=== PATIENT | female | born 1945 | race African-American/Black ===

== ENCOUNTER → 2016-10-27 | Outpatient (CLI) | payer MEDICAID, MEDICARE ==
[~2016-10-27] MED LIST: ASPIR-LOW81 MG PO; ATORVASTATIN CA10 MG ORAL; DEXILANT60 MG ORAL; DILTIAZEM ER420 MG PO; MAXIDE ORAL; METOPROLOL SUCC50 MG ORAL; MICROZIDE12.5 M1 PO; VANCOMYCIN HCL125 MG PO; VASOTEC2.5 MG PO
[2016-10-27 13:32] LABS: BASOPHILS % (AUTO) 1.2 % (0.0-2.0); LYMPHOCYTES % (AUTO) 27.4 % (20.0-45.0); MEAN CORPUSCULAR HGB CONC 32.6 G/DL (32.0-36.0); MEAN CORPUSCULAR VOLUME 101 FL (80-99); MEAN PLATELET VOLUME 6.8 FL (6.5-10.1); MONOCYTES % (AUTO) 8.1 % (1.0-10.0); NEUTROPHILS % (AUTO) 62.4 % (45.0-75.0); PLATELET COUNT 258 K/UL (150-450); RED BLOOD COUNT 4.06 M/UL (4.20-5.40); RED CELL DISTRIBUTION WIDTH 11.2 % (11.6-14.8); WHITE BLOOD COUNT 4.2 K/UL (4.8-10.8)
[2016-10-27 13:48] LABS: HEMOGLOBIN A1C 5.1 % (< 6.0)
[2016-10-27 13:59] LABS: ALANINE AMINOTRANSFERASE 15 U/L (3-33); ALBUMIN/GLOBULIN RATIO 1.3 (1.0-2.7); ANION GAP 15 (5-15); ASPARTATE AMINO TRANSFERASE 18 U/L (5-40); CALCIUM 9.8 mg/dL (8.6-10.2); CARBON DIOXIDE 25 mEQ/L (20-30); CHLORIDE 102 mEQ/L (98-107); CHOLESTEROL 155 mg/dL (< 200); CHOLESTEROL/HDL RATIO 3.3 (3.3-4.4); CREATININE 1.3 mg/dL (0.5-0.9); GLOMERULAR FILTRATION RATE 49.1 mL/min (>60); HEMOLYSIS 3; LDL CHOLESTEROL (CALC.) 92 mg/dL (60-99); POTASSIUM 3.5 mEQ/L (3.4-4.9); SODIUM 142 mEQ/L (135-145); TOTAL PROTEIN 7.6 g/dL (6.6-8.7)
[2016-10-27 14:05] LABS: THYROID STIMULATING HORMONE 0.781 uIU/mL (0.300-4.500)
[2016-10-28 08:10] LABS: RHEUMATOID FACTOR SCREEN <10.0 IU/mL (0.0-13.9)
[2016-10-28 17:10] LABS: ANTI-NUCLEAR ANTIBODY SCREEN Negative (Negative)
[2016-10-29 18:08] LABS: ALDOLASE 5.3 U/L (3.3-10.3)
[2016-10-30 18:09] LABS: CYCLIC CITRULLINATE PEPTIDE AB 10 units (0-19)
== END | disposition home or self-care (01) ==
LOC: LAB 12:29
PROVIDERS: ATTEND Internal Medicine Rheumatology
DX: I10 Essential (primary) hypertension (principal); K57.92 Diverticulitis of intestine, part unspecified, without perforation or abscess without bleeding; M25.50 Pain in unspecified joint
CPT/HCPCS: 36415; 80053; 80061; 82085; 82550; 83036; 84436; 84443; 85025; 86039; 86200; 86431

== ENCOUNTER → 2016-12-15 | Outpatient (CLI) | payer MEDICARE, MEDICAID ==
[2016-12-15 13:04] LABS: BASOPHILS % (AUTO) 1.3 % (0.0-2.0); EOSINOPHILS % (AUTO) 0.5 % (0.0-3.0); LYMPHOCYTES % (AUTO) 24.2 % (20.0-45.0); MEAN CORPUSCULAR HGB CONC 32.8 G/DL (32.0-36.0); MEAN CORPUSCULAR VOLUME 104 FL (80-99); MEAN PLATELET VOLUME 6.7 FL (6.5-10.1); MONOCYTES % (AUTO) 8.1 % (1.0-10.0); NEUTROPHILS % (AUTO) 65.9 % (45.0-75.0); PLATELET COUNT 284 K/UL (150-450); RED BLOOD COUNT 4.09 M/UL (4.20-5.40); RED CELL DISTRIBUTION WIDTH 11.8 % (11.6-14.8)
[2016-12-15 13:38] LABS: ALANINE AMINOTRANSFERASE 13 U/L (3-33); ALBUMIN/GLOBULIN RATIO 1.2 (1.0-2.7); ANION GAP 17 (5-15); ASPARTATE AMINO TRANSFERASE 16 U/L (5-40); CALCIUM 10.4 mg/dL (8.6-10.2); CARBON DIOXIDE 27 mEQ/L (20-30); CHLORIDE 97 mEQ/L (98-107); CREATININE 1.3 mg/dL (0.5-0.9); GLOMERULAR FILTRATION RATE 49.1 mL/min (>60); HEMOLYSIS 2; POTASSIUM 3.6 mEQ/L (3.4-4.9); SODIUM 141 mEQ/L (135-145); TOTAL PROTEIN 8.1 g/dL (6.6-8.7)
[2016-12-15 13:40] LABS: HEMOGLOBIN A1C 4.9 % (< 6.0)
== END | disposition home or self-care (01) ==
LOC: LAB 11:31
PROVIDERS: ATTEND Internal Medicine Rheumatology
DX: J44.9 Chronic obstructive pulmonary disease, unspecified (principal); K21.9 Gastro-esophageal reflux disease without esophagitis; I10 Essential (primary) hypertension; M19.90 Unspecified osteoarthritis, unspecified site
CPT/HCPCS: 36415; 80053; 82085; 82550; 83036; 85025; 86812; 87086; 87181

== ENCOUNTER → 2017-01-03 | Outpatient (CLI) | payer MEDICARE, MEDICAID ==
--- NOTE | 2017-01-03 14:27 | Diagnostic Imaging Report ---
Indications: Abdominal pain and vomiting Technique: Transabdominal real-time grayscale and duplex Doppler imaging of the upper abdomen and retroperitoneum was performed. Findings: Comparison: Abdominopelvic CT scan 04/04/16. Liver normal size and surface contour, parenchymal echogenicity. No focal lesions. Gallbladder unremarkable. No intraluminal stones or sludge. No mural thickening or adjacent fluid collections. Sonographic Marquez sign not reported.. Bile ducts normal caliber. Common bile duct 5 mm. Pancreas head and body unremarkable; tail obscured. Spleen unremarkable. Right kidney unremarkable. Left kidney contains 16 mm circumscribed anechoic masses emanating from upper pole cortex, otherwise unremarkable. Proximal and mid abdominal aorta, intrahepatic portion of inferior vena cava patent, normal caliber. Distal bowel aorta obscured by bowel gas. Duplex Doppler imaging demonstrates antegrade flow in splenic, portal, hepatic veins. No ascites. IMPRESSION: Pancreatic tail, distal bowel aorta obscured Left renal cortical cyst Otherwise negative abdominal ultrasound.
== END | disposition home or self-care (01) ==
LOC: ULS 09:06
DX: R10.9 Unspecified abdominal pain (principal); R11.10 Vomiting, unspecified; N28.1 Cyst of kidney, acquired; I49.9 Cardiac arrhythmia, unspecified
CPT/HCPCS: 76700; 93225; 93226

== ENCOUNTER 2017-03-01 12:54 | Emergency (ER) | payer MEDICARE, MEDICAID ==
[~2017-03-01] VITALS: Ht 162.6 cm; Wt 84.8 kg
[2017-03-01] MEDS ORDERED: Pantoprazole Inj IV ONE (13:30)
[2017-03-01 14:02] LABS: APPEARANCE,URINE CLEAR; KETONES,URINE NEGATIVE (NEGATIVE); LEUKOCYTE ESTERASE ,URINE 1+ (NEGATIVE); NITRITE,URINE NEGATIVE (NEGATIVE); PH,URINE 7 (4.5-8.0); PROTEIN,URINE NEGATIVE (NEGATIVE); UROBILINOGEN,URINE NORMAL MG/DL (0.0-1.0)
[2017-03-01 14:10] LABS: BASOPHILS % (AUTO) 1.4 % (0.0-2.0); EOSINOPHILS % (AUTO) 0.5 % (0.0-3.0); LYMPHOCYTES % (AUTO) 26.5 % (20.0-45.0); MEAN CORPUSCULAR HEMOGLOBIN 33.9 PG (27.0-31.0); MEAN CORPUSCULAR HGB CONC 33.4 G/DL (32.0-36.0); MEAN CORPUSCULAR VOLUME 102 FL (80-99); MEAN PLATELET VOLUME 6.4 FL (6.5-10.1); MONOCYTES % (AUTO) 6.9 % (1.0-10.0); NEUTROPHILS % (AUTO) 64.7 % (45.0-75.0); PLATELET COUNT 267 K/UL (150-450); RED BLOOD COUNT 4.14 M/UL (4.20-5.40); RED CELL DISTRIBUTION WIDTH 11.6 % (11.6-14.8); WHITE BLOOD COUNT 4.8 K/UL (4.8-10.8)
[2017-03-01 14:16] LABS: BACTERIA,URINE OCCASIONAL /HPF; RBC,URINE 0-2 /HPF (0 - 2); SQUAMOUS EPITHELIAL CELL,UR FEW /LPF (NONE/OCC); WBC,URINE 0-2 /HPF (0 - 2)
[2017-03-01 14:36] LABS: ALANINE AMINOTRANSFERASE 20 U/L (3-33); ALBUMIN/GLOBULIN RATIO 1.4 (1.0-2.7); ANION GAP 15 (5-15); ASPARTATE AMINO TRANSFERASE 27 U/L (5-40); CALCIUM 10.3 mg/dL (8.6-10.2); CARBON DIOXIDE 25 mEQ/L (20-30); CHLORIDE 99 mEQ/L (98-107); CREATININE 1.2 mg/dL (0.5-0.9); HEMOLYSIS 5; LIPASE 25 U/L (< 60); POTASSIUM 3.3 mEQ/L (3.4-4.9); SODIUM 139 mEQ/L (135-145); TOTAL PROTEIN 7.5 g/dL (6.6-8.7)
[2017-03-01 14:38] LABS: TROPONIN I < 0.30 ng/mL (<=0.30)
[2017-03-01] MEDS: Morphine Sulfate 4mg/ml Inj IVP ONE ×2 (14:42→17:37)
[2017-03-01] MEDS ORDERED: Sodium Bicarbonate 4% 2.4meq/5ml vial IV ONE (14:45)
[2017-03-01] MEDS ORDERED: Heparin 2000 units/Ns 1000ml INJ ONE (14:45)
[2017-03-01] MEDS ORDERED: Morphine Sulfate 4mg/ml Inj IM ONE (14:45)
[2017-03-01] MEDS ORDERED: Lidocaine 1% Plain 30 ml INJ ONE (14:45)
[2017-03-01 14:47] VITALS: BP 144/61
[2017-03-01 14:47] LABS: CKMB < 1.5 ng/mL (< 3.8)
[2017-03-01 14:58] LABS: BILIRUBIN,DIRECT 0.3 mg/dL (0.1-0.3)
--- NOTE | 2017-03-01 15:24 | Emergency Room Report ---
History of Present Illness General Chief Complaint: Abdominal Pain Source: Patient (EDINSON MATTA M.D.) Present Illness HPI 72-year-old female presents ED for evaluation. Patient was referred here from GI office for workup. Patient has history of ulcerative colitis diverticulitis. Patient states her last week she's been having abdominal pain with vomiting. Notes blood in the stool. The pain is a 10 out of 10, sharp, nonradiating. Denies fevers chills. Denies chest pain shortness of breath. Denies any blood thinners. No other aggravating relieving factors. Denies any other associated symptoms (EDINSON MATTA M.D.) Allergies: Coded Allergies: CODEINE (Verified Adverse Reaction, Mild, 11/02/12) nausea Patient History Past Medical History: DM, HTN, asthma, COPD, other - diverticulitis, ulcerative coliits Past Surgical History: none Pertinent Family History: none Social History: Denies: alcohol use, drug use, smoking Now: No Immunizations: UTD Reviewed Nursing Documentation: PMH: Agreed, PSxH: Agreed (EDINSON MATTA M.D.) Nursing Documentation-PMH Past Medical History: No History, Except For Hx Hypertension: Yes Hx Pacemaker: No Hx Asthma: Yes Hx COPD: Yes Hx Diabetes: Yes - controlled Hx Cancer: No Hx Gastrointestinal Problems: Yes - diverticulitis, ulcerative colitis Hx Dialysis: No Hx Neurological Problems: No Hx Cerebrovascular Accident: No Hx Seizures: Yes - 2 years ago (EDINSON MATTA M.D.) Review of Systems All Other Systems: negative except mentioned in HPI (EDINSON MATTA M.D.) Physical Exam Vital Signs Date Time Temp Pulse Resp B/P Pulse Ox O2 Delivery O2 Flow Rate FiO2 03/01/17 13:06 97.7 83 18 145/82 100 Room Air Sp02 EP Interpretation: reviewed, normal General Appearance: no apparent distress, alert, GCS 15, non-toxic Head: normocephalic, atraumatic Eyes: bilateral eye PERRL, bilateral eye normal inspection ENT: hearing grossly normal, normal pharynx, no angioedema, normal voice Neck: full range of motion, supple/symm/no masses Respiratory: chest non-tender, lungs clear, normal breath sounds, speaking full sentences Cardiovascular #1: regular rate, rhythm, no edema Cardiovascular #2: 2+ carotid (R), 2+ carotid (L), 2+ radial (R), 2+ radial (L) , 2+ dorsalis pedis (R), 2+ dorsalis pedis (L) Gastrointestinal: normal bowel sounds, soft, non-distended, no guarding, no rebound, tenderness Rectal: deferred Genitourinary: normal inspection, no CVA tenderness Musculoskeletal: back normal, gait/station normal, normal range of motion, non- tender Neurologic: alert, oriented x3, responsive, motor strength/tone normal, sensory intact, speech normal Psychiatric: judgement/insight normal, memory normal, mood/affect normal, no suicidal/homicidal ideation Reflexes: 3+ bicep (R), 3+ bicep (L), 3+ tricep (R), 3+ tricep (L), 3+ knee (R) , 3+ knee (L) Skin: normal color, no rash, warm/dry, well hydrated Lymphatic: no adenopathy (EDINSON MATTA M.D.) Medical Decision Making Diagnostic Impression: Primary Impression: Abdominal pain Qualified Codes: R10.84 - Generalized abdominal pain Labs Test 03/01/17 13:30 03/01/17 14:00 Urine Color Yellow Urine Appearance Clear Urine pH 7 (4.5-8.0) Urine Specific Donora 1.005 (1.005-1.035) Urine Protein Negative (NEGATIVE) Urine Glucose (UA) Negative (NEGATIVE) Urine Ketones Negative (NEGATIVE) Urine Occult Blood Negative (NEGATIVE) Urine Nitrite Negative (NEGATIVE) Urine Bilirubin Negative (NEGATIVE) Urine Urobilinogen Normal MG/DL (0.0-1.0) Urine Leukocyte Esterase 1+ (NEGATIVE) Urine RBC 0-2 /HPF (0 - 2) Urine WBC 0-2 /HPF (0 - 2) Urine Squamous Epithelial Cells Few /LPF (NONE/OCC) Urine Bacteria Occasional /HPF (NONE) White Blood Count 4.8 K/UL (4.8-10.8) Red Blood Count 4.14 M/UL (4.20-5.40) Hemoglobin 14.0 G/DL (12.0-16.0) Hematocrit 42.1 % (37.0-47.0) Mean Corpuscular Volume 102 FL (80-99) Mean Corpuscular Hemoglobin 33.9 PG (27.0-31.0) Mean Corpuscular Hemoglobin Concent 33.4 G/DL (32.0-36.0) Red Cell Distribution Width 11.6 % (11.6-14.8) Platelet Count 267 K/UL (150-450) Mean Platelet Volume 6.4 FL (6.5-10.1) Neutrophils (%) (Auto) 64.7 % (45.0-75.0) Lymphocytes (%) (Auto) 26.5 % (20.0-45.0) Monocytes (%) (Auto) 6.9 % (1.0-10.0) Eosinophils (%) (Auto) 0.5 % (0.0-3.0) Basophils (%) (Auto) 1.4 % (0.0-2.0) Prothrombin Time 10.0 SEC (9.30-11.50) Prothromb Time International Ratio 1.0 (0.9-1.1) Activated Partial Thromboplast Time 26 SEC (23-33) Sodium Level 139 mEQ/L (135-145) Potassium Level 3.3 mEQ/L (3.4-4.9) Chloride Level 99 mEQ/L (98-107) Carbon Dioxide Level 25 mEQ/L (20-30) Anion Gap 15 (5-15) Blood Urea Nitrogen 19 mg/dL (7-23) Creatinine 1.2 mg/dL (0.5-0.9) Estimat Glomerular Filtration Rate mL/min (>60) Glucose Level 99 mg/dL (74-106) Calcium Level 10.3 mg/dL (8.6-10.2) Total Bilirubin 1.4 mg/dL (0.0-1.2) Direct Bilirubin 0.3 mg/dL (0.1-0.3) Aspartate Amino Transf (AST/SGOT) 27 U/L (5-40) Alanine Aminotransferase (ALT/SGPT) 20 U/L (3-33) Alkaline Phosphatase 83 U/L (35-104) Creatine Kinase MB < 1.5 ng/mL (< 3.8) Troponin I < 0.30 ng/mL (<=0.30) Total Protein 7.5 g/dL (6.6-8.7) Albumin 4.4 g/dL (3.5-5.2) Globulin 3.1 g/dL Albumin/Globulin Ratio 1.4 (1.0-2.7) Lipase 25 U/L (< 60) (EDINSON MATTA M.D.) ER Course Received signout from Dr Matta to followup CTAP No acute findings on CT I reviewed labs: no leuks. H&H stable. 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 03/01/17 Neomycin Sulfate (Neomycin Sulfate) 500 Mg Tablet 500 MG ORAL BID for 10 Days, #20 TAB Prov: JORGE NGUYEN M.D. 03/01/17 Referrals: GILDARDO PA (PCP) EDINSON MATTA M.D. March 01, 2017 15:24 JORGE NGUYEN M.D. March 01, 2017 17:08
[2017-03-01 16:20] VITALS: BP 158/67
--- NOTE | 2017-03-01 16:23 | Diagnostic Imaging Report ---
Indication: Abdominal pain Technique: Continuous helical transaxial imaging of the abdomen and pelvis was obtained from the lung bases to the pubic symphysis during intravenous contrast administration. Coronal 2-D reformats were also obtained. Study obtained in a Siemens sensation [address] Total Dose length Product (DLP): [address] Dose Index Volume (CTDIvol): 18 mGy Comparison: None Findings: The lung bases are clear. There is a small hiatal hernia. 6 mm central cyst noted in the liver. Gallbladder is grossly unremarkable. Bilateral renal cysts are present. In the midpole the right kidney there is a heterogeneous 1.6 earlier hypodense mass with suggestion of enhancement (image 31, series 3). Followup multiphase CT is recommended to evaluate for renal cell carcinoma. Approximately 1 cm indeterminate hypodensity noted in the lower pole the left kidney (image 37, series 3). Arterial vascular calcifications are present. The pancreas, spleen, both adrenal glands are unremarkable. There is ventral hernia containing fat noted just above the umbilicus. Diverticula are noted within the colon. There is no definite diverticulitis appreciated. Uterus is noted. The appendix is not definite seen but there are no secondary signs of appendicitis. Urinary bladder is unremarkable. There is no free fluid or free air identified. Impression: No acute findings identified. Incidental 1.6 cm mass probably enhancing in the midpole the right kidney. Followup multiphase CT of the kidneys is recommended. Indeterminate 1 cm hypodensity in the lower pole the left kidney. This is probably a cyst but recommend further evaluation. Diverticulosis of the colon. Fatty liver Liver cyst Bilateral renal cysts Small hiatal hernia Small supraumbilical ventral hernia. Atherosclerotic vascular disease The CT scanner at [facility] is accredited by the [employer] and the scans are performed using dose optimization techniques as appropriate to a performed exam including Automatic Exposure control.
--- NOTE | 2017-03-01 16:27 | Diagnostic Imaging Report ---
Indication: intermodal dispatcher venous access Findings: After the indications, procedure, risks, complications, and alternatives of the procedure were explained, written informed consent was obtained. The left upper extremity was prepped with alcohol. All elements of maximal sterile barrier technique were followed including usage of a cap, mask, sterile gown, sterile gloves, hand hygiene and a large sterile sheet. Sonographic evaluation of the upper extremity was performed demonstrating a patent and compressible basilic vein. Access was obtained under real-time ultrasound guidance and digital image was saved and archived. An .018 wire was introduced. Needle exchanged for a 5 [place] peel-away sheath. Measurements were obtained. A 5 [place] dual-lumen Power PICC line catheter was cut to 42 cm and introduced over the wire. Peel-away sheath and wire were removed.Catheter was secured to the skin using 2-0 Prolene suture. Both ports aspirate and flush easily. Fluoroscopic Images show distal tip in the superior vena cava. Total fluoroscopic time 0.2 minutes Impression: Successful placement of an upper extremity PICC line catheter
[2017-03-01] MEDS ORDERED: NEOMYCIN SULFA500 MG ORAL (17:06)
[2017-03-01] MEDS ORDERED: FLAGYL250 MG ORAL (17:06)
[2017-03-01 18:41] VITALS: BP 139/69
== END 2017-03-01 18:43 | disposition home or self-care (01) ==
LOC: EMR 13:51 → EDBEDREQ 16:34 → CANBEDREQ 17:05 → EMR 18:43
DX: R10.9 Unspecified abdominal pain (principal); R11.10 Vomiting, unspecified; I10 Essential (primary) hypertension; J44.9 Chronic obstructive pulmonary disease, unspecified; E11.9 Type 2 diabetes mellitus without complications; Z87.19 Personal history of other diseases of the digestive system; K76.0 Fatty (change of) liver, not elsewhere classified; K57.30 Diverticulosis of large intestine without perforation or abscess without bleeding; K43.9 Ventral hernia without obstruction or gangrene; N28.1 Cyst of kidney, acquired; K44.9 Diaphragmatic hernia without obstruction or gangrene; Z88.6 Allergy status to analgesic agent
CPT/HCPCS: 36415; 36569; 74177; 76937; 80053; 81003; 82248; 82553; 83690; 84484; 85025; 85610; 85730; 86850; 86900; 86901; 96360; 96372; 96374; 96375; 99284; C9113; J1644; J2001; J2270; J7040; Q9967

== ENCOUNTER → 2017-04-24 | Outpatient (CLI) | payer MEDICARE, MEDICAID ==
[~2017-04-24] MED LIST changes: +FLAGYL250 MG ORAL; +NEOMYCIN SULFA500 MG ORAL
--- NOTE | 2017-04-24 14:35 | Diagnostic Imaging Report ---
Indication: Back pain Technique: MRI examination of the Lumbar spine was performed in a 1.5 Sasha magnet. Sequences obtained include sagittal and axial T1 and T2 fast spin echo, and sagittal STIR. No IV gadolinium was given Comparison: none Findings: The conus medullaris tip is noted at about the level of the inferior endplate of the L2 vertebra. The final terminale is prominent and shows fatty signal spanning 4-5 cm consistent with fatty filum terminale. Fatty filum terminale is usually an incidental finding. However, given the low lying conus medullaris tip, one should consider the possibility of tethered cord syndrome. Clinical evaluation is needed. Alignment and bone marrow signal are normal. There is fairly well maintained signal and height of the lumbar vertebra with only minimal narrowing noted. There is no disc herniation or neural impingement. There is no evidence of spinal stenosis, lateral recess stenosis or neural foraminal narrowing. Mild hypertrophy of the lumbar facets demonstrated at multiple levels, worst at L4-5 consistent with facet osteoarthritis. 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 Clinical evaluation is recommended. Mild degenerative changes as discussed above.
--- NOTE | 2017-04-24 16:34 | Diagnostic Imaging Report ---
Indication: Neck pain Technique: MRI examination of the cervical spine was performed in a 1.5 Sasha magnet. Sequences obtained include sagittal and axial T1 and T2 fast spin echo, and sagittal STIR. No IV gadolinium was given Comparison: none Findings: There is no bone marrow edema or evidence of acute injury or fracture. Desiccation and narrowing of multiple intervertebral discs noted. Associated marginal endplate spurs are also present. Foramen magnum is unremarkable. There is no Chiari malformation. C1-2 is unremarkable. C2-3 is unremarkable. There is moderate disc disease with desiccation and narrowing, endplate and uncovertebral spurring at C3-4, C4-5, C5-6 and C6-7. There degrees of foraminal stenosis secondary to uncovertebral arthritis demonstrated. There is no central spinal stenosis. Spinal cord appears normal. C3-4: Mild foraminal stenosis demonstrated bilaterally. C4-5: Mild retrolisthesis demonstrated. Minimal foraminal stenosis demonstrated. C5-6: Moderate left foraminal stenosis and mild right foraminal stenosis. C6-7: Mild left foraminal stenosis demonstrated. C7-T1 is unremarkable. Impression: Degenerative spondylosis with multilevel disc disease, uncovertebral arthritis resulting in neural foraminal stenosis of varying degrees at C3-4 through C6-7 as discussed above. No central spinal stenosis. No evidence of acute injury
== END | disposition home or self-care (01) ==
LOC: MRI 10:01
DX: M54.2 Cervicalgia (principal); M50.322 Other cervical disc degeneration at C5-C6 level; M54.5 Low back pain; G62.9 Polyneuropathy, unspecified
CPT/HCPCS: 72141; 72148

== ENCOUNTER 2017-06-28 11:45 | Outpatient (CLI) | payer MEDICARE, MEDICAID ==
[2017-06-28 13:11] LABS: ALANINE AMINOTRANSFERASE 11 U/L (3-33); ALBUMIN/GLOBULIN RATIO 1.4 (1.0-2.7); ANION GAP 11 (5-15); ASPARTATE AMINO TRANSFERASE 16 U/L (5-40); BASOPHILS % (AUTO) 1.1 % (0.0-2.0); CALCIUM 9.7 mg/dL (8.6-10.2); CARBON DIOXIDE 27 mEQ/L (20-30); CHLORIDE 101 mEQ/L (98-107); CREATININE 1.1 mg/dL (0.5-0.9); EOSINOPHILS % (AUTO) 0.4 % (0.0-3.0); LACTATE DEHYDROGENASE 158 U/L (135-230); LYMPHOCYTES % (AUTO) 23.3 % (20.0-45.0); MEAN CORPUSCULAR HEMOGLOBIN 35.1 PG (27.0-31.0); MEAN CORPUSCULAR HGB CONC 33.7 G/DL (32.0-36.0); MEAN CORPUSCULAR VOLUME 104 FL (80-99); MEAN PLATELET VOLUME 6.4 FL (6.5-10.1); MONOCYTES % (AUTO) 6.2 % (1.0-10.0); PLATELET COUNT 299 K/UL (150-450); POTASSIUM 3.7 mEQ/L (3.4-4.9); RED BLOOD COUNT 3.84 M/UL (4.20-5.40); RED CELL DISTRIBUTION WIDTH 11.3 % (11.6-14.8); SODIUM 139 mEQ/L (135-145); TOTAL PROTEIN 7.1 g/dL (6.6-8.7); WHITE BLOOD COUNT 4.8 K/UL (4.8-10.8)
[2017-06-28 13:24] LABS: FERRITIN 180 ng/mL (13-150)
[2017-06-28 13:38] LABS: HEMOLYSIS 0; IRON 44 ug/dL (37-145); TOTAL IRON BINDING CAPACITY 246 ug/dL (250-400)
[2017-06-28 14:04] LABS: RETICULOCYTE COUNT 1.5 % (0.0-2.0)
[2017-06-29 10:14] LABS: CA 27.29 13.7 U/mL (0.0-38.6)
[2017-06-29 15:12] LABS: A/G RATIO 1.4 (0.7-1.7); ABNORMAL PROTEIN BAND 1 Not Observed g/dL (Not Observed); ALBUMIN 4.2 g/dL (2.9-4.4); ALPHA-1 GLOBULIN 0.2 g/dL (0.0-0.4); ALPHA-2 GLOBULIN 0.5 g/dL (0.4-1.0); BETA GLOBULIN 0.8 g/dL (0.7-1.3); GAMMA GLOBULIN 1.3 g/dL (0.4-1.8); GLOBULIN, TOTAL 2.9 g/dL (2.2-3.9); IMMUNOGLOBULIN A 208 mg/dL (64-422); IMMUNOGLOBULIN G 1228 mg/dL (700-1600); IMMUNOGLOBULIN M 65 mg/dL (26-217); TOTAL PROTEIN 7.1 g/dL (6.0-8.5)
[2017-07-03 15:09] LABS: CA 125 7.1 U/mL (0.0-38.1); CA15-3 11.9 U/mL (0.0-25.0); HEMOGLOBIN A 97.6 % (94.0-98.0); HEMOGLOBIN A2 2.4 % (0.7-3.1); IMMUNOGLOBULIN E 18 IU/mL (0-100)
== END 2017-06-28 13:45 | disposition home or self-care (01) ==
LOC: LAB 11:45
DX: G62.9 Polyneuropathy, unspecified (principal)
CPT/HCPCS: 36415; 80053; 82232; 82378; 82607; 82728; 82746; 82784; 82785; 83010; 83020; 83540; 83550; 83615; 84165; 84436; 84443; 84480; 85025; 85044; 86300; 86301; 86304; 86334; 86703; 86705; 86709; 86803; 87340

== ENCOUNTER → 2017-06-30 | Outpatient (CLI) | payer MEDICARE, MEDICAID ==
[2017-06-30 12:27] LABS: BASOPHILS % (AUTO) 1.8 % (0.0-2.0); EOSINOPHILS % (AUTO) 0.6 % (0.0-3.0); LYMPHOCYTES % (AUTO) 28.7 % (20.0-45.0); MEAN CORPUSCULAR HEMOGLOBIN 35.5 PG (27.0-31.0); MEAN CORPUSCULAR HGB CONC 33.7 G/DL (32.0-36.0); MEAN CORPUSCULAR VOLUME 105 FL (80-99); MEAN PLATELET VOLUME 6.4 FL (6.5-10.1); MONOCYTES % (AUTO) 8.4 % (1.0-10.0); NEUTROPHILS % (AUTO) 60.6 % (45.0-75.0); PLATELET COUNT 303 K/UL (150-450); RED BLOOD COUNT 3.75 M/UL (4.20-5.40); RED CELL DISTRIBUTION WIDTH 11.2 % (11.6-14.8); WHITE BLOOD COUNT 4.1 K/UL (4.8-10.8)
[2017-06-30 13:15] LABS: ALANINE AMINOTRANSFERASE 11 U/L (3-33); ALBUMIN/GLOBULIN RATIO 1.3 (1.0-2.7); ANION GAP 14 (5-15); ASPARTATE AMINO TRANSFERASE 17 U/L (5-40); CARBON DIOXIDE 28 mEQ/L (20-30); CHLORIDE 100 mEQ/L (98-107); CREATININE 1.2 mg/dL (0.5-0.9); HEMOLYSIS 6; POTASSIUM 3.6 mEQ/L (3.4-4.9); SODIUM 142 mEQ/L (135-145); TOTAL PROTEIN 7.6 g/dL (6.6-8.7)
[2017-06-30 13:25] LABS: THYROID STIMULATING HORMONE 0.673 uIU/mL (0.300-4.500)
[2017-07-03 15:09] LABS: ANTI-NUCLEAR ANTIBODY SCREEN Negative (Negative)
[2017-07-03 17:10] LABS: VITAMIN D 25-OH TOTAL 25 ng/mL (.)
== END | disposition home or self-care (01) ==
LOC: LAB 11:24
DX: G62.9 Polyneuropathy, unspecified (principal)
CPT/HCPCS: 36415; 80053; 82306; 82607; 84443; 85025; 86039; 86592

== ENCOUNTER 2017-07-26 12:00 | Outpatient (CLI) | payer MEDICARE, MEDICAID ==
[2017-07-26 12:41] LABS: MEAN CORPUSCULAR HEMOGLOBIN 35.7 PG (27.0-31.0); MEAN CORPUSCULAR HGB CONC 33.1 G/DL (32.0-36.0); MEAN CORPUSCULAR VOLUME 108 FL (80-99); MEAN PLATELET VOLUME 6.3 FL (6.5-10.1); PLATELET COUNT 235 K/UL (150-450); RED BLOOD COUNT 3.42 M/UL (4.20-5.40); RED CELL DISTRIBUTION WIDTH 11.7 % (11.6-14.8); WHITE BLOOD COUNT 3.3 K/UL (4.8-10.8)
[2017-07-26 12:49] LABS: INR 0.9 (0.9-1.1); PROTHROMBIN TIME 9.4 SEC (9.30-11.50)
[2017-07-26 13:09] LABS: ALANINE AMINOTRANSFERASE 22 U/L (12-78); ANION GAP 7 mmol/L (5-15); ASPARTATE AMINO TRANSFERASE 17 U/L (15-37); BILIRUBIN,DIRECT 0.1 MG/DL (0.0-0.3); CALCIUM 9.3 MG/DL (8.5-10.1); CARBON DIOXIDE 29 MMOL/L (21-32); CHLORIDE 107 MMOL/L (98-107); CREATININE 1.4 MG/DL (0.55-1.30); SODIUM 143 MMOL/L (136-145); THYROID STIMULATING HORMONE 1.194 uiU/mL (0.360-3.740); TOTAL PROTEIN 7.2 G/DL (6.4-8.2)
[2017-07-26 14:13] LABS: BAND NEUTROPHILS % (MANUAL) 0 % (0-8); BASOPHILS % (MANUAL) 1 % (0-2); EOSINOPHILS % (MANUAL) 2 % (0-3); LYMPHOCYTES % (MANUAL) 35 % (20-45); MACROCYTES 1+; NEUTROPHILS % (MANUAL) 56 % (45-75); PLATELET ESTIMATE ADEQUATE; PLATELET MORPHOLOGY NORMAL; TOTAL CELLS COUNTED 100
[2017-07-27 09:23] LABS: CA 27.29 15.6 U/mL (0.0-38.6)
[2017-07-28 08:36] LABS: CA 125 5.9 U/mL (0.0-38.1); CA15-3 11.8 U/mL (0.0-25.0)
== END 2017-07-26 14:00 | disposition home or self-care (01) ==
LOC: LLL 12:00 → LAB 12:00 → LLL 14:00
DX: G62.9 Polyneuropathy, unspecified (principal)
CPT/HCPCS: 36415; 80048; 80076; 82784; 84436; 84443; 85007; 85025; 85610; 85730; 86300; 86301; 86304

== ENCOUNTER 2017-08-30 14:33 | Outpatient (CLI) | payer MEDICARE, MEDICAID ==
[2017-08-30 15:51] LABS: ALANINE AMINOTRANSFERASE 23 U/L (12-78); ANION GAP 11 mmol/L (5-15); ASPARTATE AMINO TRANSFERASE 19 U/L (15-37); BILIRUBIN,DIRECT 0.2 MG/DL (0.0-0.3); CALCIUM 9.9 MG/DL (8.5-10.1); CARBON DIOXIDE 28 MMOL/L (21-32); CHLORIDE 103 MMOL/L (98-107); CREATININE 1.6 MG/DL (0.55-1.30); FERRITIN 139 NG/ML (8-388); POTASSIUM 3.6 MMOL/L (3.5-5.1); SODIUM 142 MMOL/L (136-145); TOTAL PROTEIN 8.6 G/DL (6.4-8.2)
[2017-08-30 16:05] LABS: FOLIC ACID 19.1 NG/ML (3.1-17.5); IRON 71 ug/dL (50-175); TOTAL IRON BINDING CAPACITY 344 ug/dL (250-450)
== END 2017-08-30 16:33 | disposition home or self-care (01) ==
LOC: LAB 14:33
DX: I10 Essential (primary) hypertension (principal); D64.9 Anemia, unspecified; E55.9 Vitamin D deficiency, unspecified; Z79.899 Other long term (current) drug therapy
CPT/HCPCS: 36415; 80048; 80076; 82607; 82728; 82746; 83540; 83550

== ENCOUNTER 2017-10-03 11:59 | Outpatient (CLI) | payer MEDICARE, MEDICAID ==
[2017-10-03 12:49] LABS: MEAN CORPUSCULAR HEMOGLOBIN 32.9 PG (27.0-31.0); MEAN CORPUSCULAR HGB CONC 32.3 G/DL (32.0-36.0); MEAN CORPUSCULAR VOLUME 102 FL (80-99); MEAN PLATELET VOLUME 6.8 FL (6.5-10.1); PLATELET COUNT 284 K/UL (150-450); RED BLOOD COUNT 4.02 M/UL (4.20-5.40); RED CELL DISTRIBUTION WIDTH 10.9 % (11.6-14.8); WHITE BLOOD COUNT 3.4 K/UL (4.8-10.8)
[2017-10-03 13:06] LABS: INR 0.9 (0.9-1.1); PROTHROMBIN TIME 9.6 SEC (9.30-11.50)
[2017-10-03 13:21] LABS: BAND NEUTROPHILS % (MANUAL) 0 % (0-8); BASOPHILS % (MANUAL) 0 % (0-2); EOSINOPHILS % (MANUAL) 0 % (0-3); LYMPHOCYTES % (MANUAL) 37 % (20-45); MACROCYTES 1+; NEUTROPHILS % (MANUAL) 58 % (45-75); PLATELET ESTIMATE ADEQUATE; PLATELET MORPHOLOGY NORMAL; TOTAL CELLS COUNTED 100
[2017-10-03 13:24] LABS: ALANINE AMINOTRANSFERASE 19 U/L (12-78); ANION GAP 7 mmol/L (5-15); ASPARTATE AMINO TRANSFERASE 16 U/L (15-37); BILIRUBIN,DIRECT 0.2 MG/DL (0.0-0.3); CALCIUM 8.6 MG/DL (8.5-10.1); CARBON DIOXIDE 30 MMOL/L (21-32); CHLORIDE 103 MMOL/L (98-107); CREATININE 1.2 MG/DL (0.55-1.30); FERRITIN 120 NG/ML (8-388); POTASSIUM 3.9 MMOL/L (3.5-5.1); SODIUM 140 MMOL/L (136-145)
[2017-10-03 13:51] LABS: FOLIC ACID 14.3 NG/ML (8.6-58.9); IRON 95 ug/dL (50-175); TOTAL IRON BINDING CAPACITY 317 ug/dL (250-450)
[2017-10-04 09:14] LABS: CA 125 5.2 U/mL (0.0-38.1)
== END 2017-10-03 13:59 | disposition home or self-care (01) ==
LOC: LAB 11:59
DX: C64.9 Malignant neoplasm of unspecified kidney, except renal pelvis (principal)
CPT/HCPCS: 36415; 80048; 80076; 82378; 82607; 82728; 82746; 83540; 83550; 85007; 85025; 85610; 85730; 86304; 86850; 86900; 86901

== ENCOUNTER 2017-10-11 15:28 | Outpatient (CLI) | payer MEDICARE, MEDICAID ==
[~2017-10-11] VITALS: Ht 30.5 cm; Wt 0.5 kg
--- NOTE | 2017-10-11 16:27 | Diagnostic Imaging Report ---
Indication: Cough Technique: 2 views of the chest Comparison: One view chest 12/17/2014. Findings: Lungs and pleural spaces are clear. Heart size is normal. Bones are unremarkable.. Impression: No acute process
[2017-10-11 17:09] LABS: BASOPHILS % (AUTO) 1.5 % (0.0-2.0); EOSINOPHILS % (AUTO) 0.6 % (0.0-3.0); HEMATOCRIT 44.4 % (37.0-47.0); HEMOGLOBIN 13.7 G/DL (12.0-16.0); LYMPHOCYTES % (AUTO) 26.8 % (20.0-45.0); MEAN CORPUSCULAR VOLUME 104 FL (80-99); MONOCYTES % (AUTO) 6.2 % (1.0-10.0); NEUTROPHILS % (AUTO) 64.9 % (45.0-75.0); PLATELET COUNT 265 K/UL (150-450); RED BLOOD COUNT 4.29 M/UL (4.20-5.40); RED CELL DISTRIBUTION WIDTH 11.3 % (11.6-14.8); WHITE BLOOD COUNT 5.2 K/UL (4.8-10.8)
[2017-10-11 17:33] LABS: ANION GAP 7 mmol/L (5-15); BLOOD UREA NITROGEN 24 mg/dL (7-18); CALCIUM 8.7 MG/DL (8.5-10.1); CARBON DIOXIDE 29 MMOL/L (21-32); CHLORIDE 108 MMOL/L (98-107); CREATININE 1.1 MG/DL (0.55-1.30); POTASSIUM 3.6 MMOL/L (3.5-5.1); SODIUM 144 MMOL/L (136-145)
[2017-10-11 17:50] LABS: APPEARANCE,URINE CLEAR; BILIRUBIN, URINE NEGATIVE (NEGATIVE); COLOR,URINE YELLOW; GLUCOSE, URINE (UA) NEGATIVE (NEGATIVE); KETONES,URINE NEGATIVE (NEGATIVE); LEUKOCYTE ESTERASE ,URINE 1+ (NEGATIVE); NITRITE,URINE NEGATIVE (NEGATIVE); PH,URINE 6 (4.5-8.0); PROTEIN,URINE NEGATIVE (NEGATIVE); UROBILINOGEN,URINE 1 MG/DL (0.0-1.0)
[2017-10-11 17:58] LABS: INR 0.9 (0.9-1.1)
[2017-10-19] MEDS ORDERED: ceFAZolin sod 1 GM in NS 55 ML IVPB PRN (06:00)
--- NOTE | 2017-10-21 16:19 | Cardiology Report ---
APPROVED REPORT EKG Measurement Heart [id number] OR [id number] Normal sinus rhythm T wave abnormality, consider inferior ischemia T wave abnormality, consider anterolateral ischemia Abnormal ECG
== END 2017-10-11 17:28 | disposition home or self-care (01) ==
LOC: LAB 15:28 → EDSTATUS 10-19 07:00
DX: I49.9 Cardiac arrhythmia, unspecified (principal); J44.9 Chronic obstructive pulmonary disease, unspecified; I10 Essential (primary) hypertension
CPT/HCPCS: 36415; 71046; 80048; 81001; 85025; 85610; 85730; 93005

== ENCOUNTER 2017-12-06 07:30 | Inpatient (IN) | payer MEDICARE, MEDICAID ==
[2017-11-21 14:16] LABS: BASOPHILS % (AUTO) 1.2 % (0.0-2.0); EOSINOPHILS % (AUTO) 1.6 % (0.0-3.0); HEMATOCRIT 43.9 % (37.0-47.0); HEMOGLOBIN 14.8 G/DL (12.0-16.0); LYMPHOCYTES % (AUTO) 26.8 % (20.0-45.0); MEAN CORPUSCULAR VOLUME 100 FL (80-99); MONOCYTES % (AUTO) 6.2 % (1.0-10.0); NEUTROPHILS % (AUTO) 64.2 % (45.0-75.0); PLATELET COUNT 269 K/UL (150-450); RED BLOOD COUNT 4.37 M/UL (4.20-5.40); RED CELL DISTRIBUTION WIDTH 10.8 % (11.6-14.8); WHITE BLOOD COUNT 5.8 K/UL (4.8-10.8)
[2017-11-21 14:24] LABS: ANION GAP 9 mmol/L (5-15); BLOOD UREA NITROGEN 25 mg/dL (7-18); CARBON DIOXIDE 27 MMOL/L (21-32); CHLORIDE 104 MMOL/L (98-107); CREATININE 1.2 MG/DL (0.55-1.30); POTASSIUM 3.2 MMOL/L (3.5-5.1); SODIUM 140 MMOL/L (136-145)
[2017-11-21 14:30] LABS: INR 0.9 (0.9-1.1)
--- NOTE | 2017-11-23 10:43 | Cardiology Report ---
APPROVED REPORT EKG Measurement Heart [id number] [place] [id number] Normal sinus rhythm Left axis deviation Nonspecific T wave abnormality Abnormal ECG
--- NOTE | 2017-11-29 15:14 | Diagnostic Imaging Report ---
Indication: Cough, preop Technique: XRAY Chest 2v Comparison: 10/11/2017 Findings: Heart size and mediastinal contours are within normal limits and stable compared to the prior exam. There is no focal airspace consolidation, pleural effusion or pneumothorax. No acute osseous abnormality is seen. Impression: No radiographic evidence of acute cardiopulmonary disease.
[~2017-12-06] VITALS: Ht 162.6 cm; Wt 83.9 kg
--- NOTE | 2018-01-04 15:19 | Diagnostic Imaging Report ---
Indication: Cough Technique: 2 views of the chest Comparison: 11/21/2017 Findings: Lungs and pleural spaces are clear. The heart size is upper limits normal. The bones are unremarkable. No significant interim change. Impression: Negative
[2018-01-10] VITALS (14 sets, daily range): BP systolic 119–156; BP diastolic 56–78
[2018-01-10] MEDS ORDERED: ASPIR 8181 MG ORAL (06:51)
[2018-01-10] MEDS ORDERED: CYMBALTA30 MG ORAL (06:58)
[2018-01-10] MEDS ORDERED: CRESTOR20 MG ORAL (06:58)
[2018-01-10] MEDS ORDERED: TOVIAZ4 MG PO (06:58)
[2018-01-10] MEDS ORDERED: DIAZEPAM5 MG ORAL (06:58)
[2018-01-10] MEDS ORDERED: DYMISTA NASAL S23 GM NS (06:58)
[2018-01-10] MEDS ORDERED: CYCLOBENZAPRINE10 MG ORAL (06:58)
[2018-01-10] MEDS ORDERED: BREO ELLIPTA 11 EACH IH (06:58)
[2018-01-10] MEDS ORDERED: TRIAMTERENE-HC1 EAC7 ORAL (06:58)
[2018-01-10] MEDS ORDERED: HYDRALAZINE HCL25 M1 ORAL (06:58)
[2018-01-10] MEDS ORDERED: PROAIR HFA8.5 GM INH (06:58)
[2018-01-10] MEDS ORDERED: DOCUSATE SODIU100 MG ORAL (06:58)
[2018-01-10] MEDS ORDERED: ceFAZolin sod 1 GM in D5W 55 ML IVPB ONE (07:00)
[2018-01-10] MEDS ORDERED: Bupivacaine 0.5% Inj 30 ml vial INJ ONE (07:19)
[2018-01-10] MEDS ORDERED: Surgicel 4in x 8in TOPIC ONE ×3 (07:20→11:01)
--- NOTE | 2018-01-10 07:29 | Pre-Procedure Note/Attestation ---
Pre-Procedure Note/Attestation Complete Prior to Procedure Planned Procedure: right Procedure Narrative: laparoscopic vs. open right partial nephrectomy, possible radical nephrectomy Indications for Procedure Pre-Operative Diagnosis: right renal mass Attestation I attest that I discussed the nature of the procedure; its benefits; risks and complications; and alternatives (and the risks and benefits of such alternatives ), prior to the procedure, with the patient (or the patient's legal patient support representative). I attest that, if there was a reasonable possibility of needing a blood transfusion, the patient (or the patient's legal patient support representative) was given the [facility] standardized written summary, pursuant to the Brandon Rox Blood Safety Act ([place] Health and Safety Code # 1645, as amended). I attest that I re-evaluated the patient just prior to the surgery and that there has been no change in the patient's H&P, except as documented below: GARETT MAGALLON Jan 10, 2018 07:29
[2018-01-10] MEDS ORDERED: LR 1000ml ONE (07:30)
[2018-01-10] MEDS ORDERED: Morphine Sulfate 10mg/ml Inj ONE (07:30)
[2018-01-10] MEDS ORDERED: Sterile Water Irrig 1000ml IRRIG ONE (07:30)
[2018-01-10] MEDS ORDERED: Midazolam 2mg/2ml Inj ONE (07:30)
[2018-01-10] MEDS ORDERED: Propofol 200mg/20ml IV ONE (07:30)
[2018-01-10] MEDS ORDERED: Zemuron 50mg/5ml Inj IV ONE (07:30)
[2018-01-10] MEDS ORDERED: Ketorolac 30mg Inj ONE (07:30)
[2018-01-10] MEDS ORDERED: fentaNYL 100 mcg/2 mL IV ONE (07:30)
[2018-01-10] MEDS ORDERED: NS Irrig 1000ml ONE (07:30)
--- NOTE | 2018-01-10 07:32 | Urology Progress Note ---
Assessment/Plan Assessment/Plan right renal mass LUTS/DI hx films reviewed d/w pt fully risks, etc pt agreeable to blood transfusion if needed plan partial nephrectomy, but pt understands radical nephrectomy may be necessary Subjective Allergies: Coded Allergies: TRAMADOL (Verified Allergy, Intermediate, 01/10/18) TREMORS AND VOMITING CODEINE (Verified Adverse Reaction, Mild, 11/02/12) nausea Subjective for surg today Objective Last 24 Hour Vital Signs Date Time Temp Pulse Resp B/P (MAP) Pulse Ox O2 Delivery O2 Flow Rate FiO2 01/10/18 07:17 97.3 80 20 137/56 99 Room Air 97.3 Height (Feet): 5 Height (Inches): 4.00 Weight (Pounds): 185 Objective exam stable preop labs and imaging noted GARETT MAGALLON Jan 10, 2018 07:32
[2018-01-10] MEDS ORDERED: Lidocaine 1% MPF 10mg/ml 5ml ONE (07:59)
[2018-01-10] MEDS ORDERED: LR 1000ml 1,000 ML IVLG SCH (09:19)
--- NOTE | 2018-01-10 09:19 | Anethesia Preoperative Eval ---
Anesthesia Pre-op PMH/ROS General Date of Evaluation: Jan 10, 2018 Time of Evaluation: 07:20 Anesthesiologist: Tammy ASA Score: ASA 3 Mallampati Score Class I : Soft palate, uvula, fauces, pillars visible Class II: Soft palate, uvula, fauces visible Class III: Soft palate, base of uvula visible Class IV: Only hard plate visible Mallampati Classification: Class II Surgeon: Panchito Diagnosis: R renal mass Surgical Procedure: R laparoscopic nephrerctomy Anesthesia History: none Social History: smoking - h/o Family History: no anesthesia problems Allergies: Coded Allergies: TRAMADOL (Verified Allergy, Intermediate, 01/10/18) TREMORS AND VOMITING CODEINE (Verified Adverse Reaction, Mild, 11/02/12) nausea Past Medical History Cardiovascular: Reports: HTN; Denies: CAD, [place], valve dz, arrhythmia, other Pulmonary: Reports: COPD; Denies: asthma, OZZIE, other Gastrointestinal/Genitourinary: Reports: GERD, CRI; Denies: ESRD, other Neurologic/Psychiatric: Reports: depression/anxiety; Denies: dementia, CVA, TIA, other Endocrine: Denies: DM, hypothyroidism, steroids, other HEENT: Denies: cataract (L), cataract (R), glaucoma, KARUK (L), KARUK (R), other Hematology/Immune: Denies: anemia, DVT, bleeding disorder, other Musculoskeletal/Integumentary: Reports: DJD; Denies: OA, RA, DDD, edema, other Other: obesity PMH Narrative: as above PSxH Narrative: ovarian cyst removal Anesthesia Pre-op Phys. Exam Physician Exam Last Vital Signs Date Time Temp Pulse Resp B/P (MAP) Pulse Ox O2 Delivery O2 Flow Rate FiO2 01/10/18 07:17 97.3 80 20 137/56 99 Room Air 97.3 Constitutional: NAD Neurologic: CN 2-12 intact Cardiovascular: RRR, no M/R/G Respiratory: CTA Gastrointestinal: other - obesity Airway Exam Mallampati Score: Class II MO: limited Neck: short ROM: limited Teeth: missing Dentures: no upper, no lower Anesthesia Pre-op A/P Labs see chart Studies Pre-op Studies: EKG - NSR Risk Assessment & Plan Assessment: ASA 3 Plan: GA with ETT Status Change Before Surgery: No Pre-Antibiotics Drug: Anef 1gr. Given Within 1 Hr of Incision: Yes Time Given: 08:50 ESA BAKER M.D. Jan 10, 2018 09:19
[2018-01-10] MEDS ORDERED: DiphenhydrAMINE 50mg/ml Inj IVP PRN (09:30)
[2018-01-10] MEDS ORDERED: Midazolam 2mg/2ml Inj IVP PRN (09:30)
--- NOTE | 2018-01-10 09:44 | Brief Operative Note ---
Immediate Post Operative Note Operative Note Pre-op Diagnosis: right renal mass Procedure: lysis of adhesions, lap hand assisted, right partial nephrectomy Post-op Diagnosis: same as pre-op Surgeon: yvette dyson Anesthesiologist: matilda Anesthesia: general Specimen: yes - right renal mass Complications: none Condition: stable Fluids: NS Estimated Blood Loss: minimal Implant(s) used?: No GARETT DYSON Jan 10, 2018 09:44
[2018-01-10] MEDS: Hydromorphone 0.5mg/0.5ml inj IVP PRN ×5 (10:11→22:20)
--- NOTE | 2018-01-10 11:13 | Immediate Post-Op Evaluation ---
Immediate Post-Op Evalulation Immediate Post-Op Evalulation Procedure: Laparoscopic handassisted R nephrectomy Date of Evaluation: Jan 10, 2018 Time of Evaluation: 09:58 IV Fluids: 1200 Blood Products: none Estimated Blood Loss: 50 Urinary Output: 150 Blood Pressure Systolic: 116 Blood Pressure Diastolic: 72 Pulse Rate: 86 Respiratory Rate: 20 O2 Sat by Pulse Oximetry: 99 Temperature (Fahrenheit): 97.4 Pain Score (1-10): 2 Nausea: No Vomiting: No Complications none Patient Status: reacts, patent, extubated, none Hydration Status: adequate ESA BAKER M.D. Jan 10, 2018 11:13
[2018-01-10] MEDS ORDERED: Albuterol 90mcg Inhaler 8gm INH PRN (13:45)
[2018-01-10] MEDS: LR 1000ml 1,000 ML IV SCH ×2 (13:46→20:06)
--- NOTE | 2018-01-10 16:16 | Cardiac Electrophysiology PN ---
Subjective Subjective [id number] Objective Last 24 Hour Vital Signs Date Time Temp Pulse Resp B/P (MAP) Pulse Ox O2 Delivery O2 Flow Rate FiO2 01/10/18 14:06 96.6 01/10/18 13:36 96.6 01/10/18 12:00 98 Nasal Cannula 3.0 01/10/18 12:00 96.6 62 20 148/78 98 96.6 01/10/18 12:00 97.3 51 18 135/75 98 Nasal Cannula 3.0 97.3 01/10/18 11:45 52 17 138/78 97 Nasal Cannula 3.0 01/10/18 11:30 58 14 133/73 95 Nasal Cannula 3.0 01/10/18 11:15 54 17 145/75 96 Nasal Cannula 3.0 01/10/18 11:13 207.3 86 20 99 01/10/18 11:00 56 20 136/76 98 Nasal Cannula 3.0 01/10/18 10:45 60 17 140/72 98 Nasal Cannula 3.0 01/10/18 10:41 97.3 01/10/18 10:35 97.3 01/10/18 10:30 97.3 68 18 127/67 100 Nasal Cannula 3.0 97.3 01/10/18 10:20 66 20 128/68 100 Nasal Cannula 3.0 01/10/18 10:11 97.5 01/10/18 10:10 73 15 125/65 100 Simple Mask 6.0 01/10/18 10:00 67 18 129/64 100 Simple Mask 6.0 01/10/18 09:54 97.8 73 20 119/69 100 Simple Mask 6.0 97.8 01/10/18 07:17 97.3 80 20 137/56 99 Room Air 97.3 Intake and Output 01/09/18 01/10/18 19:00 07:00 # Voids 1 Saad Gunderson MD Jan 10, 2018 16:16
[2018-01-10] MEDS: ceFAZolin sod 1 GM in D5W 110 ML IVPB SCH ×2 (16:17→22:56)
[2018-01-10] MEDS: Flonase Nasal Inhaler 16gm NASAL SCH (18:25)
[2018-01-10] MEDS: HydrALAZINE 25mg tab ORAL SCH (18:25)
[2018-01-10] MEDS: Docusate 100mg cap ORAL SCH (18:25)
[2018-01-10] MEDS: Atorvastatin 20mg tab ORAL SCH (20:06)
--- NOTE | 2018-01-10 23:30 | Consultation ---
DATE OF CONSULTATION: 01/10/2018 CARDIOLOGY CONSULTATION CONSULTING PHYSICIAN: Saad Gunderson M.D. REFERRING PHYSICIAN: Wang Flanagan M.D. REASON FOR CONSULTATION: Postoperative management in a patient with history of hypertension and kidney surgery. 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 I saw the patient in preoperative clearance in 01/09/2018. The patient was admitted and underwent kidney surgery with lysis of adhesions and right partial nephrectomy by Dr. Flanagan today. Cardiology consultation was requested for further followup and management. It is of note, that the patient had a nuclear stress test on 09/29/2017 at [facility], which showed no evidence of ischemia. REVIEW OF SYSTEMS: Review of systems was performed and was negative other than what was mentioned in the history of present illness. PAST MEDICAL HISTORY: 1. Hypertension. 2. Hyperlipidemia. 3. History of right kidney mass. FAMILY HISTORY: Noncontributory. SOCIAL HISTORY: She lives at home. Does not smoke or drink alcohol. MEDICATIONS: 1. Triamterene-hydrochlorothiazide 37.5/25 mg daily. 2. Aspirin 81 mg daily. 3. Crestor 20 mg daily. 4. 40 mg daily. PHYSICAL EXAMINATION: VITAL SIGNS: Blood pressure of 135/75, pulse 62, respirations 18, and she is afebrile. HEAD AND NECK: Showed no JVD. LUNGS: Clear. CARDIOVASCULAR: Shows regular S1 and S2 with no gallop or murmur. ABDOMEN: Soft and status post laparoscopy kidney surgery. EXTREMITIES: No pitting edema. LABORATORY AND DIAGNOSTIC DATA: Labs show white count of 5.8, hemoglobin of 14.9, hematocrit 44, and platelets 269. Sodium 140, potassium 3.2, BUN of 25, creatinine 1.2. INR is 0.9. ASSESSMENT AND PLAN: 1. Hypertension. Continue triamterene-hydrochlorothiazide as well as 40 mg daily. 2. Hyperlipidemia. Resume Crestor 20 mg daily. 3. Right kidney 13 x 15 x 16 cm mass. The patient underwent partial nephrectomy by Dr. Flanagan. We will continue to follow the patient clinically. Thank you very much, Dr. Falnagan, for allowing me to participate in the care of this patient. Please do not hesitate to contact me for any questions regarding my evaluation. Saad Gunderson M.D. DR: Jaylon JOB#: [id number] CC:
[2018-01-11] VITALS: BP 104/71
--- NOTE | 2018-01-11 01:45 | Operative Note - Dictated ---
DATE OF OPERATION: 01/10/2018 PREOPERATIVE DIAGNOSIS: A 1.5 cm right solid renal mass. POSTOPERATIVE DIAGNOSIS: A 1.5 cm right solid renal mass. PROCEDURE PERFORMED: Laparoscopic hand assisted right partial nephrectomy with lysis of adhesions. OPERATING SURGEON: Wang Flanagan M.D. CO-SURGEON: Tyrell Campbell M.D. ANESTHESIOLOGIST: Chad Munoz M.D. ANESTHESIA: General. INDICATION FOR PROCEDURE: This is a pleasant 72-year-old female. She has a history of 1.5 cm solid right renal mass that was identified on a CT scan last year. This was worrisome for renal cell carcinoma. The patient was evaluated and I had a long discussion with her. Multiple options were discussed with her including surveillance versus surgical excision versus CT-guided cryoablation or radiofrequency ablation. Pros and cons of each were discussed, and the patient wanted to have surgical excision and as such, she was scheduled for the above procedure. Possible risks and complications of bleeding, infection, anesthesia, damage to the kidney, damage to internal organs, and possible need for radical nephrectomy, etc., were discussed with the patient. I did tell her that she may need blood transfusion, which she accepted. All her questions were answered. No guarantees were given or implied. The patient has had medical clearance for the surgery. FINDINGS: The patient had a solid renal mass in the right kidney. This was exophytic in the mid portion of the kidney that was excised with good margins. PROCEDURE IN DETAIL: Informed consent was obtained from the patient. The patient was brought to the operating room and laid in supine position. After successful general anesthesia was induced, the patient was then placed in a decubitus position with her right flank exposed. The flank and abdomen were then prepped and draped in the usual sterile fashion. Preoperative IV antibiotics were administered. Time-out was performed. A small transverse incision was made in the right lower quadrant area similar to McBurney's incision. Fascia was opened, the muscle was split, and the peritoneum was entered and a hand port was placed. Two 12 mm trocars were placed as well as a smaller 5 mm trocar. The abdominal cavity was insufflated with CO2. At this point, from my part, she had adhesions in the abdominal cavity, which were taken down and lysed using Endoshears until we were able to identify the kidney for the excision of the mass. Refer to Dr. Campbell's operative report. Basically the mass was excised from the kidney using cautery. Good margins were obtained. Good hemostasis was obtained using FloSeal as well as Surgicel. There was minimal bleeding, and at the end of the procedure, the gas was released. No bleeding was noted. Trocars were removed. The lower abdominal incision fascia was closed with running 0 Vicryl stitch, subcutaneous tissue was closed with 2-0 Vicryl, we irrigated, and the skin was closed with isaura. The patient was awakened and was taken recovery room in stable condition. Blood loss was minimal. No complications. Wang Flanagan M.D. DR: Vu JOB#: [id number] CC: Bunny Chapa M.D.; Fax#: [phone] NEDA LEIGH M.D. ; FAX#: [phone] GILDARDO PA M.D.; FAX#: [phone]
[2018-01-11] MEDS: Hydromorphone 0.5mg/0.5ml inj IVP PRN ×4 (02:55→13:02)
[2018-01-11 04:00] VITALS: BP 121/69
[2018-01-11] MEDS: ceFAZolin sod 1 GM in D5W 110 ML IVPB SCH ×2 (05:52→17:36)
[2018-01-11] MEDS: LR 1000ml 1,000 ML IV SCH ×3 (05:53→17:38)
[2018-01-11 07:20] LABS: BASOPHILS % (AUTO) 0.9 % (0.0-2.0); EOSINOPHILS % (AUTO) 1.2 % (0.0-3.0); HEMATOCRIT 36.3 % (37.0-47.0); HEMOGLOBIN 11.9 G/DL (12.0-16.0); LYMPHOCYTES % (AUTO) 16.7 % (20.0-45.0); MEAN CORPUSCULAR VOLUME 101 FL (80-99); MONOCYTES % (AUTO) 8.3 % (1.0-10.0); NEUTROPHILS % (AUTO) 72.9 % (45.0-75.0); PLATELET COUNT 208 K/UL (150-450); RED BLOOD COUNT 3.58 M/UL (4.20-5.40); RED CELL DISTRIBUTION WIDTH 11.4 % (11.6-14.8); WHITE BLOOD COUNT 6.8 K/UL (4.8-10.8)
[2018-01-11 07:30] LABS: ANION GAP 5 mmol/L (5-15); BLOOD UREA NITROGEN 22 mg/dL (7-18); CALCIUM 8.6 MG/DL (8.5-10.1); CARBON DIOXIDE 30 MMOL/L (21-32); CHLORIDE 105 MMOL/L (98-107); CREATININE 1.5 MG/DL (0.55-1.30); POTASSIUM 3.6 MMOL/L (3.5-5.1); SODIUM 140 MMOL/L (136-145)
--- NOTE | 2018-01-11 07:31 | Urology Progress Note ---
Assessment/Plan Assessment/Plan right renal mass LUTS/DI hx POD # 1, lap right partial nephrectomy doing well clear liq diet ambulate will keep mcguire for now f/u on labs d/w nursing staff Subjective Allergies: Coded Allergies: TRAMADOL (Verified Allergy, Intermediate, 01/10/18) TREMORS AND VOMITING CODEINE (Verified Adverse Reaction, Mild, 11/02/12) nausea Subjective all noted, feels fair Objective Last 24 Hour Vital Signs Date Time Temp Pulse Resp B/P (MAP) Pulse Ox O2 Delivery O2 Flow Rate FiO2 01/11/18 04:00 99.0 88 20 121/69 100 Nasal Cannula 2.0 99.0 01/11/18 00:00 99.1 86 20 104/71 99 Nasal Cannula 2.0 99.1 01/10/18 20:00 98.4 74 20 156/78 99 Nasal Cannula 2.0 98.4 01/10/18 20:00 98.4 74 20 156/78 99 Nasal Cannula 3.0 98.4 01/10/18 18:25 136/73 01/10/18 17:28 97.0 01/10/18 16:58 97.0 01/10/18 16:00 97 Nasal Cannula 3.0 01/10/18 16:00 97.0 66 19 136/73 97 97.0 01/10/18 13:36 96.6 01/10/18 12:00 98 Nasal Cannula 3.0 01/10/18 12:00 96.6 62 20 148/78 98 96.6 01/10/18 12:00 97.3 51 18 135/75 98 Nasal Cannula 3.0 97.3 01/10/18 11:45 52 17 138/78 97 Nasal Cannula 3.0 01/10/18 11:30 58 14 133/73 95 Nasal Cannula 3.0 01/10/18 11:15 54 17 145/75 96 Nasal Cannula 3.0 01/10/18 11:13 207.3 86 20 99 01/10/18 11:00 56 20 136/76 98 Nasal Cannula 3.0 01/10/18 10:45 60 17 140/72 98 Nasal Cannula 3.0 01/10/18 10:41 97.3 01/10/18 10:35 97.3 01/10/18 10:30 97.3 68 18 127/67 100 Nasal Cannula 3.0 97.3 01/10/18 10:20 66 20 128/68 100 Nasal Cannula 3.0 01/10/18 10:11 97.5 01/10/18 10:10 73 15 125/65 100 Simple Mask 6.0 01/10/18 10:00 67 18 129/64 100 Simple Mask 6.0 01/10/18 09:54 97.8 73 20 119/69 100 Simple Mask 6.0 97.8 Intake and Output 01/10/18 01/11/18 19:00 07:00 Intake Total 530 ml 800 ml Output Total 200 ml 180 ml Balance 330 ml 620 ml Intake Oral 0 ml IV Total 530 ml 800 ml Output Urine Total 200 ml 180 ml Laboratory Tests 01/11/18 06:25: White Blood Count [Pending], Red Blood Count [Pending], Hemoglobin [Pending], Hematocrit [Pending], Mean Corpuscular Volume [Pending], Mean Corpuscular Hemoglobin [Pending], Mean Corpuscular Hemoglobin Concent [Pending], Red Cell Distribution Width [Pending], Platelet Count [Pending], Mean Platelet Volume [ Pending], Neutrophils (%) (Auto) [Pending], Lymphocytes (%) (Auto) [Pending], Monocytes (%) (Auto) [Pending], Eosinophils (%) (Auto) [Pending], Basophils (%) (Auto) [Pending], Sodium Level [Pending], Potassium Level [Pending], Chloride Level [Pending], Carbon Dioxide Level [Pending], Blood Urea Nitrogen [Pending], Creatinine [Pending], Estimat Glomerular Filtration Rate [Pending], Glucose Level [Pending], Calcium Level [Pending] Height (Feet): 5 Height (Inches): 4.00 Weight (Pounds): 185 Objective abdomen soft, ND, urine is grossly yellow BAMSHAD,GARETT Jan 11, 2018 07:31
[2018-01-11 08:00] VITALS: BP 142/82
[2018-01-11] MEDS ORDERED: Cyclobenzaprine 10mg Tab ORAL ONE (09:00)
[2018-01-11] MEDS: DULoxetine 30mg cap ORAL SCH (09:32)
[2018-01-11] MEDS: Flonase Nasal Inhaler 16gm NASAL SCH ×2 (09:32→17:36)
[2018-01-11] MEDS: Cyclobenzaprine 10mg Tab ORAL SCH (09:32)
[2018-01-11] MEDS: Triamterene/Hctz 37.5/25 cap ORAL SCH (09:33)
[2018-01-11] MEDS: dilTIAZem HCl CD 240mg cap ORAL SCH (09:33)
[2018-01-11] MEDS: Docusate 100mg cap ORAL SCH ×2 (09:33→17:36)
[2018-01-11] MEDS: HydrALAZINE 25mg tab ORAL SCH ×2 (09:33→17:36)
[2018-01-11] MEDS: Breo Ellipta 100/25mcg - 14 dose INH SCH (10:02)
--- NOTE | 2018-01-11 11:33 | General Progress Note ---
Assessment/Plan Assessment/Plan Assessment - (R) RCCA - s/p partial nephrectomy - diverticulosis - recurrent abd pain - SIBO (+) Recommendations - post op care - f/u path results - diet per urology - bowel regimen Subjective Allergies: Coded Allergies: TRAMADOL (Verified Allergy, Intermediate, 01/10/18) TREMORS AND VOMITING CODEINE (Verified Adverse Reaction, Mild, 11/02/12) nausea Subjective POD #1 feels OK some wound pain Objective Last 24 Hour Vital Signs Date Time Temp Pulse Resp B/P (MAP) Pulse Ox O2 Delivery O2 Flow Rate FiO2 01/11/18 10:03 87 20 98 Nasal Cannula 2.0 28 01/11/18 10:02 88 20 98 Nasal Cannula 2.0 28 01/11/18 09:55 97.7 01/11/18 09:55 97.7 01/11/18 09:33 142/82 01/11/18 09:33 91 142/82 01/11/18 08:00 97.7 91 20 142/82 99 Room Air 97.7 01/11/18 04:00 99.0 88 20 121/69 100 Nasal Cannula 2.0 99.0 01/11/18 00:00 99.1 86 20 104/71 99 Nasal Cannula 2.0 99.1 01/10/18 20:00 98.4 74 20 156/78 99 Nasal Cannula 2.0 98.4 01/10/18 20:00 98.4 74 20 156/78 99 Nasal Cannula 3.0 98.4 01/10/18 18:25 136/73 01/10/18 16:58 97.0 01/10/18 16:00 97 Nasal Cannula 3.0 01/10/18 16:00 97.0 66 19 136/73 97 97.0 01/10/18 13:36 96.6 01/10/18 12:00 98 Nasal Cannula 3.0 01/10/18 12:00 96.6 62 20 148/78 98 96.6 01/10/18 12:00 97.3 51 18 135/75 98 Nasal Cannula 3.0 97.3 01/10/18 11:45 52 17 138/78 97 Nasal Cannula 3.0 Intake and Output 01/10/18 01/11/18 19:00 07:00 Intake Total 530 ml 800 ml Output Total 200 ml 180 ml Balance 330 ml 620 ml Intake Oral 0 ml IV Total 530 ml 800 ml Output Urine Total 200 ml 180 ml Laboratory Tests 01/11/18 06:25: White Blood Count 6.8, Red Blood Count 3.58L, Hemoglobin 11.9L, Hematocrit 36.3L , Mean Corpuscular Volume 101H, Mean Corpuscular Hemoglobin 33.2H, Mean Corpuscular Hemoglobin Concent 32.7, Red Cell Distribution Width 11.4L, Platelet Count 208, Mean Platelet Volume 6.6, Neutrophils (%) (Auto) 72.9, Lymphocytes (%) (Auto) 16.7L, Monocytes (%) (Auto) 8.3, Eosinophils (%) (Auto) 1.2, Basophils (%) (Auto) 0.9, Sodium Level 140, Potassium Level 3.6, Chloride Level 105, Carbon Dioxide Level 30, Anion Gap 5, Blood Urea Nitrogen 22H, Creatinine 1.5H, Estimat Glomerular Filtration Rate , Glucose Level 131H, Calcium Level 8.6 Height (Feet): 5 Height (Inches): 4.00 Weight (Pounds): 185 Objective WDWN AA woman NCAT supple CTA RRR Abd obese, distended wounds OK no edema GILDARDO PA Jan 11, 2018 11:33
--- NOTE | 2018-01-11 11:37 | 48 Hour Post Anesthesia Eval ---
Post Anesthesia Evaluation Procedure: Laparoscopic handassisted R nephrectomy Date of Evaluation: Jan 11, 2018 Time of Evaluation: 11:36 Blood Pressure Systolic: 142 0: 73 Pulse Rate: 68 Respiratory Rate: 22 Temperature (Fahrenheit): 97.6 O2 Sat by Pulse Oximetry: 98 Airway: patent Nausea: No Vomiting: No Pain Intensity: 3 Cardiopulmonary Status: stable Mental Status/LOC: patient returned to baseline Follow-up Care/Observations: n/a Post-Anesthesia Complications: none Follow-up care needed: N/A ESA BAKER M.D. Jan 11, 2018 11:37
[2018-01-11 11:51] VITALS: BP 147/82
[2018-01-11] MEDS ORDERED: LR 1000ml 1,000 ML IV SCH (14:00)
[2018-01-11] MEDS ORDERED: Norco 5mg/325mg tab ORAL PRN ×2 (14:20→14:45)
[2018-01-11] MEDS: Norco 5mg/325mg tab ORAL PRN (15:03)
[2018-01-11 16:00] VITALS: BP 151/83
--- NOTE | 2018-01-11 17:08 | Cardiac Electrophysiology PN ---
Assessment/Plan Assessment/Plan 1. Hypertension. Continue Diazide, Cardizem CD 240 and Hydralazine 25 bid 2. Right kidney 13 x 15 x 16 cm mass. S/P partial nephrectomy by Dr. Flanagan. 3. Hyperlipidemia on Lipitor DW RN Subjective Subjective Comfortable in NAD. Objective Last 24 Hour Vital Signs Date Time Temp Pulse Resp B/P (MAP) Pulse Ox O2 Delivery O2 Flow Rate FiO2 01/11/18 16:00 98.2 82 20 151/83 99 Room Air 98.2 01/11/18 11:51 98.1 87 20 147/82 98 Room Air 98.1 01/11/18 11:37 207.7 68 22 98 01/11/18 10:03 87 20 98 Nasal Cannula 2.0 28 01/11/18 10:02 88 20 98 Nasal Cannula 2.0 28 01/11/18 09:55 97.7 01/11/18 09:55 97.7 01/11/18 09:33 142/82 01/11/18 09:33 91 142/82 01/11/18 08:00 97.7 91 20 142/82 99 Room Air 97.7 01/11/18 04:00 99.0 88 20 121/69 100 Nasal Cannula 2.0 99.0 01/11/18 00:00 99.1 86 20 104/71 99 Nasal Cannula 2.0 99.1 01/10/18 20:00 98.4 74 20 156/78 99 Nasal Cannula 2.0 98.4 01/10/18 20:00 98.4 74 20 156/78 99 Nasal Cannula 3.0 98.4 01/10/18 18:25 136/73 Intake and Output 01/10/18 01/11/18 19:00 07:00 Intake Total 530 ml 800 ml Output Total 200 ml 180 ml Balance 330 ml 620 ml Intake Oral 0 ml IV Total 530 ml 800 ml Output Urine Total 200 ml 180 ml Laboratory Tests Test 01/11/18 06:25 White Blood Count 6.8 K/UL (4.8-10.8) Red Blood Count 3.58 M/UL (4.20-5.40) L Hemoglobin 11.9 G/DL (12.0-16.0) L Hematocrit 36.3 % (37.0-47.0) L Mean Corpuscular Volume 101 FL (80-99) H Mean Corpuscular Hemoglobin 33.2 PG (27.0-31.0) H Mean Corpuscular Hemoglobin Concent 32.7 G/DL (32.0-36.0) Red Cell Distribution Width 11.4 % (11.6-14.8) L Platelet Count 208 K/UL (150-450) Mean Platelet Volume 6.6 FL (6.5-10.1) Neutrophils (%) (Auto) 72.9 % (45.0-75.0) Lymphocytes (%) (Auto) 16.7 % (20.0-45.0) L Monocytes (%) (Auto) 8.3 % (1.0-10.0) Eosinophils (%) (Auto) 1.2 % (0.0-3.0) Basophils (%) (Auto) 0.9 % (0.0-2.0) Sodium Level 140 MMOL/L (136-145) Potassium Level 3.6 MMOL/L (3.5-5.1) Chloride Level 105 MMOL/L (98-107) Carbon Dioxide Level 30 MMOL/L (21-32) Anion Gap 5 mmol/L (5-15) Blood Urea Nitrogen 22 mg/dL (7-18) H Creatinine 1.5 MG/DL (0.55-1.30) H Estimat Glomerular Filtration Rate mL/min (>60) Glucose Level 131 MG/DL (74-106) H Calcium Level 8.6 MG/DL (8.5-10.1) Objective HEAD AND NECK: Showed no JVD. LUNGS: Clear. CARDIOVASCULAR: Shows regular S1 and S2 with no gallop or murmur. ABDOMEN: Soft and status post laparoscopy kidney surgery. EXTREMITIES: No pitting edema. Saad Gunderson MD Jan 11, 2018 17:08
--- NOTE | 2018-01-11 19:15 | Consultation ---
DATE OF CONSULTATION: 01/10/2018 GASTROENTEROLOGY CONSULTATION CONSULTING PHYSICIAN: Roe Garcia M.D. CHIEF COMPLAINT: I was asked to see this patient by Dr. Chapa and Dr. Flanagan for evaluation of abdominal problems. HISTORY OF PRESENT ILLNESS: The patient is a plesant woman, who was admitted for a partial right nephrectomy today. The patient has had a longstanding history of various abdominal complaints, which should date back to approximately 4 or 5 years. She notes periodic abdominal pain predominantly on her left side in the lower abdomen. She had an endoscopy and colonoscopy in 2012. The upper endoscopy was normal and colonoscopy showed diverticulosis, which is more on the left side. Subsequently, the patient had an endoscopy and an attempt at colonoscopy in 2014. The endoscopy was unremarkable, but the colonoscopy was unsuccessful due to significant sigmoid wall narrowing and diverticular distortion. The patient has been admitted to [facility] for presumed diverticulitis and usually recovers with antibiotics. Her CT scans, however, are not always reflected on the diverticulitis, which was diagnosed clinically. She has had a hydrogen breath test, which was positive for bacterial overgrowth. The methane line however was normal and only the hydrogen line was abnormal. Colonic biopsies on one colonoscopy in the descending colon showed focal active colitis. She underwent another colonoscopy in 2015 in January showing again diverticulosis, which was more severe on the left side. There was a polyp that was removed, which was inflammatory. The patient's attacks meanwhile have become generally more frequent. The attacks last about 3 to 4 days and are combined with nausea and vomiting. Because of the questionable diagnosis of a family history of Crohn's disease in the patient's father, the patient underwent an MR enterography at [facility] in June 2017, which showed diverticulosis, but there was no evidence of small bowel Crohn's disease. Incidentally, on this MR, however, a 1.5 cm right renal lesion was seen where a diagnosis of renal cell carcinoma was made, which was resected today. The patient also has undergone a wireless capsule endoscopy in June 2017 showing no significant evidence of Crohn's disease, although there was rapid transit of the capsule with suboptimal small bowel preparation. The proximal small bowel was noted to be apparently edematous, but no other lesions were reported. The patient was seen by me on the day of his evaluation postoperatively in the recovery area. She was still somewhat sedated, but arousable and was mainly complaining of typical operative wound pain. PAST MEDICAL HISTORY: History of hypertension, obesity, diverticulosis, elevated cholesterol, small intestinal bacterial overgrowth per hydrogen breath test, chronic constipation, reactive airway disease, and right-sided renal cell carcinoma. FAMILY HISTORY: Positive for questionable history of Crohn's disease in the father. SOCIAL HISTORY: The patient is single. She does not smoke or drink. She has a twin sister, who is very much involved in her daily life. MEDICATIONS: Please see the chart list for details. ALLERGIES: Codeine and tramadol. REVIEW OF SYSTEMS: Otherwise negative. PHYSICAL EXAMINATION: GENERAL: A pleasant, obese, woman, seen in recovery room. HEENT: Normocephalic and atraumatic. Sclerae anicteric. Oropharynx clear. NECK: Supple. CHEST: Clear to auscultation. CARDIOVASCULAR: Regular rate. ABDOMEN: Soft, mildly distended with fresh surgical wounds. EXTREMITIES: No edema. NEUROLOGIC: Deferred. LABORATORY DATA: Reviewed. ASSESSMENT: This patient presents with recurrent abdominal pain for the past few years with negative extensive workup, although some features are still apparent. The patient does have diverticulosis and also has small intestinal bacterial overgrowth. It is possible that her attacks may be related to her bacterial overgrowth and that the antibiotics treat this entity. Another possibility is recurrent diverticulitis, which may or may not be detectable on imaging studies, but will respond to antibiotics. Since the patient does respond and usually recovers uneventfully, she can be managed conservatively. Another possibly would be a functional bowel disease, which can be treated with agents like Amitiza, but sudden onset of attack is somewhat unusual. For the time being, however, I would concentrate on recovery from her surgery. She will need to be treated with a bowel regimen to avoid constipation with postoperative narcotics. Early ambulation should be encouraged and the patient should receive deep vein thrombosis prophylaxis. RECOMMENDATIONS: Per above discussion and per orders written in the chart. Thank you for asking me to participate in the care of this patient. Roe Garcia M.D. DR: GURDEEP JOB#: [id number] CC: ANYI
[2018-01-11 20:00] VITALS: BP 138/74
--- NOTE | 2018-01-11 21:30 | Operative Note - Dictated ---
DATE OF OPERATION: 01/10/2018 PREOPERATIVE DIAGNOSIS: Right renal mass. OPERATION: Laparoscopic partial nephrectomy on the right side. POSTOPERATIVE DIAGNOSIS: Right renal mass. PHYSICAL METALLURGIST: Tyrell Campbell M.D. CO-SURGEON: Wang Flanagan M.D. FINDINGS: A 3 centimeter renal mass in the right kidney. INDICATION FOR SURGERY: The patient was evaluated by Dr. Flanagan and underwent urologic workup that revealed a 2 centimeter mass in the right kidney suspicious for renal cell carcinoma. Dr. Flanagan did all preoperative evaluation, discussed with the patient surgical strategy and she apparently agreed for right laparoscopic nephrectomy. to perform the surgery with her. PROCEDURE: The patient was brought to the operating room, placed in the right lateral decubital position. Prepped and draped in standard fashion. Under general anesthesia, a 7 centimeter incision was made at the McBurney point and hand port was placed into the abdomen. Three additional trocars two 12 and one 5 was placed. was retracted cephalad exposing the right renal fossa. Tumor was seen on the anterior aspect of the right kidney in the mid pole of the kidney. Introitus fascia was opened and tumor was mobilized from its surrounding fat. Using 1 centimeter margin, tumor was excised with the elliptical scissors and removed for pathologic examination. Electrocautery coagulation plus FloSeal and Surgicel, bleeding stopped and there was no recurrence of the bleeding. Dura of the fascia was then closed with an interrupted [id number] 2-0 Vicryl suture. There was no evidence of acute bleeding and inspection of the internal ring was normal and the sponge count and instrument count was correct. The wound was closed with multiple layers, isaura for the skin. The patient tolerated the procedure well. No complication. Tyrell Campbell M.D. DR: ELSY JOB#: [id number] CC:
[2018-01-11] MEDS: Atorvastatin 20mg tab ORAL SCH (22:17)
[2018-01-12] VITALS: BP 143/77
[2018-01-12] MEDS: LR 1000ml 1,000 ML IV SCH ×3 (03:00→17:57)
[2018-01-12 04:00] VITALS: BP 135/74
[2018-01-12] MEDS: ceFAZolin sod 1 GM in D5W 110 ML IVPB SCH ×2 (05:13→17:58)
[2018-01-12] MEDS: Norco 5mg/325mg tab ORAL PRN ×2 (05:13→18:01)
[2018-01-12 07:17] LABS: BASOPHILS % (AUTO) 0.8 % (0.0-2.0); HEMATOCRIT 31.9 % (37.0-47.0); HEMOGLOBIN 10.7 G/DL (12.0-16.0); LYMPHOCYTES % (AUTO) 10.6 % (20.0-45.0); MEAN CORPUSCULAR VOLUME 99 FL (80-99); MONOCYTES % (AUTO) 9.9 % (1.0-10.0); NEUTROPHILS % (AUTO) 77.7 % (45.0-75.0); PLATELET COUNT 194 K/UL (150-450); RED BLOOD COUNT 3.22 M/UL (4.20-5.40); WHITE BLOOD COUNT 7.3 K/UL (4.8-10.8)
--- NOTE | 2018-01-12 07:29 | Urology Progress Note ---
Assessment/Plan Assessment/Plan right renal mass LUTS/DI hx POD # 2, lap right partial nephrectomy mild HETAL doing well advance diet ambulate dc mcguire monitor labs f/u on path d/w nursing staff Subjective Allergies: Coded Allergies: TRAMADOL (Verified Allergy, Intermediate, 01/10/18) TREMORS AND VOMITING CODEINE (Verified Adverse Reaction, Mild, 11/02/12) nausea Subjective all noted, feels fair, took clears yest, had flatus Objective Last 24 Hour Vital Signs Date Time Temp Pulse Resp B/P (MAP) Pulse Ox O2 Delivery O2 Flow Rate FiO2 01/12/18 04:00 98.6 88 17 135/74 100 Nasal Cannula 2.0 98.6 01/12/18 00:00 98.2 87 18 143/77 96 Nasal Cannula 2.0 98.2 01/11/18 20:00 99.7 84 17 138/74 98 Nasal Cannula 2.0 99.7 01/11/18 17:36 145/80 01/11/18 16:00 98.2 82 20 151/83 99 Room Air 98.2 01/11/18 11:51 98.1 87 20 147/82 98 Room Air 98.1 01/11/18 11:37 207.7 68 22 98 01/11/18 10:03 87 20 98 Nasal Cannula 2.0 28 01/11/18 10:02 88 20 98 Nasal Cannula 2.0 28 01/11/18 09:55 97.7 01/11/18 09:55 97.7 01/11/18 09:33 142/82 01/11/18 09:33 91 142/82 01/11/18 08:00 97.7 91 20 142/82 99 Room Air 97.7 Intake and Output 01/11/18 01/12/18 19:00 07:00 Intake Total 1575 ml 1550 ml Output Total 800 ml 550 ml Balance 775 ml 1000 ml Intake Oral 490 ml 300 ml IV Total 1085 ml 1250 ml Output Urine Total 800 ml 550 ml # Voids 1 Laboratory Tests 01/12/18 06:20: White Blood Count 7.3, Red Blood Count 3.22L, Hemoglobin 10.7L, Hematocrit 31.9L , Mean Corpuscular Volume 99, Mean Corpuscular Hemoglobin 33.3H, Mean Corpuscular Hemoglobin Concent 33.6, Red Cell Distribution Width 11.0L, Platelet Count 194, Mean Platelet Volume 6.6, Neutrophils (%) (Auto) 77.7H, Lymphocytes (%) (Auto) 10.6L, Monocytes (%) (Auto) 9.9, Eosinophils (%) (Auto) 1.0, Basophils (%) (Auto) 0.8, Sodium Level [Pending], Potassium Level [Pending] , Chloride Level [Pending], Carbon Dioxide Level [Pending], Blood Urea Nitrogen [Pending], Creatinine [Pending], Estimat Glomerular Filtration Rate [Pending], Glucose Level [Pending], Calcium Level [Pending] Height (Feet): 5 Height (Inches): 4.00 Weight (Pounds): 185 Objective abdomen soft, ND, urine is grossly yellow BAMSHADGARETT Jan 12, 2018 07:29
[2018-01-12 07:31] LABS: ANION GAP 3 mmol/L (5-15); BLOOD UREA NITROGEN 18 mg/dL (7-18); CALCIUM 8.5 MG/DL (8.5-10.1); CARBON DIOXIDE 30 MMOL/L (21-32); CHLORIDE 100 MMOL/L (98-107); CREATININE 1.3 MG/DL (0.55-1.30); POTASSIUM 3.4 MMOL/L (3.5-5.1); SODIUM 133 MMOL/L (136-145)
[2018-01-12 08:00] VITALS: BP 106/40
[2018-01-12] MEDS: dilTIAZem HCl CD 240mg cap ORAL SCH (09:00)
[2018-01-12] MEDS: HydrALAZINE 25mg tab ORAL SCH ×2 (09:00→18:00)
[2018-01-12] MEDS: Triamterene/Hctz 37.5/25 cap ORAL SCH (09:00)
--- NOTE | 2018-01-12 09:22 | Cardiac Electrophysiology PN ---
Assessment/Plan Assessment/Plan 1. Hypertension. Continue Diazide, Cardizem CD 240 and Hydralazine 25 bid 2. Right kidney 13 x 15 x 16 cm mass. S/P partial nephrectomy by Dr. Flanagan. Now diet is advanced 3. Hyperlipidemia on Lipitor DW RN Subjective Subjective Comfortable in NAD with no events. Objective Last 24 Hour Vital Signs Date Time Temp Pulse Resp B/P (MAP) Pulse Ox O2 Delivery O2 Flow Rate FiO2 01/12/18 04:00 98.6 88 17 135/74 100 Nasal Cannula 2.0 98.6 01/12/18 00:00 98.2 87 18 143/77 96 Nasal Cannula 2.0 98.2 01/11/18 20:00 99.7 84 17 138/74 98 Nasal Cannula 2.0 99.7 01/11/18 17:36 145/80 01/11/18 16:00 98.2 82 20 151/83 99 Room Air 98.2 01/11/18 11:51 98.1 87 20 147/82 98 Room Air 98.1 01/11/18 11:37 207.7 68 22 98 01/11/18 10:03 87 20 98 Nasal Cannula 2.0 28 01/11/18 10:02 88 20 98 Nasal Cannula 2.0 28 01/11/18 09:55 97.7 01/11/18 09:55 97.7 01/11/18 09:33 142/82 01/11/18 09:33 91 142/82 Intake and Output 01/11/18 01/12/18 19:00 07:00 Intake Total 1575 ml 1550 ml Output Total 800 ml 550 ml Balance 775 ml 1000 ml Intake Oral 490 ml 300 ml IV Total 1085 ml 1250 ml Output Urine Total 800 ml 550 ml # Voids 1 Laboratory Tests Test 01/12/18 06:20 White Blood Count 7.3 K/UL (4.8-10.8) Red Blood Count 3.22 M/UL (4.20-5.40) L Hemoglobin 10.7 G/DL (12.0-16.0) L Hematocrit 31.9 % (37.0-47.0) L Mean Corpuscular Volume 99 FL (80-99) Mean Corpuscular Hemoglobin 33.3 PG (27.0-31.0) H Mean Corpuscular Hemoglobin Concent 33.6 G/DL (32.0-36.0) Red Cell Distribution Width 11.0 % (11.6-14.8) L Platelet Count 194 K/UL (150-450) Mean Platelet Volume 6.6 FL (6.5-10.1) Neutrophils (%) (Auto) 77.7 % (45.0-75.0) H Lymphocytes (%) (Auto) 10.6 % (20.0-45.0) L Monocytes (%) (Auto) 9.9 % (1.0-10.0) Eosinophils (%) (Auto) 1.0 % (0.0-3.0) Basophils (%) (Auto) 0.8 % (0.0-2.0) Sodium Level 133 MMOL/L (136-145) L Potassium Level 3.4 MMOL/L (3.5-5.1) L Chloride Level 100 MMOL/L (98-107) Carbon Dioxide Level 30 MMOL/L (21-32) Anion Gap 3 mmol/L (5-15) L Blood Urea Nitrogen 18 mg/dL (7-18) Creatinine 1.3 MG/DL (0.55-1.30) Estimat Glomerular Filtration Rate mL/min (>60) Glucose Level 118 MG/DL (74-106) H Calcium Level 8.5 MG/DL (8.5-10.1) Microbiology Date/Time Source Procedure Growth Status 01/10/18 07:00 Nasal Nares MRSA Culture - Final NO METHICILLIN RESISTANT STAPH AUREUS... Complete Objective HEAD AND NECK: No JVD. LUNGS: Clear. CARDIOVASCULAR: Regular S1 and S2 with no gallop or murmur. ABDOMEN: Soft and status post laparoscopy kidney surgery. EXTREMITIES: No pitting edema. Saad Gunderson MD Jan 12, 2018 09:22
[2018-01-12] MEDS: Docusate 100mg cap ORAL SCH ×2 (09:32→18:00)
[2018-01-12] MEDS: Cyclobenzaprine 10mg Tab ORAL SCH (09:33)
[2018-01-12] MEDS: DULoxetine 30mg cap ORAL SCH (09:33)
[2018-01-12] MEDS: Flonase Nasal Inhaler 16gm NASAL SCH ×2 (09:38→17:58)
[2018-01-12] MEDS: Breo Ellipta 100/25mcg - 14 dose INH SCH (10:05)
[2018-01-12 12:00] VITALS: BP 114/65
[2018-01-12 16:00] VITALS: BP 130/61
[2018-01-12 20:00] VITALS: BP 132/66
[2018-01-12] MEDS: Atorvastatin 20mg tab ORAL SCH (20:42)
--- NOTE | 2018-01-12 21:32 | General Progress Note ---
Assessment/Plan Assessment/Plan Assessment - (R) RCCA - s/p partial nephrectomy - diverticulosis - recurrent abd pain - SIBO (+) Recommendations - post op care - f/u path results - diet per urology - bowel regimen - OOB Subjective Allergies: Coded Allergies: TRAMADOL (Verified Allergy, Intermediate, 01/10/18) TREMORS AND VOMITING CODEINE (Verified Adverse Reaction, Mild, 11/02/12) nausea Subjective POD #2 feels OK some wound pain still bloated (+) flatus (-) BM Objective Last 24 Hour Vital Signs Date Time Temp Pulse Resp B/P (MAP) Pulse Ox O2 Delivery O2 Flow Rate FiO2 01/12/18 18:00 130/61 01/12/18 16:00 98.4 77 20 130/61 99 Nasal Cannula 2.0 98.4 01/12/18 12:00 97.9 74 20 114/65 98 Nasal Cannula 2.0 97.9 01/12/18 10:09 71 20 93 Nasal Cannula 3.0 01/12/18 10:05 70 18 94 Nasal Cannula 3.0 01/12/18 09:00 104/40 01/12/18 09:00 67 106/40 01/12/18 08:00 97.8 67 20 106/40 96 Nasal Cannula 2.0 97.8 01/12/18 04:00 98.6 88 17 135/74 100 Nasal Cannula 2.0 98.6 01/12/18 00:00 98.2 87 18 143/77 96 Nasal Cannula 2.0 98.2 Intake and Output 01/11/18 01/12/18 19:00 07:00 Intake Total 1575 ml 1550 ml Output Total 800 ml 550 ml Balance 775 ml 1000 ml Intake Oral 490 ml 300 ml IV Total 1085 ml 1250 ml Output Urine Total 800 ml 550 ml # Voids 1 Laboratory Tests 01/12/18 06:20: White Blood Count 7.3, Red Blood Count 3.22L, Hemoglobin 10.7L, Hematocrit 31.9L , Mean Corpuscular Volume 99, Mean Corpuscular Hemoglobin 33.3H, Mean Corpuscular Hemoglobin Concent 33.6, Red Cell Distribution Width 11.0L, Platelet Count 194, Mean Platelet Volume 6.6, Neutrophils (%) (Auto) 77.7H, Lymphocytes (%) (Auto) 10.6L, Monocytes (%) (Auto) 9.9, Eosinophils (%) (Auto) 1.0, Basophils (%) (Auto) 0.8, Sodium Level 133L, Potassium Level 3.4L, Chloride Level 100, Carbon Dioxide Level 30, Anion Gap 3L, Blood Urea Nitrogen 18, Creatinine 1.3, Estimat Glomerular Filtration Rate , Glucose Level 118H, Calcium Level 8.5 Height (Feet): 5 Height (Inches): 4.00 Weight (Pounds): 185 Objective WDWN AA woman NCAT supple CTA RRR Abd obese, distended wounds OK no edema GILDARDO PA Jan 12, 2018 21:32
[2018-01-13] VITALS: BP 143/74
[2018-01-13] MEDS: Norco 5mg/325mg tab ORAL PRN ×3 (00:58→19:45)
[2018-01-13] MEDS: LR 1000ml 1,000 ML IV SCH ×3 (01:57→17:41)
[2018-01-13 04:00] VITALS: BP 140/70
[2018-01-13] MEDS: ceFAZolin sod 1 GM in D5W 110 ML IVPB SCH ×2 (05:16→17:41)
[2018-01-13 08:00] VITALS: BP 129/73
[2018-01-13] MEDS: dilTIAZem HCl CD 240mg cap ORAL SCH (08:36)
[2018-01-13] MEDS: DULoxetine 30mg cap ORAL SCH (08:36)
[2018-01-13] MEDS: Triamterene/Hctz 37.5/25 cap ORAL SCH (08:36)
[2018-01-13] MEDS: Docusate 100mg cap ORAL SCH ×2 (08:36→17:40)
[2018-01-13] MEDS: Cyclobenzaprine 10mg Tab ORAL SCH (08:37)
[2018-01-13] MEDS: HydrALAZINE 25mg tab ORAL SCH ×2 (08:37→17:41)
[2018-01-13] MEDS: Flonase Nasal Inhaler 16gm NASAL SCH ×2 (08:45→17:49)
[2018-01-13 08:50] LABS: EOSINOPHILS % (AUTO) 2.4 % (0.0-3.0); HEMATOCRIT 30.9 % (37.0-47.0); HEMOGLOBIN 10.6 G/DL (12.0-16.0); MEAN CORPUSCULAR VOLUME 100 FL (80-99); MONOCYTES % (AUTO) 12.5 % (1.0-10.0); NEUTROPHILS % (AUTO) 64.2 % (45.0-75.0); PLATELET COUNT 182 K/UL (150-450); RED BLOOD COUNT 3.09 M/UL (4.20-5.40); WHITE BLOOD COUNT 4.8 K/UL (4.8-10.8)
[2018-01-13] MEDS: Breo Ellipta 100/25mcg - 14 dose INH SCH (09:55)
[2018-01-13 12:00] VITALS: BP 130/75
--- NOTE | 2018-01-13 13:36 | Urology Progress Note ---
Assessment/Plan Assessment/Plan right renal mass LUTS/DI hx POD # 3, lap right partial nephrectomy mild HETAL, improved doing well dulcolax supp dc planning f/u on path d/w nursing staff Subjective Allergies: Coded Allergies: TRAMADOL (Verified Allergy, Intermediate, 01/10/18) TREMORS AND VOMITING CODEINE (Verified Adverse Reaction, Mild, 11/02/12) nausea Subjective all noted, feels fair, voided, taking po's Objective Last 24 Hour Vital Signs Date Time Temp Pulse Resp B/P (MAP) Pulse Ox O2 Delivery O2 Flow Rate FiO2 01/13/18 12:00 97.7 65 19 130/75 99 Nasal Cannula 2.0 97.7 01/13/18 09:57 83 20 94 Nasal Cannula 3.0 01/13/18 09:55 83 20 93 Nasal Cannula 3.0 01/13/18 08:37 129/73 01/13/18 08:36 76 129/73 01/13/18 08:00 97.4 76 19 129/73 100 Nasal Cannula 2.0 97.4 01/13/18 04:00 97.9 74 19 140/70 99 Nasal Cannula 2.0 97.9 01/13/18 00:00 98.2 75 18 143/74 99 Nasal Cannula 2.0 98.2 01/12/18 20:00 99.0 79 18 132/66 100 Nasal Cannula 2.0 99.0 01/12/18 18:00 130/61 01/12/18 16:00 98.4 77 20 130/61 99 Nasal Cannula 2.0 98.4 Intake and Output 01/12/18 01/13/18 19:00 07:00 Intake Total 2185 ml 1125 ml Balance 2185 ml 1125 ml Intake Oral 700 ml IV Total 1485 ml 1125 ml # Voids 1 Microbiology Date/Time Source Procedure Growth Status 01/10/18 07:00 Nasal Nares MRSA Culture - Final NO METHICILLIN RESISTANT STAPH AUREUS... Complete Current Medications Medications (Trade) Dose Ordered Sig/Marcia Route PRN Reason Start Time Stop Time Status Last Admin Dose Admin Acetaminophen/ Hydrocodone Bitart ([place] 5/325) 1 tab Q4H PRN ORAL Moderate Pain (Pain Scale 4-6) 01/11/18 14:45 01/18/18 14:44 01/11/18 22:17 Acetaminophen/ Hydrocodone Bitart ([place] 5/325) 2 tab Q4H PRN ORAL Severe Pain (Pain Scale 7-10) 01/11/18 14:45 01/18/18 14:44 01/13/18 09:45 Albuterol Sulfate (Proventil MDI) 2 puff Q4H PRN INH Shortness of Breath 01/10/18 13:45 02/09/18 13:44 Atorvastatin Calcium (Lipitor) 20 mg BEDTIME ORAL 01/10/18 21:00 02/09/18 20:59 01/12/18 20:42 Cefazolin Sodium 1 gm/Dextrose 110 ml @ 220 mls/hr Q12H IVPB 01/11/18 18:00 01/18/18 17:59 01/13/18 05:16 Cyclobenzaprine HCl (Flexeril) 5 mg DAILY ORAL 01/11/18 09:00 02/10/18 08:59 01/13/18 08:37 Diazepam (Valium) 5 mg BIDPRN PRN ORAL For Anxiety 01/10/18 13:45 01/17/18 13:44 Diltiazem HCl (Cardizem CD) 240 mg DAILY ORAL 01/11/18 09:00 02/10/18 08:59 01/13/18 08:36 Docusate Sodium (Colace) 100 mg TWICE A DAY ORAL 01/10/18 18:00 02/09/18 17:59 01/13/18 08:36 Duloxetine HCl (Cymbalta) 30 mg DAILY ORAL 01/11/18 09:00 02/10/18 08:59 01/13/18 08:36 Fluticasone Propionate (Flonase) 2 spray BID NASAL 01/10/18 18:00 02/09/18 17:59 01/13/18 08:45 Fluticasone/ Vilanterol (Breo Ellipta 100/25) 1 DAILY INH 01/11/18 09:00 02/10/18 08:59 01/13/18 09:55 Hydralazine HCl (Apresoline) 25 mg BID ORAL 01/10/18 18:00 02/09/18 17:59 01/13/18 08:37 Lactated Ringer's 1,000 ml @ 125 mls/hr Q8H IV 01/11/18 10:00 02/10/18 09:59 01/13/18 09:45 Triamterene/HCTZ (Dyazide) 1 cap DAILY ORAL 01/11/18 09:00 02/10/18 08:59 01/13/18 08:36 Laboratory Tests 01/13/18 08:30: White Blood Count 4.8, Red Blood Count 3.09L, Hemoglobin 10.6L, Hematocrit 30.9L , Mean Corpuscular Volume 100H, Mean Corpuscular Hemoglobin 34.2H, Mean Corpuscular Hemoglobin Concent 34.2, Red Cell Distribution Width 11.0L, Platelet Count 182, Mean Platelet Volume 6.2L, Neutrophils (%) (Auto) 64.2, Lymphocytes (%) (Auto) 20.0, Monocytes (%) (Auto) 12.5H, Eosinophils (%) (Auto) 2.4, Basophils (%) (Auto) 1.0 Height (Feet): 5 Height (Inches): 4.00 Weight (Pounds): 185 Objective abdomen soft, ND, wound clear, no CVAT GARETT MAGALLON Jan 13, 2018 13:36
--- NOTE | 2018-01-13 15:22 | General Progress Note ---
Assessment/Plan Assessment/Plan Assessment - (R) RCCA - s/p partial nephrectomy - diverticulosis - recurrent abd pain - SIBO (+) Recommendations - post op care - f/u path results - diet per urology - bowel regimen - OOB Subjective Allergies: Coded Allergies: TRAMADOL (Verified Allergy, Intermediate, 01/10/18) TREMORS AND VOMITING CODEINE (Verified Adverse Reaction, Mild, 11/02/12) nausea Subjective POD #3 feels better some wound pain still bloated (+) flatus (-) BM on liquids Objective Last 24 Hour Vital Signs Date Time Temp Pulse Resp B/P (MAP) Pulse Ox O2 Delivery O2 Flow Rate FiO2 01/13/18 12:00 97.7 65 19 130/75 99 Nasal Cannula 2.0 97.7 01/13/18 09:57 83 20 94 Nasal Cannula 3.0 01/13/18 09:55 83 20 93 Nasal Cannula 3.0 01/13/18 08:37 129/73 01/13/18 08:36 76 129/73 01/13/18 08:00 97.4 76 19 129/73 100 Nasal Cannula 2.0 97.4 01/13/18 04:00 97.9 74 19 140/70 99 Nasal Cannula 2.0 97.9 01/13/18 00:00 98.2 75 18 143/74 99 Nasal Cannula 2.0 98.2 01/12/18 20:00 99.0 79 18 132/66 100 Nasal Cannula 2.0 99.0 01/12/18 18:00 130/61 01/12/18 16:00 98.4 77 20 130/61 99 Nasal Cannula 2.0 98.4 Intake and Output 01/12/18 01/13/18 19:00 07:00 Intake Total 2185 ml 1125 ml Balance 2185 ml 1125 ml Intake Oral 700 ml IV Total 1485 ml 1125 ml # Voids 1 Laboratory Tests 01/13/18 08:30: White Blood Count 4.8, Red Blood Count 3.09L, Hemoglobin 10.6L, Hematocrit 30.9L , Mean Corpuscular Volume 100H, Mean Corpuscular Hemoglobin 34.2H, Mean Corpuscular Hemoglobin Concent 34.2, Red Cell Distribution Width 11.0L, Platelet Count 182, Mean Platelet Volume 6.2L, Neutrophils (%) (Auto) 64.2, Lymphocytes (%) (Auto) 20.0, Monocytes (%) (Auto) 12.5H, Eosinophils (%) (Auto) 2.4, Basophils (%) (Auto) 1.0 Height (Feet): 5 Height (Inches): 4.00 Weight (Pounds): 185 Objective WDWN AA woman NCAT supple CTA RRR Abd obese, distended wounds OK no edema GILDARDO PA Jan 13, 2018 15:22
[2018-01-13 16:00] VITALS: BP 140/66
--- NOTE | 2018-01-13 16:04 | Cardiac Electrophysiology PN ---
Assessment/Plan Assessment/Plan 1. Hypertension. Continue Diazide, Cardizem CD 240 and Hydralazine 25 bid 2. Right kidney 13 x 15 x 16 cm mass. S/P partial nephrectomy by Dr. Flanagan. Now diet is advanced 3. Hyperlipidemia on Lipitor DW RN DC pending BM and pain control per Dr Flanagan Subjective Subjective Has abdominal pain. Twin sister and RN at bedside. Objective Last 24 Hour Vital Signs Date Time Temp Pulse Resp B/P (MAP) Pulse Ox O2 Delivery O2 Flow Rate FiO2 01/13/18 12:00 97.7 65 19 130/75 99 Nasal Cannula 2.0 97.7 01/13/18 09:57 83 20 94 Nasal Cannula 3.0 01/13/18 09:55 83 20 93 Nasal Cannula 3.0 01/13/18 08:37 129/73 01/13/18 08:36 76 129/73 01/13/18 08:00 97.4 76 19 129/73 100 Nasal Cannula 2.0 97.4 01/13/18 04:00 97.9 74 19 140/70 99 Nasal Cannula 2.0 97.9 01/13/18 00:00 98.2 75 18 143/74 99 Nasal Cannula 2.0 98.2 01/12/18 20:00 99.0 79 18 132/66 100 Nasal Cannula 2.0 99.0 01/12/18 18:00 130/61 Intake and Output 01/12/18 01/13/18 19:00 07:00 Intake Total 2185 ml 1125 ml Balance 2185 ml 1125 ml Intake Oral 700 ml IV Total 1485 ml 1125 ml # Voids 1 Laboratory Tests Test 01/13/18 08:30 White Blood Count 4.8 K/UL (4.8-10.8) Red Blood Count 3.09 M/UL (4.20-5.40) L Hemoglobin 10.6 G/DL (12.0-16.0) L Hematocrit 30.9 % (37.0-47.0) L Mean Corpuscular Volume 100 FL (80-99) H Mean Corpuscular Hemoglobin 34.2 PG (27.0-31.0) H Mean Corpuscular Hemoglobin Concent 34.2 G/DL (32.0-36.0) Red Cell Distribution Width 11.0 % (11.6-14.8) L Platelet Count 182 K/UL (150-450) Mean Platelet Volume 6.2 FL (6.5-10.1) L Neutrophils (%) (Auto) 64.2 % (45.0-75.0) Lymphocytes (%) (Auto) 20.0 % (20.0-45.0) Monocytes (%) (Auto) 12.5 % (1.0-10.0) H Eosinophils (%) (Auto) 2.4 % (0.0-3.0) Basophils (%) (Auto) 1.0 % (0.0-2.0) Objective HEAD AND NECK: No JVD. LUNGS: Clear. CARDIOVASCULAR: Regular S1 and S2 with no gallop or murmur. ABDOMEN: Soft and status post laparoscopy kidney surgery. EXTREMITIES: No pitting edema. Saad Gunderson MD Jan 13, 2018 16:04
[2018-01-13 20:00] VITALS: BP 157/78
[2018-01-13] MEDS: Atorvastatin 20mg tab ORAL SCH (20:32)
[2018-01-14] VITALS: BP 148/68
[2018-01-14] MEDS: Norco 5mg/325mg tab ORAL PRN ×3 (00:52→12:24)
[2018-01-14] MEDS: LR 1000ml 1,000 ML IV SCH ×3 (02:00→12:29)
[2018-01-14 04:00] VITALS: BP 142/75
[2018-01-14] MEDS: ceFAZolin sod 1 GM in D5W 110 ML IVPB SCH (05:33)
[2018-01-14 08:00] VITALS: BP 139/69
[2018-01-14 08:06] VITALS: BP 139/69
[2018-01-14] MEDS: Cyclobenzaprine 10mg Tab ORAL SCH (08:41)
[2018-01-14] MEDS: Docusate 100mg cap ORAL SCH (08:41)
[2018-01-14] MEDS: HydrALAZINE 25mg tab ORAL SCH (08:41)
[2018-01-14] MEDS: DULoxetine 30mg cap ORAL SCH (08:41)
[2018-01-14] MEDS: Triamterene/Hctz 37.5/25 cap ORAL SCH (08:42)
[2018-01-14] MEDS: Flonase Nasal Inhaler 16gm NASAL SCH (08:42)
[2018-01-14] MEDS: dilTIAZem HCl CD 240mg cap ORAL SCH (08:42)
[2018-01-14] MEDS ORDERED: NORCO 5-325 TA1 EACH ORAL (09:09)
--- NOTE | 2018-01-14 09:20 | Urology Progress Note ---
Assessment/Plan Assessment/Plan right renal mass LUTS/DI hx POD # 3, lap right partial nephrectomy mild HETAL, improved doing well dulcolax supp dc planning f/u on path d/w nursing staff Subjective Allergies: Coded Allergies: TRAMADOL (Verified Allergy, Intermediate, 01/10/18) TREMORS AND VOMITING CODEINE (Verified Adverse Reaction, Mild, 11/02/12) nausea Subjective all noted, feels fair, voided, taking po's Objective Last 24 Hour Vital Signs Date Time Temp Pulse Resp B/P (MAP) Pulse Ox O2 Delivery O2 Flow Rate FiO2 01/14/18 08:49 98.8 01/14/18 08:42 72 139/69 01/14/18 08:41 98.8 01/14/18 08:41 139/69 01/14/18 08:06 98.8 72 19 139/69 Room Air 98.8 01/14/18 08:00 98.8 72 19 139/69 91 Room Air 98.8 01/14/18 07:50 98.2 01/14/18 04:00 98.2 66 18 142/75 100 Nasal Cannula 2.0 98.2 01/14/18 00:00 98.3 92 18 148/68 98 Nasal Cannula 2.0 98.3 01/13/18 20:00 98.1 84 18 157/78 98 Nasal Cannula 2.0 98.1 01/13/18 17:41 138/65 01/13/18 16:00 98.1 79 19 140/66 98 Nasal Cannula 2.0 98.1 01/13/18 12:00 97.7 65 19 130/75 99 Nasal Cannula 2.0 97.7 01/13/18 09:57 83 20 94 Nasal Cannula 3.0 01/13/18 09:55 83 20 93 Nasal Cannula 3.0 Intake and Output 01/13/18 01/14/18 19:00 07:00 Intake Total 1835 ml 1675 ml Output Total 750 ml Balance 1835 ml 925 ml Intake Oral 600 ml 300 ml IV Total 1235 ml 1375 ml Output Urine Total 750 ml # Voids 5 Current Medications Medications (Trade) Dose Ordered Sig/Marcia Route PRN Reason Start Time Stop Time Status Last Admin Dose Admin Acetaminophen/ Hydrocodone Bitart ([place] 5/325) 1 tab Q4H PRN ORAL Moderate Pain (Pain Scale 4-6) 01/11/18 14:45 01/18/18 14:44 01/11/18 22:17 Acetaminophen/ Hydrocodone Bitart ([place] 5/325) 2 tab Q4H PRN ORAL Severe Pain (Pain Scale 7-10) 01/11/18 14:45 01/18/18 14:44 01/14/18 07:50 Albuterol Sulfate (Proventil MDI) 2 puff Q4H PRN INH Shortness of Breath 01/10/18 13:45 02/09/18 13:44 Atorvastatin Calcium (Lipitor) 20 mg BEDTIME ORAL 01/10/18 21:00 02/09/18 20:59 01/13/18 20:32 Cefazolin Sodium 1 gm/Dextrose 110 ml @ 220 mls/hr Q12H IVPB 01/11/18 18:00 01/18/18 17:59 01/14/18 05:33 Cyclobenzaprine HCl (Flexeril) 5 mg DAILY ORAL 01/11/18 09:00 02/10/18 08:59 01/14/18 08:41 Diazepam (Valium) 5 mg BIDPRN PRN ORAL For Anxiety 01/10/18 13:45 01/17/18 13:44 Diltiazem HCl (Cardizem CD) 240 mg DAILY ORAL 01/11/18 09:00 02/10/18 08:59 01/14/18 08:42 Docusate Sodium (Colace) 100 mg TWICE A DAY ORAL 01/10/18 18:00 02/09/18 17:59 01/14/18 08:41 Duloxetine HCl (Cymbalta) 30 mg DAILY ORAL 01/11/18 09:00 02/10/18 08:59 01/14/18 08:41 Fluticasone Propionate (Flonase) 2 spray BID NASAL 01/10/18 18:00 02/09/18 17:59 01/14/18 08:42 Fluticasone/ Vilanterol (Breo Ellipta 100/25) 1 DAILY INH 01/11/18 09:00 02/10/18 08:59 01/13/18 09:55 Hydralazine HCl (Apresoline) 25 mg BID ORAL 01/10/18 18:00 02/09/18 17:59 01/14/18 08:41 Lactated Ringer's 1,000 ml @ 125 mls/hr Q8H IV 01/11/18 10:00 02/10/18 09:59 01/14/18 02:00 Triamterene/HCTZ (Dyazide) 1 cap DAILY ORAL 01/11/18 09:00 02/10/18 08:59 01/14/18 08:42 Height (Feet): 5 Height (Inches): 4.00 Weight (Pounds): 185 Objective abdomen soft, ND, wound clear, no CVAT GARETT MAGALLON Jan 14, 2018 09:20
[2018-01-14] MEDS: Breo Ellipta 100/25mcg - 14 dose INH SCH (09:39)
[2018-01-14 12:00] VITALS: BP 173/67
[2018-01-14] MEDS ORDERED: LR 1000ml ONE ×2 (14:54)
[2018-01-14] MEDS ORDERED: Tubing IV Secondary IV ONE (14:54)
--- NOTE | 2018-01-14 15:02 | General Progress Note ---
Assessment/Plan Assessment/Plan Assessment - (R) RCCA - s/p partial nephrectomy - diverticulosis - recurrent abd pain - constipation - SIBO (+) Recommendations - post op care - f/u path results - diet per urology - bowel regimen / laxative - OOB Subjective Allergies: Coded Allergies: TRAMADOL (Verified Allergy, Intermediate, 01/10/18) TREMORS AND VOMITING CODEINE (Verified Adverse Reaction, Mild, 11/02/12) nausea Subjective POD #4 wound pain better ambulating got a suppository for BM Objective Last 24 Hour Vital Signs Date Time Temp Pulse Resp B/P (MAP) Pulse Ox O2 Delivery O2 Flow Rate FiO2 01/14/18 13:23 98.8 01/14/18 12:24 98.8 01/14/18 12:00 98.2 75 18 173/67 97 Room Air 98.2 01/14/18 09:41 84 20 95 Nasal Cannula 3.0 32 01/14/18 09:40 98.8 01/14/18 09:39 86 18 95 Nasal Cannula 3.0 32 01/14/18 08:42 72 139/69 01/14/18 08:41 98.8 01/14/18 08:41 139/69 01/14/18 08:06 98.8 72 19 139/69 Room Air 98.8 01/14/18 08:00 98.8 72 19 139/69 91 Room Air 98.8 01/14/18 07:50 98.2 01/14/18 04:00 98.2 66 18 142/75 100 Nasal Cannula 2.0 98.2 01/14/18 00:00 98.3 92 18 148/68 98 Nasal Cannula 2.0 98.3 01/13/18 20:00 98.1 84 18 157/78 98 Nasal Cannula 2.0 98.1 01/13/18 17:41 138/65 01/13/18 16:00 98.1 79 19 140/66 98 Nasal Cannula 2.0 98.1 Intake and Output 01/13/18 01/14/18 19:00 07:00 Intake Total 1835 ml 1675 ml Output Total 750 ml Balance 1835 ml 925 ml Intake Oral 600 ml 300 ml IV Total 1235 ml 1375 ml Output Urine Total 750 ml # Voids 5 Height (Feet): 5 Height (Inches): 4.00 Weight (Pounds): 185 Objective WDWN AA woman NCAT supple CTA RRR Abd obese, distended wounds OK no edema GILDARDO PA Jan 14, 2018 15:02
[2018-01-14] MEDS ORDERED: Sorbitol Solution UD 30ml ORAL ONE (15:15)
--- NOTE | 2018-01-15 12:32 | Discharge Summary ---
Discharge Summary Discharge Summary Discharge Summary DATE OF ADMISSION: 01/10/2018 DATE OF DISCHARGE: 01/14/2018 REASON FOR ADMISSION: 72 years old female with history of 1.5 cm solid right renal mass, which was identified on CT scan last year. Patient was evaluated as outpatient with multiple options discussed with her , including surveillance versus surgical excision versus CT guided cryoablation or radiofrequency ablation. Pros and cons of each approach were discussed with the patient. Patient desired to have surgical excision. Patient was scheduled for elective procedure. Risks and complications of bleeding, infection, possible damage to the kidney or damage to internal organs, possible need for radical nephrectomy , were discussed with the patient Patient verbalized understanding, signed the consent and was scheduled for elective surgery on 01/10/2018. Patient was admitted with diagnosis of right renal mass CONSULTANTS: taxicab starter Dr. Gunderson GI specialist Dr. Garcia surgery Dr. Campbell [facility] COURSE: Patient was admitted for elective surgery. Patient undergone on 01/10 laparoscopic partial right nephrectomy with lysis of adhesions. Pathology results still pending. [place] closely followed. Patient with history of hypertension and hyperlipidemia. Blood pressure was managed with the Cardizem CD, Dyazide and hydralazine. Blood pressure remained stable. Statin was continued. Pulse oximetry was stable on room air. GI specialist closely followed. Patient had a recurrent abdominal pain. Extensive previous workup for abdominal pain was negative. Patient ,however, had evidence of diverticulosis as well as small intestines bacterial overgrowth. Bowel regimen was instituted after surgery. Pain management provided. Early ambulation was encouraged. Patient was able to tolerate diet. Patient was voided freely, without difficulties. Incision with isaura, open to air, clean, dry, intact. Patient was stable for discharge home with outpatient follow-up with surgeon. FINAL DIAGNOSES: Right renal mass Status post laparoscopic partial right nephrectomy with lysis of adhesions on Hypertension Hyperlipidemia Recurrent abdominal pain Diverticulosis Constipation Small intestines bacterial overgrowth DISCHARGE MEDICATIONS: See Medication Reconciliation list. DISCHARGE INSTRUCTIONS: Patient was discharged home. Follow up with primary care provider. Follow up with surgeon as advised. I have been assigned to dictate discharge summary for this account. I was not involved in the patient's management. Shelley Delcid NP ([place]) Jan 15, 2018 12:32
== END 2018-01-14 14:55 | disposition home or self-care (01) | DRG 658 ==
LOC: SDSOVERFLO 01-10 06:03 → 3E 01-10 12:00
PROC: 0TB04ZZ Excision of Right Kidney, Percutaneous Endoscopic Approach (ICD-10-PCS; principal; 2018-01-10 07:30)
DX: D49.511 Neoplasm of unspecified behavior of right kidney (principal); I10 Essential (primary) hypertension; E78.5 Hyperlipidemia, unspecified; K57.90 Diverticulosis of intestine, part unspecified, without perforation or abscess without bleeding; K59.00 Constipation, unspecified; Z88.6 Allergy status to analgesic agent
CPT/HCPCS: 36415; 71046; 80048; 85025; 85610; 85730; 86850; 86900; 86901; 87081; 93005; 94003; 94150; 94640; J2250

== ENCOUNTER → 2018-01-04 | Outpatient (CLI) | payer MEDICARE, MEDICAID ==
[2018-01-04 12:44] LABS: APPEARANCE,URINE CLEAR; BILIRUBIN, URINE NEGATIVE (NEGATIVE); COLOR,URINE PALE YELLOW; GLUCOSE, URINE (UA) NEGATIVE (NEGATIVE); KETONES,URINE NEGATIVE (NEGATIVE); LEUKOCYTE ESTERASE ,URINE 3+ (NEGATIVE); NITRITE,URINE NEGATIVE (NEGATIVE); PH,URINE 7 (4.5-8.0); PROTEIN,URINE 2+ (NEGATIVE); UROBILINOGEN,URINE 4 MG/DL (0.0-1.0)
[2018-01-04 12:45] LABS: BASOPHILS % (AUTO) 1.6 % (0.0-2.0); EOSINOPHILS % (AUTO) 2.1 % (0.0-3.0); HEMATOCRIT 40.3 % (37.0-47.0); HEMOGLOBIN 13.7 G/DL (12.0-16.0); LYMPHOCYTES % (AUTO) 34.2 % (20.0-45.0); MEAN CORPUSCULAR VOLUME 99 FL (80-99); MONOCYTES % (AUTO) 8.1 % (1.0-10.0); PLATELET COUNT 224 K/UL (150-450); RED BLOOD COUNT 4.08 M/UL (4.20-5.40); RED CELL DISTRIBUTION WIDTH 11.2 % (11.6-14.8)
[2018-01-04 12:51] LABS: INR 0.9 (0.9-1.1)
[2018-01-04 12:58] LABS: ALANINE AMINOTRANSFERASE 18 U/L (12-78); ALBUMIN 3.8 G/DL (3.4-5.0); ALKALINE PHOSPHATASE 104 U/L (46-116); ANION GAP 8 mmol/L (5-15); ASPARTATE AMINO TRANSFERASE 18 U/L (15-37); BILIRUBIN,TOTAL 0.8 MG/DL (0.2-1.0); BLOOD UREA NITROGEN 27 mg/dL (7-18); CALCIUM 9.2 MG/DL (8.5-10.1); CARBON DIOXIDE 30 MMOL/L (21-32); CHLORIDE 106 MMOL/L (98-107); CREATININE 1.2 MG/DL (0.55-1.30); POTASSIUM 3.4 MMOL/L (3.5-5.1); SODIUM 143 MMOL/L (136-145)
== END | disposition home or self-care (01) ==
LOC: RAD 11:19
DX: I49.9 Cardiac arrhythmia, unspecified (principal)
CPT/HCPCS: 36415; 80053; 81003; 85025; 85610; 85730; 93005

== ENCOUNTER 2018-05-10 13:51 | Outpatient (CLI) | payer MEDICARE, MEDICAID ==
[~2018-05-10 13:51] MED LIST changes: +ASPIR 8181 MG ORAL; +BREO ELLIPTA 11 EACH IH; +CRESTOR20 MG ORAL; +CYCLOBENZAPRINE10 MG ORAL; +CYMBALTA30 MG ORAL; +DIAZEPAM5 MG ORAL; +DOCUSATE SODIU100 MG ORAL; +DYMISTA NASAL S23 GM NS; +HYDRALAZINE HCL25 M1 ORAL; +NORCO 5-325 TA1 EACH ORAL; +PROAIR HFA8.5 GM INH; +TOVIAZ4 MG PO; +TRIAMTERENE-HC1 EAC7 ORAL
[2018-05-10 14:17] LABS: BASOPHILS % (AUTO) 1.6 % (0.0-2.0); EOSINOPHILS % (AUTO) 1.6 % (0.0-3.0); HEMATOCRIT 39.2 % (37.0-47.0); HEMOGLOBIN 12.9 G/DL (12.0-16.0); LYMPHOCYTES % (AUTO) 32.8 % (20.0-45.0); MEAN CORPUSCULAR VOLUME 98 FL (80-99); MONOCYTES % (AUTO) 7.2 % (1.0-10.0); NEUTROPHILS % (AUTO) 56.8 % (45.0-75.0); PLATELET COUNT 241 K/UL (150-450); RED BLOOD COUNT 3.98 M/UL (4.20-5.40); RED CELL DISTRIBUTION WIDTH 11.3 % (11.6-14.8); WHITE BLOOD COUNT 3.8 K/UL (4.8-10.8)
[2018-05-10 14:36] LABS: INR 0.9 (0.9-1.1)
[2018-05-10 14:41] LABS: ALANINE AMINOTRANSFERASE 23 U/L (12-78); ALBUMIN 3.7 G/DL (3.4-5.0); ALKALINE PHOSPHATASE 105 U/L (46-116); ANION GAP 10 mmol/L (5-15); ASPARTATE AMINO TRANSFERASE 17 U/L (15-37); BILIRUBIN,DIRECT 0.2 MG/DL (0.0-0.3); BILIRUBIN,TOTAL 0.7 MG/DL (0.2-1.0); BLOOD UREA NITROGEN 23 mg/dL (7-18); CALCIUM 9.1 MG/DL (8.5-10.1); CARBON DIOXIDE 26 MMOL/L (21-32); CHLORIDE 108 MMOL/L (98-107); CHOLESTEROL 133 MG/DL (< 200); CREATININE 1.6 MG/DL (0.55-1.30); FERRITIN 107 NG/ML (8-388); HDL CHOLESTEROL 44 MG/DL (40-60); POTASSIUM 3.5 MMOL/L (3.5-5.1); SODIUM 144 MMOL/L (136-145); TRIGLYCERIDES 137 MG/DL (30-150)
[2018-05-10 14:42] LABS: % IRON SATURATION 100 % (15-50); IRON 107 ug/dL (50-175); TOTAL IRON BINDING CAPACITY 107 ug/dL (250-450)
== END 2018-05-10 15:51 | disposition home or self-care (01) ==
LOC: LAB 13:51
DX: N28.89 Other specified disorders of kidney and ureter (principal)
CPT/HCPCS: 36415; 80048; 80061; 80076; 82378; 82607; 82728; 82746; 82784; 83540; 83550; 84436; 84443; 85025; 85610; 85730; 86300; 86301; 86304

== ENCOUNTER → 2018-05-22 | Outpatient (CLI) | payer MEDICARE, MEDICAID ==
[2018-05-22 14:34] LABS: EOSINOPHILS % (AUTO) 1.5 % (0.0-3.0); HEMATOCRIT 38.5 % (37.0-47.0); HEMOGLOBIN 13.3 G/DL (12.0-16.0); LYMPHOCYTES % (AUTO) 38.9 % (20.0-45.0); MEAN CORPUSCULAR VOLUME 99 FL (80-99); MONOCYTES % (AUTO) 7.8 % (1.0-10.0); NEUTROPHILS % (AUTO) 49.9 % (45.0-75.0); PLATELET COUNT 232 K/UL (150-450); RED CELL DISTRIBUTION WIDTH 10.9 % (11.6-14.8); WHITE BLOOD COUNT 3.5 K/UL (4.8-10.8)
[2018-05-22 14:56] LABS: ALANINE AMINOTRANSFERASE 18 U/L (12-78); ALBUMIN 3.7 G/DL (3.4-5.0); ALBUMIN/GLOBULIN RATIO 0.9 (1.0-2.7); ALKALINE PHOSPHATASE 103 U/L (46-116); ANION GAP 8 mmol/L (5-15); ASPARTATE AMINO TRANSFERASE 19 U/L (15-37); BILIRUBIN,TOTAL 0.9 MG/DL (0.2-1.0); BLOOD UREA NITROGEN 22 mg/dL (7-18); CALCIUM 9.3 MG/DL (8.5-10.1); CARBON DIOXIDE 26 MMOL/L (21-32); CHLORIDE 107 MMOL/L (98-107); CREATININE 1.3 MG/DL (0.55-1.30); POTASSIUM 3.3 MMOL/L (3.5-5.1); SODIUM 141 MMOL/L (136-145)
== END | disposition home or self-care (01) ==
LOC: LAB 13:51
DX: K57.30 Diverticulosis of large intestine without perforation or abscess without bleeding (principal); K59.01 Slow transit constipation
CPT/HCPCS: 36415; 80053; 84443; 85025

== ENCOUNTER 2018-05-30 11:20 | Outpatient (CLI) | payer MEDICARE, MEDICAID ==
[2018-05-30 12:43] LABS: BASOPHILS % (AUTO) 1.5 % (0.0-2.0); EOSINOPHILS % (AUTO) 1.7 % (0.0-3.0); HEMATOCRIT 40.5 % (37.0-47.0); HEMOGLOBIN 13.6 G/DL (12.0-16.0); LYMPHOCYTES % (AUTO) 33.1 % (20.0-45.0); MEAN CORPUSCULAR VOLUME 99 FL (80-99); MONOCYTES % (AUTO) 11.7 % (1.0-10.0); PLATELET COUNT 273 K/UL (150-450); RED BLOOD COUNT 4.09 M/UL (4.20-5.40); WHITE BLOOD COUNT 3.9 K/UL (4.8-10.8)
[2018-05-30 12:52] LABS: ANION GAP 10 mmol/L (5-15); BLOOD UREA NITROGEN 21 mg/dL (7-18); CALCIUM 9.7 MG/DL (8.5-10.1); CARBON DIOXIDE 27 MMOL/L (21-32); CHLORIDE 104 MMOL/L (98-107); CREATININE 1.4 MG/DL (0.55-1.30); FERRITIN 109 NG/ML (8-388); POTASSIUM 3.5 MMOL/L (3.5-5.1); SODIUM 141 MMOL/L (136-145)
[2018-05-30 14:10] LABS: % IRON SATURATION 28 % (15-50); IRON 91 ug/dL (50-175); TOTAL IRON BINDING CAPACITY 330 ug/dL (250-450)
== END 2018-05-30 13:20 | disposition home or self-care (01) ==
LOC: LAB 11:20
DX: R91.8 Other nonspecific abnormal finding of lung field (principal)
CPT/HCPCS: 36415; 80048; 82728; 83540; 83550; 84436; 84443; 85025

== ENCOUNTER 2018-06-14 09:11 | Outpatient (CLI) | payer MEDICARE, MEDICAID ==
[2018-06-14 10:34] LABS: ALBUMIN 3.9 G/DL (3.4-5.0); ALBUMIN/GLOBULIN RATIO 0.9 (1.0-2.7); ASPARTATE AMINO TRANSFERASE 19 U/L (15-37); BILIRUBIN,DIRECT 0.1 MG/DL (0.0-0.3); CHLORIDE 107 MMOL/L (98-107); POTASSIUM 3.8 MMOL/L (3.5-5.1); SODIUM 143 MMOL/L (136-145)
[2018-06-14 10:35] LABS: BASOPHILS % (AUTO) 1.8 % (0.0-2.0); EOSINOPHILS % (AUTO) 1.6 % (0.0-3.0); HEMATOCRIT 42.3 % (37.0-47.0); HEMOGLOBIN 14.2 G/DL (12.0-16.0); LYMPHOCYTES % (AUTO) 30.7 % (20.0-45.0); MEAN CORPUSCULAR VOLUME 100 FL (80-99); MONOCYTES % (AUTO) 6.9 % (1.0-10.0); PLATELET COUNT 227 K/UL (150-450); RED BLOOD COUNT 4.24 M/UL (4.20-5.40); RED CELL DISTRIBUTION WIDTH 10.8 % (11.6-14.8); WHITE BLOOD COUNT 3.7 K/UL (4.8-10.8)
[2018-06-14 11:00] LABS: ALANINE AMINOTRANSFERASE 25 U/L (12-78); ALKALINE PHOSPHATASE 117 U/L (46-116); ANION GAP 7 mmol/L (5-15); BILIRUBIN,TOTAL 0.6 MG/DL (0.2-1.0); BLOOD UREA NITROGEN 27 mg/dL (7-18); CALCIUM 9.7 MG/DL (8.5-10.1); CARBON DIOXIDE 29 MMOL/L (21-32); CREATININE 1.6 MG/DL (0.55-1.30); FERRITIN 113 NG/ML (8-388)
[2018-06-14 11:17] LABS: % IRON SATURATION 27 % (15-50); IRON 83 ug/dL (50-175); TOTAL IRON BINDING CAPACITY 312 ug/dL (250-450)
== END 2018-06-14 11:11 | disposition home or self-care (01) ==
LOC: LAB 09:11
DX: C64.1 Malignant neoplasm of right kidney, except renal pelvis (principal)
CPT/HCPCS: 36415; 80053; 82248; 82607; 82728; 82746; 82784; 82785; 83540; 83550; 84436; 84443; 85025

== ENCOUNTER → 2018-07-31 | Outpatient (CLI) | payer MEDICARE, MEDICAID ==
[2018-07-31 13:57] LABS: BASOPHILS % (AUTO) 1.4 % (0.0-2.0); EOSINOPHILS % (AUTO) 14.6 % (0.0-3.0); HEMATOCRIT 42.3 % (37.0-47.0); HEMOGLOBIN 14.3 G/DL (12.0-16.0); LYMPHOCYTES % (AUTO) 25.8 % (20.0-45.0); MEAN CORPUSCULAR VOLUME 97 FL (80-99); MONOCYTES % (AUTO) 5.2 % (1.0-10.0); PLATELET COUNT 271 K/UL (150-450); RED BLOOD COUNT 4.35 M/UL (4.20-5.40); RED CELL DISTRIBUTION WIDTH 10.7 % (11.6-14.8); WHITE BLOOD COUNT 5.5 K/UL (4.8-10.8)
[2018-07-31 14:10] LABS: ALANINE AMINOTRANSFERASE 20 U/L (12-78); ALKALINE PHOSPHATASE 131 U/L (46-116); ANION GAP 11 mmol/L (5-15); ASPARTATE AMINO TRANSFERASE 19 U/L (15-37); BILIRUBIN,DIRECT 0.2 MG/DL (0.0-0.3); BILIRUBIN,TOTAL 0.8 MG/DL (0.2-1.0); BLOOD UREA NITROGEN 18 mg/dL (7-18); CALCIUM 9.8 MG/DL (8.5-10.1); CARBON DIOXIDE 27 MMOL/L (21-32); CHLORIDE 104 MMOL/L (98-107); CREATININE 1.4 MG/DL (0.55-1.30); FERRITIN 141 NG/ML (8-388); POTASSIUM 3.2 MMOL/L (3.5-5.1); SODIUM 142 MMOL/L (136-145)
[2018-07-31 14:46] LABS: % IRON SATURATION 23 % (15-50); IRON 76 ug/dL (50-175); TOTAL IRON BINDING CAPACITY 329 ug/dL (250-450)
== END | disposition home or self-care (01) ==
LOC: LAB 13:01
DX: C64.1 Malignant neoplasm of right kidney, except renal pelvis (principal)
CPT/HCPCS: 36415; 80048; 80076; 82378; 82607; 82728; 82746; 82784; 83540; 83550; 84436; 84443; 85025

== ENCOUNTER → 2018-08-16 | Outpatient (CLI) | payer MEDICARE, MEDICAID ==
[2018-08-16 14:35] LABS: BASOPHILS % (AUTO) 0.7 % (0.0-2.0); EOSINOPHILS % (AUTO) 1.6 % (0.0-3.0); HEMATOCRIT 43.2 % (37.0-47.0); HEMOGLOBIN 14.5 G/DL (12.0-16.0); LYMPHOCYTES % (AUTO) 35.4 % (20.0-45.0); MEAN CORPUSCULAR VOLUME 99 FL (80-99); MONOCYTES % (AUTO) 8.6 % (1.0-10.0); NEUTROPHILS % (AUTO) 53.7 % (45.0-75.0); PLATELET COUNT 268 K/UL (150-450); RED BLOOD COUNT 4.38 M/UL (4.20-5.40); RED CELL DISTRIBUTION WIDTH 11.3 % (11.6-14.8); WHITE BLOOD COUNT 4.3 K/UL (4.8-10.8)
[2018-08-16 15:17] LABS: ALANINE AMINOTRANSFERASE 26 U/L (12-78); ALBUMIN 3.8 G/DL (3.4-5.0); ALBUMIN/GLOBULIN RATIO 0.8 (1.0-2.7); ALKALINE PHOSPHATASE 111 U/L (46-116); ANION GAP 8 mmol/L (5-15); ASPARTATE AMINO TRANSFERASE 22 U/L (15-37); BILIRUBIN,TOTAL 0.6 MG/DL (0.2-1.0); BLOOD UREA NITROGEN 15 mg/dL (7-18); CALCIUM 9.6 MG/DL (8.5-10.1); CARBON DIOXIDE 29 MMOL/L (21-32); CHLORIDE 106 MMOL/L (98-107); CHOLESTEROL 121 MG/DL (< 200); CREATININE 1.2 MG/DL (0.55-1.30); HDL CHOLESTEROL 39 MG/DL (40-60); POTASSIUM 3.3 MMOL/L (3.5-5.1); SODIUM 143 MMOL/L (136-145); TRIGLYCERIDES 149 MG/DL (30-150)
== END | disposition home or self-care (01) ==
LOC: LAB 13:58
DX: I10 Essential (primary) hypertension (principal)
CPT/HCPCS: 36415; 80053; 80061; 82306; 84443; 85025

== ENCOUNTER 2019-03-05 16:56 | Inpatient (IN) | payer MEDICARE, MEDICAID ==
[~2019-03-05] VITALS: Ht 162.6 cm; Wt 83.9 kg
[2019-03-05 17:00] VITALS: BP 147/77
--- NOTE | 2019-03-05 17:00 | NUR ---
ED Nurse Note: Pt came in from home due to abdominal pain with n/v x 2 days and bright red blood in stool since this morning. Dr. Chapa sent pt to the ER. pt is complaining of 10/10 pain. seen by angela, mingo given and iv morphine, pt able to give urine sample and was sent to lab, blood drawn and was sent to lab. will continue to monitor.
[2019-03-05] MEDS ORDERED: Morphine Sulfate 4mg/ml Inj (IV USE ONLY) IVP ONE ×2 (17:45→20:30)
[2019-03-05 18:11] LABS: APPEARANCE,URINE CLEAR; BILIRUBIN, URINE NEGATIVE (NEGATIVE); GLUCOSE, URINE (UA) NEGATIVE (NEGATIVE); KETONES,URINE NEGATIVE (NEGATIVE); LEUKOCYTE ESTERASE ,URINE 2+ (NEGATIVE); NITRITE,URINE NEGATIVE (NEGATIVE); PH,URINE 5 (4.5-8.0); PROTEIN,URINE 2+ (NEGATIVE); UROBILINOGEN,URINE NORMAL MG/DL (0.0-1.0)
[2019-03-05 18:16] LABS: COLOR,URINE YELLOW
[2019-03-05 18:25] LABS: ANION GAP 11 mmol/L (5-15); BLOOD UREA NITROGEN 26 mg/dL (7-18); CALCIUM 10.1 MG/DL (8.5-10.1); CARBON DIOXIDE 28 MMOL/L (21-32); CHLORIDE 104 MMOL/L (98-107); CREATININE 1.5 MG/DL (0.55-1.30); POTASSIUM 3.5 MMOL/L (3.5-5.1); SODIUM 143 MMOL/L (136-145)
[2019-03-05 18:38] LABS: ALANINE AMINOTRANSFERASE 29 U/L (12-78); ALBUMIN 4.1 G/DL (3.4-5.0); ALBUMIN/GLOBULIN RATIO 1.1 (1.0-2.7); ALKALINE PHOSPHATASE 122 U/L (46-116); ASPARTATE AMINO TRANSFERASE 22 U/L (15-37); BILIRUBIN,TOTAL 0.8 MG/DL (0.2-1.0)
--- NOTE | 2019-03-05 18:49 | NUR ---
ED Nurse Note: ivf started on pt left hand,
--- NOTE | 2019-03-05 18:54 | Emergency Room Report ---
History of Present Illness General Chief Complaint: Abdominal Pain Source: Patient Present Illness HPI States that around 6 AM this morning she woke up with diffuse abdominal pain. She states that she has had pain all day today and since that time has developed bloody diarrhea. She states she had significant amount of rectal bleeding. She states that she has been fatigued. She denies fever or chills. She has had several episodes of nausea and vomiting. She denies dysuria or hematuria. She has no other complaints. Allergies: Coded Allergies: TRAMADOL (Verified Allergy, Intermediate, 01/10/18) TREMORS AND VOMITING CODEINE (Verified Adverse Reaction, Mild, 11/02/12) nausea Patient History Past Medical History: see triage record, DM, HTN, renal disease, other - Hx of renal cell carcinoma and tumor resection. Social History: Denies: smoking, alcohol use, drug use Now: No Reviewed Nursing Documentation: PMH: Agreed; PSxH: Agreed Nursing Documentation-PMH Past Medical History: No History, Except For Hx Cardiac Problems: Yes - neuropathy Hx Hypertension: Yes Hx Pacemaker: No Hx Asthma: Yes Hx COPD: Yes Hx Diabetes: Yes - controlled Hx Cancer: Yes Hx Gastrointestinal Problems: Yes - diverticulitis, ulcerative colitis Hx Dialysis: No Hx Neurological Problems: No Hx Cerebrovascular Accident: No Hx Seizures: Yes - 2 years ago Review of Systems All Other Systems: negative except mentioned in HPI Physical Exam Vital Signs Date Time Temp Pulse Resp B/P (MAP) Pulse Ox O2 Delivery O2 Flow Rate FiO2 03/05/19 16:59 98.4 101 20 147/77 (100) 96 Room Air Sp02 EP Interpretation: reviewed, normal General Appearance: no apparent distress, alert, GCS 15, non-toxic Head: normocephalic, atraumatic Eyes: bilateral eye normal inspection, bilateral eye PERRL ENT: hearing grossly normal, normal pharynx, no angioedema, normal voice Neck: full range of motion, supple/symm/no masses Respiratory: chest non-tender, lungs clear, normal breath sounds, no respiratory distress, no retraction, no accessory muscle use, speaking full sentences Cardiovascular #1: regular rate, rhythm, no edema Gastrointestinal: normal bowel sounds, soft, non-distended, no guarding, no rebound, tenderness - TTP diffusely but >in the LLQ Rectal: deferred Musculoskeletal: back normal, gait/station normal, normal range of motion, non- tender Neurologic: alert, oriented x3, responsive, motor strength/tone normal, sensory intact, speech normal Psychiatric: judgement/insight normal, memory normal, mood/affect normal, no suicidal/homicidal ideation Skin: normal color, no rash, warm/dry, well hydrated Medical Decision Making Diagnostic Impression: Primary Impression: Diverticulitis ER Course This patient is found to have diverticulitis. She did have severe intractable pain. She has had several doses of morphine IV. She also had presented with multiple episodes of vomiting. I felt that given this patient's age and her uncontrolled pain and vomiting that she would not be able to tolerate outpatient treatment. The patient was admitted for pain control and vomiting control and for antibiotics for diverticulitis. Laboratory Tests Test 03/05/19 17:10 03/05/19 17:20 03/05/19 19:00 Urine Color Yellow Urine Appearance Clear Urine pH 5 (4.5-8.0) Urine Specific [place] 1.020 (1.005-1.035) Urine Protein 2+ (NEGATIVE) H Urine Glucose (UA) Negative (NEGATIVE) Urine Ketones Negative (NEGATIVE) Urine Blood 1+ (NEGATIVE) H Urine Nitrite Negative (NEGATIVE) Urine Bilirubin Negative (NEGATIVE) Urine Urobilinogen Normal MG/DL (0.0-1.0) Urine Leukocyte Esterase 2+ (NEGATIVE) H Urine RBC 0-2 /HPF (0 - 2) Urine WBC 2-4 /HPF (0 - 2) Urine Squamous Epithelial Cells Few /LPF (NONE/OCC) Urine Bacteria Few /HPF (NONE) Sodium Level 143 MMOL/L (136-145) Potassium Level 3.5 MMOL/L (3.5-5.1) Chloride Level 104 MMOL/L (98-107) Carbon Dioxide Level 28 MMOL/L (21-32) Anion Gap 11 mmol/L (5-15) Blood Urea Nitrogen 26 mg/dL (7-18) H Creatinine 1.5 MG/DL (0.55-1.30) H Estimate Glomerular Filtration Rate mL/min (>60) Glucose Level 109 MG/DL (74-106) H Calcium Level 10.1 MG/DL (8.5-10.1) Total Bilirubin 0.8 MG/DL (0.2-1.0) Aspartate Amino Transferase (AST) 22 U/L (15-37) Alanine Aminotransferase (ALT) 29 U/L (12-78) Alkaline Phosphatase 122 U/L (46-116) H Troponin I 0.000 ng/mL (0.000-0.056) Total Protein 7.7 G/DL (6.4-8.2) Albumin 4.1 G/DL (3.4-5.0) Globulin 3.6 g/dL Albumin/Globulin Ratio 1.1 (1.0-2.7) Lipase 79 U/L (73-393) White Blood Count 8.2 K/UL (4.8-10.8) Red Blood Count 4.17 M/UL (4.20-5.40) L Hemoglobin 13.9 G/DL (12.0-16.0) Hematocrit 39.7 % (37.0-47.0) Mean Corpuscular Volume 95 FL (80-99) Mean Corpuscular Hemoglobin 33.4 PG (27.0-31.0) H Mean Corpuscular Hemoglobin Concent 35.1 G/DL (32.0-36.0) Red Cell Distribution Width 10.7 % (11.6-14.8) L Platelet Count 204 K/UL (150-450) Mean Platelet Volume 5.8 FL (6.5-10.1) L Neutrophils (%) (Auto) 74.9 % (45.0-75.0) Lymphocytes (%) (Auto) 18.2 % (20.0-45.0) L Monocytes (%) (Auto) 5.7 % (1.0-10.0) Eosinophils (%) (Auto) 0.1 % (0.0-3.0) Basophils (%) (Auto) 1.1 % (0.0-2.0) Prothrombin Time 10.1 SEC (9.30-11.50) Prothrombin Time INR 1.0 (0.9-1.1) PTT 19 SEC (23-33) L EKG Diagnostic Results Rate: tachycardiac Rhythm: other - S.tachycardia ST Segments: other - NSST findings. Rhythm Strip Diag. Results EP Interpretation: yes Rate: 90's Rhythm: NSR, no PVC's, no ectopy CT/MRI/US Diagnostic Results CT/MRI/US Diagnostic Results : Imaging Test Ordered: CT abd/pelvis Impression Uncomplicated diverticulitis. Last Vital Signs Date Time Temp Pulse Resp B/P (MAP) Pulse Ox O2 Delivery O2 Flow Rate FiO2 03/05/19 16:59 98.4 101 20 147/77 (100) 96 Room Air Disposition: ADMITTED INPATIENT Condition: Stable Judit Minor DO March 05, 2019 18:54
--- NOTE | 2019-03-05 19:15 | NUR ---
HAND-OFF: Report given to Prema MORAN. pt is on bed, stated that she feel better after the pain meds but still feel the pain.
--- NOTE | 2019-03-05 19:17 | NUR ---
ED Nurse Note: Received report from Zhanna RN. Pt in bed resting, c/o abdominal pain 03/18 and asking for more pain Rx. Will ask ER mD. Will continue to monitor.
[2019-03-05 19:23] LABS: BASOPHILS % (AUTO) 1.1 % (0.0-2.0); EOSINOPHILS % (AUTO) 0.1 % (0.0-3.0); HEMATOCRIT 39.7 % (37.0-47.0); HEMOGLOBIN 13.9 G/DL (12.0-16.0); LYMPHOCYTES % (AUTO) 18.2 % (20.0-45.0); MEAN CORPUSCULAR VOLUME 95 FL (80-99); MONOCYTES % (AUTO) 5.7 % (1.0-10.0); NEUTROPHILS % (AUTO) 74.9 % (45.0-75.0); PLATELET COUNT 204 K/UL (150-450); RED BLOOD COUNT 4.17 M/UL (4.20-5.40); RED CELL DISTRIBUTION WIDTH 10.7 % (11.6-14.8); WHITE BLOOD COUNT 8.2 K/UL (4.8-10.8)
--- NOTE | 2019-03-05 20:25 | NUR ---
ED Nurse Note: Pt resting with friend at bedside. Will continue to monitor.
[2019-03-05] MEDS ORDERED: Isovue-300 100ml vial INJ PRN (20:30)
[2019-03-05 21:00] VITALS: BP 174/75
--- NOTE | 2019-03-05 21:20 | NUR ---
ED Nurse Note: Pt's needs met. Andrés continue to monitor.
[2019-03-05] MEDS ORDERED: Ciprofloxacin 500mg tab ORAL ONE (21:30)
[2019-03-05] MEDS ORDERED: metroNIDAZOLE 500mg tab ORAL ONE (21:30)
[2019-03-05 22:00] VITALS: BP 162/85
--- NOTE | 2019-03-05 22:05 | NUR ---
ED Nurse Note: Pt being admitted. Will call and give report once ER orders are completed.
[2019-03-05 23:00] VITALS: BP 151/61
--- NOTE | 2019-03-05 23:18 | NUR ---
TRANSFER TO FLOOR: Patient transferred to [facility] as ordered, per MD Chapa. Report given to Antoinette MORAN. Belongings and medications given to Antoinette MORAN. Family and or S/O informed of transfer by pt.
--- NOTE | 2019-03-05 23:19 | NUR ---
NURSE NOTES: Pt received from ED originally for home. In stable condition on room air. Having abdominal pain however cannot administer more pain medication at this time. In no acute distress. Call light within reach. bed locked in lowest position, side rails x2, belongings form signed by patient
[2019-03-05] MEDS ORDERED: Morphine Sulfate 2mg/ml Inj(IV/IM USE ONLY) IVP PRN (23:30)
[2019-03-06] VITALS (7 sets, daily range): BP systolic 119–151; BP diastolic 61–77
--- NOTE | 2019-03-06 07:00 | Consultation ---
DATE OF CONSULTATION: 03/05/2019 GASTROENTEROLOGY CONSULTATION CONSULTING PHYSICIAN: Roe Garcia M.D. CHIEF COMPLAINT: I was asked to see this patient for evaluation of abdominal problems. HISTORY OF PRESENT ILLNESS: The patient is a pleasant 74-year-old woman who was in her usual state of health until about a week ago when she started having some mild abdominal discomfort, but about 3 days ago, her symptoms escalated and she had bouts of nausea, vomiting, and diarrhea. First few days, diarrhea was brown then subsequently some blood was seen in it today only. The patient stated that initially with bowel movements, the bowel movement came out brown and then subsequently changed color to red. The patient had some chills over the last few days and some other diffuse abdominal pain. Her sister had some mild and vague gastrointestinal complaints above 4 or 5 days ago as well. They both ate at the same restaurant prior to onset of the symptoms. The patient has had extensive previous gastrointestinal history, which is outlined below. PAST MEDICAL HISTORY: History of renal cell carcinoma, status post right nephrectomy. Last endoscopy was normal in 2012 and last colonoscopy showed diverticulosis more on the left side at that time. Another colonoscopy was done in 2015. Status post another colonoscopy in 2016 showing only diverticulosis and a polyp, which was inflammatory and was removed. History of hypertension, obesity, elevated cholesterol, chronic constipation, and reactive airway disease. FAMILY HISTORY: Positive for questionable history of Crohn disease in the father. SOCIAL HISTORY: The patient is single. She does not smoke or drink alcohol. She has a twin sister who is very much involved in her daily life. MEDICATIONS: See chart list for details. ALLERGIES: Codeine and tramadol. REVIEW OF SYSTEMS: Otherwise negative. PHYSICAL EXAMINATION: GENERAL: This is a pleasant woman, seen in the emergency room. HEENT: Normocephalic and atraumatic. Sclerae anicteric. Oropharynx clear. NECK: Supple. CHEST: Clear to auscultation. CARDIOVASCULAR: Revealed a regular rate. ABDOMEN: Soft. Diffusely tender without guarding or rebound. EXTREMITIES: Revealed no edema. LABORATORY DATA: Noted. ASSESSMENT: This patient presents with a several-day history of nausea, vomiting, abdominal discomfort, diarrhea, which could be episode of gastroenteritis. However, there was some blood seen today and the blood came after brown stools suggesting hemorrhoids. The patient statement is consistent with the same. The patient's hematocrit is essentially normal, which is typically seen in hemorrhoidal bleeding. In addition, she has had a colonoscopy only a few years ago, and therefore no masses are suspected. Diverticular disease may be a consideration, but the presentation is more consistent with hemorrhoidal issues. I would check the patient's complete stool cultures first. Should the patient's bleeding continue, then further evaluation including colonoscopy can be considered. RECOMMENDATIONS: 1. Check complete stool cultures. 2. Pain control. 3. IV fluids. 4. Follow CBC. Thank you for asking me to participate in the care of this patient. Roe Garcia M.D. DR: SHANI JOB#: [id number] CC: ANYI
--- NOTE | 2019-03-06 07:34 | NUR ---
HAND-OFF: Report given to LUISA Yarbrough
--- NOTE | 2019-03-06 07:35 | NUR ---
NURSE NOTES: received report from LUISA Mo. patient in bed. a&Ox4 verbally responsive. no respiratory distress noted in room air. mild discomfort on abd. IV on RT wrist running fluid. NPO. bed in the lowest position . call light within reach. alarm on. will continue to monitor.
--- NOTE | 2019-03-06 08:46 | Diagnostic Imaging Report ---
Indication: Abdominal pain, nausea vomiting x2 days Technique: Spiral acquisitions obtained through the abdomen and pelvis. No oral contrast utilized, per emergency room physician request No IV contrast utilized, per referring physician request.. Multiplanar reconstructions were generated. Total dose length product 853.13 mGycm. CTDIvol(s) 17.49 mGy. Dose reduction achieved using automated exposure control Comparison: 03/01/2017 Findings: There is fairly extensive colonic diverticulosis. There is equivocal increased attenuation of the perisigmoid fat which could indicate very early acute sigmoid diverticulitis. There is some wall thickening of the sigmoid colon, possibly related to such or could indicate circular muscular hypertrophy related to the diverticulosis. The appendix is not definitely identified, but there are no findings to suggest acute appendicitis. The distal esophagus, stomach, duodenum are all unremarkable. No free or loculated intraperitoneal gas or fluid. No small bowel distention. There is a fat-containing ventral hernia again demonstrated. Lack of IV contrast limits assessment of the solid organs. The liver demonstrates a subcentimeter low-attenuation lesion in segment 8 which is too small to characterize which is evident previously and unchanged, presumably a benign cyst. The gallbladder is unremarkable. No biliary ductal dilatation. The pancreas is fatty replaced. The spleen, adrenals are all unremarkable. The left kidney again demonstrates a cyst in the upper pole. The right kidney likewise again demonstrates an upper pole cyst. No hydronephrosis, hydroureter, renal or ureteral calculi. Previously demonstrated enhancing (prior study done with contrast) right renal mass is not evident on the current exam. No pelvic mass or adenopathy. Uterus and adnexal structures appear unremarkable. There is an incisional scar in the right lower quadrant which is not evident previously. The included lung bases demonstrate some atelectasis or scarring in the inferior lingula. There is a 4 mm rectangular density in the right middle lobe, probably not included on the previous exam but visible on earlier study of 2014 and unchanged. Linear atelectasis or scarring is seen in the bilateral lower lobes. The bones are unremarkable except for some mild degenerative spondylosis changes. Impression: Possible early uncomplicated acute diverticulitis of the sigmoid. Extensive colonic diverticulosis elsewhere Note apparent absence of previously demonstrated right renal contrast enhancing mass. This could indicate in visibility due to the lack of IV contrast, or could indicate prior therapy. Correlate with clinical/surgical history 4 mm rectangular density in the right middle lobe, visible on earlier 2014 study and unchanged, presumed benign Incidental findings as noted, including mild degenerative spondylosis changes, bilateral basilar pulmonary parenchymal atelectasis or scarring, right lower quadrant incisional scar, bilateral upper pole renal cysts, right lobe liver cyst, fat-containing ventral hernia This agrees with the preliminary interpretation provided overnight by [facility] teleradiology service. The CT scanner at [facility] is accredited by the [employer] and the scans are performed using protocols designed to limit radiation exposure to as low as reasonably achievable to attain images of sufficient resolution adequate for diagnostic evaluation.
--- NOTE | 2019-03-06 08:52 | NUR ---
EQUITY DIRECTORCUSTOMER SUPPORT CONSULTANT 74 Y/O FEMALE FROM HOME CAME TO [facility] CC:ABDOMINAL PAIN SI:DIVERTICULOSIS . INTRACTABLE PAIN AND SWELLING VS: BP 174/75, P 101, T 98.5, RR 20, SpO2 96 RBC 4.17, BUN 26, CR 1.[address]: Early uncomplicated acute diverticulitis of the sigmoid. IS:FLAGYL 500mg CIPROFLOXACIN 500mG ZOFRAN 4mG MORPHINE SULFATE 4mg NS x1L IV ADMITTED TO MED/SURG DCP: RETURN HOME
[2019-03-06 09:40] LABS: BASOPHILS % (AUTO) 0.9 % (0.0-2.0); EOSINOPHILS % (AUTO) 0.4 % (0.0-3.0); HEMATOCRIT 34.3 % (37.0-47.0); HEMOGLOBIN 11.5 G/DL (12.0-16.0); LYMPHOCYTES % (AUTO) 26.8 % (20.0-45.0); MEAN CORPUSCULAR VOLUME 99 FL (80-99); NEUTROPHILS % (AUTO) 60.9 % (45.0-75.0); PLATELET COUNT 224 K/UL (150-450); RED BLOOD COUNT 3.46 M/UL (4.20-5.40); RED CELL DISTRIBUTION WIDTH 11.1 % (11.6-14.8); WHITE BLOOD COUNT 5.3 K/UL (4.8-10.8)
[2019-03-06 09:51] LABS: ALANINE AMINOTRANSFERASE 20 U/L (12-78); ALBUMIN 3.3 G/DL (3.4-5.0); ALKALINE PHOSPHATASE 100 U/L (46-116); ANION GAP 7 mmol/L (5-15); ASPARTATE AMINO TRANSFERASE 15 U/L (15-37); BILIRUBIN,TOTAL 0.9 MG/DL (0.2-1.0); BLOOD UREA NITROGEN 22 mg/dL (7-18); CARBON DIOXIDE 29 MMOL/L (21-32); CHLORIDE 107 MMOL/L (98-107); CREATININE 1.4 MG/DL (0.55-1.30); POTASSIUM 3.4 MMOL/L (3.5-5.1); SODIUM 143 MMOL/L (136-145)
--- NOTE | 2019-03-06 09:53 | NUR ---
NURSE NOTES: patient IV on right wrist inserted on 03/05 was clogged. she is hard stick. patient mentioned she used to have a PICC line. she is getting 1/2 NS 70/hr. NPO currently. notified Dr. barton and waiting for further order.
[2019-03-06] MEDS ORDERED: Lidocaine 1% Plain 30 ml INJ SCH (11:15)
[2019-03-06] MEDS ORDERED: Heparin1,000 units/500ml Premix(Conc:2 units/ml) IV SCH (11:15)
[2019-03-06] MEDS: Morphine Sulfate 2mg/ml Inj(IV/IM USE ONLY) IM PRN ×3 (11:36→21:11)
--- NOTE | 2019-03-06 15:40 | NUR ---
NURSE NOTES: Picc line was ordered 11am. called radiology for PICC line insertion. no one available in the radiology at this time. IT will be follow up tomorrow.
[2019-03-06] MEDS: Piperacillin/Tazobactam 3.375 GM in NS 110 ML IVPB SCH (16:00)
--- NOTE | 2019-03-06 16:29 | Cardiology Report ---
APPROVED REPORT EKG Measurement Heart [id number] AR [id number] Sinus tachycardia Left axis deviation Abnormal ECG
--- NOTE | 2019-03-06 18:03 | NUR ---
NURSE NOTES: tried to insert new IV until get an PICC line tomorrow per patient request. no veins available to use.
--- NOTE | 2019-03-06 19:34 | NUR ---
HAND-OFF: Report given to PaulaRN
--- NOTE | 2019-03-06 19:35 | NUR ---
NURSE NOTES: RECEIVED PT FROM LUISA MERA. PT IS AWAKE, AAO X4. C.O PAIN 10/10 ON ABDOMEN. NO IV ACCESS, DR. MEANS AWARE.BED IS LOCKED AT THE LOWEST POSITION, BED ALARMS ACTIVE, SIDE RAILS UP X2, AND CALL LIGHT IS WITHIN REACH. WILL CONTINUE TO MONITOR
[2019-03-06] MEDS: Dyna-Hex 2% Top Sol 2oz TOPIC SCH (20:00)
--- NOTE | 2019-03-06 20:00 | NUR ---
NURSE NOTES: RECEIVED ORDERS FROM TO INCREASE MORPHINE IM TO 4MG Q4H PRN.
--- NOTE | 2019-03-06 20:33 | General Progress Note ---
Assessment/Plan Assessment/Plan: Assessment - N/V - abd pain - diarrhea - h/o diverticulosis Recommendations - clear liquids - abx - check stool Cx, C Diff Subjective Allergies: Coded Allergies: TRAMADOL (Verified Allergy, Intermediate, 01/10/18) TREMORS AND VOMITING CODEINE (Verified Adverse Reaction, Mild, 11/02/12) nausea Subjective Feels better improved N/V improved Pain, but still needs IM morphine improved diarrhea, but still loose Difficulty with IV access Objective Last 24 Hour Vital Signs Date Time Temp Pulse Resp B/P (MAP) Pulse Ox O2 Delivery O2 Flow Rate FiO2 03/06/19 16:00 99.2 78 18 122/69 (86) 100 03/06/19 12:00 98.7 70 17 146/73 (97) 97 03/06/19 09:00 Room Air 03/06/19 08:02 98.5 84 16 151/61 (91) 96 03/06/19 08:00 98.7 69 17 128/67 (87) 98 03/06/19 04:00 99.2 85 18 139/68 (91) 99 03/06/19 03:40 98.5 03/06/19 03:40 98.5 03/06/19 00:00 99.2 83 18 151/77 (101) 96 03/05/19 23:00 98.5 84 16 151/61 96 Room Air 03/05/19 22:47 98.4 84 16 151/61 96 Room Air 03/05/19 22:30 Room Air 03/05/19 22:00 98.5 89 16 162/85 94 Room Air 03/05/19 22:00 98.5 03/05/19 21:00 98.5 90 20 174/75 99 Room Air 90 Intake and Output 03/05/19 03/06/19 19:00 07:00 Intake Total 1210 ml Balance 1210 ml Intake IV Total 1210 ml Laboratory Tests 03/06/19 08:50: White Blood Count 5.3, Red Blood Count 3.46L, Hemoglobin 11.5L, Hematocrit 34.3L , Mean Corpuscular Volume 99, Mean Corpuscular Hemoglobin 33.2H, Mean Corpuscular Hemoglobin Concent 33.5, Red Cell Distribution Width 11.1L, Platelet Count 224, Mean Platelet Volume 6.7, Neutrophils (%) (Auto) 60.9, Lymphocytes (%) (Auto) 26.8, Monocytes (%) (Auto) 11.0H, Eosinophils (%) (Auto) 0.4, Basophils (%) (Auto) 0.9, Sodium Level 143, Potassium Level 3.4L, Chloride Level 107, Carbon Dioxide Level 29, Anion Gap 7, Blood Urea Nitrogen 22H, Creatinine 1.4H, Estimat Glomerular Filtration Rate , Glucose Level 105, Calcium Level 9.0, Total Bilirubin 0.9, Aspartate Amino Transf (AST/SGOT) 15, Alanine Aminotransferase (ALT/SGPT) 20, Alkaline Phosphatase 100, Lactate Dehydrogenase 138, Total Protein 6.6, Albumin 3.3L, Globulin 3.3, Albumin/ Globulin Ratio 1.0 Height (Feet): 5 Height (Inches): 4.00 Weight (Pounds): 185 Objective Obese AA woman NCAT supple CTA RR abd soft ND, (+) diffuse TTP but less than yesterday no edema Roe Garcia MD March 06, 2019 20:33
--- NOTE | 2019-03-06 21:30 | History and Physical Report ---
DATE OF ADMISSION: 03/05/2019 HISTORY OF PRESENT ILLNESS: The patient was admitted for gastrointestinal bleed. The patient has been complaining of vomiting blood as well as rectal bleed. The patient also has been having abdominal cramps that has been going on for a week. The patient was admitted for diverticulitis flare that she has. The patient denies chills. Denies cough. Denies shortness of breath. Denies orthopnea. PAST MEDICAL HISTORY: Significant for chest pain, history of diverticulitis, history of renal cancer, constipation, hypertension, chronic pain syndrome, hyperlipidemia, hypertension, and dyslipidemia. PAST SURGICAL HISTORY: Ovarian cyst removed, partial right nephrectomy for cancer. ALLERGIES: Tramadol, codeine. MEDICATIONS: Lipitor, Colace, Toviaz, Cymbalta, Colace, diltiazem, Crestor, hydrochlorothiazide. SOCIAL HISTORY: Denies history of smoking, alcohol, or illicit drugs. REVIEW OF SYSTEMS: HEENT: Denies headaches. RESPIRATORY: Denies shortness of breath. Denies cough CARDIOVASCULAR: Denies chest pain. GASTROINTESTINAL: Reports vomiting blood and rectal bleed as well as abdominal cramps for about one week. EXTREMITIES: Denies pain in the lower extremity. [place] ROOM: No change in vision or speech pattern. PHYSICAL EXAMINATION: VITAL SIGNS: Temperature 99.2, pulse 85, blood pressure 139/68. HEENT: PERRLA. NECK: Supple. No lymphadenopathy. CHEST: Clear to auscultation. CARDIOVASCULAR: Regular rate and rhythm. No murmurs or extra sounds. GASTROINTESTINAL: Diffuse abdominal pain. Abdomen is soft. No rebound. No organomegaly. EXTREMITIES: A 1+ edema. Reflexes equal in both sides. Moving all four extremities. LABORATORY STUDIES: WBC of 8.2, hemoglobin 13.9, platelets 204. Sodium 143, potassium 3.5, BUN of 26, creatinine 1.5. ASSESSMENT: 1. Hematemesis. 2. Gastrointestinal bleed. 3. Vomiting. 4. Diverticulitis flare. 5. Azotemia. I have asked Dr. Krueger, Dr. Garcia, Dr. Jonatan Mathews, as well as Dr. Tavarez to see the patient for pain management as well as for diverticulitis treatment as well as for hypokalemia and azotemia treatment. Bunny Chapa M.D. DR: Rosmery JOB#: [id number] CC:
[2019-03-07] VITALS: BP 135/63
--- NOTE | 2019-03-07 03:45 | Consultation ---
DATE OF CONSULTATION: 03/06/2019 INFECTIOUS DISEASES CONSULTATION CONSULTING PHYSICIAN: Jonatan Mathews M.D. PRIMARY ATTENDING PHYSICIAN: Bunny Chapa M.D. REASON FOR CONSULTATION: Diverticulitis. HISTORY OF PRESENT ILLNESS: This is a 74-year-old -[place] female, admitted last night complaining of abdominal pain. These symptoms started one week ago with mild abdominal discomfort. In the past three days, it has become worse associated with nausea, vomiting, and diarrhea. She had some bloody diarrhea day before admission. PAST MEDICAL HISTORY: Significant for renal cell cancer, status post right nephrectomy; seizure disorder; diabetes mellitus; asthma; COPD; hypertension; obesity; history of colon polyp, diverticulosis. ALLERGIES: Allergic to codeine and tramadol. MEDICATIONS: Morphine, heparin, Zofran, sodium chloride. one dose of Cipro and Flagyl in the ER. SOCIAL HISTORY: Single, lives at home. Denies alcohol, drug abuse, or smoking. REVIEW OF SYSTEMS: No fever. No chills. She has nausea at the present time. Abdominal pain that is diffuse, more in the lower part. No problem passing urine. PHYSICAL EXAMINATION: VITAL SIGNS: Temperature 98.7, pulse 70, blood pressure 146/73. GENERAL APPEARANCE: well developed no acute distress. HEAD AND NECK: [employer] conjunctivae. HEART: S1 and S2. Regular. LUNGS: Clear. ABDOMEN: Soft and nontender. EXTREMITIES: no edema. NEUROLOGIC: Awake, alert, and oriented x3. LABORATORY AND DIAGNOSTIC DATA: Sodium 143, potassium 3.4, chloride 10 bicarbonate 29, BUN 22, creatinine 1.4, glucose 105. WBC 5.3, hemoglobin 11.5, hematocrit 34.8, and platelets 224. UA was negative for rbc, wbc, and nitrite. The patient had a CT scan of the abdomen and pelvis, possible early acute diverticulitis. IMPRESSION: Sigmoid diverticulitis. The patient has hypertension, COPD, asthma, chronic kidney disease, renal cell cancer, status post nephrectomy. RECOMMENDATION: We will start the patient on IV Zosyn. We will follow up the patient clinically. At the end of my exam, I thank Dr. Chapa for involving me in the care of this patient. Jonatan Mathews M.D. DR: EUGENIA JOB#: [id number] CC: ANYI
[2019-03-07 04:00] VITALS: BP 118/63
[2019-03-07] MEDS: Morphine Sulfate 2mg/ml Inj(IV/IM USE ONLY) IM PRN ×3 (04:49→21:15)
[2019-03-07 06:32] LABS: BASOPHILS % (AUTO) 1.8 % (0.0-2.0); EOSINOPHILS % (AUTO) 1.1 % (0.0-3.0); HEMATOCRIT 37.5 % (37.0-47.0); HEMOGLOBIN 12.6 G/DL (12.0-16.0); LYMPHOCYTES % (AUTO) 30.5 % (20.0-45.0); MEAN CORPUSCULAR VOLUME 100 FL (80-99); MONOCYTES % (AUTO) 7.9 % (1.0-10.0); NEUTROPHILS % (AUTO) 58.7 % (45.0-75.0); PLATELET COUNT 209 K/UL (150-450); RED BLOOD COUNT 3.73 M/UL (4.20-5.40); RED CELL DISTRIBUTION WIDTH 10.9 % (11.6-14.8); WHITE BLOOD COUNT 5.4 K/UL (4.8-10.8)
[2019-03-07 06:55] LABS: ALANINE AMINOTRANSFERASE 20 U/L (12-78); ALBUMIN 3.3 G/DL (3.4-5.0); ALBUMIN/GLOBULIN RATIO 0.8 (1.0-2.7); ALKALINE PHOSPHATASE 97 U/L (46-116); ANION GAP 8 mmol/L (5-15); ASPARTATE AMINO TRANSFERASE 16 U/L (15-37); BILIRUBIN,TOTAL 1.1 MG/DL (0.2-1.0); BLOOD UREA NITROGEN 18 mg/dL (7-18); CALCIUM 9.5 MG/DL (8.5-10.1); CARBON DIOXIDE 29 MMOL/L (21-32); CHLORIDE 104 MMOL/L (98-107); CREATININE 1.5 MG/DL (0.55-1.30); POTASSIUM 3.4 MMOL/L (3.5-5.1); SODIUM 141 MMOL/L (136-145)
[2019-03-07 06:56] LABS: BILIRUBIN,DIRECT 0.2 MG/DL (0.0-0.3)
--- NOTE | 2019-03-07 07:20 | NUR ---
NURSE NOTES: Report received from Paula RN, rounds made. Patient resting in semi-fowlers position in bed. No c/o pain, NV, SOB on RA. Patient scheduled for PICC line insertion today, patient aware, consent is signed. Bilateral SCDs on. No active bleeding noted at this time. Up to BSC with assistance, no BM. Call light in reach, bed in lowest position, will continue to monitor.
[2019-03-07 08:00] VITALS: BP 133/66
--- NOTE | 2019-03-07 08:00 | NUR ---
HAND-OFF: Report given to LUISA CARLSON.
[2019-03-07] MEDS ORDERED: Heparin1,000 units/500ml Premix(Conc:2 units/ml) INJ PRN (08:44)
[2019-03-07] MEDS ORDERED: Lidocaine 1% Plain 30 ml INJ PRN (08:45)
--- NOTE | 2019-03-07 08:50 | Consultation ---
History of Present Illness General Date patient seen: March 07, 2019 Time patient seen: 07:00 - am Chief Complaint: Low back and abdominal pain Referring physician: mick Reason for Consultation: pain management Present Illness HPI Patient has been admitted under the care of Dr. Chapa c/o abdominal pain and is being seen by GI and ID specialists. She also is c/o low back pain which she says is chronic and has no new changes. The patient was started on Morphine 4mg IV Q4H PRN which has helped patient to tolerate the pain. Allergies: Coded Allergies: TRAMADOL (Verified Allergy, Intermediate, 01/10/18) TREMORS AND VOMITING CODEINE (Verified Adverse Reaction, Mild, 11/02/12) nausea Medication History Scheduled Albuterol Sulfate* (Proair Hfa*), 2 PUFFS INH Q4, (Reported) Atorvastatin Calcium* (Lipitor*), 20 MG ORAL BEDTIME, (Reported) Azelastine/Fluticasone (Dymista Nasal Butler), 2 SPRAYS NS BID, (Reported) Cyclobenzaprine Hcl* (Flexeril*), 5 MG ORAL DA, (Reported) Dexlansoprazole (Dexilant), 60 MG ORAL DAILY, (Reported) Diltiazem Hcl (Diltiazem Er), 240 MG PO DAILY, (Reported) Docusate Sodium* (Docusate Sodium*), 100 MG ORAL TWICE A DAY, (Reported) Duloxetine Hcl* (Cymbalta*), 30 MG ORAL DAILY, (Reported) Fesoterodine Fumarate (Toviaz), 4 MG PO BID, (Reported) Fluticasone/Vilanterol (Breo Ellipta 100-25 Mcg INH), 1 PUFF IH DAILY, (Reported ) Hydralazine Hcl* (Hydralazine Hcl*), 25 MG ORAL BID, (Reported) Hydrochlorothiazide (Microzide), 25 MG PO DAILY, (Reported) Rosuvastatin Calcium* (Crestor*), 20 MG ORAL DAILY, (Reported) Triamterene/Hydrochlorothiazid (Triamterene-Hctz 37.5-25 Mg Cp), 1 CAP ORAL DAILY, (Reported) Scheduled PRN Diazepam* (Diazepam*), 5 MG ORAL BID PRN for ANXIETY, (Reported) Hydrocodone Bit/Acetaminophen 5-325* (Keno 5-325*), 1 TAB ORAL Q4H PRN for For Pain, (Reported) Hydrocodone Bit/Acetaminophen 5-325* (Keno 5-325*), 2 TAB ORAL Q4H PRN for For Pain, (Reported) Patient History Healthcare decision maker Resuscitation status Full Code Advanced Directive on File Past Medical/Surgical History Past Medical/Surgical History: (1) Abdominal pain (2) S/p nephrectomy Review of Systems ROS Narrative REVIEW OF SYSTEMS: Denies rash, fever, chills, sweating, dizziness, drowsiness, blurry vision, sore throat, change of hearing or weight. No shortness of breath, chest pain, palpitations or cough. No nausea or vomiting, but complains of abdominal pain. No constipation or diarrhea. No blood in the stool or the urine. No bowel or bladder incontinence. No dysuria. She complains of back pain with radiation to the left leg. No weakness or numbness in any extremity. Physical Exam Physical Exam Narrative GENERAL: Alert, awake, oriented x3. HEENT: PERRLA. NECK: Range of motion full. There is no tenderness in the paracervical muscles. No adenopathy. LUNGS: Clear. HEART: S1 and S2, regular. ABDOMEN: Mild tenderness, generalized. Bowel sounds present. BACK: Range of motion deferred to be examined. There is bilateral paraspinal muscle tenderness in the lumbar area. No tenderness in the trapezius or rhomboid muscles. UPPER EXTREMITIES: Upper extremity range of motion full in all directions. No cyanosis, no clubbing, no edema. Motor 4/5 bilaterally in all muscles. Sensory intact. Reflexes normal. No adenopathy. LOWER EXTREMITIES: Lower extremity range of motion full in all directions. No cyanosis, no clubbing, no edema. Motor 4/5 bilaterally in all muscles. Sensory intact. Reflexes normal. No adenopathy. Last 24 Hour Vital Signs Date Time Temp Pulse Resp B/P (MAP) Pulse Ox O2 Delivery O2 Flow Rate FiO2 03/07/19 04:00 98.8 80 18 118/63 (81) 96 03/07/19 00:00 99.6 81 20 135/63 (87) 96 03/06/19 21:00 Room Air 03/06/19 20:00 97.6 76 18 119/73 (88) 96 03/06/19 16:00 99.2 78 18 122/69 (86) 100 03/06/19 12:00 98.7 70 17 146/73 (97) 97 03/06/19 09:00 Room Air Intake and Output 03/06/19 03/07/19 19:00 07:00 Intake Total 280 ml Balance 280 ml Intake IV Total 280 ml # Voids 3 2 Laboratory Tests Test 03/07/19 05:40 White Blood Count 5.4 K/UL (4.8-10.8) Red Blood Count 3.73 M/UL (4.20-5.40) L Hemoglobin 12.6 G/DL (12.0-16.0) Hematocrit 37.5 % (37.0-47.0) Mean Corpuscular Volume 100 FL (80-99) H Mean Corpuscular Hemoglobin 33.6 PG (27.0-31.0) H Mean Corpuscular Hemoglobin Concent 33.5 G/DL (32.0-36.0) Red Cell Distribution Width 10.9 % (11.6-14.8) L Platelet Count 209 K/UL (150-450) Mean Platelet Volume 6.4 FL (6.5-10.1) L Neutrophils (%) (Auto) 58.7 % (45.0-75.0) Lymphocytes (%) (Auto) 30.5 % (20.0-45.0) Monocytes (%) (Auto) 7.9 % (1.0-10.0) Eosinophils (%) (Auto) 1.1 % (0.0-3.0) Basophils (%) (Auto) 1.8 % (0.0-2.0) Sodium Level 141 MMOL/L (136-145) Potassium Level 3.4 MMOL/L (3.5-5.1) L Chloride Level 104 MMOL/L (98-107) Carbon Dioxide Level 29 MMOL/L (21-32) Anion Gap 8 mmol/L (5-15) Blood Urea Nitrogen 18 mg/dL (7-18) Creatinine 1.5 MG/DL (0.55-1.30) H Estimat Glomerular Filtration Rate mL/min (>60) Glucose Level 158 MG/DL (74-106) H Calcium Level 9.5 MG/DL (8.5-10.1) Total Bilirubin 1.1 MG/DL (0.2-1.0) H Direct Bilirubin 0.2 MG/DL (0.0-0.3) Aspartate Amino Transf (AST/SGOT) 16 U/L (15-37) Alanine Aminotransferase (ALT/SGPT) 20 U/L (12-78) Alkaline Phosphatase 97 U/L (46-116) Total Protein 7.2 G/DL (6.4-8.2) Albumin 3.3 G/DL (3.4-5.0) L Globulin 3.9 g/dL Albumin/Globulin Ratio 0.8 (1.0-2.7) L Height (Feet): 5 Height (Inches): 4.00 Weight (Pounds): 185 Medications Current Medications Medications (Trade) Dose Ordered Sig/Marcia Route PRN Reason Start Time Stop Time Status Last Admin Dose Admin Acetaminophen (Tylenol) 650 mg Q4H PRN ORAL Mild Pain/Temp > 100.5 03/05/19 23:30 04/04/19 23:29 03/06/19 03:10 Chlorhexidine Gluconate (Sarah-Hex 2%) 1 applic DAILY@2000 TOPIC 03/06/19 20:00 04/05/19 19:59 03/06/19 20:00 Heparin Sodium/ Sodium Chloride (Heparin 1000 units/500ml Premix) 1,000 unit ONCE PRN INJ LINE 03/07/19 08:44 03/07/19 23:59 Iopamidol (Isovue-300 100ml) 100 ml NOW PRN INJ Radiology Procedure 03/05/19 20:30 Lidocaine HCl (Xylocaine 1% 30ml) 30 ml ONCE PRN INJ LINE 03/07/19 08:45 03/07/19 23:59 Morphine Sulfate (Morphine Sulfate) 4 mg Q4H PRN IM Severe Pain (Pain Scale 7-10) 03/06/19 20:15 03/13/19 20:14 03/07/19 04:49 Ondansetron HCl (Zofran) 4 mg Q6H PRN IVP Nausea & Vomiting 03/06/19 00:45 04/05/19 00:44 03/06/19 03:10 Piperacillin Sod/ Tazobactam Sod 3.375 gm/Sodium Chloride 110 ml @ 27.5 mls/hr Q8H IVPB 03/06/19 16:00 03/13/19 15:59 Sodium Chloride 1,000 ml @ 70 mls/hr [id number] IV 03/05/19 23:30 04/04/19 23:29 03/06/19 03:08 Assessment/Plan Assessment/Plan: (1) Abdominal pain (2) Diverticulitis (3) Lumbar Radiculopathy (4) Lumbar DDD Patient to be continued on Morphine as needed D/w Dr. Tavarez and he concurred. Toby Shukla March 07, 2019 08:50
--- NOTE | 2019-03-07 10:10 | NUR ---
NURSE NOTES: Patient sent down to radiology via bed at 0900 for PICC line insertion. Returned at 1010. Left upper arm PICC noted, dressing CDI. Flushed both lumens, no bleeding or leakage. Will continue to monitor.
[2019-03-07] MEDS: Piperacillin/Tazobactam 3.375 GM in NS 110 ML IVPB SCH ×4 (11:41→21:16)
[2019-03-07 12:00] VITALS: BP 124/55
--- NOTE | 2019-03-07 12:08 | Diagnostic Imaging Report ---
Indications: Needs long-term IV access Technique: Ultrasound confirms patent compressible left brachial vein. Total sterile technique, including sterile probe cover and sterile gel, hat, mask, sterile gown, large sterile drape, and preparation with 2% chlorhexidine utilized. Local anesthesia with 1% lidocaine. Under real-time ultrasound guidance, puncture brachial vein using 21-gauge needle, documented and archived, passage 0.018 guidewire under direct fluoroscopy, which was used to determine appropriate catheter length, exchange for 4 Guyanese peel-away sheath. 4 Guyanese Bard dual-lumen power PICC cut to 46 cm. It was inserted through the peel-away sheath. Peel-away sheath and guidewire removed. Catheter fixed to the skin. Both catheter ports aspirated and flushed. Patient tolerated procedure well, without immediate complication. Digital radiograph documents satisfactory catheter tip position, at the cavoatrial junction. Total fluoroscopy time 16.3 seconds. Total dose area product [id number] Total number of images: 1 Impression: Successful placement of left arm PICC under sonographic and fluoroscopic guidance, as described above.
--- NOTE | 2019-03-07 14:23 | Infectious Diseases Prog Note ---
Assessment/Plan Assessment/Plan IMPRESSION: Sigmoid diverticulitis. Hypertension, COPD, asthma, chronic kidney disease, renal cell cancer, status post nephrectomy. RECOMMENDATION: Continue IV Zosyn Subjective ROS Limited/Unobtainable: No Constitutional: Reports: anorexia Respiratory: Reports: no symptoms Cardiovascular: Reports: no symptoms Gastrointestinal/Abdominal: Reports: other - abdoinal pain controlled Genitourinary: Reports: no symptoms Allergies: Coded Allergies: TRAMADOL (Verified Allergy, Intermediate, 01/10/18) TREMORS AND VOMITING CODEINE (Verified Adverse Reaction, Mild, 11/02/12) nausea Objective Vital Signs Last 24 Hour Vital Signs Date Time Temp Pulse Resp B/P (MAP) Pulse Ox O2 Delivery O2 Flow Rate FiO2 03/07/19 04:00 98.8 80 18 118/63 (81) 96 03/07/19 00:00 99.6 81 20 135/63 (87) 96 03/06/19 21:00 Room Air 03/06/19 20:00 97.6 76 18 119/73 (88) 96 03/06/19 16:00 99.2 78 18 122/69 (86) 100 Height (Feet): 5 Height (Inches): 4.00 Weight (Pounds): 185 General Appearance: no acute distress HEENT: mucous membranes moist Respiratory/Chest: lungs clear Cardiovascular: normal rate, other - left arm PICC line Abdomen: soft, non tender Extremities: no edema Neurologic/Psychiatric: alert, oriented x 3, responsive Laboratory Tests Test 03/07/19 05:40 White Blood Count 5.4 K/UL (4.8-10.8) Red Blood Count 3.73 M/UL (4.20-5.40) L Hemoglobin 12.6 G/DL (12.0-16.0) Hematocrit 37.5 % (37.0-47.0) Mean Corpuscular Volume 100 FL (80-99) H Mean Corpuscular Hemoglobin 33.6 PG (27.0-31.0) H Mean Corpuscular Hemoglobin Concent 33.5 G/DL (32.0-36.0) Red Cell Distribution Width 10.9 % (11.6-14.8) L Platelet Count 209 K/UL (150-450) Mean Platelet Volume 6.4 FL (6.5-10.1) L Neutrophils (%) (Auto) 58.7 % (45.0-75.0) Lymphocytes (%) (Auto) 30.5 % (20.0-45.0) Monocytes (%) (Auto) 7.9 % (1.0-10.0) Eosinophils (%) (Auto) 1.1 % (0.0-3.0) Basophils (%) (Auto) 1.8 % (0.0-2.0) Sodium Level 141 MMOL/L (136-145) Potassium Level 3.4 MMOL/L (3.5-5.1) L Chloride Level 104 MMOL/L (98-107) Carbon Dioxide Level 29 MMOL/L (21-32) Anion Gap 8 mmol/L (5-15) Blood Urea Nitrogen 18 mg/dL (7-18) Creatinine 1.5 MG/DL (0.55-1.30) H Estimat Glomerular Filtration Rate mL/min (>60) Glucose Level 158 MG/DL (74-106) H Calcium Level 9.5 MG/DL (8.5-10.1) Total Bilirubin 1.1 MG/DL (0.2-1.0) H Direct Bilirubin 0.2 MG/DL (0.0-0.3) Aspartate Amino Transf (AST/SGOT) 16 U/L (15-37) Alanine Aminotransferase (ALT/SGPT) 20 U/L (12-78) Alkaline Phosphatase 97 U/L (46-116) Total Protein 7.2 G/DL (6.4-8.2) Albumin 3.3 G/DL (3.4-5.0) L Globulin 3.9 g/dL Albumin/Globulin Ratio 0.8 (1.0-2.7) L Current Medications Medications (Trade) Dose Ordered Sig/Marcia Route PRN Reason Start Time Stop Time Status Last Admin Dose Admin Acetaminophen (Tylenol) 650 mg Q4H PRN ORAL Mild Pain/Temp > 100.5 03/05/19 23:30 04/04/19 23:29 03/06/19 03:10 Chlorhexidine Gluconate (Sarah-Hex 2%) 1 applic DAILY@2000 TOPIC 03/06/19 20:00 04/05/19 19:59 03/06/19 20:00 Heparin Sodium/ Sodium Chloride (Heparin 1000 units/500ml Premix) 1,000 unit ONCE PRN INJ LINE 5/30/19 08:44 03/07/19 23:59 Iopamidol (Isovue-300 100ml) 100 ml NOW PRN INJ Radiology Procedure 03/05/19 20:30 Lidocaine HCl (Xylocaine 1% 30ml) 30 ml ONCE PRN INJ LINE 03/07/19 08:45 03/07/19 23:59 Morphine Sulfate (Morphine Sulfate) 4 mg Q4H PRN IM Severe Pain (Pain Scale 7-10) 03/06/19 20:15 03/13/19 20:14 03/07/19 11:10 Ondansetron HCl (Zofran) 4 mg Q6H PRN IVP Nausea & Vomiting 03/06/19 00:45 04/05/19 00:44 03/06/19 03:10 Piperacillin Sod/ Tazobactam Sod 3.375 gm/Sodium Chloride 110 ml @ 27.5 mls/hr Q8HR IVPB 03/07/19 11:30 03/14/19 11:29 03/07/19 11:41 Sodium Chloride 1,000 ml @ 70 mls/hr [id number] IV 03/05/19 23:30 04/04/19 23:29 03/07/19 11:41 Jonatan Mathews MD March 07, 2019 14:23
[2019-03-07 16:00] VITALS: BP 146/65
--- NOTE | 2019-03-07 16:20 | NUR ---
NURSE NOTES: Dr. Chapa and Dr. Hayes notified of K 3.4 level. Order received. Patient updated on new order, verbalized understanding. Administered Potassium Chloride 40 MEQ PO x1 as ordered, tolerated well.
--- NOTE | 2019-03-07 19:30 | NUR ---
HAND-OFF: Report given to Paula RN.
--- NOTE | 2019-03-07 19:40 | NUR ---
NURSE NOTES: RECEIVED PT FROM LUISA TAVARES. PT IS AWAKE, AAO X2. DENIES PAIN AT THE MOMENT. ON ROOM AIR, NO ACUTE DISTRESS NOTED. COMMODE AT BEDSIDE. PICC LINE ON LEFT UPPER ARM DOUBLE LUMEN NOTED. DRESSING IS DRY AND INTACT, ONLY ONE LUMEN IS PATENT, CHARGE NURSE AWARE. PT REPORTED THAT THE LUMEN THAT IS NOT PATENT HAS NOT BEEN USED. BED IS LOCKED AT THE LOWEST POSITION, BED ALARMS ACTIVE, SIDE RAILS UP X2 AND CALL LIGHT IS WITHIN REACH. WILL CONTINUE TO MONITOR.
[2019-03-07 20:00] VITALS: BP 149/70
[2019-03-07] MEDS: Dyna-Hex 2% Top Sol 2oz TOPIC SCH (21:14)
--- NOTE | 2019-03-07 21:28 | General Progress Note ---
Assessment/Plan Problem List: (1) Abdominal pain ICD Codes: R10.9 - Unspecified abdominal pain SNOMED: 97363735 (2) Colitis ICD Codes: K52.9 - Noninfective gastroenteritis and colitis, unspecified SNOMED: 946537207 (3) Abdominal pain ICD Codes: R10.9 - Unspecified abdominal pain SNOMED: 07243744, 877232605 (4) S/p nephrectomy ICD Codes: Z90.5 - Acquired absence of kidney SNOMED: 58616976, 775823556 (5) Diverticulitis ICD Codes: K57.92 - Diverticulitis of intestine, part unspecified, without perforation or abscess without bleeding SNOMED: 550372901 (6) Intractable pain ICD Codes: R52 - Pain, unspecified SNOMED: 01729559 Status: progressing Assessment/Plan: diverticulitis abdominal pain afebrile no gi bleed intractable pain pain management per dr christianson Subjective Gastrointestinal/Abdominal: Reports: abdominal pain Allergies: Coded Allergies: TRAMADOL (Verified Allergy, Intermediate, 01/10/18) TREMORS AND VOMITING CODEINE (Verified Adverse Reaction, Mild, 11/02/12) nausea Objective Last 24 Hour Vital Signs Date Time Temp Pulse Resp B/P (MAP) Pulse Ox O2 Delivery O2 Flow Rate FiO2 03/07/19 16:00 98.3 70 17 146/65 (92) 97 03/07/19 12:00 98.6 69 18 124/55 (78) 100 03/07/19 09:00 Room Air 03/07/19 08:00 98.1 72 18 133/66 (88) 94 03/07/19 04:00 98.8 80 18 118/63 (81) 96 03/07/19 00:00 99.6 81 20 135/63 (87) 96 Intake and Output 03/06/19 03/07/19 19:00 07:00 Intake Total 280 ml Balance 280 ml IV Total 280 ml # Voids 3 2 Laboratory Tests 03/07/19 05:40: White Blood Count 5.4, Red Blood Count 3.73L, Hemoglobin 12.6, Hematocrit 37.5, Mean Corpuscular Volume 100H, Mean Corpuscular Hemoglobin 33.6H, Mean Corpuscular Hemoglobin Concent 33.5, Red Cell Distribution Width 10.9L, Platelet Count 209, Mean Platelet Volume 6.4L, Neutrophils (%) (Auto) 58.7, Lymphocytes (%) (Auto) 30.5, Monocytes (%) (Auto) 7.9, Eosinophils (%) (Auto) 1.1, Basophils (%) (Auto) 1.8, Sodium Level 141, Potassium Level 3.4L, Chloride Level 104, Carbon Dioxide Level 29, Anion Gap 8, Blood Urea Nitrogen 18, Creatinine 1.5H, Estimat Glomerular Filtration Rate , Glucose Level 158H, Calcium Level 9.5, Total Bilirubin 1.1H, Direct Bilirubin 0.2, Aspartate Amino Transf (AST/SGOT) 16, Alanine Aminotransferase (ALT/SGPT) 20, Alkaline Phosphatase 97, Total Protein 7.2, Albumin 3.3L, Globulin 3.9, Albumin/Globulin Ratio 0.8L Height (Feet): 5 Height (Inches): 4.00 Weight (Pounds): 185 Respiratory/Chest: lungs clear Abdomen: soft Bunny Chapa MD March 07, 2019 21:28
--- NOTE | 2019-03-07 21:48 | General Progress Note ---
Assessment/Plan Status: progressing Assessment/Plan: Assessment - N/V - improved, tolerating liquids - abd pain - improved - diarrhea - h/o diverticulosis Recommendations - clear liquids - abx - check stool Cx, C Diff Subjective Allergies: Coded Allergies: TRAMADOL (Verified Allergy, Intermediate, 01/10/18) TREMORS AND VOMITING CODEINE (Verified Adverse Reaction, Mild, 11/02/12) nausea Subjective Feels better improved N/V improved Pain, but still needs IM morphine improved diarrhea, but still loose now with PICC line Objective Last 24 Hour Vital Signs Date Time Temp Pulse Resp B/P (MAP) Pulse Ox O2 Delivery O2 Flow Rate FiO2 03/07/19 16:00 98.3 70 17 146/65 (92) 97 03/07/19 12:00 98.6 69 18 124/55 (78) 100 03/07/19 09:00 Room Air 03/07/19 08:00 98.1 72 18 133/66 (88) 94 03/07/19 04:00 98.8 80 18 118/63 (81) 96 03/07/19 00:00 99.6 81 20 135/63 (87) 96 Intake and Output 03/06/19 03/07/19 19:00 07:00 Intake Total 280 ml Balance 280 ml IV Total 280 ml # Voids 3 2 Laboratory Tests 03/07/19 05:40: White Blood Count 5.4, Red Blood Count 3.73L, Hemoglobin 12.6, Hematocrit 37.5, Mean Corpuscular Volume 100H, Mean Corpuscular Hemoglobin 33.6H, Mean Corpuscular Hemoglobin Concent 33.5, Red Cell Distribution Width 10.9L, Platelet Count 209, Mean Platelet Volume 6.4L, Neutrophils (%) (Auto) 58.7, Lymphocytes (%) (Auto) 30.5, Monocytes (%) (Auto) 7.9, Eosinophils (%) (Auto) 1.1, Basophils (%) (Auto) 1.8, Sodium Level 141, Potassium Level 3.4L, Chloride Level 104, Carbon Dioxide Level 29, Anion Gap 8, Blood Urea Nitrogen 18, Creatinine 1.5H, Estimat Glomerular Filtration Rate , Glucose Level 158H, Calcium Level 9.5, Total Bilirubin 1.1H, Direct Bilirubin 0.2, Aspartate Amino Transf (AST/SGOT) 16, Alanine Aminotransferase (ALT/SGPT) 20, Alkaline Phosphatase 97, Total Protein 7.2, Albumin 3.3L, Globulin 3.9, Albumin/Globulin Ratio 0.8L Height (Feet): 5 Height (Inches): 4.00 Weight (Pounds): 185 Objective Obese AA woman NCAT supple CTA RR abd soft ND, (+) diffuse TTP but less than yesterday no edema Roe Garcia MD March 07, 2019 21:48
[2019-03-08] VITALS: BP 131/61
[2019-03-08 04:00] VITALS: BP 132/60
[2019-03-08] MEDS: Piperacillin/Tazobactam 3.375 GM in NS 110 ML IVPB SCH ×3 (06:25→21:49)
--- NOTE | 2019-03-08 07:32 | NUR ---
HAND-OFF: Report given to LUISA JACOBS.
[2019-03-08 08:00] VITALS: BP 149/72
[2019-03-08] MEDS ORDERED: ROCEPHIN250 MG IM (08:28)
[2019-03-08] MEDS ORDERED: CEFTRIAXONE1 G2 IV (08:28)
--- NOTE | 2019-03-08 08:38 | NUR ---
NURSE NOTES: Pt to be discharged to [facility] under the direction of Dr Gibbs . Resume all home medications, d/c hospital medication. D/C Zosyn IV change to Rocephin IV 1 gram 24 hours x 7 days diverticulitis
--- NOTE | 2019-03-08 08:57 | General Progress Note ---
Assessment/Plan Assessment/Plan: (1) Abdominal pain (2) Diverticulitis (3) Lumbar Radiculopathy (4) Lumbar DDD Patient to be continued on Morphine as needed D/w Dr. Tavarez and he concurred. Subjective Date patient seen: March 08, 2019 Time patient seen: 07:45 - am Constitutional: Reports: no symptoms HEENT: Reports: no symptoms Cardiovascular: Reports: no symptoms Respiratory: Reports: no symptoms Gastrointestinal/Abdominal: Reports: no symptoms Genitourinary: Reports: no symptoms Neurologic/Psychiatric: Reports: no symptoms Endocrine: Reports: no symptoms Hematologic/Lymphatic: Reports: no symptoms Allergies: Coded Allergies: TRAMADOL (Verified Allergy, Intermediate, 01/10/18) TREMORS AND VOMITING CODEINE (Verified Adverse Reaction, Mild, 11/02/12) nausea Subjective Patient is in bed continues to c/o pain. The pain has been tolerated on the Morphine 4 doses in the last 24hrs. She has no new complaints at this time. Objective Last 24 Hour Vital Signs Date Time Temp Pulse Resp B/P (MAP) Pulse Ox O2 Delivery O2 Flow Rate FiO2 03/08/19 04:00 98.7 70 16 132/60 (84) 98 03/08/19 00:00 98.5 65 18 131/61 (84) 96 03/07/19 21:00 Room Air 03/07/19 20:00 99.3 71 18 149/70 (96) 98 03/07/19 16:00 98.3 70 17 146/65 (92) 97 03/07/19 12:00 98.6 69 18 124/55 (78) 100 03/07/19 09:00 Room Air Intake and Output 03/07/19 03/08/19 19:00 07:00 Intake Total 760 ml 880.0 ml Balance 760 ml 880.0 ml Intake Oral 480 ml IV Total 280 ml 880.0 ml # Voids 3 1 Height (Feet): 5 Height (Inches): 4.00 Weight (Pounds): 185 General Appearance: no apparent distress, alert EENT: PERRL/EOMI, normal ENT inspection Neck: non-tender, normal alignment Cardiovascular: normal rate, regular rhythm Respiratory/Chest: lungs clear, normal breath sounds Abdomen: soft, tender Extremities: non-tender Edema: trace edema Neurologic: alert, oriented x 3 Skin: normal pigmentation Zedner,Toby N. PA March 08, 2019 08:57
[2019-03-08 10:20] LABS: BASOPHILS % (AUTO) 1.7 % (0.0-2.0); EOSINOPHILS % (AUTO) 1.1 % (0.0-3.0); HEMATOCRIT 38.3 % (37.0-47.0); HEMOGLOBIN 12.8 G/DL (12.0-16.0); LYMPHOCYTES % (AUTO) 16.8 % (20.0-45.0); MEAN CORPUSCULAR VOLUME 99 FL (80-99); MONOCYTES % (AUTO) 7.9 % (1.0-10.0); NEUTROPHILS % (AUTO) 72.4 % (45.0-75.0); PLATELET COUNT 200 K/UL (150-450); RED BLOOD COUNT 3.85 M/UL (4.20-5.40); RED CELL DISTRIBUTION WIDTH 10.8 % (11.6-14.8); WHITE BLOOD COUNT 6.1 K/UL (4.8-10.8)
[2019-03-08 10:25] LABS: ANION GAP 6 mmol/L (5-15); BLOOD UREA NITROGEN 13 mg/dL (7-18); CALCIUM 9.3 MG/DL (8.5-10.1); CARBON DIOXIDE 29 MMOL/L (21-32); CHLORIDE 106 MMOL/L (98-107); CREATININE 1.5 MG/DL (0.55-1.30); POTASSIUM 4.1 MMOL/L (3.5-5.1); SODIUM 141 MMOL/L (136-145)
[2019-03-08 10:36] LABS: ALANINE AMINOTRANSFERASE 20 U/L (12-78); ALBUMIN 3.4 G/DL (3.4-5.0); ALBUMIN/GLOBULIN RATIO 0.9 (1.0-2.7); ALKALINE PHOSPHATASE 97 U/L (46-116); ASPARTATE AMINO TRANSFERASE 19 U/L (15-37); BILIRUBIN,TOTAL 1.2 MG/DL (0.2-1.0); CHOLESTEROL 128 MG/DL (< 200); CREATINE KINASE 93 U/L (26-308); GAMMA GLUTAMYL TRANSPEPTIDASE 24 U/L (5-85); HDL CHOLESTEROL 42 MG/DL (40-60); PHOSPHORUS 2.6 MG/DL (2.5-4.9); TRIGLYCERIDES 93 MG/DL (30-150)
[2019-03-08 10:37] LABS: BILIRUBIN,DIRECT 0.3 MG/DL (0.0-0.3)
--- NOTE | 2019-03-08 11:25 | NUR ---
NURSE NOTES: Discharge packet prepared , pt does not want to go to SNF , nurse taking over care informed . Follow up required for discharge
--- NOTE | 2019-03-08 11:27 | NUR ---
HAND-OFF: Report given to Arabella MORAN.
--- NOTE | 2019-03-08 11:38 | Consultation ---
Consult Note Consult Note asked to eval for elevated Cr and electrolyte imbalance interviewed examined data reviewed . Assessment/Plan Cr 1.5 unchanged- CKD previous right kidney cancer - tumor surgically removed per patient extensive diverticulosis Obese Sz disorder Asthma / COPD HTN not much to add from renal stand point Per GI Protonix added Cuco Krueger MD March 08, 2019 11:38
[2019-03-08 12:00] VITALS: BP 167/85
[2019-03-08] MEDS: Morphine Sulfate 2mg/ml Inj(IV/IM USE ONLY) IM PRN ×2 (12:13→20:19)
--- NOTE | 2019-03-08 12:53 | Consultation ---
History of Present Illness General Date patient seen: March 08, 2019 Chief Complaint: Abdominal Pain Referring physician: mick Reason for Consultation: pain management Present Illness Allergies: Coded Allergies: TRAMADOL (Verified Allergy, Intermediate, 01/10/18) TREMORS AND VOMITING CODEINE (Verified Adverse Reaction, Mild, 11/02/12) nausea Medication History Scheduled Albuterol Sulfate* (Proair Hfa*), 2 PUFFS INH Q4, (Reported) Atorvastatin Calcium* (Lipitor*), 20 MG ORAL BEDTIME, (Reported) Azelastine/Fluticasone (Dymista Nasal [place]), 2 SPRAYS NS BID, (Reported) Ceftriaxone Sodium (Ceftriaxone), 1 GM IV DAILY, (Reported) Cyclobenzaprine Hcl* (Flexeril*), 5 MG ORAL DA, (Reported) Dexlansoprazole (Dexilant), 60 MG ORAL DAILY, (Reported) Diltiazem Hcl (Diltiazem Er), 240 MG PO DAILY, (Reported) Docusate Sodium* (Docusate Sodium*), 100 MG ORAL TWICE A DAY, (Reported) Duloxetine Hcl* (Cymbalta*), 30 MG ORAL DAILY, (Reported) Fesoterodine Fumarate (Toviaz), 4 MG PO BID, (Reported) Fluticasone/Vilanterol (Breo Ellipta 100-25 Mcg INH), 1 PUFF IH DAILY, (Reported ) Hydralazine Hcl* (Hydralazine Hcl*), 25 MG ORAL BID, (Reported) Hydrochlorothiazide (Microzide), 25 MG PO DAILY, (Reported) Rosuvastatin Calcium* (Crestor*), 20 MG ORAL DAILY, (Reported) Triamterene/Hydrochlorothiazid (Triamterene-Hctz 37.5-25 Mg Cp), 1 CAP ORAL DAILY, (Reported) Scheduled PRN Diazepam* (Diazepam*), 5 MG ORAL BID PRN for ANXIETY, (Reported) Hydrocodone Bit/Acetaminophen 5-325* ([place] 5-325*), 1 TAB ORAL Q4H PRN for For Pain, (Reported) Hydrocodone Bit/Acetaminophen 5-325* ([place] 5-325*), 2 TAB ORAL Q4H PRN for For Pain, (Reported) Miscellaneous Medications Ceftriaxone Sod (Rocephin), 250 MG IM, (Reported) Patient History Healthcare decision maker Resuscitation status Full Code Advanced Directive on File Physical Exam Last 24 Hour Vital Signs Date Time Temp Pulse Resp B/P (MAP) Pulse Ox O2 Delivery O2 Flow Rate FiO2 03/08/19 09:00 Room Air 03/08/19 08:00 97.9 18 149/72 (97) 97 03/08/19 04:00 98.7 70 16 132/60 (84) 98 03/08/19 00:00 98.5 65 18 131/61 (84) 96 03/07/19 21:00 Room Air 03/07/19 20:00 99.3 71 18 149/70 (96) 98 03/07/19 16:00 98.3 70 17 146/65 (92) 97 Intake and Output 03/07/19 03/08/19 19:00 07:00 Intake Total 760 ml 880.0 ml Balance 760 ml 880.0 ml Intake Oral 480 ml IV Total 280 ml 880.0 ml # Voids 3 1 Laboratory Tests Test 03/08/19 10:00 White Blood Count 6.1 K/UL (4.8-10.8) Red Blood Count 3.85 M/UL (4.20-5.40) L Hemoglobin 12.8 G/DL (12.0-16.0) Hematocrit 38.3 % (37.0-47.0) Mean Corpuscular Volume 99 FL (80-99) Mean Corpuscular Hemoglobin 33.2 PG (27.0-31.0) H Mean Corpuscular Hemoglobin Concent 33.4 G/DL (32.0-36.0) Red Cell Distribution Width 10.8 % (11.6-14.8) L Platelet Count 200 K/UL (150-450) Mean Platelet Volume 6.4 FL (6.5-10.1) L Neutrophils (%) (Auto) 72.4 % (45.0-75.0) Lymphocytes (%) (Auto) 16.8 % (20.0-45.0) L Monocytes (%) (Auto) 7.9 % (1.0-10.0) Eosinophils (%) (Auto) 1.1 % (0.0-3.0) Basophils (%) (Auto) 1.7 % (0.0-2.0) Sodium Level 141 MMOL/L (136-145) Potassium Level 4.1 MMOL/L (3.5-5.1) Chloride Level 106 MMOL/L (98-107) Carbon Dioxide Level 29 MMOL/L (21-32) Anion Gap 6 mmol/L (5-15) Blood Urea Nitrogen 13 mg/dL (7-18) Creatinine 1.5 MG/DL (0.55-1.30) H Estimat Glomerular Filtration Rate mL/min (>60) Glucose Level 121 MG/DL (74-106) H Hemoglobin A1c 5.3 % (4.3-6.0) Uric Acid 5.2 MG/DL (2.6-7.2) Calcium Level 9.3 MG/DL (8.5-10.1) Phosphorus Level 2.6 MG/DL (2.5-4.9) Magnesium Level 1.8 MG/DL (1.8-2.4) Total Bilirubin 1.2 MG/DL (0.2-1.0) H Direct Bilirubin 0.3 MG/DL (0.0-0.3) Gamma Glutamyl Transpeptidase 24 U/L (5-85) Aspartate Amino Transf (AST/SGOT) 19 U/L (15-37) Alanine Aminotransferase (ALT/SGPT) 20 U/L (12-78) Alkaline Phosphatase 97 U/L (46-116) Total Creatine Kinase 93 U/L (26-308) C-Reactive Protein, Quantitative 3.0 mg/dL (0.00-0.90) H Total Protein 7.2 G/DL (6.4-8.2) Albumin 3.4 G/DL (3.4-5.0) Globulin 3.8 g/dL Albumin/Globulin Ratio 0.9 (1.0-2.7) L Triglycerides Level 93 MG/DL (30-150) Cholesterol Level 128 MG/DL (< 200) LDL Cholesterol 69 mg/dL (<100) HDL Cholesterol 42 MG/DL (40-60) Cholesterol/HDL Ratio 3.0 (3.3-4.4) L Thyroid Stimulating Hormone (TSH) 1.254 uiU/mL (0.358-3.740) Height (Feet): 5 Height (Inches): 4.00 Weight (Pounds): 185 Medications Current Medications Medications (Trade) Dose Ordered Sig/Marcia Route PRN Reason Start Time Stop Time Status Last Admin Dose Admin Acetaminophen (Tylenol) 650 mg Q4H PRN ORAL Mild Pain/Temp > 100.5 03/05/19 23:30 04/04/19 23:29 03/06/19 03:10 Chlorhexidine Gluconate (Sarah-Hex 2%) 1 applic DAILY@2000 TOPIC 03/06/19 20:00 04/05/19 19:59 03/07/19 21:14 Iopamidol (Isovue-300 100ml) 100 ml NOW PRN INJ Radiology Procedure 03/05/19 20:30 Morphine Sulfate (Morphine Sulfate) 4 mg Q4H PRN IM Severe Pain (Pain Scale 7-10) 03/06/19 20:15 03/13/19 20:14 03/08/19 12:13 Ondansetron HCl (Zofran) 4 mg Q6H PRN IVP Nausea & Vomiting 03/06/19 00:45 04/05/19 00:44 03/07/19 21:14 Pantoprazole (Protonix) 40 mg EVERY 12 HOURS ORAL 03/08/19 21:00 04/07/19 20:59 Piperacillin Sod/ Tazobactam Sod 3.375 gm/Sodium Chloride 110 ml @ 27.5 mls/hr Q8HR IVPB 03/07/19 11:30 03/14/19 11:29 03/08/19 06:25 Sodium Chloride 1,000 ml @ 50 mls/hr Q20H IV 03/08/19 13:00 04/04/19 12:59 Assessment/Plan Assessment/Plan: HEMATOLOGY/ONCOLOGY PROGRESS NOTE DATE OF CONSULT: 03/08/2019 REFERRING PHYSICIAN: Bunny Chapa REASON FOR CONSULT: Renal mass HISTORY OF PRESENT ILLNESS: The patient was admitted for gastrointestinal bleed. The patient has been complaining of vomiting blood as well as rectal bleed. The patient also has been having abdominal cramps that has been going on for a week. The patient was admitted for diverticulitis flare that she has. The patient denies chills. Denies cough. Denies shortness of breath. Denies orthopnea. Hematology/Oncology services have been consulted for the evaluation of a renal mass that was found on an abd CT. 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 PAST MEDICAL HISTORY: Significant for chest pain, history of diverticulitis, history of renal cancer, constipation, hypertension, chronic pain syndrome, hyperlipidemia, hypertension, and dyslipidemia. PAST SURGICAL HISTORY: Ovarian cyst removed, partial right nephrectomy for cancer. ALLERGIES: Tramadol, codeine. SOCIAL HISTORY: Denies history of smoking, alcohol, or illicit drugs. REVIEW OF SYSTEMS: HEENT: Denies headaches. RESPIRATORY: Denies shortness of breath. Denies cough CARDIOVASCULAR: Denies chest pain. GASTROINTESTINAL: Reports vomiting blood and rectal bleed as well as abdominal cramps for about one week. EXTREMITIES: Denies pain in the lower extremity. 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 PHYSICAL EXAMINATION: VITAL SIGNS: Reviewed. HEENT: PERRLA. NECK: Supple. No lymphadenopathy. CHEST: Clear to auscultation. CARDIOVASCULAR: Regular rate and rhythm. No murmurs or extra sounds. GASTROINTESTINAL: Diffuse abdominal pain. Abdomen is soft. No rebound. No organomegaly. EXTREMITIES: A 1+ edema. Reflexes equal in both sides. Moving all four extremities. MEDICATIONS: Lipitor, Colace, Toviaz, Cymbalta, Colace, diltiazem, Crestor, hydrochlorothiazide. IMAGIN/30: CT abd --> Possible early uncomplicated acute diverticulitis of the sigmoid. Extensive colonic diverticulosis elsewhere. Note apparent absence of previously demonstrated right renal contrast enhancing mass.This could indicate in visibility due to the lack of IV contrast, or could indicate prior therapy. Correlate with clinical/surgical history 4 mm rectangular density in the right middle lobe, visible on earlier 2014 study and unchanged, presumed benign. LABORATORY STUDIES: 03/08: wbc 6.1 hgb 12.8 plt 200k ASSESSMENT AND PLAN # Renal cell carcinoma, status post nephrectomy that was completed approximately 1 month ago, pathology was reviewed and is pT1 staging does not require further treatment, lymph nodes not submitted, but no evidence of distant metastasis, also no evidence of positive margins noted on the tumor report --> CT abd: 4 mm rectangular density in the right middle lobe, visible on earlier 2014 study and unchanged, presumed benign --> trend cr as per renal, baseline, cr is 1.4-1.5 --> monitor with serial imaging as needed # Anemia of chronic disease, cr is 11-12 range --> closely monitor currently is stable --> hold off any further workup at this time # Sigmoid diverticulitis. ID and GI are following, appreciate recs. --> Abx per ID. --> c. diff testing as needed --> PPI # Hypertension. --> sbp goal <140 # COPD. # Chronic kidney disease. cr 1.4-1.5 The time note is entered does not reflect time of encounter. GREATLY APPRECIATE CONSULTATION Arsenio Torrez MD March 08, 2019 12:53
--- NOTE | 2019-03-08 13:17 | Infectious Diseases Prog Note ---
Assessment/Plan Assessment/Plan IMPRESSION: Sigmoid diverticulitis. Hypertension, COPD, asthma, chronic kidney disease, renal cell cancer, status post nephrectomy. RECOMMENDATION: Continue IV Zosyn Subjective ROS Limited/Unobtainable: No Constitutional: Reports: other - feels sick Respiratory: Reports: no symptoms Cardiovascular: Reports: no symptoms Gastrointestinal/Abdominal: Reports: nausea, vomiting, other - abdominal pain Genitourinary: Reports: no symptoms Allergies: Coded Allergies: TRAMADOL (Verified Allergy, Intermediate, 01/10/18) TREMORS AND VOMITING CODEINE (Verified Adverse Reaction, Mild, 11/02/12) nausea Objective Vital Signs Last 24 Hour Vital Signs Date Time Temp Pulse Resp B/P (MAP) Pulse Ox O2 Delivery O2 Flow Rate FiO2 03/08/19 09:00 Room Air 03/08/19 08:00 97.9 18 149/72 (97) 97 03/08/19 04:00 98.7 70 16 132/60 (84) 98 03/08/19 00:00 98.5 65 18 131/61 (84) 96 03/07/19 21:00 Room Air 03/07/19 20:00 99.3 71 18 149/70 (96) 98 03/07/19 16:00 98.3 70 17 146/65 (92) 97 Height (Feet): 5 Height (Inches): 4.00 Weight (Pounds): 185 General Appearance: no acute distress HEENT: mucous membranes moist Respiratory/Chest: lungs clear Cardiovascular: normal rate Abdomen: other - soft, tender Extremities: no edema Neurologic/Psychiatric: alert, oriented x 3, responsive Laboratory Tests Test 03/08/19 10:00 White Blood Count 6.1 K/UL (4.8-10.8) Red Blood Count 3.85 M/UL (4.20-5.40) L Hemoglobin 12.8 G/DL (12.0-16.0) Hematocrit 38.3 % (37.0-47.0) Mean Corpuscular Volume 99 FL (80-99) Mean Corpuscular Hemoglobin 33.2 PG (27.0-31.0) H Mean Corpuscular Hemoglobin Concent 33.4 G/DL (32.0-36.0) Red Cell Distribution Width 10.8 % (11.6-14.8) L Platelet Count 200 K/UL (150-450) Mean Platelet Volume 6.4 FL (6.5-10.1) L Neutrophils (%) (Auto) 72.4 % (45.0-75.0) Lymphocytes (%) (Auto) 16.8 % (20.0-45.0) L Monocytes (%) (Auto) 7.9 % (1.0-10.0) Eosinophils (%) (Auto) 1.1 % (0.0-3.0) Basophils (%) (Auto) 1.7 % (0.0-2.0) Sodium Level 141 MMOL/L (136-145) Potassium Level 4.1 MMOL/L (3.5-5.1) Chloride Level 106 MMOL/L (98-107) Carbon Dioxide Level 29 MMOL/L (21-32) Anion Gap 6 mmol/L (5-15) Blood Urea Nitrogen 13 mg/dL (7-18) Creatinine 1.5 MG/DL (0.55-1.30) H Estimat Glomerular Filtration Rate mL/min (>60) Glucose Level 121 MG/DL (74-106) H Hemoglobin A1c 5.3 % (4.3-6.0) Uric Acid 5.2 MG/DL (2.6-7.2) Calcium Level 9.3 MG/DL (8.5-10.1) Phosphorus Level 2.6 MG/DL (2.5-4.9) Magnesium Level 1.8 MG/DL (1.8-2.4) Total Bilirubin 1.2 MG/DL (0.2-1.0) H Direct Bilirubin 0.3 MG/DL (0.0-0.3) Gamma Glutamyl Transpeptidase 24 U/L (5-85) Aspartate Amino Transf (AST/SGOT) 19 U/L (15-37) Alanine Aminotransferase (ALT/SGPT) 20 U/L (12-78) Alkaline Phosphatase 97 U/L (46-116) Total Creatine Kinase 93 U/L (26-308) C-Reactive Protein, Quantitative 3.0 mg/dL (0.00-0.90) H Total Protein 7.2 G/DL (6.4-8.2) Albumin 3.4 G/DL (3.4-5.0) Globulin 3.8 g/dL Albumin/Globulin Ratio 0.9 (1.0-2.7) L Triglycerides Level 93 MG/DL (30-150) Cholesterol Level 128 MG/DL (< 200) LDL Cholesterol 69 mg/dL (<100) HDL Cholesterol 42 MG/DL (40-60) Cholesterol/HDL Ratio 3.0 (3.3-4.4) L Thyroid Stimulating Hormone (TSH) 1.254 uiU/mL (0.358-3.740) Current Medications Medications (Trade) Dose Ordered Sig/Marcia Route PRN Reason Start Time Stop Time Status Last Admin Dose Admin Acetaminophen (Tylenol) 650 mg Q4H PRN ORAL Mild Pain/Temp > 100.5 03/05/19 23:30 04/04/19 23:29 03/06/19 03:10 Chlorhexidine Gluconate (Sarah-Hex 2%) 1 applic DAILY@2000 TOPIC 03/06/19 20:00 04/05/19 19:59 03/07/19 21:14 Iopamidol (Isovue-300 100ml) 100 ml NOW PRN INJ Radiology Procedure 03/05/19 20:30 Morphine Sulfate (Morphine Sulfate) 4 mg Q4H PRN IM Severe Pain (Pain Scale 7-10) 03/06/19 20:15 03/13/19 20:14 03/08/19 12:13 Ondansetron HCl (Zofran) 4 mg Q6H PRN IVP Nausea & Vomiting 03/06/19 00:45 04/05/19 00:44 03/07/19 21:14 Pantoprazole (Protonix) 40 mg EVERY 12 HOURS ORAL 03/08/19 21:00 04/07/19 20:59 Piperacillin Sod/ Tazobactam Sod 3.375 gm/Sodium Chloride 110 ml @ 27.5 mls/hr Q8HR IVPB 03/07/19 11:30 03/14/19 11:29 03/08/19 06:25 Sodium Chloride 1,000 ml @ 50 mls/hr Q20H IV 03/08/19 13:00 04/04/19 12:59 Jonatan Mathews MD March 08, 2019 13:17
[2019-03-08 16:00] VITALS: BP 145/74
[2019-03-08] MEDS ORDERED: NS 275ml ONE (16:42)
[2019-03-08] MEDS ORDERED: 1/2 NS 1000ml IV ONE (16:42)
[2019-03-08] MEDS ORDERED: Tubing IV Secondary IV ONE (16:42)
--- NOTE | 2019-03-08 19:24 | NUR ---
HAND-OFF: Report given to LUISA Pierce.
[2019-03-08 20:00] VITALS: BP 171/90
[2019-03-08] MEDS: Dyna-Hex 2% Top Sol 2oz TOPIC SCH (20:24)
--- NOTE | 2019-03-08 21:11 | General Progress Note ---
Assessment/Plan Problem List: (1) Abdominal pain ICD Codes: R10.9 - Unspecified abdominal pain SNOMED: 05568156 (2) Colitis ICD Codes: K52.9 - Noninfective gastroenteritis and colitis, unspecified SNOMED: 399973780 (3) Abdominal pain ICD Codes: R10.9 - Unspecified abdominal pain SNOMED: 79625202, 548727896 (4) S/p nephrectomy ICD Codes: Z90.5 - Acquired absence of kidney SNOMED: 85969830, 221864044 (5) Diverticulitis ICD Codes: K57.92 - Diverticulitis of intestine, part unspecified, without perforation or abscess without bleeding SNOMED: 976669825 (6) Intractable pain ICD Codes: R52 - Pain, unspecified SNOMED: 17944610 Status: progressing Assessment/Plan: diverticulitis still abdominal pain afebrile no gi bleed intractable pain pain management per dr christianson needs iv abx Subjective ROS Limited/Unobtainable: Yes Allergies: Coded Allergies: TRAMADOL (Verified Allergy, Intermediate, 01/10/18) TREMORS AND VOMITING CODEINE (Verified Adverse Reaction, Mild, 11/02/12) nausea Objective Last 24 Hour Vital Signs Date Time Temp Pulse Resp B/P (MAP) Pulse Ox O2 Delivery O2 Flow Rate FiO2 03/08/19 16:00 99.8 76 20 145/74 (97) 97 03/08/19 12:43 97.9 03/08/19 12:00 98.8 21 167/85 (112) 99 03/08/19 12:00 98.8 72 21 167/85 (112) 99 03/08/19 09:00 Room Air 03/08/19 08:00 97.9 18 149/72 (97) 97 03/08/19 04:00 98.7 70 16 132/60 (84) 98 03/08/19 00:00 98.5 65 18 131/61 (84) 96 Intake and Output 03/07/19 03/08/19 19:00 07:00 Intake Total 760 ml 880.0 ml Balance 760 ml 880.0 ml Intake Oral 480 ml IV Total 280 ml 880.0 ml # Voids 3 1 Laboratory Tests 03/08/19 10:00: White Blood Count 6.1, Red Blood Count 3.85L, Hemoglobin 12.8, Hematocrit 38.3, Mean Corpuscular Volume 99, Mean Corpuscular Hemoglobin 33.2H, Mean Corpuscular Hemoglobin Concent 33.4, Red Cell Distribution Width 10.8L, Platelet Count 200, Mean Platelet Volume 6.4L, Neutrophils (%) (Auto) 72.4, Lymphocytes (%) (Auto) 16.8L, Monocytes (%) (Auto) 7.9, Eosinophils (%) (Auto) 1.1, Basophils (%) (Auto ) 1.7, Sodium Level 141, Potassium Level 4.1, Chloride Level 106, Carbon Dioxide Level 29, Anion Gap 6, Blood Urea Nitrogen 13, Creatinine 1.5H, Estimat Glomerular Filtration Rate , Glucose Level 121H, Hemoglobin A1c 5.3, Uric Acid 5.2, Calcium Level 9.3, Phosphorus Level 2.6, Magnesium Level 1.8, Total Bilirubin 1.2H, Direct Bilirubin 0.3, Gamma Glutamyl Transpeptidase 24, Aspartate Amino Transf (AST/SGOT) 19, Alanine Aminotransferase (ALT/SGPT) 20, Alkaline Phosphatase 97, Total Creatine Kinase 93, C-Reactive Protein, Quantitative 3.0H, Total Protein 7.2, Albumin 3.4, Globulin 3.8, Albumin/ Globulin Ratio 0.9L, Triglycerides Level 93, Cholesterol Level 128, LDL Cholesterol 69, HDL Cholesterol 42, Cholesterol/HDL Ratio 3.0L, Thyroid Stimulating Hormone (TSH) 1.254 Height (Feet): 5 Height (Inches): 4.00 Weight (Pounds): 185 Neck: supple Cardiovascular: normal rate Respiratory/Chest: lungs clear Abdomen: soft Bunny Chapa MD March 08, 2019 21:11
--- NOTE | 2019-03-08 21:43 | General Progress Note ---
Assessment/Plan Status: progressing Assessment/Plan: Assessment - N/V - improved, tolerating po - abd pain - improved - diarrhea - h/o diverticulosis Recommendations - Advance diet - abx - check stool Cx, C Diff (await BM) - OOB Subjective Allergies: Coded Allergies: TRAMADOL (Verified Allergy, Intermediate, 01/10/18) TREMORS AND VOMITING CODEINE (Verified Adverse Reaction, Mild, 11/02/12) nausea Subjective Feels better improved N/V improved Pain, Objective Last 24 Hour Vital Signs Date Time Temp Pulse Resp B/P (MAP) Pulse Ox O2 Delivery O2 Flow Rate FiO2 03/08/19 16:00 99.8 76 20 145/74 (97) 97 03/08/19 12:43 97.9 03/08/19 12:00 98.8 21 167/85 (112) 99 03/08/19 12:00 98.8 72 21 167/85 (112) 99 03/08/19 09:00 Room Air 03/08/19 08:00 97.9 18 149/72 (97) 97 03/08/19 04:00 98.7 70 16 132/60 (84) 98 03/08/19 00:00 98.5 65 18 131/61 (84) 96 Intake and Output 03/07/19 03/08/19 19:00 07:00 Intake Total 760 ml 880.0 ml Balance 760 ml 880.0 ml Intake Oral 480 ml IV Total 280 ml 880.0 ml # Voids 3 1 Laboratory Tests 03/08/19 10:00: White Blood Count 6.1, Red Blood Count 3.85L, Hemoglobin 12.8, Hematocrit 38.3, Mean Corpuscular Volume 99, Mean Corpuscular Hemoglobin 33.2H, Mean Corpuscular Hemoglobin Concent 33.4, Red Cell Distribution Width 10.8L, Platelet Count 200, Mean Platelet Volume 6.4L, Neutrophils (%) (Auto) 72.4, Lymphocytes (%) (Auto) 16.8L, Monocytes (%) (Auto) 7.9, Eosinophils (%) (Auto) 1.1, Basophils (%) (Auto ) 1.7, Sodium Level 141, Potassium Level 4.1, Chloride Level 106, Carbon Dioxide Level 29, Anion Gap 6, Blood Urea Nitrogen 13, Creatinine 1.5H, Estimat Glomerular Filtration Rate , Glucose Level 121H, Hemoglobin A1c 5.3, Uric Acid 5.2, Calcium Level 9.3, Phosphorus Level 2.6, Magnesium Level 1.8, Total Bilirubin 1.2H, Direct Bilirubin 0.3, Gamma Glutamyl Transpeptidase 24, Aspartate Amino Transf (AST/SGOT) 19, Alanine Aminotransferase (ALT/SGPT) 20, Alkaline Phosphatase 97, Total Creatine Kinase 93, C-Reactive Protein, Quantitative 3.0H, Total Protein 7.2, Albumin 3.4, Globulin 3.8, Albumin/ Globulin Ratio 0.9L, Triglycerides Level 93, Cholesterol Level 128, LDL Cholesterol 69, HDL Cholesterol 42, Cholesterol/HDL Ratio 3.0L, Thyroid Stimulating Hormone (TSH) 1.254 Height (Feet): 5 Height (Inches): 4.00 Weight (Pounds): 185 Objective Obese AA woman NCAT supple CTA RR abd soft ND, (+) diffuse TTP but less than yesterday no edema Roe Garcia MD March 08, 2019 21:43
--- NOTE | 2019-03-08 22:00 | NUR ---
nurse's notes: received patient awake, alert and oriented; complaining of right lower abdomen and right flank aching pain; also s/o of nausea but no vomiting. noted double lumen PICC line on the left upper arm; dressing is clean, dry and intact; unable to flush the port that is not being used currently. Dynahex bath given, patient appreciative of care. otherwise, no other c/o received. plan of care discussed with patient and is agreeable.
[2019-03-09] VITALS: BP 130/62
[2019-03-09] MEDS: Piperacillin/Tazobactam 3.375 GM in NS 110 ML IVPB SCH ×3 (05:55→21:49)
--- NOTE | 2019-03-09 07:02 | NUR ---
HAND-OFF: Report given to Ashly MORAN.
--- NOTE | 2019-03-09 07:06 | General Progress Note ---
Assessment/Plan Status: progressing Assessment/Plan: Assessment/Plan: Assessment - N/V - improved, tolerating po - abd pain - improved - diarrhea - h/o diverticulosis Recommendations - Advance diet - abx - check stool Cx, C Diff (await BM) - OOB Subjective ROS Limited/Unobtainable: Yes Allergies: Coded Allergies: TRAMADOL (Verified Allergy, Intermediate, 01/10/18) TREMORS AND VOMITING CODEINE (Verified Adverse Reaction, Mild, 11/02/12) nausea Objective Last 24 Hour Vital Signs Date Time Temp Pulse Resp B/P (MAP) Pulse Ox O2 Delivery O2 Flow Rate FiO2 03/09/19 00:00 98.3 65 18 130/62 (84) 99 03/08/19 21:00 Room Air 03/08/19 20:00 99.3 86 18 171/90 (117) 96 03/08/19 16:00 99.8 76 20 145/74 (97) 97 03/08/19 12:43 97.9 03/08/19 12:00 98.8 21 167/85 (112) 99 03/08/19 12:00 98.8 72 21 167/85 (112) 99 03/08/19 09:00 Room Air 03/08/19 08:00 97.9 18 149/72 (97) 97 Intake and Output 03/08/19 03/09/19 18:59 06:59 Intake Total 527.5 ml Balance 527.5 ml Intake Oral 500 ml IV Total 27.5 ml # Voids 2 Laboratory Tests 03/08/19 10:00: White Blood Count 6.1, Red Blood Count 3.85L, Hemoglobin 12.8, Hematocrit 38.3, Mean Corpuscular Volume 99, Mean Corpuscular Hemoglobin 33.2H, Mean Corpuscular Hemoglobin Concent 33.4, Red Cell Distribution Width 10.8L, Platelet Count 200, Mean Platelet Volume 6.4L, Neutrophils (%) (Auto) 72.4, Lymphocytes (%) (Auto) 16.8L, Monocytes (%) (Auto) 7.9, Eosinophils (%) (Auto) 1.1, Basophils (%) (Auto ) 1.7, Sodium Level 141, Potassium Level 4.1, Chloride Level 106, Carbon Dioxide Level 29, Anion Gap 6, Blood Urea Nitrogen 13, Creatinine 1.5H, Estimat Glomerular Filtration Rate , Glucose Level 121H, Hemoglobin A1c 5.3, Uric Acid 5.2, Calcium Level 9.3, Phosphorus Level 2.6, Magnesium Level 1.8, Total Bilirubin 1.2H, Direct Bilirubin 0.3, Gamma Glutamyl Transpeptidase 24, Aspartate Amino Transf (AST/SGOT) 19, Alanine Aminotransferase (ALT/SGPT) 20, Alkaline Phosphatase 97, Total Creatine Kinase 93, C-Reactive Protein, Quantitative 3.0H, Total Protein 7.2, Albumin 3.4, Globulin 3.8, Albumin/ Globulin Ratio 0.9L, Triglycerides Level 93, Cholesterol Level 128, LDL Cholesterol 69, HDL Cholesterol 42, Cholesterol/HDL Ratio 3.0L, Thyroid Stimulating Hormone (TSH) 1.254 Height (Feet): 5 Height (Inches): 4.00 Weight (Pounds): 185 General Appearance: alert EENT: PERRL/EOMI Neck: supple Cardiovascular: normal rate Respiratory/Chest: lungs clear Abdomen: normal bowel sounds, non tender, soft Extremities: non-tender Angelito Edwards MD Mar 09, 2019 07:06
--- NOTE | 2019-03-09 07:20 | NUR ---
NURSE NOTES: Received report from LUISA العلي. Rounding done with outgoing nurse. Patient a/o x 4 lying on the bed. No GI bleeding noted. Denies pain at this time. IV fluid is running now. Bed in lowest position, call light within reach. Will continue to monitor.
[2019-03-09 08:00] VITALS: BP 144/87
[2019-03-09] MEDS: Morphine Sulfate 2mg/ml Inj(IV/IM USE ONLY) IM PRN ×2 (08:36→18:36)
--- NOTE | 2019-03-09 09:21 | NUR ---
NURSE NOTES: Dr. Chapa ordered cancel discharge. Noted and carried out.
[2019-03-09] MEDS ORDERED: NS 275ml ONE (09:42)
--- NOTE | 2019-03-09 10:37 | NUR ---
[employer] SI:DIVERTICULOSIS . CKD VS: BP 144/87, P 81, T 99.3, RR 18, SpO2 96 RBC 3.85, CR 1.5 IS: TYLENOL 650mg LIPITOR 10mg ZOSYN 110ml IVPB MORPHINE 4mg IVP MED/SURG STATUS
[2019-03-09 12:00] VITALS: BP 141/69
--- NOTE | 2019-03-09 14:34 | Nephrology Progress Note ---
Assessment/Plan Problem List: (1) S/p nephrectomy (2) Hypokalemia (3) CKD (chronic kidney disease) Assessment Cr 1.5 unchanged- CKD previous right kidney cancer - tumor surgically removed per patient extensive diverticulosis Obese Sz disorder Asthma / COPD HTN Plan not much to add from renal stand point Per GI Protonix added check labs in am Subjective ROS Limited/Unobtainable: No Objective Objective Last 24 Hour Vital Signs Date Time Temp Pulse Resp B/P (MAP) Pulse Ox O2 Delivery O2 Flow Rate FiO2 03/09/19 12:00 99.3 71 18 141/69 (93) 96 03/09/19 09:00 Room Air 03/09/19 08:00 99.3 81 18 144/87 (106) 96 03/09/19 00:00 98.3 65 18 130/62 (84) 99 03/08/19 21:00 Room Air 03/08/19 20:00 99.3 86 18 171/90 (117) 96 03/08/19 16:00 99.8 76 20 145/74 (97) 97 Intake and Output 03/08/19 03/09/19 19:00 07:00 Intake Total 527.5 ml Balance 527.5 ml Intake Oral 500 ml IV Total 27.5 ml # Voids 2 Height (Feet): 5 Height (Inches): 4.00 Weight (Pounds): 185 General Appearance: no apparent distress Cardiovascular: normal rate Respiratory/Chest: decreased breath sounds Abdomen: other - obese Cuco Krueger MD Mar 09, 2019 14:34
--- NOTE | 2019-03-09 15:43 | NUR ---
NURSE NOTES: Patient wants to resume home meds. Called Dr. Chapa and left the message. Waiting MD call back.
[2019-03-09 16:00] VITALS: BP 120/69
--- NOTE | 2019-03-09 17:34 | NUR ---
NURSE NOTES: Patient wants to get home meds. Called Dr. Chapa and left the message.
--- NOTE | 2019-03-09 18:30 | NUR ---
NURSE NOTES: Rena charge nurse also called Dr. Chapa regarding home meds. Waiting for MD call back.
--- NOTE | 2019-03-09 19:25 | NUR ---
HAND-OFF: Report given to LUISA Pierce. Endorsed f/u for home meds with Dr. Chapa.
--- NOTE | 2019-03-09 19:37 | NUR ---
nurse's notes: received patient awake, alert and oriented; no s/s of distress at this time but admits to pain despite recent administration of morphine. PICC line on the left upper arm noted; dressing is CDI; no s/s of infection but unable to flush red port. call light within easy reach; bed at lowest position. will continue to monitor and follow plan of care.
[2019-03-09 20:00] VITALS: BP 152/70
[2019-03-09] MEDS: Dyna-Hex 2% Top Sol 2oz TOPIC SCH (20:11)
[2019-03-10] VITALS: BP 122/63
[2019-03-10 04:00] VITALS: BP 136/54
[2019-03-10] MEDS: Piperacillin/Tazobactam 3.375 GM in NS 110 ML IVPB SCH ×4 (05:18→21:13)
--- NOTE | 2019-03-10 06:30 | General Progress Note ---
Assessment/Plan Status: progressing Assessment/Plan: Assessment/Plan: Assessment - N/V - improved, tolerating po - abd pain - improved - diarrhea - h/o diverticulosis Recommendations - Advance diet to soft - abx - check stool Cx, C Diff - OOB Subjective ROS Limited/Unobtainable: Yes Allergies: Coded Allergies: TRAMADOL (Verified Allergy, Intermediate, 01/10/18) TREMORS AND VOMITING CODEINE (Verified Adverse Reaction, Mild, 11/02/12) nausea Objective Last 24 Hour Vital Signs Date Time Temp Pulse Resp B/P (MAP) Pulse Ox O2 Delivery O2 Flow Rate FiO2 03/10/19 04:00 98.2 63 16 136/54 (81) 98 03/10/19 00:00 98.3 67 18 122/63 (82) 96 03/09/19 21:00 Room Air 03/09/19 20:00 99.3 65 16 152/70 (97) 99 03/09/19 16:00 99.5 65 18 120/69 (86) 96 03/09/19 12:00 99.3 71 18 141/69 (93) 96 03/09/19 09:00 Room Air 03/09/19 08:00 99.3 81 18 144/87 (106) 96 Intake and Output 03/09/19 03/10/19 19:00 07:00 Intake Total 830.0 ml 425.2 ml Output Total 250 ml Balance 830.0 ml 175.2 ml Intake Oral 720 ml IV Total 110.0 ml 425.2 ml Output Urine Total 250 ml # Voids 4 1 Laboratory Tests 03/10/19 05:00: White Blood Count [Pending], Red Blood Count [Pending], Hemoglobin [Pending], Hematocrit [Pending], Mean Corpuscular Volume [Pending], Mean Corpuscular Hemoglobin [Pending], Mean Corpuscular Hemoglobin Concent [Pending], Red Cell Distribution Width [Pending], Platelet Count [Pending], Mean Platelet Volume [ Pending], Neutrophils (%) (Auto) [Pending], Lymphocytes (%) (Auto) [Pending], Monocytes (%) (Auto) [Pending], Eosinophils (%) (Auto) [Pending], Basophils (%) (Auto) [Pending], Sodium Level [Pending], Potassium Level [Pending], Chloride Level [Pending], Carbon Dioxide Level [Pending], Blood Urea Nitrogen [Pending], Creatinine [Pending], Estimat Glomerular Filtration Rate [Pending], Glucose Level [Pending], Uric Acid [Pending], Calcium Level [Pending], Phosphorus Level [Pending], Magnesium Level [Pending], Total Bilirubin [Pending], Aspartate Amino Transf (AST/SGOT) [Pending], Alanine Aminotransferase (ALT/SGPT) [Pending] , Alkaline Phosphatase [Pending], Total Protein [Pending], Albumin [Pending], Globulin [Pending] Height (Feet): 5 Height (Inches): 4.00 Weight (Pounds): 185 General Appearance: alert EENT: normal ENT inspection Neck: supple Cardiovascular: normal rate Respiratory/Chest: lungs clear Abdomen: normal bowel sounds, non tender, soft Extremities: non-tender Angelito Edwards MD Mar 10, 2019 06:30
[2019-03-10 06:43] LABS: BASOPHILS % (AUTO) 1.2 % (0.0-2.0); EOSINOPHILS % (AUTO) 2.5 % (0.0-3.0); HEMOGLOBIN 10.8 G/DL (12.0-16.0); LYMPHOCYTES % (AUTO) 28.3 % (20.0-45.0); MEAN CORPUSCULAR VOLUME 99 FL (80-99); MONOCYTES % (AUTO) 11.2 % (1.0-10.0); NEUTROPHILS % (AUTO) 56.8 % (45.0-75.0); PLATELET COUNT 191 K/UL (150-450); RED BLOOD COUNT 3.23 M/UL (4.20-5.40); RED CELL DISTRIBUTION WIDTH 10.7 % (11.6-14.8); WHITE BLOOD COUNT 4.6 K/UL (4.8-10.8)
--- NOTE | 2019-03-10 06:45 | NUR ---
nurse's notes: no significant changes noted as of this time. patient slept well with no reported c/o pain, n/v or any other distress. dynahex bath performed early this shift; picc line dressing changed using aseptic technique; both procedures tolerated well by patient. vss; no incidents of falls, injuries or trauma reported. will continue to monitor.
--- NOTE | 2019-03-10 06:47 | NUR ---
nurse's notes: diet advanced to regular, soft, easy chew by dr cosme.
[2019-03-10 07:14] LABS: PHOSPHORUS 3.2 MG/DL (2.5-4.9)
[2019-03-10 07:16] LABS: ALANINE AMINOTRANSFERASE 16 U/L (12-78); ALBUMIN 2.8 G/DL (3.4-5.0); ALBUMIN/GLOBULIN RATIO 0.8 (1.0-2.7); ALKALINE PHOSPHATASE 77 U/L (46-116); ANION GAP 6 mmol/L (5-15); ASPARTATE AMINO TRANSFERASE 18 U/L (15-37); BILIRUBIN,TOTAL 1.7 MG/DL (0.2-1.0); BLOOD UREA NITROGEN 8 mg/dL (7-18); CALCIUM 8.9 MG/DL (8.5-10.1); CARBON DIOXIDE 29 MMOL/L (21-32); CHLORIDE 107 MMOL/L (98-107); CREATININE 1.4 MG/DL (0.55-1.30); POTASSIUM 3.6 MMOL/L (3.5-5.1); SODIUM 142 MMOL/L (136-145)
[2019-03-10 07:19] LABS: BILIRUBIN,DIRECT 0.4 MG/DL (0.0-0.3)
[2019-03-10 08:00] VITALS: BP 163/75
--- NOTE | 2019-03-10 08:20 | NUR ---
NURSE NOTES: received lying on bed, with c/o lower abdominal pain, given pain mediation as ordered. No respiratory distress noted. Bed locked at the lowest position possible, call light within easy reach, siderails up x2. Will continue to monitor patient and follow up with the plan of care.
[2019-03-10] MEDS: hydroCHLOROthiazide 12.5mg TAB ORAL SCH (09:08)
[2019-03-10] MEDS: HydrALAZINE 25mg tab ORAL SCH ×2 (09:08→17:30)
--- NOTE | 2019-03-10 10:36 | Infectious Diseases Prog Note ---
Assessment/Plan Assessment/Plan IMPRESSION: Sigmoid diverticulitis. Hypertension, COPD, asthma, chronic kidney disease, renal cell cancer, status post nephrectomy. RECOMMENDATION: Continue IV Zosyn At time of discharge PO Flagyl & Cipro Subjective ROS Limited/Unobtainable: No Constitutional: Reports: no symptoms Cardiovascular: Reports: no symptoms Gastrointestinal/Abdominal: Reports: blood in stool, other - lower abdominal pain Genitourinary: Reports: no symptoms Allergies: Coded Allergies: TRAMADOL (Verified Allergy, Intermediate, 01/10/18) TREMORS AND VOMITING CODEINE (Verified Adverse Reaction, Mild, 11/02/12) nausea Objective Vital Signs Last 24 Hour Vital Signs Date Time Temp Pulse Resp B/P (MAP) Pulse Ox O2 Delivery O2 Flow Rate FiO2 03/10/19 09:08 163/75 03/10/19 08:00 98.4 65 20 163/75 (104) 96 03/10/19 04:00 98.2 63 16 136/54 (81) 98 03/10/19 00:00 98.3 67 18 122/63 (82) 96 03/09/19 21:00 Room Air 03/09/19 20:00 99.3 65 16 152/70 (97) 99 03/09/19 16:00 99.5 65 18 120/69 (86) 96 03/09/19 12:00 99.3 71 18 141/69 (93) 96 Height (Feet): 5 Height (Inches): 4.00 Weight (Pounds): 185 General Appearance: no acute distress HEENT: mucous membranes moist Respiratory/Chest: lungs clear Cardiovascular: normal rate Abdomen: other - soft, mildly tender Extremities: no edema Neurologic/Psychiatric: alert, oriented x 3, responsive Laboratory Tests Test 03/10/19 05:00 White Blood Count 4.6 K/UL (4.8-10.8) L Red Blood Count 3.23 M/UL (4.20-5.40) L Hemoglobin 10.8 G/DL (12.0-16.0) L Hematocrit 32.0 % (37.0-47.0) L Mean Corpuscular Volume 99 FL (80-99) Mean Corpuscular Hemoglobin 33.3 PG (27.0-31.0) H Mean Corpuscular Hemoglobin Concent 33.7 G/DL (32.0-36.0) Red Cell Distribution Width 10.7 % (11.6-14.8) L Platelet Count 191 K/UL (150-450) Mean Platelet Volume 6.6 FL (6.5-10.1) Neutrophils (%) (Auto) 56.8 % (45.0-75.0) Lymphocytes (%) (Auto) 28.3 % (20.0-45.0) Monocytes (%) (Auto) 11.2 % (1.0-10.0) H Eosinophils (%) (Auto) 2.5 % (0.0-3.0) Basophils (%) (Auto) 1.2 % (0.0-2.0) Sodium Level 142 MMOL/L (136-145) Potassium Level 3.6 MMOL/L (3.5-5.1) Chloride Level 107 MMOL/L (98-107) Carbon Dioxide Level 29 MMOL/L (21-32) Anion Gap 6 mmol/L (5-15) Blood Urea Nitrogen 8 mg/dL (7-18) Creatinine 1.4 MG/DL (0.55-1.30) H Estimat Glomerular Filtration Rate mL/min (>60) Glucose Level 97 MG/DL (74-106) Uric Acid 2.7 MG/DL (2.6-7.2) Calcium Level 8.9 MG/DL (8.5-10.1) Phosphorus Level 3.2 MG/DL (2.5-4.9) Magnesium Level 1.8 MG/DL (1.8-2.4) Total Bilirubin 1.7 MG/DL (0.2-1.0) H Direct Bilirubin 0.4 MG/DL (0.0-0.3) H Aspartate Amino Transf (AST/SGOT) 18 U/L (15-37) Alanine Aminotransferase (ALT/SGPT) 16 U/L (12-78) Alkaline Phosphatase 77 U/L (46-116) Total Protein 6.1 G/DL (6.4-8.2) L Albumin 2.8 G/DL (3.4-5.0) L Globulin 3.3 g/dL Albumin/Globulin Ratio 0.8 (1.0-2.7) L Current Medications Medications (Trade) Dose Ordered Sig/Marcia Route PRN Reason Start Time Stop Time Status Last Admin Dose Admin Acetaminophen (Tylenol) 650 mg Q4H PRN ORAL Mild Pain/Temp > 100.5 03/05/19 23:30 04/04/19 23:29 03/10/19 09:07 Atorvastatin Calcium (Lipitor) 10 mg BEDTIME ORAL 03/10/19 21:00 04/09/19 20:59 Chlorhexidine Gluconate (Sarah-Hex 2%) 1 applic DAILY@2000 TOPIC 03/06/19 20:00 04/05/19 19:59 03/09/19 20:11 Hydralazine HCl (Apresoline) 25 mg BID ORAL 03/10/19 09:00 04/09/19 08:59 03/10/19 09:08 Hydrochlorothiazide (Hydrodiuril) 12.5 mg DAILY ORAL 03/10/19 09:00 04/09/19 08:59 03/10/19 09:08 Iopamidol (Isovue-300 100ml) 100 ml NOW PRN INJ Radiology Procedure 03/05/19 20:30 Morphine Sulfate (Morphine Sulfate) 4 mg Q4H PRN IM Severe Pain (Pain Scale 7-10) 03/06/19 20:15 03/13/19 20:14 03/09/19 18:36 Ondansetron HCl (Zofran) 4 mg Q6H PRN IVP Nausea & Vomiting 03/06/19 00:45 04/05/19 00:44 03/10/19 09:08 Pantoprazole (Protonix) 40 mg EVERY 12 HOURS ORAL 03/08/19 21:00 04/07/19 20:59 03/10/19 09:08 Piperacillin Sod/ Tazobactam Sod 3.375 gm/Sodium Chloride 110 ml @ 27.5 mls/hr Q8HR IVPB 03/07/19 11:30 03/14/19 11:29 03/10/19 05:18 Sodium Chloride 1,000 ml @ 50 mls/hr Q20H IV 03/08/19 13:00 04/04/19 12:59 03/10/19 05:17 Jonatan Mathews MD Mar 10, 2019 10:36
[2019-03-10 12:00] VITALS: BP 141/76
--- NOTE | 2019-03-10 12:27 | General Progress Note ---
Assessment/Plan Assessment/Plan: (1) Abdominal pain (2) Diverticulitis (3) Lumbar Radiculopathy (4) Lumbar DDD Patient to be continued on Morphine as needed D/w Dr. Tavarez and he concurred. Subjective Date patient seen: Mar 10, 2019 Time patient seen: 11:00 - am Constitutional: Reports: no symptoms HEENT: Reports: no symptoms Cardiovascular: Reports: no symptoms Respiratory: Reports: no symptoms Gastrointestinal/Abdominal: Reports: abdominal pain Genitourinary: Reports: no symptoms Neurologic/Psychiatric: Reports: no symptoms Endocrine: Reports: no symptoms Hematologic/Lymphatic: Reports: no symptoms Allergies: Coded Allergies: TRAMADOL (Verified Allergy, Intermediate, 01/10/18) TREMORS AND VOMITING CODEINE (Verified Adverse Reaction, Mild, 11/02/12) nausea Subjective Patient shows no signs of pain or distress. Pain has been tolerated on the Morphine 5 doses in the last 24hrs. Objective Last 24 Hour Vital Signs Date Time Temp Pulse Resp B/P (MAP) Pulse Ox O2 Delivery O2 Flow Rate FiO2 03/10/19 09:08 163/75 03/10/19 08:00 98.4 65 20 163/75 (104) 96 03/10/19 04:00 98.2 63 16 136/54 (81) 98 03/10/19 00:00 98.3 67 18 122/63 (82) 96 03/09/19 21:00 Room Air 03/09/19 20:00 99.3 65 16 152/70 (97) 99 03/09/19 16:00 99.5 65 18 120/69 (86) 96 Intake and Output 03/09/19 03/10/19 18:59 06:59 Intake Total 830.0 ml 834.45 ml Output Total 550 ml Balance 830.0 ml 284.45 ml Intake Oral 720 ml 240 ml IV Total 110.0 ml 594.45 ml Output Urine Total 550 ml # Voids 4 3 Laboratory Tests 03/10/19 05:00: White Blood Count 4.6L, Red Blood Count 3.23L, Hemoglobin 10.8L, Hematocrit 32.0L, Mean Corpuscular Volume 99, Mean Corpuscular Hemoglobin 33.3H, Mean Corpuscular Hemoglobin Concent 33.7, Red Cell Distribution Width 10.7L, Platelet Count 191, Mean Platelet Volume 6.6, Neutrophils (%) (Auto) 56.8, Lymphocytes (%) (Auto) 28.3, Monocytes (%) (Auto) 11.2H, Eosinophils (%) (Auto) 2.5, Basophils (%) (Auto) 1.2, Sodium Level 142, Potassium Level 3.6, Chloride Level 107, Carbon Dioxide Level 29, Anion Gap 6, Blood Urea Nitrogen 8, Creatinine 1.4H, Estimat Glomerular Filtration Rate , Glucose Level 97, Uric Acid 2.7, Calcium Level 8.9, Phosphorus Level 3.2, Magnesium Level 1.8, Total Bilirubin 1.7H, Direct Bilirubin 0.4H, Aspartate Amino Transf (AST/SGOT) 18, Alanine Aminotransferase (ALT/SGPT) 16, Alkaline Phosphatase 77, Total Protein 6.1L, Albumin 2.8L, Globulin 3.3, Albumin/Globulin Ratio 0.8L Height (Feet): 5 Height (Inches): 4.00 Weight (Pounds): 185 General Appearance: no apparent distress, alert EENT: PERRL/EOMI, normal ENT inspection Neck: normal alignment, supple Cardiovascular: normal rate, regular rhythm Respiratory/Chest: lungs clear, normal breath sounds Abdomen: soft Neurologic: alert, oriented x 3 Skin: warm/dry Toby Shukla Mar 10, 2019 12:27
[2019-03-10] MEDS: Morphine Sulfate 4mg/ml Inj (IV USE ONLY) IVP PRN ×2 (14:30→20:16)
--- NOTE | 2019-03-10 15:35 | Hematology/Onc Progress Note ---
Assessment/Plan Assessment/Plan ASSESSMENT AND PLAN # Renal cell carcinoma, status post nephrectomy that was completed approximately 1 month ago, pathology was reviewed and is pT1 staging does not require further treatment, lymph nodes not submitted, but no evidence of distant metastasis, also no evidence of positive margins noted on the tumor report --> CT abd: 4 mm rectangular density in the right middle lobe, visible on earlier 2014 study and unchanged, presumed benign --> trend cr as per renal, baseline, cr is 1.4-1.5 --> cr trend: 1.4 --> monitor with serial imaging as needed # Leukopenia is likely a reactive process v infection --> smear peripherla has been reviewed --> hepatitis and hiv in the past neg --> no cirrhosis or hsm on us --> thyroid studies are wnl # Anemia of chronic disease --> closely monitor --> currently is stable at 10.8 --> hold off any further workup at this time # Sigmoid diverticulitis. ID and GI are following, appreciate recs. --> Abx per ID. --> c. diff testing as needed --> PPI # Hypertension. --> sbp goal <140 # COPD. # Chronic kidney disease. cr 1.4-1.5 The time note is entered does not reflect time of encounter. GREATLY APPRECIATE CONSULTATION Subjective Allergies: Coded Allergies: TRAMADOL (Verified Allergy, Intermediate, 01/10/18) TREMORS AND VOMITING CODEINE (Verified Adverse Reaction, Mild, 11/02/12) nausea All Systems: reviewed and negative except above Subjective 03/10: Pt alert and awake. No acute events. Objective Objective Current Medications Medications (Trade) Dose Ordered Sig/Marcia Route PRN Reason Start Time Stop Time Status Last Admin Dose Admin Acetaminophen (Tylenol) 650 mg Q4H PRN ORAL Mild Pain/Temp > 100.5 03/05/19 23:30 04/04/19 23:29 03/10/19 09:07 Atorvastatin Calcium (Lipitor) 10 mg BEDTIME ORAL 03/10/19 21:00 04/09/19 20:59 Chlorhexidine Gluconate (Sarah-Hex 2%) 1 applic DAILY@1999 TOPIC 03/06/19 20:00 04/05/19 19:59 03/09/19 20:11 Hydralazine HCl (Apresoline) 25 mg BID ORAL 03/10/19 09:00 04/09/19 08:59 03/10/19 09:08 Hydrochlorothiazide (Hydrodiuril) 12.5 mg DAILY ORAL 03/10/19 09:00 04/09/19 08:59 03/10/19 09:08 Iopamidol (Isovue-300 100ml) 100 ml NOW PRN INJ Radiology Procedure 03/05/19 20:30 Morphine Sulfate (Morphine Sulfate) 4 mg Q4H PRN IVP Severe Pain (Pain Scale 7-10) 03/10/19 12:48 03/17/19 12:47 03/10/19 14:30 Ondansetron HCl (Zofran) 4 mg Q6H PRN IVP Nausea & Vomiting 03/06/19 00:45 04/05/19 00:44 03/10/19 09:08 Pantoprazole (Protonix) 40 mg EVERY 12 HOURS ORAL 03/08/19 21:00 04/07/19 20:59 03/10/19 09:08 Piperacillin Sod/ Tazobactam Sod 3.375 gm/Sodium Chloride 110 ml @ 27.5 mls/hr Q8HR IVPB 03/07/19 11:30 03/14/19 11:29 03/10/19 14:29 Sodium Chloride 1,000 ml @ 50 mls/hr Q20H IV 03/08/19 13:00 04/04/19 12:59 03/10/19 05:17 Last 24 Hour Vital Signs Date Time Temp Pulse Resp B/P (MAP) Pulse Ox O2 Delivery O2 Flow Rate FiO2 03/10/19 15:00 98.4 03/10/19 12:00 98.4 62 20 141/76 (97) 95 03/10/19 09:37 98.4 03/10/19 09:08 163/75 03/10/19 09:00 Room Air 03/10/19 08:00 98.4 65 20 163/75 (104) 96 03/10/19 04:00 98.2 63 16 136/54 (81) 98 03/10/19 00:00 98.3 67 18 122/63 (82) 96 03/09/19 21:00 Room Air 03/09/19 20:00 99.3 65 16 152/70 (97) 99 03/09/19 16:00 99.5 65 18 120/69 (86) 96 03/09/19 12:00 99.3 71 18 141/69 (93) 96 03/09/19 09:00 Room Air 03/09/19 08:00 99.3 81 18 144/87 (106) 96 03/09/19 00:00 98.3 65 18 130/62 (84) 99 03/08/19 21:00 Room Air 03/08/19 20:00 99.3 86 18 171/90 (117) 96 03/08/19 16:00 99.8 76 20 145/74 (97) 97 Intake and Output 03/09/19 03/10/19 19:00 07:00 Intake Total 830.0 ml 861.95 ml Output Total 550 ml Balance 830.0 ml 311.95 ml Intake Oral 720 ml 240 ml IV Total 110.0 ml 621.95 ml Output Urine Total 550 ml # Voids 4 3 Labs Test 03/08/19 10:00 03/10/19 05:00 White Blood Count 6.1 K/UL (4.8-10.8) 4.6 K/UL (4.8-10.8) Red Blood Count 3.85 M/UL (4.20-5.40) 3.23 M/UL (4.20-5.40) Hemoglobin 12.8 G/DL (12.0-16.0) 10.8 G/DL (12.0-16.0) Hematocrit 38.3 % (37.0-47.0) 32.0 % (37.0-47.0) Mean Corpuscular Volume 99 FL (80-99) 99 FL (80-99) Mean Corpuscular Hemoglobin 33.2 PG (27.0-31.0) 33.3 PG (27.0-31.0) Mean Corpuscular Hemoglobin Concent 33.4 G/DL (32.0-36.0) 33.7 G/DL (32.0-36.0) Red Cell Distribution Width 10.8 % (11.6-14.8) 10.7 % (11.6-14.8) Platelet Count 200 K/UL (150-450) 191 K/UL (150-450) Mean Platelet Volume 6.4 FL (6.5-10.1) 6.6 FL (6.5-10.1) Neutrophils (%) (Auto) 72.4 % (45.0-75.0) 56.8 % (45.0-75.0) Lymphocytes (%) (Auto) 16.8 % (20.0-45.0) 28.3 % (20.0-45.0) Monocytes (%) (Auto) 7.9 % (1.0-10.0) 11.2 % (1.0-10.0) Eosinophils (%) (Auto) 1.1 % (0.0-3.0) 2.5 % (0.0-3.0) Basophils (%) (Auto) 1.7 % (0.0-2.0) 1.2 % (0.0-2.0) Sodium Level 141 MMOL/L (136-145) 142 MMOL/L (136-145) Potassium Level 4.1 MMOL/L (3.5-5.1) 3.6 MMOL/L (3.5-5.1) Chloride Level 106 MMOL/L (98-107) 107 MMOL/L (98-107) Carbon Dioxide Level 29 MMOL/L (21-32) 29 MMOL/L (21-32) Anion Gap 6 mmol/L (5-15) 6 mmol/L (5-15) Blood Urea Nitrogen 13 mg/dL (7-18) 8 mg/dL (7-18) Creatinine 1.5 MG/DL (0.55-1.30) 1.4 MG/DL (0.55-1.30) Estimat Glomerular Filtration Rate mL/min (>60) mL/min (>60) Glucose Level 121 MG/DL (74-106) 97 MG/DL (74-106) Hemoglobin A1c 5.3 % (4.3-6.0) Uric Acid 5.2 MG/DL (2.6-7.2) 2.7 MG/DL (2.6-7.2) Calcium Level 9.3 MG/DL (8.5-10.1) 8.9 MG/DL (8.5-10.1) Phosphorus Level 2.6 MG/DL (2.5-4.9) 3.2 MG/DL (2.5-4.9) Magnesium Level 1.8 MG/DL (1.8-2.4) 1.8 MG/DL (1.8-2.4) Total Bilirubin 1.2 MG/DL (0.2-1.0) 1.7 MG/DL (0.2-1.0) Direct Bilirubin 0.3 MG/DL (0.0-0.3) 0.4 MG/DL (0.0-0.3) Gamma Glutamyl Transpeptidase 24 U/L (5-85) Aspartate Amino Transf (AST/SGOT) 19 U/L (15-37) 18 U/L (15-37) Alanine Aminotransferase (ALT/SGPT) 20 U/L (12-78) 16 U/L (12-78) Alkaline Phosphatase 97 U/L (46-116) 77 U/L (46-116) Total Creatine Kinase 93 U/L (26-308) C-Reactive Protein, Quantitative 3.0 mg/dL (0.00-0.90) Total Protein 7.2 G/DL (6.4-8.2) 6.1 G/DL (6.4-8.2) Albumin 3.4 G/DL (3.4-5.0) 2.8 G/DL (3.4-5.0) Globulin 3.8 g/dL 3.3 g/dL Albumin/Globulin Ratio 0.9 (1.0-2.7) 0.8 (1.0-2.7) Triglycerides Level 93 MG/DL (30-150) Cholesterol Level 128 MG/DL (< 200) LDL Cholesterol 69 mg/dL (<100) HDL Cholesterol 42 MG/DL (40-60) Cholesterol/HDL Ratio 3.0 (3.3-4.4) Thyroid Stimulating Hormone (TSH) 1.254 uiU/mL (0.358-3.740) Height (Feet): 5 Height (Inches): 4.00 Weight (Pounds): 185 Objective PHYSICAL EXAMINATION: VITAL SIGNS: Reviewed. HEENT: PERRLA. NECK: Supple. No lymphadenopathy. CHEST: Clear to auscultation. CARDIOVASCULAR: Regular rate and rhythm. No murmurs or extra sounds. GASTROINTESTINAL: Diffuse abdominal pain. Abdomen is soft. No rebound. No organomegaly. EXTREMITIES: A 1+ edema. Reflexes equal in both sides. Moving all four extremities. KleynbergArsenio MD Mar 10, 2019 15:35
--- NOTE | 2019-03-10 15:41 | Nephrology Progress Note ---
Assessment/Plan Problem List: (1) S/p nephrectomy (2) Hypokalemia (3) CKD (chronic kidney disease) Assessment Cr 1.4 slightly lower previous right kidney cancer - tumor surgically removed per patient extensive diverticulosis Obese Sz disorder Asthma / COPD HTN Plan not much to add from renal stand point Per GI Protonix added check labs in am Subjective ROS Limited/Unobtainable: No Constitutional: Reports: malaise Objective Objective Last 24 Hour Vital Signs Date Time Temp Pulse Resp B/P (MAP) Pulse Ox O2 Delivery O2 Flow Rate FiO2 03/10/19 15:00 98.4 03/10/19 12:00 98.4 62 20 141/76 (97) 95 03/10/19 09:37 98.4 03/10/19 09:08 163/75 03/10/19 09:00 Room Air 03/10/19 08:00 98.4 65 20 163/75 (104) 96 03/10/19 04:00 98.2 63 16 136/54 (81) 98 03/10/19 00:00 98.3 67 18 122/63 (82) 96 03/09/19 21:00 Room Air 03/09/19 20:00 99.3 65 16 152/70 (97) 99 03/09/19 16:00 99.5 65 18 120/69 (86) 96 Intake and Output 03/09/19 03/10/19 19:00 07:00 Intake Total 830.0 ml 861.95 ml Output Total 550 ml Balance 830.0 ml 311.95 ml Intake Oral 720 ml 240 ml IV Total 110.0 ml 621.95 ml Output Urine Total 550 ml # Voids 4 3 Laboratory Tests 03/10/19 05:00: White Blood Count 4.6L, Red Blood Count 3.23L, Hemoglobin 10.8L, Hematocrit 32.0L, Mean Corpuscular Volume 99, Mean Corpuscular Hemoglobin 33.3H, Mean Corpuscular Hemoglobin Concent 33.7, Red Cell Distribution Width 10.7L, Platelet Count 191, Mean Platelet Volume 6.6, Neutrophils (%) (Auto) 56.8, Lymphocytes (%) (Auto) 28.3, Monocytes (%) (Auto) 11.2H, Eosinophils (%) (Auto) 2.5, Basophils (%) (Auto) 1.2, Sodium Level 142, Potassium Level 3.6, Chloride Level 107, Carbon Dioxide Level 29, Anion Gap 6, Blood Urea Nitrogen 8, Creatinine 1.4H, Estimat Glomerular Filtration Rate , Glucose Level 97, Uric Acid 2.7, Calcium Level 8.9, Phosphorus Level 3.2, Magnesium Level 1.8, Total Bilirubin 1.7H, Direct Bilirubin 0.4H, Aspartate Amino Transf (AST/SGOT) 18, Alanine Aminotransferase (ALT/SGPT) 16, Alkaline Phosphatase 77, Total Protein 6.1L, Albumin 2.8L, Globulin 3.3, Albumin/Globulin Ratio 0.8L Height (Feet): 5 Height (Inches): 4.00 Weight (Pounds): 185 General Appearance: no apparent distress Objective no change Cuco Krueger MD Mar 10, 2019 15:41
[2019-03-10 16:00] VITALS: BP 145/71
--- NOTE | 2019-03-10 19:35 | NUR ---
HAND-OFF: Report given to LUISA Casiano.
--- NOTE | 2019-03-10 19:38 | NUR ---
NURSE NOTES: RECEIVED PT FROM LUISA MAYERS. PT IS AWAKE, RESTING IN BED, TALKING TO FAMILY MEMBER ON CELLPHONE. AAOX4, ON ROOM AIR, DENIES SOB. C/O PAIN 10/10 IN HER LOWER ABDOMEN. PICC LINE ON LEFT UPPER ARM IS INTACT AND PATENT. DRESSING IS DRY AND INTACT. COMMODE NOTED AT BEDSIDE. BED IS LOCKED AT THE LOWEST POSITION, BED ALARMS ACTIVE, SIDE RAILS UP X2 AND CALL LIGHT IS WITHIN REACH. WILL CONTINUE TO MONITOR.
[2019-03-10 20:00] VITALS: BP 157/86
[2019-03-10] MEDS: Dyna-Hex 2% Top Sol 2oz TOPIC SCH (20:16)
--- NOTE | 2019-03-10 21:40 | General Progress Note ---
Assessment/Plan Problem List: (1) Abdominal pain ICD Codes: R10.9 - Unspecified abdominal pain SNOMED: 48724404 (2) Colitis ICD Codes: K52.9 - Noninfective gastroenteritis and colitis, unspecified SNOMED: 347119103 (3) Abdominal pain ICD Codes: R10.9 - Unspecified abdominal pain SNOMED: 14416023, 976941052 (4) S/p nephrectomy ICD Codes: Z90.5 - Acquired absence of kidney SNOMED: 63809297, 237550991 (5) Diverticulitis ICD Codes: K57.92 - Diverticulitis of intestine, part unspecified, without perforation or abscess without bleeding SNOMED: 874549842 (6) Intractable pain ICD Codes: R52 - Pain, unspecified SNOMED: 37633351 Status: progressing Assessment/Plan: diverticulitis still abdominal pain afebrile no gi bleed clear liquid \reveiwed chart and labs and meds Subjective ROS Limited/Unobtainable: Yes Allergies: Coded Allergies: TRAMADOL (Verified Allergy, Intermediate, 01/10/18) TREMORS AND VOMITING CODEINE (Verified Adverse Reaction, Mild, 11/02/12) nausea Objective Last 24 Hour Vital Signs Date Time Temp Pulse Resp B/P (MAP) Pulse Ox O2 Delivery O2 Flow Rate FiO2 03/10/19 17:30 145/71 03/10/19 16:00 98.2 61 20 145/71 (95) 96 03/10/19 15:00 98.4 03/10/19 12:00 98.4 62 20 141/76 (97) 95 03/10/19 09:37 98.4 03/10/19 09:08 163/75 03/10/19 09:00 Room Air 03/10/19 08:00 98.4 65 20 163/75 (104) 96 03/10/19 04:00 98.2 63 16 136/54 (81) 98 03/10/19 00:00 98.3 67 18 122/63 (82) 96 Intake and Output 03/09/19 03/10/19 19:00 07:00 Intake Total 830.0 ml 861.95 ml Output Total 550 ml Balance 830.0 ml 311.95 ml Intake Oral 720 ml 240 ml IV Total 110.0 ml 621.95 ml Output Urine Total 550 ml # Voids 4 3 Laboratory Tests 03/10/19 05:00: White Blood Count 4.6L, Red Blood Count 3.23L, Hemoglobin 10.8L, Hematocrit 32.0L, Mean Corpuscular Volume 99, Mean Corpuscular Hemoglobin 33.3H, Mean Corpuscular Hemoglobin Concent 33.7, Red Cell Distribution Width 10.7L, Platelet Count 191, Mean Platelet Volume 6.6, Neutrophils (%) (Auto) 56.8, Lymphocytes (%) (Auto) 28.3, Monocytes (%) (Auto) 11.2H, Eosinophils (%) (Auto) 2.5, Basophils (%) (Auto) 1.2, Sodium Level 142, Potassium Level 3.6, Chloride Level 107, Carbon Dioxide Level 29, Anion Gap 6, Blood Urea Nitrogen 8, Creatinine 1.4H, Estimat Glomerular Filtration Rate , Glucose Level 97, Uric Acid 2.7, Calcium Level 8.9, Phosphorus Level 3.2, Magnesium Level 1.8, Total Bilirubin 1.7H, Direct Bilirubin 0.4H, Aspartate Amino Transf (AST/SGOT) 18, Alanine Aminotransferase (ALT/SGPT) 16, Alkaline Phosphatase 77, Total Protein 6.1L, Albumin 2.8L, Globulin 3.3, Albumin/Globulin Ratio 0.8L Height (Feet): 5 Height (Inches): 4.00 Weight (Pounds): 185 Neck: supple Cardiovascular: normal rate Respiratory/Chest: lungs clear Abdomen: tender Bunny Chapa MD Mar 10, 2019 21:40
--- NOTE | 2019-03-10 23:00 | NUR ---
NURSE NOTES: PT C/O OF SORE THROAT. AWARE. ORDER TO GIVE TYLENOL PRN.
[2019-03-11] VITALS: BP 140/71
--- NOTE | 2019-03-11 02:00 | NUR ---
NURSE NOTES: PT HAD 2 LOOSE BM, RESTLESS, CONFUSED AND TRIED TO GET OUT OF BED. FALL RISK IMPLEMENTED. BED ALARMS ACTIVE, SIDE RAILS UP X3, YELLOW SOCKS AND YELLOW GOWN ON. INFORMED . WAITING FOR ORDERS. WILL FOLLOW UP. Addendum: 03/11/19 at 0452 by Paula Casiano RN DISREGARD. INCORRECT PT. TB.
[2019-03-11 04:00] VITALS: BP 138/75
[2019-03-11] MEDS: Piperacillin/Tazobactam 3.375 GM in NS 110 ML IVPB SCH ×3 (05:10→22:09)
--- NOTE | 2019-03-11 07:35 | NUR ---
HAND-OFF: Report given to LUISA MAYERS.
[2019-03-11 08:00] VITALS: BP 140/76
--- NOTE | 2019-03-11 08:50 | General Progress Note ---
Assessment/Plan Assessment/Plan: (1) Abdominal pain (2) Diverticulitis (3) Lumbar Radiculopathy (4) Lumbar DDD Patient to be continued on Morphine as needed D/w Dr. Tavarez and he concurred. Subjective Date patient seen: Mar 11, 2019 Time patient seen: 07:30 - am Allergies: Coded Allergies: TRAMADOL (Verified Allergy, Intermediate, 01/10/18) TREMORS AND VOMITING CODEINE (Verified Adverse Reaction, Mild, 11/02/12) nausea Subjective Constitutional: Reports: no symptoms HEENT: Reports: no symptoms Cardiovascular: Reports: no symptoms Respiratory: Reports: no symptoms Gastrointestinal/Abdominal: Reports: abdominal pain Genitourinary: Reports: no symptoms Neurologic/Psychiatric: Reports: no symptoms Endocrine: Reports: no symptoms Hematologic/Lymphatic: Reports: no symptoms Subjective Patient is in bed and reports that the pain is tolerated on the morphine. Objective Last 24 Hour Vital Signs Date Time Temp Pulse Resp B/P (MAP) Pulse Ox O2 Delivery O2 Flow Rate FiO2 03/11/19 04:00 97.8 68 17 138/75 (96) 100 03/11/19 00:00 98.2 63 17 140/71 (94) 03/10/19 21:00 Room Air 03/10/19 20:00 98.5 85 18 157/86 (109) 97 03/10/19 17:30 145/71 03/10/19 16:00 98.2 61 20 145/71 (95) 96 03/10/19 15:00 98.4 03/10/19 12:00 98.4 62 20 141/76 (97) 95 03/10/19 09:37 98.4 03/10/19 09:08 163/75 03/10/19 09:00 Room Air Intake and Output 03/10/19 03/11/19 19:00 07:00 Intake Total 973.25 ml 560.0 ml Output Total 900 ml 400 ml Balance 73.25 ml 160.0 ml Intake Oral 600 ml IV Total 373.25 ml 560.0 ml Output Urine Total 900 ml 400 ml Height (Feet): 5 Height (Inches): 4.00 Weight (Pounds): 185 Objective General Appearance: no apparent distress, alert EENT: PERRL/EOMI, normal ENT inspection Neck: normal alignment, supple Cardiovascular: normal rate, regular rhythm Respiratory/Chest: lungs clear, normal breath sounds Abdomen: soft Neurologic: alert, oriented x 3 Skin: warm/dry Toby Shukla Mar 11, 2019 08:50
--- NOTE | 2019-03-11 08:57 | General Progress Note ---
Assessment/Plan Status: progressing Assessment/Plan: Assessment - N/V - resolved - abd pain - improved - diarrhea - improved - diverticulosis / diverticulitis - Elevated Bili Recommendations - push po - abx - OOB - d/c planning - f/u LFT as outpatient Subjective Allergies: Coded Allergies: TRAMADOL (Verified Allergy, Intermediate, 01/10/18) TREMORS AND VOMITING CODEINE (Verified Adverse Reaction, Mild, 11/02/12) nausea Subjective Feels better improved N/V improved Pain, tolerating solids Objective Last 24 Hour Vital Signs Date Time Temp Pulse Resp B/P (MAP) Pulse Ox O2 Delivery O2 Flow Rate FiO2 03/11/19 04:00 97.8 68 17 138/75 (96) 100 03/11/19 00:00 98.2 63 17 140/71 (94) 03/10/19 21:00 Room Air 03/10/19 20:00 98.5 85 18 157/86 (109) 97 03/10/19 17:30 145/71 03/10/19 16:00 98.2 61 20 145/71 (95) 96 03/10/19 15:00 98.4 03/10/19 12:00 98.4 62 20 141/76 (97) 95 03/10/19 09:37 98.4 03/10/19 09:08 163/75 03/10/19 09:00 Room Air Intake and Output 03/10/19 03/11/19 19:00 07:00 Intake Total 973.25 ml 560.0 ml Output Total 900 ml 400 ml Balance 73.25 ml 160.0 ml Intake Oral 600 ml IV Total 373.25 ml 560.0 ml Output Urine Total 900 ml 400 ml Height (Feet): 5 Height (Inches): 4.00 Weight (Pounds): 185 Objective Obese AA woman NCAT supple CTA RR abd soft ND, (+) mild LLQ TTP no edema Roe Garcia MD Mar 11, 2019 08:57
[2019-03-11] MEDS: HydrALAZINE 25mg tab ORAL SCH ×2 (09:00→17:48)
[2019-03-11] MEDS: hydroCHLOROthiazide 12.5mg TAB ORAL SCH (09:00)
[2019-03-11] MEDS: Morphine Sulfate 4mg/ml Inj (IV USE ONLY) IVP PRN ×3 (09:01→20:15)
--- NOTE | 2019-03-11 10:41 | Coder Physician Query ---
Clarification is required for compliance, coding accuracy, and to reflect severity of illness for this patient Dear Dr. Abdullahi Friedman Date: 03/11/2019 Pet Nutrition Specialist/CDS Name: Ann Henriquez Clinical Documentation States: 03/05 gastroenterology note: 74-year-old woman...about 3 days ago, her symptoms escalated and she had bouts of nausea, vomiting, and diarrhea. First few days, diarrhea was brown then subsequently some blood was seen in it...Diverticular disease may be a consideration, but the presentation is more consistent with hemorrhoidal issues. Labs: 03/05 RBC 4.17 (L), Hb 13.9, Hct 39.7 03/06 RBC 3.46 (L), Hb 11.5 (L), Hct 34.3 (L) 03/10 RBC 3.23 (L), Hb 10.8 (L), Hct 32 (L) Please respond to the following question: Is there a diagnosis specific to these symptoms or values? If so please state below. PHYSICIAN RESPONSE: [] Drop in hematocrit [] Drop in hemoglobin [] Chronic blood loss anemia [] Acute blood loss anemia [] Other [] Unknown Present on Admission: [] Yes [] No [] Clinically Undetermined Physician signature Date Please also document in your Progress Notes and/or Discharge Summary and indicate if the condition was present on admission. MTDD
--- NOTE | 2019-03-11 10:50 | Nephrology Progress Note ---
Assessment/Plan Problem List: (1) S/p nephrectomy (2) Hypokalemia (3) CKD (chronic kidney disease) Assessment Cr 1.4 slightly lower previous right kidney cancer - tumor surgically removed per patient extensive diverticulosis Obese Sz disorder Asthma / COPD HTN Plan not much to add from renal stand point Per GI Protonix added check labs in am Subjective ROS Limited/Unobtainable: No Objective Objective Last 24 Hour Vital Signs Date Time Temp Pulse Resp B/P (MAP) Pulse Ox O2 Delivery O2 Flow Rate FiO2 03/11/19 09:00 140/76 03/11/19 09:00 Room Air 03/11/19 08:00 98.6 65 19 140/76 (97) 97 03/11/19 04:00 97.8 68 17 138/75 (96) 100 03/11/19 00:00 98.2 63 17 140/71 (94) 03/10/19 21:00 Room Air 03/10/19 20:00 98.5 85 18 157/86 (109) 97 03/10/19 17:30 145/71 03/10/19 16:00 98.2 61 20 145/71 (95) 96 03/10/19 15:00 98.4 03/10/19 12:00 98.4 62 20 141/76 (97) 95 Intake and Output 03/10/19 03/11/19 18:59 06:59 Intake Total 1000.75 ml 560.0 ml Output Total 900 ml 400 ml Balance 100.75 ml 160.0 ml Intake Oral 600 ml IV Total 400.75 ml 560.0 ml Output Urine Total 900 ml 400 ml Height (Feet): 5 Height (Inches): 4.00 Weight (Pounds): 185 General Appearance: no apparent distress Objective no change Cuco Krueger MD Mar 11, 2019 10:50
[2019-03-11 12:00] VITALS: BP 139/77
--- NOTE | 2019-03-11 14:19 | Infectious Diseases Prog Note ---
Assessment/Plan Assessment/Plan IMPRESSION: Sigmoid diverticulitis. Hypertension, COPD, asthma, chronic kidney disease, renal cell cancer, status post nephrectomy. RECOMMENDATION: Continue IV Zosyn X 1 days Subjective ROS Limited/Unobtainable: No Constitutional: Reports: no symptoms Respiratory: Reports: no symptoms Cardiovascular: Reports: no symptoms Gastrointestinal/Abdominal: Reports: other - lower abdominal pain Genitourinary: Reports: no symptoms Allergies: Coded Allergies: TRAMADOL (Verified Allergy, Intermediate, 01/10/18) TREMORS AND VOMITING CODEINE (Verified Adverse Reaction, Mild, 11/02/12) nausea Objective Vital Signs Last 24 Hour Vital Signs Date Time Temp Pulse Resp B/P (MAP) Pulse Ox O2 Delivery O2 Flow Rate FiO2 03/11/19 09:31 97.8 03/11/19 09:00 140/76 03/11/19 09:00 Room Air 03/11/19 08:00 98.6 65 19 140/76 (97) 97 03/11/19 04:00 97.8 68 17 138/75 (96) 100 03/11/19 00:00 98.2 63 17 140/71 (94) 03/10/19 21:00 Room Air 03/10/19 20:00 98.5 85 18 157/86 (109) 97 03/10/19 17:30 145/71 03/10/19 16:00 98.2 61 20 145/71 (95) 96 Height (Feet): 5 Height (Inches): 4.00 Weight (Pounds): 185 General Appearance: no acute distress HEENT: mucous membranes moist Respiratory/Chest: lungs clear Cardiovascular: normal rate Abdomen: other - lower abdomen tenderness Extremities: no edema Neurologic/Psychiatric: alert, oriented x 3, responsive Microbiology Date/Time Source Procedure Growth Status 03/09/19 10:00 Stool Stool Culture - Preliminary NO SALMONELLA,SHIGELLA,OR CAMPYLOBACT... Resulted Current Medications Medications (Trade) Dose Ordered Sig/Marcia Route PRN Reason Start Time Stop Time Status Last Admin Dose Admin Acetaminophen (Tylenol) 650 mg Q4H PRN ORAL Mild Pain/Temp > 100.5 03/05/19 23:30 04/04/19 23:29 03/10/19 09:07 Atorvastatin Calcium (Lipitor) 10 mg BEDTIME ORAL 03/10/19 21:00 04/09/19 20:59 03/10/19 20:16 Cetylpyridinium Chloride (Cepacol) 1 lozg Q4H PRN EDISON sore throat 03/11/19 08:15 04/10/19 08:14 03/11/19 08:59 Chlorhexidine Gluconate (Sarah-Hex 2%) 1 applic DAILY@2000 TOPIC 03/06/19 20:00 04/05/19 19:59 03/10/19 20:16 Hydralazine HCl (Apresoline) 25 mg BID ORAL 03/10/19 09:00 04/09/19 08:59 03/11/19 09:00 Hydrochlorothiazide (Hydrodiuril) 12.5 mg DAILY ORAL 03/10/19 09:00 04/09/19 08:59 03/11/19 09:00 Iopamidol (Isovue-300 100ml) 100 ml NOW PRN INJ Radiology Procedure 03/05/19 20:30 Morphine Sulfate (Morphine Sulfate) 4 mg Q4H PRN IVP Severe Pain (Pain Scale 7-10) 03/10/19 12:48 03/17/19 12:47 03/11/19 09:01 Ondansetron HCl (Zofran) 4 mg Q6H PRN IVP Nausea & Vomiting 03/06/19 00:45 04/05/19 00:44 03/11/19 09:00 Pantoprazole (Protonix) 40 mg EVERY 12 HOURS ORAL 03/08/19 21:00 04/07/19 20:59 03/11/19 08:59 Piperacillin Sod/ Tazobactam Sod 3.375 gm/Sodium Chloride 110 ml @ 27.5 mls/hr Q8HR IVPB 03/07/19 11:30 03/14/19 11:29 03/11/19 05:10 Sodium Chloride 1,000 ml @ 50 mls/hr Q20H IV 03/08/19 13:00 04/04/19 12:59 03/10/19 05:17 Jonatan Mathews MD Mar 11, 2019 14:19
[2019-03-11 16:00] VITALS: BP 140/80
--- NOTE | 2019-03-11 19:17 | Hematology/Onc Progress Note ---
Assessment/Plan Assessment/Plan ASSESSMENT AND PLAN # Renal cell carcinoma, status post nephrectomy that was completed approximately 1 month ago, pathology was reviewed and is pT1 staging does not require further treatment, lymph nodes not submitted, but no evidence of distant metastasis, also no evidence of positive margins noted on the tumor report --> CT abd: 4 mm rectangular density in the right middle lobe, visible on earlier 2014 study and unchanged, presumed benign --> trend cr as per renal, baseline, cr is 1.4-1.5 --> cr trend: 1.4 --> monitor with serial imaging as needed # Leukopenia is likely a reactive process v infection --> smear peripherla has been reviewed --> hepatitis and hiv in the past neg --> no cirrhosis or hsm on us --> thyroid studies are wnl # Anemia of chronic disease --> closely monitor --> currently is stable at 10.8 --> hold off any further workup at this time # Sigmoid diverticulitis. ID and GI are following, appreciate recs. --> Abx per ID. --> c. diff testing as needed --> PPI # Hypertension. --> sbp goal <140 # COPD. # Chronic kidney disease. cr 1.4-1.5 The time note is entered does not reflect time of encounter. GREATLY APPRECIATE CONSULTATION Subjective Allergies: Coded Allergies: TRAMADOL (Verified Allergy, Intermediate, 01/10/18) TREMORS AND VOMITING CODEINE (Verified Adverse Reaction, Mild, 11/02/12) nausea Subjective 03/10: Pt alert and awake. No acute events. 03/11: Pt shows no signs of distress, pain tolerated Objective Objective Current Medications Medications (Trade) Dose Ordered Sig/Marcia Route PRN Reason Start Time Stop Time Status Last Admin Dose Admin Acetaminophen (Tylenol) 650 mg Q4H PRN ORAL Mild Pain/Temp > 100.5 03/05/19 23:30 04/04/19 23:29 03/10/19 09:07 Atorvastatin Calcium (Lipitor) 10 mg BEDTIME ORAL 03/10/19 21:00 04/09/19 20:59 03/10/19 20:16 Cetylpyridinium Chloride (Cepacol) 1 lozg Q4H PRN EDISON sore throat 03/11/19 08:15 04/10/19 08:14 03/11/19 08:59 Chlorhexidine Gluconate (Sarah-Hex 2%) 1 applic DAILY@2000 TOPIC 03/06/19 20:00 04/05/19 19:59 03/10/19 20:16 Hydralazine HCl (Apresoline) 25 mg BID ORAL 03/10/19 09:00 04/09/19 08:59 03/11/19 17:48 Hydrochlorothiazide (Hydrodiuril) 12.5 mg DAILY ORAL 03/10/19 09:00 04/09/19 08:59 03/11/19 09:00 Iopamidol (Isovue-300 100ml) 100 ml NOW PRN INJ Radiology Procedure 03/05/19 20:30 Morphine Sulfate (Morphine Sulfate) 4 mg Q4H PRN IVP Severe Pain (Pain Scale 7-10) 03/10/19 12:48 03/17/19 12:47 03/11/19 14:45 Ondansetron HCl (Zofran) 4 mg Q6H PRN IVP Nausea & Vomiting 03/06/19 00:45 04/05/19 00:44 03/11/19 09:00 Pantoprazole (Protonix) 40 mg EVERY 12 HOURS ORAL 03/08/19 21:00 04/07/19 20:59 03/11/19 08:59 Piperacillin Sod/ Tazobactam Sod 3.375 gm/Sodium Chloride 110 ml @ 27.5 mls/hr Q8HR IVPB 03/07/19 11:30 03/14/19 11:29 03/11/19 14:44 Sodium Chloride 1,000 ml @ 50 mls/hr Q20H IV 03/08/19 13:00 04/04/19 12:59 03/10/19 05:17 Last 24 Hour Vital Signs Date Time Temp Pulse Resp B/P (MAP) Pulse Ox O2 Delivery O2 Flow Rate FiO2 03/11/19 17:48 140/80 03/11/19 16:00 98.5 73 19 140/80 (100) 98 03/11/19 15:15 98.5 03/11/19 12:00 98.7 68 20 139/77 (97) 98 03/11/19 09:00 140/76 03/11/19 09:00 Room Air 03/11/19 08:00 98.6 65 19 140/76 (97) 97 03/11/19 04:00 97.8 68 17 138/75 (96) 100 03/11/19 00:00 98.2 63 17 140/71 (94) 03/10/19 21:00 Room Air 03/10/19 20:00 98.5 85 18 157/86 (109) 97 03/10/19 17:30 145/71 03/10/19 16:00 98.2 61 20 145/71 (95) 96 03/10/19 12:00 98.4 62 20 141/76 (97) 95 03/10/19 09:37 98.4 03/10/19 09:08 163/75 03/10/19 09:00 Room Air 03/10/19 08:00 98.4 65 20 163/75 (104) 96 03/10/19 04:00 98.2 63 16 136/54 (81) 98 03/10/19 00:00 98.3 67 18 122/63 (82) 96 03/09/19 21:00 Room Air 03/09/19 20:00 99.3 65 16 152/70 (97) 99 Intake and Output 03/10/19 03/11/19 19:00 07:00 Intake Total 973.25 ml 587.5 ml Output Total 900 ml 400 ml Balance 73.25 ml 187.5 ml Intake Oral 600 ml IV Total 373.25 ml 587.5 ml Output Urine Total 900 ml 400 ml Labs Test 03/10/19 05:00 White Blood Count 4.6 K/UL (4.8-10.8) Red Blood Count 3.23 M/UL (4.20-5.40) Hemoglobin 10.8 G/DL (12.0-16.0) Hematocrit 32.0 % (37.0-47.0) Mean Corpuscular Volume 99 FL (80-99) Mean Corpuscular Hemoglobin 33.3 PG (27.0-31.0) Mean Corpuscular Hemoglobin Concent 33.7 G/DL (32.0-36.0) Red Cell Distribution Width 10.7 % (11.6-14.8) Platelet Count 191 K/UL (150-450) Mean Platelet Volume 6.6 FL (6.5-10.1) Neutrophils (%) (Auto) 56.8 % (45.0-75.0) Lymphocytes (%) (Auto) 28.3 % (20.0-45.0) Monocytes (%) (Auto) 11.2 % (1.0-10.0) Eosinophils (%) (Auto) 2.5 % (0.0-3.0) Basophils (%) (Auto) 1.2 % (0.0-2.0) Sodium Level 142 MMOL/L (136-145) Potassium Level 3.6 MMOL/L (3.5-5.1) Chloride Level 107 MMOL/L (98-107) Carbon Dioxide Level 29 MMOL/L (21-32) Anion Gap 6 mmol/L (5-15) Blood Urea Nitrogen 8 mg/dL (7-18) Creatinine 1.4 MG/DL (0.55-1.30) Estimat Glomerular Filtration Rate mL/min (>60) Glucose Level 97 MG/DL (74-106) Uric Acid 2.7 MG/DL (2.6-7.2) Calcium Level 8.9 MG/DL (8.5-10.1) Phosphorus Level 3.2 MG/DL (2.5-4.9) Magnesium Level 1.8 MG/DL (1.8-2.4) Total Bilirubin 1.7 MG/DL (0.2-1.0) Direct Bilirubin 0.4 MG/DL (0.0-0.3) Aspartate Amino Transf (AST/SGOT) 18 U/L (15-37) Alanine Aminotransferase (ALT/SGPT) 16 U/L (12-78) Alkaline Phosphatase 77 U/L (46-116) Total Protein 6.1 G/DL (6.4-8.2) Albumin 2.8 G/DL (3.4-5.0) Globulin 3.3 g/dL Albumin/Globulin Ratio 0.8 (1.0-2.7) Height (Feet): 5 Height (Inches): 4.00 Weight (Pounds): 185 Objective PHYSICAL EXAMINATION: VITAL SIGNS: Reviewed. HEENT: PERRLA. NECK: Supple. No lymphadenopathy. CHEST: Clear to auscultation. CARDIOVASCULAR: Regular rate and rhythm. No murmurs or extra sounds. GASTROINTESTINAL: Diffuse abdominal pain. Abdomen is soft. No rebound. No organomegaly. EXTREMITIES: A 1+ edema. Reflexes equal in both sides. Moving all four extremities. Arsenio Torrez MD Mar 11, 2019 19:17
--- NOTE | 2019-03-11 19:49 | NUR ---
HAND-OFF: Report given to LUISA Casiano.
--- NOTE | 2019-03-11 19:58 | NUR ---
NURSE NOTES: RECEIVED PT FROM LUISA MAYERS. PT IS AWAKE, AAOX4. C/O PAIN 10/10 IN ABDOMEN AND SORE THROAT. PICC ON L UA IS PATENT AND INTACT. DRESSING IS DRY. BED IS LOCKED AT THE LOWEST POSITION, BED ALARMS ACTIVE, SIDE RAILS UP X2, AND CALL LIGHT IS WITHIN REACH. WILL CONTINUE TO MONITOR.
[2019-03-11 20:00] VITALS: BP 149/79
[2019-03-11] MEDS: Dyna-Hex 2% Top Sol 2oz TOPIC SCH (20:14)
[2019-03-12] VITALS: BP 142/64
[2019-03-12 04:00] VITALS: BP 134/64
[2019-03-12] MEDS: Piperacillin/Tazobactam 3.375 GM in NS 110 ML IVPB SCH (06:24)
--- NOTE | 2019-03-12 06:30 | NUR ---
NURSE NOTES: PT C/O PAIN ON LEFT ANKLE THIS MORNING WHEN SHE GOT UP TO USE THE COMMODE. LEFT ANKLE IS PAINFUL TO TOUCH, WARM TO TOUCH, HOMANS SIGN NOTED. NO SWELLING. NOTIFIED. RECEIVED ORDER FOR A STAT XRAY. WILL CONTINUE TO MONITOR.
--- NOTE | 2019-03-12 07:33 | NUR ---
HAND-OFF: Report given to LUISA CALDERA. Pt is in stable condition, XRAY in process. Endorsed to AM nurse to notify XRAY results.
--- NOTE | 2019-03-12 07:34 | NUR ---
NURSE NOTES: Received patient sitting up comfortably in bed. Left upper arm PICC, infusing 1/2 NS @ 50ml/hour. Commode at bedside. Bed at lowest level with 3 side rails up. Call light within reach. In no apparent distress at this time. Will continue to monitor.
--- NOTE | 2019-03-12 07:59 | NUR ---
RADIOLOGY DEPT., LEFT ANKLE X-RAYS COMPLETED.-P.DYE
[2019-03-12 08:00] VITALS: BP 134/74
[2019-03-12] MEDS: Morphine Sulfate 4mg/ml Inj (IV USE ONLY) IVP PRN (08:36)
[2019-03-12] MEDS: hydroCHLOROthiazide 12.5mg TAB ORAL SCH (08:36)
[2019-03-12] MEDS: HydrALAZINE 25mg tab ORAL SCH (08:36)
--- NOTE | 2019-03-12 09:33 | Nephrology Progress Note ---
Assessment/Plan Problem List: (1) S/p nephrectomy (2) Hypokalemia (3) CKD (chronic kidney disease) (4) Anemia Assessment Cr 1.4 slightly lower previous right kidney cancer - tumor surgically removed per patient extensive diverticulosis Obese Sz disorder Asthma / COPD HTN . Plan stop IV fluids and diuretics Adjust Hydralazine dose not much to add from renal stand point Per GI Protonix added check labs in am / anemia haro Subjective ROS Limited/Unobtainable: No Constitutional: Reports: malaise, other - ankle pain Objective Objective Last 24 Hour Vital Signs Date Time Temp Pulse Resp B/P (MAP) Pulse Ox O2 Delivery O2 Flow Rate FiO2 03/12/19 08:36 134/64 03/12/19 04:00 98.8 75 16 134/64 (87) 97 03/12/19 00:00 98.5 67 16 142/64 (90) 67 03/11/19 21:00 Room Air 03/11/19 20:00 98.5 69 16 149/79 (102) 100 03/11/19 17:48 140/80 03/11/19 16:00 98.5 73 19 140/80 (100) 98 03/11/19 15:15 98.5 03/11/19 12:00 98.7 68 20 139/77 (97) 98 Intake and Output 03/11/19 03/12/19 19:00 07:00 Intake Total 1310.0 ml 160.0 ml Output Total 400 ml Balance 1310.0 ml -240.0 ml Intake Oral 1000 ml IV Total 310.0 ml 160.0 ml Output Urine Total 400 ml # Voids 6 Height (Feet): 5 Height (Inches): 4.00 Weight (Pounds): 185 General Appearance: no apparent distress Extremities: trace edema Objective no change Cuco Krueger MD Mar 12, 2019 09:32
--- NOTE | 2019-03-12 11:59 | Diagnostic Imaging Report ---
Indication: Left ankle pain Technique: 3 views of the left ankle Comparison: 02/11/2014 Findings: No acute fractures. No dislocations. The joint spaces are preserved Impression: No acute process
[2019-03-12 12:00] VITALS: BP 125/62
[2019-03-12] MEDS ORDERED: HydrALAZINE 25mg tab ORAL SCH (14:00)
--- NOTE | 2019-03-12 14:08 | Infectious Diseases Prog Note ---
Assessment/Plan Assessment/Plan IMPRESSION: Sigmoid diverticulitis. Hypertension, COPD, asthma, chronic kidney disease, renal cell cancer, status post nephrectomy. RECOMMENDATION: Discontinue IV Zosyn remove PICC line before discharge Subjective ROS Limited/Unobtainable: No Constitutional: Reports: no symptoms, other - feels better Gastrointestinal/Abdominal: Reports: other - lowe abdominal pain Allergies: Coded Allergies: TRAMADOL (Verified Allergy, Intermediate, 01/10/18) TREMORS AND VOMITING CODEINE (Verified Adverse Reaction, Mild, 11/02/12) nausea Objective Vital Signs Last 24 Hour Vital Signs Date Time Temp Pulse Resp B/P (MAP) Pulse Ox O2 Delivery O2 Flow Rate FiO2 03/12/19 12:00 98.4 69 16 125/62 (83) 99 03/12/19 09:06 98.8 03/12/19 09:00 Room Air 03/12/19 08:36 134/64 03/12/19 08:00 98.2 75 16 134/74 (94) 99 03/12/19 04:00 98.8 75 16 134/64 (87) 97 03/12/19 00:00 98.5 67 16 142/64 (90) 67 03/11/19 21:00 Room Air 03/11/19 20:00 98.5 69 16 149/79 (102) 100 03/11/19 17:48 140/80 03/11/19 16:00 98.5 73 19 140/80 (100) 98 Height (Feet): 5 Height (Inches): 4.00 Weight (Pounds): 185 General Appearance: no acute distress HEENT: mucous membranes moist Respiratory/Chest: lungs clear Cardiovascular: normal rate Abdomen: distended Extremities: no edema Neurologic/Psychiatric: alert, oriented x 3, responsive Current Medications Medications (Trade) Dose Ordered Sig/Marcia Route PRN Reason Start Time Stop Time Status Last Admin Dose Admin Acetaminophen (Tylenol) 650 mg Q4H PRN ORAL Mild Pain/Temp > 100.5 03/05/19 23:30 04/04/19 23:29 03/10/19 09:07 Atorvastatin Calcium (Lipitor) 10 mg BEDTIME ORAL 03/10/19 21:00 04/09/19 20:59 03/11/19 20:14 Cetylpyridinium Chloride (Cepacol) 1 lozg Q4H PRN EDISON sore throat 03/11/19 08:15 04/10/19 08:14 03/12/19 04:02 Chlorhexidine Gluconate (Sarah-Hex 2%) 1 applic DAILY@2000 TOPIC 03/06/19 20:00 04/05/19 19:59 03/11/19 20:14 Hydralazine HCl (Apresoline) 25 mg Q8HR ORAL 03/12/19 14:00 04/09/19 08:59 Iopamidol (Isovue-300 100ml) 100 ml NOW PRN INJ Radiology Procedure 03/05/19 20:30 Morphine Sulfate (Morphine Sulfate) 4 mg Q4H PRN IVP Severe Pain (Pain Scale 7-10) 03/10/19 12:48 03/17/19 12:47 03/12/19 08:36 Ondansetron HCl (Zofran) 4 mg Q6H PRN IVP Nausea & Vomiting 03/06/19 00:45 04/05/19 00:44 03/11/19 20:14 Pantoprazole (Protonix) 40 mg EVERY 12 HOURS ORAL 03/08/19 21:00 04/07/19 20:59 03/12/19 08:36 Jonatan Mathews MD Mar 12, 2019 14:08
[2019-03-12] MEDS ORDERED: Tubing IV Secondary IV ONE (14:39)
[2019-03-12] MEDS ORDERED: 1/2 NS 1000ml IV ONE (14:39)
--- NOTE | 2019-03-12 14:45 | NUR ---
NURSE NOTES: Patient discharged. IV and ID band removed. Belongings accounted for. Discharge instructions given and patient verbalized understanding. Patient escorted from facility to private vehicle without incident or injury.
--- NOTE | 2019-03-12 22:26 | General Progress Note ---
Assessment/Plan Assessment/Plan: Assessment - N/V - resolved - abd pain - improved - diarrhea - improved - diverticulosis / diverticulitis - Elevated Bili Recommendations - push po - abx - OOB - d/c planning - f/u LFT as outpatient Subjective Allergies: Coded Allergies: TRAMADOL (Verified Allergy, Intermediate, 01/10/18) TREMORS AND VOMITING CODEINE (Verified Adverse Reaction, Mild, 11/02/12) nausea Subjective Feels better improved N/V improved Pain, tolerating solids for discharge today Objective Last 24 Hour Vital Signs Date Time Temp Pulse Resp B/P (MAP) Pulse Ox O2 Delivery O2 Flow Rate FiO2 03/12/19 12:00 98.4 69 16 125/62 (83) 99 03/12/19 09:06 98.8 03/12/19 09:00 Room Air 03/12/19 08:36 134/64 03/12/19 08:00 98.2 75 16 134/74 (94) 99 03/12/19 04:00 98.8 75 16 134/64 (87) 97 03/12/19 00:00 98.5 67 16 142/64 (90) 67 Intake and Output 03/11/19 03/12/19 19:00 07:00 Intake Total 1310.0 ml 160.0 ml Output Total 400 ml Balance 1310.0 ml -240.0 ml Intake Oral 1000 ml IV Total 310.0 ml 160.0 ml Output Urine Total 400 ml # Voids 6 Height (Feet): 5 Height (Inches): 4.00 Weight (Pounds): 185 Objective Obese AA woman NCAT supple CTA RR abd soft ND, (+) mild LLQ TTP no edema Roe Garcia MD Mar 12, 2019 22:26
--- NOTE | 2019-03-13 10:05 | Discharge Summary ---
Discharge Summary Discharge Summary _ DATE OF ADMISSION: 03/05/2019 DATE OF DISCHARGE: 03/12/2019 DISCHARGED BY: Dr Chapa REASON FOR ADMISSION: 74 years old female with past medical history of hypertension, COPD/asthma, diabetes mellitus, seizure disorder, ulcerative colitis, neuropathy, presented with diffuse abdominal pain. Patient developed bloody diarrhea. Patient reported significant amount of rectal bleeding. Patient reported being fatigued. She denied fever or chills. She reported several episodes of nausea and vomiting. No blood in emesis. She denied dysuria or hematuria. Upon evaluation patient was slightly tachycardic blood pressure was 147/77 no fever. Laboratory work-up revealed no leukocytosis hemoglobin 13.9 hematocrit 39.7. INR 1.0. Stable electrolytes. BUN 26, creatinine 1.5. Stable LFT and lipase. Urinalysis revealed +2 protein no evidence of UTI. CT of the abdomen and pelvis revealed probably early uncomplicated acute diverticulitis of the sigmoid. Extensive colonic diverticulosis elsewhere 4 mm rectangular density in the right middle lobe, visible on earlier 2015 study and unchanged, presumed benign EKG revealed sinus tachycardia , no acute ischemic changes. In emergency department patient received analgesia and antiemetic , and started on broad spectrum antibiotics. Patient admitted for diverticulitis due to intractable pain and multiply episodes of vomiting. CONSULTANTS: ID specialist Dr. Romero GI specialist Dr. Garcia call center consultant Dr. Krueger battery assembler plastic/oncologist Dr. Torrez pain specialist Dr. Tavarez HOSPITAL COURSE: Patient admitted to medical surgical floor. Antibiotic provided as per ID specialist recommendation. Stool culture was negative. Patient completed antibiotic treatment while in the hospital. PICC line was discontinued prior to discharge. Patient initially was hydrated with IV fluids. Training And Development Professional followed. Patient with history of right renal rig carcinoma, status post nephrectomy. Renal parameters and electrolytes were closely monitored. Electrolytes corrected as needed , nephrotoxins were avoided. IV fluids stopped. Prior to discharge creatinine slightly down from initial 1.5 to 1.4 . All electrolytes stable. GI specialist followed. Symptomatic treatment provided. Pain management was addressed as per pain specialist recommendation. Antibiotics continued. Antiemetic provided as needed. Diarrhea resolved. Nausea and vomiting resolved. GI prophylaxis provided Patient noted to have elevated total bilirubin 1.7, direct bilirubin 0.4. GI specialist recommended follow-up with as outpatient . Blood pressure was managed with current antihypertensive regimen and remained stable. Statin continued. Lipid panel stable. Pulse oximetry was stable on room air. No evidence of respiratory distress or COPD/asthma exacerbation. TSH within normal limits. Hemoglobin and hematocrit were closely monitored with goal to keep hemoglobin above 7. Prior to discharge hemoglobin 10.8, hematocrit 32. Oncologist followed. Patient status post right nephrectomy completed about a month ago. Pathology review y indicated pT 1 staging , which not require further treatment. No evidence of distant metastasis. No evidence of positive margin on the tumor report. Right middle lobe rectangular density 4 mm without prior changes from 2015 ( seen on curetn CT scan of abdomen), presumed benign. Patient to follow-up with her call center consultant and oncologist as outpatient. Patient clinically stabilized and was ready for discharge home. Extensive teaching regarding diverticular disease provided. FINAL DIAGNOSES: Sigmoid diverticulitis with extensive colonic diverticulosis Hypertension COPD/asthma Chronic kidney disease Renal cell carcinoma , right Status post right nephrectomy Anemia of chronic disease Lumbar radiculopathy Lumbar DDD DISCHARGE MEDICATIONS: See Medication Reconciliation list. DISCHARGE INSTRUCTIONS: Patient was discharged home with home health services. Follow up with primary care provider in one week. I have been assigned to dictate discharge summary for this account. I was not involved in the patient's management. Shelley Delcid NP Mar 13, 2019 10:05
== END 2019-03-12 14:40 | disposition home health service (06) | DRG 378 ==
LOC: EMR 21:36 → 4E 21:59 → EDBEDREQ 22:17
PROC: 02HV33Z Insertion of Infusion Device into Superior Vena Cava, Percutaneous Approach (ICD-10-PCS; principal; 2019-03-06)
DX: K57.33 Diverticulitis of large intestine without perforation or abscess with bleeding (principal); R71.0 Precipitous drop in hematocrit; Z85.528 Personal history of other malignant neoplasm of kidney; I12.9 Hypertensive chronic kidney disease with stage 1 through stage 4 chronic kidney disease, or unspecified chronic kidney disease; N18.9 Chronic kidney disease, unspecified; M51.16 Intervertebral disc disorders with radiculopathy, lumbar region; G89.4 Chronic pain syndrome; E78.5 Hyperlipidemia, unspecified; E87.6 Hypokalemia; J44.9 Chronic obstructive pulmonary disease, unspecified; G40.909 Epilepsy, unspecified, not intractable, without status epilepticus; K57.30 Diverticulosis of large intestine without perforation or abscess without bleeding; Z88.6 Allergy status to analgesic agent; D63.8 Anemia in other chronic diseases classified elsewhere; Z90.5 Acquired absence of kidney; M54.16 Radiculopathy, lumbar region; E66.9 Obesity, unspecified; K52.9 Noninfective gastroenteritis and colitis, unspecified
CPT/HCPCS: 36415; 36569; 74176; 76937; 80053; 80061; 81003; 82248; 82550; 82977; 83036; 83615; 83690; 83735; 84100; 84443; 84484; 84550; 85025; 85610; 85730; 86140; 87045; 93005; 96361; 96365; 96368; 96375; 96376; 99285; J2405; J8499

== ENCOUNTER 2019-04-30 07:11 | Inpatient (IN) | payer MEDICARE, MEDICAID ==
[~2019-04-30] VITALS: Ht 162.6 cm; Wt 85.7 kg
[~2019-04-30 07:11] MED LIST changes: +CEFTRIAXONE1 G2 IV; +ROCEPHIN250 MG IM
--- NOTE | 2019-04-30 07:26 | Emergency Room Report ---
History of Present Illness General Chief Complaint: Abdominal Pain Source: Patient, EMS Present Illness HPI Patient is a 74-year-old female presented after increased epigastric pain. Patient had recent onset earlier this morning. She reports having a bowel movement but did not have any improvement in her abdominal discomfort. She reports having primarily epigastric pain which somewhat radiates to her back. She denies any similar episodes of pain in the past although she has had prior history of renal cancer as well as diverticulitis. Patient states that she had a normal bowel movement this morning. She denies any fever. She had reportedly been urinating normally. She denies any current chest pain. Patient was brought in by EMS and EKG was performed by them which showed normal sinus rhythm with diffuse T wave inversion. Patient had been given aspirin as well as nitroglycerin without any change in the pain.She states that she is currently taking multiple medications is followed by Dr. Chapa as well as Dr. Garcia for GI. Allergies: Coded Allergies: TRAMADOL (Verified Allergy, Intermediate, 01/10/18) TREMORS AND VOMITING MORPHINE (Unverified Allergy, Unknown, 04/30/19) CODEINE (Verified Adverse Reaction, Mild, 11/02/12) nausea Uncoded Allergies: CODINE (Allergy, Unknown, 04/30/19) Patient History Past Medical History: see triage record Now: No Reviewed Nursing Documentation: PMH: Agreed; PSxH: Agreed Nursing Documentation-PMH Hx Cardiac Problems: Yes - neuropathy Hx Hypertension: Yes Hx Pacemaker: No Hx Asthma: Yes Hx COPD: Yes Hx Diabetes: Yes - controlled Hx Cancer: Yes Hx Gastrointestinal Problems: Yes - diverticulitis, ulcerative colitis Hx Neurological Problems: No Hx Cerebrovascular Accident: No Hx Seizures: Yes - 2 years ago Review of Systems All Other Systems: negative except mentioned in HPI Physical Exam Vital Signs Date Time Temp Pulse Resp B/P (MAP) Pulse Ox O2 Delivery O2 Flow Rate FiO2 04/30/19 07:08 97.7 88 18 182/102 (128) 98 Room Air Sp02 EP Interpretation: reviewed, normal General Appearance: normal inspection, well appearing, no apparent distress, alert, GCS 15, obese, Chronically Ill Head: atraumatic ENT: normal ENT inspection, hearing grossly normal, normal voice Neck: normal inspection, full range of motion, supple, no bony tend Respiratory: normal inspection, lungs clear, normal breath sounds, no respiratory distress, no retraction, no wheezing Cardiovascular #1: regular rate, rhythm, no edema Gastrointestinal: normal inspection, normal bowel sounds, non tender, soft, no guarding, no hernia, distended, tenderness - mild diffuse Genitourinary: no CVA tenderness Musculoskeletal: normal inspection, back normal, normal range of motion Neurologic: normal inspection, alert, oriented x3, responsive, emery wheel worker III-XII nml as tested, speech normal Psychiatric: normal inspection, judgement/insight normal, mood/affect normal Medical Decision Making Diagnostic Impression: Primary Impression: Abdominal pain Additional Impression: Diverticulitis ER Course Patient presented for abdominal pain. Differential diagnoses included ischemic bowel, appendicitis, perforated viscus, abdominal aortic aneurysm, inferior myocardial infarction, viral gastroenteritis among others. Because of complexity of patient's case laboratory testing and imaging studies were ordered. Patient was noted to have prior history of colitis as well as diverticulitis in the past. Patient's EKG showed normal sinus rhythm with multiple areas of T wave inversion.Her laboratory testing was unremarkable. She was noted to have the imaging which showed changes as per radiology report. Because of patient's recent history of diverticular disease and recent onset of symptoms. Patient will be admitted for further evaluation and treatment. Dr. Arsenio Torrez was contacted for inpatient management due to covering physician for Dr. Chapa. Labs Test 04/30/19 07:55 04/30/19 08:48 White Blood Count 6.2 K/UL (4.8-10.8) Red Blood Count 4.02 M/UL (4.20-5.40) Hemoglobin 13.6 G/DL (12.0-16.0) Hematocrit 41.6 % (37.0-47.0) Mean Corpuscular Volume 104 FL (80-99) Mean Corpuscular Hemoglobin 33.8 PG (27.0-31.0) Mean Corpuscular Hemoglobin Concent 32.7 G/DL (32.0-36.0) Red Cell Distribution Width 11.2 % (11.6-14.8) Platelet Count 268 K/UL (150-450) Mean Platelet Volume 6.2 FL (6.5-10.1) Neutrophils (%) (Auto) 70.4 % (45.0-75.0) Lymphocytes (%) (Auto) 21.1 % (20.0-45.0) Monocytes (%) (Auto) 7.0 % (1.0-10.0) Eosinophils (%) (Auto) 0.8 % (0.0-3.0) Basophils (%) (Auto) 0.7 % (0.0-2.0) Prothrombin Time 9.5 SEC (9.30-11.50) Prothromb Time International Ratio 0.9 (0.9-1.1) Activated Partial Thromboplast Time 24 SEC (23-33) Sodium Level 143 MMOL/L (136-145) Potassium Level 3.8 MMOL/L (3.5-5.1) Chloride Level 106 MMOL/L (98-107) Carbon Dioxide Level 31 MMOL/L (21-32) Anion Gap 6 mmol/L (5-15) Blood Urea Nitrogen 21 mg/dL (7-18) Creatinine 1.3 MG/DL (0.55-1.30) Estimat Glomerular Filtration Rate mL/min (>60) Glucose Level 126 MG/DL (74-106) Calcium Level 9.5 MG/DL (8.5-10.1) Total Bilirubin 0.6 MG/DL (0.2-1.0) Aspartate Amino Transf (AST/SGOT) 65 U/L (15-37) Alanine Aminotransferase (ALT/SGPT) 42 U/L (12-78) Alkaline Phosphatase 123 U/L (46-116) Troponin I 0.001 ng/mL (0.000-0.056) Total Protein 7.4 G/DL (6.4-8.2) Albumin 4.0 G/DL (3.4-5.0) Globulin 3.4 g/dL Albumin/Globulin Ratio 1.2 (1.0-2.7) Lipase 104 U/L (73-393) Urine Color Yellow Urine Appearance Clear Urine pH 5 (4.5-8.0) Urine Specific [place] 1.020 (1.005-1.035) Urine Protein 1+ (NEGATIVE) Urine Glucose (UA) Negative (NEGATIVE) Urine Ketones Negative (NEGATIVE) Urine Blood Negative (NEGATIVE) Urine Nitrite Negative (NEGATIVE) Urine Bilirubin Negative (NEGATIVE) Urine Urobilinogen 1 MG/DL (0.0-1.0) Urine Leukocyte Esterase 2+ (NEGATIVE) Urine RBC 0-2 /HPF (0 - 2) Urine WBC 2-4 /HPF (0 - 2) Urine Squamous Epithelial Cells Few /LPF (NONE/OCC) Urine Bacteria Few /HPF (NONE) EKG Diagnostic Results Rate: normal Rhythm: NSR ST Segments: other - t wave inversion Last Vital Signs Date Time Temp Pulse Resp B/P (MAP) Pulse Ox O2 Delivery O2 Flow Rate FiO2 04/30/19 07:08 97.7 88 18 182/102 (128) 98 Room Air Status: improved Disposition: ADMITTED INPATIENT Condition: Serious Bigg Cornelius MD Apr 30, 2019 07:26
[2019-04-30] MEDS ORDERED: Isovue-300 100ml vial INJ PRN (07:30)
[2019-04-30] MEDS ORDERED: Metoclopramide 10mg/2ml Inj IVP ONE (07:30)
[2019-04-30] MEDS ORDERED: Dicyclomine HCl 10mg/5ml oral soln ORAL ONE (07:30)
[2019-04-30 07:58] VITALS: BP 159/77
[2019-04-30] MEDS ORDERED: OMEPRAZOLE20 M3 ORAL (08:00)
[2019-04-30] MEDS ORDERED: CIPROFLOXACIN500 MG PO (08:00)
[2019-04-30] MEDS ORDERED: DICYCLOMINE HCL10 MG ORAL (08:00)
[2019-04-30] MEDS ORDERED: CRESTOR20 MG ORAL (08:00)
[2019-04-30] MEDS ORDERED: GABAPENTIN100 MG ORAL (08:00)
[2019-04-30] MEDS ORDERED: ASPIR 8181 MG ORAL (08:00)
[2019-04-30] MEDS ORDERED: NEOMYCIN SULFA500 MG ORAL (08:01)
[2019-04-30] MEDS ORDERED: CARTIA XT240 MG ORAL (08:01)
--- NOTE | 2019-04-30 08:01 | NUR ---
ED Nurse Note:pt. came from home with c/o epigastric pain, pt. is A/Ox4 ambulatory, blood sent to labs, VSS, skin is intact, given IV and PO meds, placed on monitoring tech
[2019-04-30 08:11] LABS: BASOPHILS % (AUTO) 0.7 % (0.0-2.0); EOSINOPHILS % (AUTO) 0.8 % (0.0-3.0); HEMATOCRIT 41.6 % (37.0-47.0); HEMOGLOBIN 13.6 G/DL (12.0-16.0); LYMPHOCYTES % (AUTO) 21.1 % (20.0-45.0); MEAN CORPUSCULAR VOLUME 104 FL (80-99); NEUTROPHILS % (AUTO) 70.4 % (45.0-75.0); PLATELET COUNT 268 K/UL (150-450); RED BLOOD COUNT 4.02 M/UL (4.20-5.40); RED CELL DISTRIBUTION WIDTH 11.2 % (11.6-14.8); WHITE BLOOD COUNT 6.2 K/UL (4.8-10.8)
[2019-04-30 08:22] LABS: INR 0.9 (0.9-1.1)
[2019-04-30 08:23] LABS: ANION GAP 6 mmol/L (5-15); BLOOD UREA NITROGEN 21 mg/dL (7-18); CALCIUM 9.5 MG/DL (8.5-10.1); CARBON DIOXIDE 31 MMOL/L (21-32); CHLORIDE 106 MMOL/L (98-107); CREATININE 1.3 MG/DL (0.55-1.30); POTASSIUM 3.8 MMOL/L (3.5-5.1); SODIUM 143 MMOL/L (136-145)
[2019-04-30 08:27] LABS: ALANINE AMINOTRANSFERASE 42 U/L (12-78); ALBUMIN/GLOBULIN RATIO 1.2 (1.0-2.7); ALKALINE PHOSPHATASE 123 U/L (46-116); ASPARTATE AMINO TRANSFERASE 65 U/L (15-37); BILIRUBIN,TOTAL 0.6 MG/DL (0.2-1.0)
[2019-04-30 09:01] LABS: APPEARANCE,URINE CLEAR; BILIRUBIN, URINE NEGATIVE (NEGATIVE); GLUCOSE, URINE (UA) NEGATIVE (NEGATIVE); KETONES,URINE NEGATIVE (NEGATIVE); LEUKOCYTE ESTERASE ,URINE 2+ (NEGATIVE); NITRITE,URINE NEGATIVE (NEGATIVE); PH,URINE 5 (4.5-8.0); PROTEIN,URINE 1+ (NEGATIVE); UROBILINOGEN,URINE 1 MG/DL (0.0-1.0)
[2019-04-30] MEDS ORDERED: cefTRIAXone 1 GM in NS 55 ML IVPB ONE (09:15)
[2019-04-30 09:26] LABS: COLOR,URINE YELLOW
--- NOTE | 2019-04-30 09:47 | Diagnostic Imaging Report ---
Clinical Indication: Abdominal pain, epigastric pain Technique: No oral contrast utilized, per emergency room physician request IV administration nonionic contrast. Venous phase spiral acquisition obtained through the abdomen and pelvis. Multiplanar reconstructions were generated. Total dose length product 954.5 mGycm. CTDIvol(s) 19.07 mGy. Dose reduction achieved using automated exposure control Comparison: 03/01/[address], 03/05/[address] Findings: Lack of enteric contrast limits assessment of the GI tract. Again demonstrated is extensive colonic diverticulosis. No evidence of diverticulitis. The appendix is not definitely visualized, but no findings to suggest acute appendicitis are evident. There is a small ventral hernia which contains only fat again demonstrated. No small bowel distention. No free or loculated intraperitoneal gas or fluid is evident. Distal esophagus, stomach, duodenum are unremarkable. The liver demonstrates a subcentimeter low-attenuation lesion in segment 8, also previously demonstrated. The gallbladder, bile ducts are all unremarkable. The pancreas is somewhat fatty replaced. The spleen and adrenals are unremarkable. No pelvic mass or adenopathy. Uterus and adnexal structures appear unremarkable. The bladder is nondistended. The kidneys demonstrate bilateral cysts and subcentimeter low-attenuation lesions which are too small to characterize. Previously demonstrated (on the 2016 exam) right interpolar region partially enhancing mass is no longer evident, was also not evident on the February 2019 exam. There is a 8 mm diameter lesion coming off of the lower pole of the left kidney which demonstrates a suggestion of higher than fluid attenuation. This is evident on the previous 03/05/2018 exam, is present but less apparent on 03/01/2017, and not visible on earlier studies. The included lung bases are clear. The bones are unremarkable Impression: Limited assessment of the GI tract, due to lack of enteric contrast administration No definite acute abnormality 8 mm left lower pole renal lesion, not clearly cystic, also previously reported. Recommend sonography for further evaluation if this has not yet already been worked up Note continued absence of the right renal lesion described on 03/01/2017. Correlate with any history of interim therapy Other findings as noted, including fat-containing ventral hernia, probable right lobe liver cyst, renal cysts The CT scanner at [facility] is accredited by the [employer] and the scans are performed using protocols designed to limit radiation exposure to as low as reasonably achievable to attain images of sufficient resolution adequate for diagnostic evaluation.
[2019-04-30 10:01] VITALS: BP 143/76
--- NOTE | 2019-04-30 10:02 | NUR ---
ED Nurse Note:pt. c/o agustin siu MD notified, tryed to call report to tele- told to call back in 10 min
--- NOTE | 2019-04-30 10:24 | NUR ---
ED Nurse Note:called tele- report given to twyla Reich. taken up stairs
--- NOTE | 2019-04-30 10:40 | NUR ---
NURSE NOTES: Pt transferred safely to floor from ED. freelance designer applied and pt is SR. Belongings list verified. Report received from LUISA Sewell. Pt shows no signs of distress. A+Ox4, denies pain/ SOB at this time. Respirations even and unlabored on room air. IV site is patent and intact. Bed is at lowest position, brakes engaged, siderails x2, bed alarm on, and call light within reach. Pt is in stable condition at this time; will continue to monitor.
--- NOTE | 2019-04-30 11:38 | NUR ---
NURSE NOTES: Dr. Torrez covering for Dr. Chapa today. Left message with him; awaiting response.
--- NOTE | 2019-04-30 11:56 | Cardiac Electrophysiology PN ---
Subjective Subjective [id number] Objective Last 24 Hour Vital Signs Date Time Temp Pulse Resp B/P (MAP) Pulse Ox O2 Delivery O2 Flow Rate FiO2 04/30/19 10:38 97.7 04/30/19 10:03 97.7 65 18 143/76 99 Room Air 04/30/19 10:01 97.7 65 18 143/76 99 Room Air 04/30/19 07:58 97.7 88 18 159/77 98 Room Air 04/30/19 07:58 88 18 Room Air 04/30/19 07:08 97.7 88 18 182/102 (128) 98 Room Air Laboratory Tests Test 04/30/19 07:55 04/30/19 08:48 White Blood Count 6.2 K/UL (4.8-10.8) Red Blood Count 4.02 M/UL (4.20-5.40) L Hemoglobin 13.6 G/DL (12.0-16.0) Hematocrit 41.6 % (37.0-47.0) Mean Corpuscular Volume 104 FL (80-99) H Mean Corpuscular Hemoglobin 33.8 PG (27.0-31.0) H Mean Corpuscular Hemoglobin Concent 32.7 G/DL (32.0-36.0) Red Cell Distribution Width 11.2 % (11.6-14.8) L Platelet Count 268 K/UL (150-450) Mean Platelet Volume 6.2 FL (6.5-10.1) L Neutrophils (%) (Auto) 70.4 % (45.0-75.0) Lymphocytes (%) (Auto) 21.1 % (20.0-45.0) Monocytes (%) (Auto) 7.0 % (1.0-10.0) Eosinophils (%) (Auto) 0.8 % (0.0-3.0) Basophils (%) (Auto) 0.7 % (0.0-2.0) Prothrombin Time 9.5 SEC (9.30-11.50) Prothromb Time International Ratio 0.9 (0.9-1.1) Activated Partial Thromboplast Time 24 SEC (23-33) Sodium Level 143 MMOL/L (136-145) Potassium Level 3.8 MMOL/L (3.5-5.1) Chloride Level 106 MMOL/L (98-107) Carbon Dioxide Level 31 MMOL/L (21-32) Anion Gap 6 mmol/L (5-15) Blood Urea Nitrogen 21 mg/dL (7-18) H Creatinine 1.3 MG/DL (0.55-1.30) Estimat Glomerular Filtration Rate mL/min (>60) Glucose Level 126 MG/DL (74-106) H Calcium Level 9.5 MG/DL (8.5-10.1) Total Bilirubin 0.6 MG/DL (0.2-1.0) Aspartate Amino Transf (AST/SGOT) 65 U/L (15-37) H Alanine Aminotransferase (ALT/SGPT) 42 U/L (12-78) Alkaline Phosphatase 123 U/L (46-116) H Troponin I 0.001 ng/mL (0.000-0.056) Total Protein 7.4 G/DL (6.4-8.2) Albumin 4.0 G/DL (3.4-5.0) Globulin 3.4 g/dL Albumin/Globulin Ratio 1.2 (1.0-2.7) Lipase 104 U/L (73-393) Urine Color Yellow Urine Appearance Clear Urine pH 5 (4.5-8.0) Urine Specific [place] 1.020 (1.005-1.035) Urine Protein 1+ (NEGATIVE) H Urine Glucose (UA) Negative (NEGATIVE) Urine Ketones Negative (NEGATIVE) Urine Blood Negative (NEGATIVE) Urine Nitrite Negative (NEGATIVE) Urine Bilirubin Negative (NEGATIVE) Urine Urobilinogen 1 MG/DL (0.0-1.0) H Urine Leukocyte Esterase 2+ (NEGATIVE) H Urine RBC 0-2 /HPF (0 - 2) Urine WBC 2-4 /HPF (0 - 2) Urine Squamous Epithelial Cells Few /LPF (NONE/OCC) Urine Bacteria Few /HPF (NONE) Saad Gunderson MD Apr 30, 2019 11:55
[2019-04-30 12:00] VITALS: BP 167/88
[2019-04-30] MEDS: dilTIAZem HCl CD 240mg cap ORAL SCH (12:50)
--- NOTE | 2019-04-30 13:53 | Cardiology Report ---
APPROVED REPORT EXAM: Two-dimensional and M-mode echocardiogram with Doppler and color Doppler. INDICATION Chest Pain M-Mode DIMENSIONS IVSd0.9 (0.7-1.1cm)Left Atrium (MM)3.1 (1.6-4.0cm) LVDd4.8 (3.5-5.6cm)Aortic Root2.6 (2.0-3.7cm) PWd1.0 (0.7-1.1cm)Aortic Cusp Exc.1.7 (1.5-2.0cm) LVDs3.0 (2.5-4.0cm) PWs1.3 cm Low normal left ventricular systolic function and wall motion. Mildly enlarged left ventricle by 2-D. Left ventricular ejection fraction estimated to be 50 %. No left ventricular hypertrophy. Anterior Echo-free space, may be due to pericardial fat or effusion. Left atrial size at upper limits of normal. Right cardiac chamber sizes are within normal limits. Focal aortic valve sclerosis with adequate cusp excursion. Thickened mitral valve leaflets with normal excursion. Mitral annulus and aortic root calcification. Pulmonic valve not well visualized. Normal tricuspid valve structure. IVC measured at 2.0 cm with slight physiologic collapse. A color flow and spectral Doppler study was performed and revealed: No aortic insufficiency. Trace mitral regurgitation. Mitral diastolic velocities suggest reduced left ventricular relaxation c/w impaired relaxation grade one diastolic dysfunction. Trace tricuspid regurgitation. Tricuspid systolic velocities suggests peak right ventricular systolic pressure of 23 mmHg. No pulmonic regurgitation present.
--- NOTE | 2019-04-30 13:54 | Cardiology Report ---
APPROVED REPORT EKG Measurement Heart [id number] Normal sinus rhythm T wave abnormality, consider anterolateral ischemia Abnormal ECG
--- NOTE | 2019-04-30 15:43 | NUR ---
NURSE NOTES: Pt is having her epigastric pain again. She is requesting tylenol and zofran. Left message with Dr. Torrez; awaiting response. Addendum: 04/30/19 at 1545 by RAVEN RAMIREZ RN Dr. Torrez ordered both tylenol and zofran
--- NOTE | 2019-04-30 15:57 | NUR ---
CASE MANAGEMENT:REVIEW 74 YR OLD FEMALE BIBA CC; ABDOMINAL/EPIGASTRIC PAIN PAIN PMH: COLITIS AND DIVERTICULITIS SI: DIVERTICULITIS 97.7 88 18 182/102 98% ON RA GLUCOSE+126 IS: 500CC NS BOLUS IV REGLAN IV PEPCID CT ABD/PELVIS URINE REFLEX : TELEMETRY STATUS
[2019-04-30 15:59] VITALS: BP 166/91
[2019-04-30] MEDS ORDERED: cloNIDine 0.2mg Tab ORAL SCH (16:00)
--- NOTE | 2019-04-30 16:45 | Consultation ---
DATE OF CONSULTATION: 04/30/2019 CARDIAC ELECTROPHYSIOLOGY CONSULTATION CONSULTING PHYSICIAN: Saad Gunderson M.D. REFERRING PHYSICIAN: Bunny Chapa M.D. ADDITIONAL REFERRING PHYSICIAN: Dr. Torrez REASON FOR CONSULTATION: Abnormal electrocardiogram in a patient with hypertension, hyperlipidemia, history of right kidney mass status post nephrectomy. HISTORY OF PRESENT ILLNESS: The patient is a very pleasant 74-year-old lady with history of hypertension, hyperlipidemia, diabetes, COPD, asthma, history of diverticulitis, history of seizure two years ago presented to emergency room with epigastric pain that started this morning. The patient had bowel movement, had improvement in abdominal discomfort. The patient presented to the emergency room and was noted to have T-inversion in inferolateral leads. A Cardiology consultation was obtained for further evaluation and management as the patient's aspirin and nitroglycerin without any change in the pain. REVIEW OF SYSTEMS: Review of systems was negative other than what was mentioned in the history of present illness. PAST MEDICAL HISTORY: As mentioned above. FAMILY HISTORY: Noncontributory. SOCIAL HISTORY: She lives at home. She has an identical twin who is at the bedside. Does not smoke or drink alcohol. ALLERGIES: She is allergic to tramadol, morphine, and codeine. PHYSICAL EXAMINATION: VITAL SIGNS: Blood pressure was 182/102, pulse 88, respirations 18, and she is afebrile. HEAD AND NECK: No JVD or carotid bruits. LUNGS: Clear. CARDIOVASCULAR: Regular S1 and S2 with no gallop or murmur. ABDOMEN: Soft. EXTREMITIES: No pitting edema. LABORATORY AND DIAGNOSTIC DATA: Her EKG showed sinus rhythm with inferolateral T-wave inversions suggestive of ischemia. Her labs show white count of 6.7, hemoglobin 13.7, hematocrit 41.6, and platelet count of 268,000. Sodium is 143, potassium is 3.8, BUN of 21, creatinine 1.3, and glucose of 126. Her first troponin is negative. INR is 0.9. Urinalysis was negative. ASSESSMENT AND PLAN: 1. Accelerated hypertension. Resume the patient's antihypertensive medications. At home, the patient is on Cardizem CD 240 mg daily that will be resumed. She is also on hydrochlorothiazide 25 mg daily. 2. Abnormal electrocardiogram and epigastric pain. First troponin is negative completely ruled out [place] protocol, get an echocardiogram. 3. Hyperlipidemia on Crestor 20 mg daily. 4. Epigastric pain. The patient underwent abdominopelvic CT scan that showed no definite acute abnormality. Further evaluation by Dr. Garcia. Thank you very much for allowing me to participate in the care of this patient. Please do not hesitate to contact me if you have any questions regarding my evaluation. Sincerely, Saad Gunderson M.D. DR: Jaylon JOB#: [id number] CC:
[2019-04-30] MEDS ORDERED: Dicyclomine 10mg Cap ORAL SCH (18:00)
[2019-04-30] MEDS ORDERED: Neomycin Sulfate 500mg Tab ORAL SCH (18:00)
[2019-04-30] MEDS ORDERED: Dicyclomine 10mg Cap ORAL PRN (18:00)
--- NOTE | 2019-04-30 19:11 | NUR ---
HAND-OFF: Report given to LUISA Vasquez. Pt is in stable condition; plan of care endorsed.
--- NOTE | 2019-04-30 19:57 | NUR ---
NURSE NOTES: Received report from LUISA Reich. Pt asleep. Bed in lowest position. Call light within reach. Will continue to monitor.
[2019-04-30 20:00] VITALS: BP 154/83
[2019-04-30] MEDS: HYDROcodone/Acetamin 5/325 tab ORAL PRN (20:53)
[2019-04-30] MEDS: Heparin 5000 units/ml inj SUBQ SCH (21:00)
--- NOTE | 2019-04-30 21:01 | General Progress Note ---
Assessment/Plan Assessment/Plan: Assessment - Acute onset epigastric pain of unclear etiology (? viral , ? gastritis, ? constipation) - symptoms not similar to LLQ pain, associated with diverticulitis in the past - h/o Renal cell CA Recommendations - laxative - PPI - follow symptoms for now - further w/u including EGD if symptoms persist Thank you Roe Garcia MD Subjective Allergies: Coded Allergies: TRAMADOL (Verified Allergy, Intermediate, 01/10/18) TREMORS AND VOMITING MORPHINE (Unverified Allergy, Unknown, 04/30/19) CODEINE (Verified Adverse Reaction, Mild, 11/02/12) nausea Uncoded Allergies: CODINE (Allergy, Unknown, 04/30/19) Objective Last 24 Hour Vital Signs Date Time Temp Pulse Resp B/P (MAP) Pulse Ox O2 Delivery O2 Flow Rate FiO2 04/30/19 16:00 92 04/30/19 15:59 98.1 91 18 166/91 (116) 100 04/30/19 12:50 92 167/88 04/30/19 12:00 97.3 92 18 167/88 (114) 100 04/30/19 12:00 70 04/30/19 10:48 Room Air 04/30/19 10:42 91 04/30/19 10:38 97.7 04/30/19 10:03 97.7 65 18 143/76 99 Room Air 04/30/19 10:01 97.7 65 18 143/76 99 Room Air 04/30/19 07:58 97.7 88 18 159/77 98 Room Air 04/30/19 07:58 88 18 Room Air 04/30/19 07:08 97.7 88 18 182/102 (128) 98 Room Air Laboratory Tests 04/30/19 07:55: White Blood Count 6.2, Red Blood Count 4.02L, Hemoglobin 13.6, Hematocrit 41.6, Mean Corpuscular Volume 104H, Mean Corpuscular Hemoglobin 33.8H, Mean Corpuscular Hemoglobin Concent 32.7, Red Cell Distribution Width 11.2L, Platelet Count 268, Mean Platelet Volume 6.2L, Neutrophils (%) (Auto) 70.4, Lymphocytes (%) (Auto) 21.1, Monocytes (%) (Auto) 7.0, Eosinophils (%) (Auto) 0.8, Basophils (%) (Auto) 0.7, Prothrombin Time 9.5, Prothromb Time International Ratio 0.9, Activated Partial Thromboplast Time 24, Sodium Level 143, Potassium Level 3.8, Chloride Level 106, Carbon Dioxide Level 31, Anion Gap 6, Blood Urea Nitrogen 21H, Creatinine 1.3, Estimat Glomerular Filtration Rate , Glucose Level 126H, Calcium Level 9.5, Total Bilirubin 0.6, Aspartate Amino Transf (AST/SGOT) 65H, Alanine Aminotransferase (ALT/SGPT) 42, Alkaline Phosphatase 123H, Troponin I 0.001, Total Protein 7.4, Albumin 4.0, Globulin 3.4 , Albumin/Globulin Ratio 1.2, Lipase 104 04/30/19 08:48: Urine Color Yellow, Urine Appearance Clear, Urine pH 5, Urine Specific [place] 1.020, Urine Protein 1+H, Urine Glucose (UA) Negative, Urine Ketones Negative, Urine Blood Negative, Urine Nitrite Negative, Urine Bilirubin Negative, Urine Urobilinogen 1H, Urine Leukocyte Esterase 2+H, Urine RBC 0-2, Urine WBC 2-4, Urine Squamous Epithelial Cells Few, Urine Bacteria Few 04/30/19 15:30: Troponin I 0.004 Height (Feet): 5 Height (Inches): 4.00 Weight (Pounds): 190 Roe Garcia MD Apr 30, 2019 21:01
[2019-04-30] MEDS ORDERED: Sorbitol Solution UD 30ml ORAL SCH (21:15)
--- NOTE | 2019-04-30 21:30 | Consultation ---
DATE OF CONSULTATION: 04/30/2019 INFECTIOUS DISEASE CONSULTATION CONSULTING PHYSICIAN: Jonatan Mathews M.D. PRIMARY ATTENDING PHYSICIAN: Bunny Chapa M.D., Dr. Johnnie Hurley covering for him. REASON FOR CONSULT: Gastroenteritis. HISTORY OF PRESENT ILLNESS: This is a 74-year-old female admitted today from home complaining of epigastric pain and an episode of nausea and vomiting. Pain is pressure tight in epigastric area with radiation to back. Initially, it was 10/10, now decreased to 6/10. She had one episode of vomiting. No fever. No chills. The patient was recently hospitalized in [facility] between March 05 and March 12 with acute diverticulitis. At this time, the patient does not have the lower abdominal pain as previous admission. PAST MEDICAL HISTORY: Right renal cancer status post right nephrectomy, hypertension, diabetes mellitus type 2, COPD, seizure disorder, and asthma. ALLERGIES: To codeine, morphine, and tramadol. CURRENT MEDICATIONS: Getting ceftriaxone, aspirin, heparin, dicyclomine, gabapentin, oral neomycin, clonidine, Tylenol, Cardizem, diazepam, and hydrochlorothiazide. SOCIAL HISTORY: Single, lives at home. Denies alcohol, drug abuse, or smoking. REVIEW OF SYSTEMS: No fever. No chills. Has decrease in appetite, epigastric pain. Nausea and vomiting. No significant coughing. No problem passing urine. PHYSICAL EXAMINATION: VITAL SIGNS: Temperature 98.1, pulse 91, and blood pressure 166/91. GENERAL APPEARANCE: No acute distress. Seems to be well developed. HEAD AND NECK: [place] conjunctivae. HEART: Normal rate. ABDOMEN: Obese, soft. Tender in the epigastric area. EXTREMITIES: No edema. NEUROLOGIC: Awake, alert, and oriented x3. LABORATORY AND DIAGNOSTIC DATA: WBC 6.2, hemoglobin 13.6, hematocrit 41.6, and platelets 268. Sodium 143, potassium 3.8, chloride 106, bicarbonate 31, BUN 21, and creatinine 1.3. Alkaline phosphatase 123. First troponin was negative. Lipase within normal limits. UA has wbc's of 2 to 4, leukocyte esterase 2+. IMPRESSION: Epigastric pain, nausea, and vomiting, likely gastroenteritis. The patient has diabetes mellitus type 2, hypertension, COPD, history of renal cell cancer, and right nephrectomy. RECOMMENDATION: Continue Rocephin for now. If the culture remains negative, we will stop antibiotics soon. At the end of my exam, I thank Dr. Johnnie Hurley for involving me in the care of this patient. Jonatan Mathews M.D. DR: SARKIS JOB#: [id number] CC:
--- NOTE | 2019-04-30 22:30 | History and Physical Report ---
DATE OF ADMISSION: 04/30/2019 CONSULTANTS: 1. Dr. Torrez. 2. Cuco Krueger M.D. 3. Jonatan Mathews M.D. 4. Roe Garcia M.D. CHIEF COMPLAINT: Abdominal pain, nausea, vomiting, and diverticulitis. BRIEF HISTORY: This is a 74-year-old female, who lives at home, presented with increased abdominal pain and slight nausea and vomiting, no diarrhea, x2 days intermittent and sharp. The patient came to [facility], diagnosed with diverticulitis, and now admitted to telemetry for further care. Currently, slightly anxious in bed, 6/10 abdominal pain, no complaint. PAST MEDICAL HISTORY: Diverticulitis, kidney cancer, and hypertension. PAST SURGERY HISTORY: Right kidney surgery. MEDICATIONS: Include ceftriaxone, aspirin, heparin, dicyclomine, gabapentin, clonidine, Tylenol, Zofran, diltiazem, and hydrochlorothiazide. ALLERGIES: Codeine, morphine, and tramadol. SOCIAL HISTORY: No smoking. No alcohol. No intravenous drug use. FAMILY HISTORY: Noncontributory. REVIEW OF SYSTEMS: No chest pain. No shortness of breath. Slight nausea. No vomiting. No diarrhea. PHYSICAL EXAMINATION: GENERAL: Calm in bed, oriented x3, slight distress secondary to pain. VITAL SIGNS: Temp is 98 degrees, pulse 91, respirations 18, and blood pressure 166/91. CARDIOVASCULAR: No murmurs. LUNGS: Distant and clear. ABDOMEN: Bowel sounds positive. Slightly tender. No guarding. No rigidity. No rebound. EXTREMITIES: No cyanosis, clubbing, or edema. NEUROLOGIC: The patient moves all extremities, slightly weak. LABORATORY AND DIAGNOSTIC DATA: Labs, at this time, show CBC is normal. BMP show BUN 21 and glucose 126. AST 65. Troponin 0.001. Alkaline phosphatase 123. INR 0.9. PTT 24. Urinalysis show 2+ leukocyte esterase. ASSESSMENT: 1. Abdominal pain. 2. Diverticulitis. 3. UTI. 4. Nausea. 5. History of kidney cancer. 6. Hypertension. PLAN: 1. Blood pressure control. 2. Pain control. 3. Dietary followup. 4. Antibiotics per Infectious Disease. 5. Check labs in the a.m. Johnnie Hurley D.O. DR: KIKO JOB#: [id number] CC:
[2019-05-01] VITALS: BP 149/80
--- NOTE | 2019-05-01 03:15 | Consultation ---
DATE OF CONSULTATION: 04/30/2019 GASTROLOGY CONSULTATION REPORT CHIEF COMPLAINT: I was asked to see this patient by Dr. Bunny Chapa and Dr. Johnnie Hurley for evaluation of some abdominal pain. HISTORY OF PRESENT ILLNESS: The patient is a pleasant 74-year-old woman who was in her usual state of health until she woke up this morning with sudden stronger epigastric abdominal pain radiating to her back. She had some episodes of nausea and vomiting. She had some bowel movements today. She states she says this pain does not resemble her typical pains of diverticulitis there, which are left lower quadrant in nature. In addition, her CT scan did not show any evidence of diverticulitis. She feels better now, although she is afraid of eating. She is not having diarrhea. The patient has had extensive GI workup for her chronic abdominal pains with negative results. PAST MEDICAL HISTORY: History of renal cell carcinoma, status post partial right nephrectomy, status post endoscopy normal in 2012, and last colonoscopy showed diverticulosis more on the left side at that time. A second colonoscopy was done 2015, showing only diverticulosis and a polyp, which was inflammatory and was removed, history of hypertension, obesity, elevated cholesterol, chronic constipation, and reactive airway disease. FAMILY HISTORY: Positive for questionable history of Crohn's disease in the father. SOCIAL HISTORY: The patient is single. She does not smoke or drink alcohol. She has a twin sister, who was very involved in her daily life. MEDICATIONS: See chart list for details. ALLERGIES: Codeine and tramadol. REVIEW OF SYSTEMS: Otherwise negative. PHYSICAL EXAMINATION: GENERAL: A very pleasant woman, seen in her room. HEENT: Normocephalic and atraumatic. Sclerae anicteric. Oropharynx clear. NECK: Supple. CHEST: Clear to auscultation. CARDIOVASCULAR: Revealed regular rate. ABDOMEN: Soft with some mild epigastric and left upper quadrant abdominal discomfort without guarding or rebound. No masses. EXTREMITIES: Revealed no edema. LABORATORY DATA: CT scan was noted. ASSESSMENT: This patient presents with sudden onset of epigastric and left upper quadrant abdominal pain today when arising from bed of unclear etiology. Differential diagnosis would include simple causative factors such as viral gastroenteritis or mild gastritis. Another factor involves colonic spasm in the area. Other diagnosis can be considered, although the patient for instance does not have any radiographic evidence of diverticulitis. Should her symptoms persist, then further workup may be necessary. RECOMMENDATIONS: 1. Continue proton pump inhibitor. 2. Laxative trial. 3. Observe the patient for now. 4. Further workup if symptoms persist. Thank you for asking me to participate in the care of this patient. Roe Garcia M.D. DR: PUNEET JOB#: [id number] CC: ANYI
[2019-05-01 04:00] VITALS: BP 133/72
--- NOTE | 2019-05-01 06:20 | Consultation ---
History of Present Illness General Chief Complaint: Abdominal Pain Present Illness Allergies: Coded Allergies: TRAMADOL (Verified Allergy, Intermediate, 01/10/18) TREMORS AND VOMITING MORPHINE (Unverified Allergy, Unknown, 04/30/19) CODEINE (Verified Adverse Reaction, Mild, 11/02/12) nausea Uncoded Allergies: CODINE (Allergy, Unknown, 04/30/19) Medication History Scheduled Albuterol Sulfate* (Proair Hfa*), 2 PUFFS INH Q4, (Reported) Aspirin* (Aspir 81*), 81 MG ORAL DAILY, (Reported) Atorvastatin Calcium* (Lipitor*), 20 MG ORAL BEDTIME, (Reported) Azelastine/Fluticasone (Dymista Nasal [place]), 2 SPRAYS NS BID, (Reported) Ceftriaxone Sodium (Ceftriaxone), 1 GM IV DAILY, (Reported) Ciprofloxacin/Ciprofloxa Hcl (Ciprofloxacin Er 500 Mg Tablet), 500 MG PO Q12HR, (Reported) Cyclobenzaprine Hcl* (Flexeril*), 5 MG ORAL DA, (Reported) Dexlansoprazole (Dexilant), 60 MG ORAL DAILY, (Reported) Dicyclomine Hcl* (Dicyclomine Hcl*), 10 MG ORAL EVERY 6 HOURS, (Reported) Diltiazem Hcl (Diltiazem Er), 240 MG PO DAILY, (Reported) Diltiazem Hcl* (Cartia Xt*), 240 MG ORAL DAILY, (Reported) Docusate Sodium* (Docusate Sodium*), 100 MG ORAL TWICE A DAY, (Reported) Duloxetine Hcl* (Cymbalta*), 30 MG ORAL DAILY, (Reported) Fesoterodine Fumarate (Toviaz), 4 MG PO BID, (Reported) Fluticasone/Vilanterol (Breo Ellipta 100-25 Mcg INH), 1 PUFF IH DAILY, (Reported ) Gabapentin* (Gabapentin*), 100 MG ORAL TWICE A DAY, (Reported) Hydralazine Hcl* (Hydralazine Hcl*), 25 MG ORAL BID, (Reported) Hydrochlorothiazide (Microzide), 25 MG PO DAILY, (Reported) Neomycin Sulfate (Neomycin Sulfate), 500 MG ORAL TWICE A DAY, (Reported) Omeprazole (Omeprazole), 20 MG ORAL TWICE A DAY, (Reported) Rosuvastatin Calcium* (Crestor*), 20 MG ORAL DAILY, (Reported) Rosuvastatin Calcium* (Crestor*), 20 MG ORAL DAILY, (Reported) Triamterene/Hydrochlorothiazid (Triamterene-Hctz 37.5-25 Mg Cp), 1 CAP ORAL DAILY, (Reported) Scheduled PRN Diazepam* (Diazepam*), 5 MG ORAL BID PRN for ANXIETY, (Reported) Hydrocodone Bit/Acetaminophen 5-325* ([place] 5-325*), 1 TAB ORAL Q4H PRN for For Pain, (Reported) Hydrocodone Bit/Acetaminophen 5-325* ([place] 5-325*), 2 TAB ORAL Q4H PRN for For Pain, (Reported) Miscellaneous Medications Ceftriaxone Sod (Rocephin), 250 MG IM, (Reported) Patient History Healthcare decision maker Resuscitation status Full Code Advanced Directive on File No Physical Exam Last 24 Hour Vital Signs Date Time Temp Pulse Resp B/P (MAP) Pulse Ox O2 Delivery O2 Flow Rate FiO2 05/01/19 04:00 98.0 71 18 133/72 (92) 100 05/01/19 03:47 67 05/01/19 00:00 66 05/01/19 00:00 98.2 77 18 149/80 (103) 95 04/30/19 21:00 Room Air 04/30/19 20:00 98.1 75 18 154/83 (106) 96 04/30/19 20:00 79 04/30/19 16:00 92 04/30/19 15:59 98.1 91 18 166/91 (116) 100 04/30/19 12:50 92 167/88 04/30/19 12:00 97.3 92 18 167/88 (114) 100 04/30/19 12:00 70 04/30/19 10:48 Room Air 04/30/19 10:42 91 04/30/19 10:38 97.7 04/30/19 10:03 97.7 65 18 143/76 99 Room Air 04/30/19 10:01 97.7 65 18 143/76 99 Room Air 04/30/19 07:58 97.7 88 18 159/77 98 Room Air 04/30/19 07:58 88 18 Room Air 04/30/19 07:08 97.7 88 18 182/102 (128) 98 Room Air Intake and Output 04/30/19 05/01/19 19:00 07:00 Intake Total 390 ml Output Total 1000 ml Balance -610 ml Intake Oral 390 ml Output Urine Total 1000 ml # Voids 1 Laboratory Tests Test 04/30/19 07:55 04/30/19 08:48 04/30/19 15:30 04/30/19 23:10 White Blood Count 6.2 K/UL (4.8-10.8) Red Blood Count 4.02 M/UL (4.20-5.40) L Hemoglobin 13.6 G/DL (12.0-16.0) Hematocrit 41.6 % (37.0-47.0) Mean Corpuscular Volume 104 FL (80-99) H Mean Corpuscular Hemoglobin 33.8 PG (27.0-31.0) H Mean Corpuscular Hemoglobin Concent 32.7 G/DL (32.0-36.0) Red Cell Distribution Width 11.2 % (11.6-14.8) L Platelet Count 268 K/UL (150-450) Mean Platelet Volume 6.2 FL (6.5-10.1) L Neutrophils (%) (Auto) 70.4 % (45.0-75.0) Lymphocytes (%) (Auto) 21.1 % (20.0-45.0) Monocytes (%) (Auto) 7.0 % (1.0-10.0) Eosinophils (%) (Auto) 0.8 % (0.0-3.0) Basophils (%) (Auto) 0.7 % (0.0-2.0) Prothrombin Time 9.5 SEC (9.30-11.50) Prothromb Time International Ratio 0.9 (0.9-1.1) Activated Partial Thromboplast Time 24 SEC (23-33) Sodium Level 143 MMOL/L (136-145) Potassium Level 3.8 MMOL/L (3.5-5.1) Chloride Level 106 MMOL/L (98-107) Carbon Dioxide Level 31 MMOL/L (21-32) Anion Gap 6 mmol/L (5-15) Blood Urea Nitrogen 21 mg/dL (7-18) H Creatinine 1.3 MG/DL (0.55-1.30) Estimat Glomerular Filtration Rate mL/min (>60) Glucose Level 126 MG/DL (74-106) H Calcium Level 9.5 MG/DL (8.5-10.1) Total Bilirubin 0.6 MG/DL (0.2-1.0) Aspartate Amino Transf (AST/SGOT) 65 U/L (15-37) H Alanine Aminotransferase (ALT/SGPT) 42 U/L (12-78) Alkaline Phosphatase 123 U/L (46-116) H Troponin I 0.001 ng/mL (0.000-0.056) 0.004 ng/mL (0.000-0.056) 0.000 ng/mL (0.000-0.056) Total Protein 7.4 G/DL (6.4-8.2) Albumin 4.0 G/DL (3.4-5.0) Globulin 3.4 g/dL Albumin/Globulin Ratio 1.2 (1.0-2.7) Lipase 104 U/L (73-393) Urine Color Yellow Urine Appearance Clear Urine pH 5 (4.5-8.0) Urine Specific [place] 1.020 (1.005-1.035) Urine Protein 1+ (NEGATIVE) H Urine Glucose (UA) Negative (NEGATIVE) Urine Ketones Negative (NEGATIVE) Urine Blood Negative (NEGATIVE) Urine Nitrite Negative (NEGATIVE) Urine Bilirubin Negative (NEGATIVE) Urine Urobilinogen 1 MG/DL (0.0-1.0) H Urine Leukocyte Esterase 2+ (NEGATIVE) H Urine RBC 0-2 /HPF (0 - 2) Urine WBC 2-4 /HPF (0 - 2) Urine Squamous Epithelial Cells Few /LPF (NONE/OCC) Urine Bacteria Few /HPF (NONE) Height (Feet): 5 Height (Inches): 4.00 Weight (Pounds): 190 Medications Current Medications Medications (Trade) Dose Ordered Sig/Marcia Route PRN Reason Start Time Stop Time Status Last Admin Dose Admin Acetaminophen (Tylenol) 650 mg Q6H PRN ORAL Mild Pain/Temp > 100.5 04/30/19 15:45 05/30/19 15:44 04/30/19 16:44 Acetaminophen/ Hydrocodone Bitart ([place] 5/325) 1 tab Q8H PRN ORAL For Pain 04/30/19 19:45 05/07/19 19:44 04/30/19 20:53 Aspirin (Ecotrin) 81 mg DAILY ORAL 05/01/19 09:00 05/31/19 08:59 Barium Sulfate (Readi-Cat 2) 450 ml NOW PRN ORAL Radiology Procedure 04/30/19 07:30 05/02/19 07:18 Ceftriaxone Sodium 1 gm/ Dextrose 55 ml @ 110 mls/hr Q24H IVPB 05/01/19 09:00 05/08/19 08:59 Clonidine HCl (Catapres tab) 0.2 mg Q2H PRN ORAL For High Blood Pressure 04/30/19 16:00 05/30/19 15:59 Diazepam (Valium) 5 mg BIDPRN PRN ORAL ANXIETY 04/30/19 12:30 05/07/19 12:29 Dicyclomine HCl (Bentyl) 10 mg Q6H PRN ORAL For Pain 04/30/19 18:00 05/30/19 17:59 Diltiazem HCl (Cardizem CD) 240 mg DAILY ORAL 04/30/19 12:30 05/30/19 12:29 04/30/19 12:50 Gabapentin (Neurontin) 100 mg TWICE A DAY ORAL 04/30/19 18:00 05/30/19 17:59 04/30/19 17:34 Heparin Sodium (Porcine) (Heparin 5000 units/ml) 5,000 units EVERY 12 HOURS SUBQ 04/30/19 21:00 05/30/19 20:59 04/30/19 21:00 Hydrochlorothiazide (Hydrodiuril) 25 mg DAILY ORAL 04/30/19 12:30 05/30/19 12:29 04/30/19 12:50 Iopamidol (Isovue-300 100ml) 100 ml NOW PRN INJ Radiology Procedure 04/30/19 07:30 05/02/19 07:29 Ondansetron HCl (Zofran) 4 mg Q6H PRN IVP Nausea & Vomiting 04/30/19 15:45 05/30/19 15:44 04/30/19 16:44 Sodium Chloride 1,000 ml @ 70 mls/hr [id number] IV 04/30/19 12:15 05/30/19 12:14 05/01/19 02:33 Assessment/Plan Assessment/Plan: HEMATOLOGY/ONCOLOGY Consultation Note DATE OF CONSULT: 05/01/19 REFERRING PHYSICIAN: Bunny Chapa REASON FOR CONSULT: Renal mass, anemia hx HISTORY OF PRESENT ILLNESS: 74y old female well known to me, hx of gi bleed in the past, sees us in the clinic as well also has been having abdominal cramps that has been going on for a week. The patient was admitted for diverticulitis eval flare that she has. The patient denies chills. Denies cough. Denies shortness of breath. Denies orthopnea. Hematology/Oncology services have been consulted for the evaluation of a renal mass that was found on an abd CT. 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 PAST MEDICAL HISTORY: Significant for chest pain, history of diverticulitis, history of renal cancer, constipation, hypertension, chronic pain syndrome, hyperlipidemia, hypertension, and dyslipidemia. PAST SURGICAL HISTORY: Ovarian cyst removed, partial right nephrectomy for cancer. ALLERGIES: Tramadol, codeine. SOCIAL HISTORY: Denies history of smoking, alcohol, or illicit drugs. REVIEW OF SYSTEMS: HEENT: Denies headaches. RESPIRATORY: Denies shortness of breath. Denies cough CARDIOVASCULAR: Denies chest pain. GASTROINTESTINAL: Reports vomiting blood and rectal bleed as well as abdominal cramps for about one week. EXTREMITIES: Denies pain in the lower extremity. ARBITRATOR: No change in vision or speech pattern. PHYSICAL EXAMINATION: VITAL SIGNS: Reviewed. HEENT: PERRLA. NECK: Supple. No lymphadenopathy. CHEST: Clear to auscultation. CARDIOVASCULAR: Regular rate and rhythm. No murmurs or extra sounds. GASTROINTESTINAL: Diffuse abdominal pain. Abdomen is soft. No rebound. No organomegaly. EXTREMITIES: A 1+ edema. Reflexes equal in both sides. Moving all four extremities. MEDICATIONS: Lipitor, Colace, Toviaz, Cymbalta, Colace, diltiazem, Crestor, hydrochlorothiazide. IMAGIN/30: CT abd --> Possible early uncomplicated acute diverticulitis of the sigmoid. Extensive colonic diverticulosis elsewhere. Note apparent absence of previously demonstrated right renal contrast enhancing mass.This could indicate in visibility due to the lack of IV contrast, or could indicate prior therapy. Correlate with clinical/surgical history 4 mm rectangular density in the right middle lobe, visible on earlier 2014 study and unchanged, presumed benign. LABORATORY STUDIES: 03/08: wbc 6.1 hgb 12.8 plt 200k 04/30: wbc 6, hgb 13, plt 268k ASSESSMENT AND PLAN # Renal cell carcinoma, status post nephrectomy that was completed approximately 1 month ago, pathology was reviewed and is pT1 staging does not require further treatment, lymph nodes not submitted, but no evidence of distant metastasis, also no evidence of positive margins noted on the tumor report --> CT abd: 4 mm rectangular density in the right middle lobe, visible on earlier 2014 study and unchanged, presumed benign --> trend cr as per renal, baseline, cr is 1.4-1.5 --> cr trend: 1.4 --> monitor with serial imaging as needed # Leukopenia is likely a reactive process v infection --> smear peripherla has been reviewed --> hepatitis and hiv in the past neg --> no cirrhosis or hsm on us --> thyroid studies are wnl # Anemia of chronic disease --> closely monitor --> currently is stable at 10.8->13 --> hold off any further workup at this time # Sigmoid diverticulitis. ID and GI are following, appreciate recs. --> Abx per ID. --> PPI # Hypertension. --> sbp goal <140 # COPD. # Chronic kidney disease. cr 1.4-1.5 # Abd pain as per gi eval The time note is entered does not reflect time of encounter. GREATLY APPRECIATE CONSULTATION Arsenio Torrez MD May 01, 2019 06:20
[2019-05-01 07:10] LABS: BASOPHILS % (AUTO) 1.7 % (0.0-2.0); EOSINOPHILS % (AUTO) 1.2 % (0.0-3.0); HEMATOCRIT 39.4 % (37.0-47.0); HEMOGLOBIN 12.9 G/DL (12.0-16.0); LYMPHOCYTES % (AUTO) 34.7 % (20.0-45.0); MEAN CORPUSCULAR VOLUME 104 FL (80-99); MONOCYTES % (AUTO) 8.3 % (1.0-10.0); PLATELET COUNT 229 K/UL (150-450); RED BLOOD COUNT 3.78 M/UL (4.20-5.40); RED CELL DISTRIBUTION WIDTH 11.4 % (11.6-14.8)
--- NOTE | 2019-05-01 07:16 | NUR ---
NURSE NOTES: Nurse report given by LUISA Vasquez. Patient's awake and laying in bed. Breakfast at bedside. Denies pain, no s/s of acute distress or SOB. Bed at lowest position, break engaged and call light within reach. IV fluid is running NS, no sign of infiltration or tenderness. Will continue to monitor.
--- NOTE | 2019-05-01 07:18 | NUR ---
HAND-OFF: Report given to LUISA Mitchell. Pt stable.
[2019-05-01 07:33] LABS: ANION GAP 7 mmol/L (5-15); BLOOD UREA NITROGEN 12 mg/dL (7-18); CALCIUM 9.4 MG/DL (8.5-10.1); CARBON DIOXIDE 29 MMOL/L (21-32); CHLORIDE 107 MMOL/L (98-107); CREATININE 1.2 MG/DL (0.55-1.30); POTASSIUM 3.9 MMOL/L (3.5-5.1); SODIUM 143 MMOL/L (136-145)
[2019-05-01 08:00] VITALS: BP 121/63
--- NOTE | 2019-05-01 08:31 | General Progress Note ---
Assessment/Plan Assessment/Plan: Assessment - Acute onset epigastric pain of unclear etiology (? viral , ? gastritis, ? constipation) - symptoms not similar to LLQ pain, associated with diverticulitis in the past - h/o Renal cell CA Recommendations - PRN laxative - PPI - follow symptoms for now - further w/u including EGD if symptoms persist Subjective Allergies: Coded Allergies: TRAMADOL (Verified Allergy, Intermediate, 01/10/18) TREMORS AND VOMITING MORPHINE (Unverified Allergy, Unknown, 04/30/19) CODEINE (Verified Adverse Reaction, Mild, 11/02/12) nausea Uncoded Allergies: CODINE (Allergy, Unknown, 04/30/19) Subjective Feels better less abd pain d/w patient re findings to date Objective Last 24 Hour Vital Signs Date Time Temp Pulse Resp B/P (MAP) Pulse Ox O2 Delivery O2 Flow Rate FiO2 05/01/19 04:00 98.0 71 18 133/72 (92) 100 05/01/19 03:47 67 05/01/19 00:00 66 05/01/19 00:00 98.2 77 18 149/80 (103) 95 04/30/19 21:00 Room Air 04/30/19 20:00 98.1 75 18 154/83 (106) 96 04/30/19 20:00 79 04/30/19 16:00 92 04/30/19 15:59 98.1 91 18 166/91 (116) 100 04/30/19 12:50 92 167/88 04/30/19 12:00 97.3 92 18 167/88 (114) 100 04/30/19 12:00 70 04/30/19 10:48 Room Air 04/30/19 10:42 91 04/30/19 10:38 97.7 04/30/19 10:03 97.7 65 18 143/76 99 Room Air 04/30/19 10:01 97.7 65 18 143/76 99 Room Air Intake and Output 04/30/19 05/01/19 19:00 07:00 Intake Total 390 ml Output Total 1000 ml Balance -610 ml Intake Oral 390 ml Output Urine Total 1000 ml # Voids 1 3 Laboratory Tests 04/30/19 08:48: Urine Color Yellow, Urine Appearance Clear, Urine pH 5, Urine Specific [place] 1.020, Urine Protein 1+H, Urine Glucose (UA) Negative, Urine Ketones Negative, Urine Blood Negative, Urine Nitrite Negative, Urine Bilirubin Negative, Urine Urobilinogen 1H, Urine Leukocyte Esterase 2+H, Urine RBC 0-2, Urine WBC 2-4, Urine Squamous Epithelial Cells Few, Urine Bacteria Few 04/30/19 15:30: Troponin I 0.004 04/30/19 23:10: Troponin I 0.000 05/01/19 06:40: Troponin I 0.000, White Blood Count 4.0L, Red Blood Count 3.78L, Hemoglobin 12.9 , Hematocrit 39.4, Mean Corpuscular Volume 104H, Mean Corpuscular Hemoglobin 34.2H, Mean Corpuscular Hemoglobin Concent 32.8, Red Cell Distribution Width 11.4L, Platelet Count 229, Mean Platelet Volume 6.1L, Neutrophils (%) (Auto) 54.0, Lymphocytes (%) (Auto) 34.7, Monocytes (%) (Auto) 8.3, Eosinophils (%) ( Auto) 1.2, Basophils (%) (Auto) 1.7, Sodium Level 143, Potassium Level 3.9, Chloride Level 107, Carbon Dioxide Level 29, Anion Gap 7, Blood Urea Nitrogen 12 , Creatinine 1.2, Estimat Glomerular Filtration Rate , Glucose Level 114H, Calcium Level 9.4 Height (Feet): 5 Height (Inches): 4.00 Weight (Pounds): 189 Objective WD obese AA woman NCAT supple CTA RR abd soft, Mild Epigastric and RUQ TTP no edema non focal Roe Garcia MD May 01, 2019 08:31
[2019-05-01] MEDS: Aspirin EC 81mg tab ORAL SCH (08:40)
[2019-05-01] MEDS: dilTIAZem HCl CD 240mg cap ORAL SCH (08:40)
[2019-05-01] MEDS: Heparin 5000 units/ml inj SUBQ SCH ×2 (08:42→21:06)
[2019-05-01] MEDS ORDERED: cefTRIAXone 1 GM in D5W 55 ML IVPB SCH (09:00)
--- NOTE | 2019-05-01 09:22 | General Progress Note ---
Assessment/Plan Problem List: (1) UTI (urinary tract infection) ICD Codes: N39.0 - Urinary tract infection, site not specified SNOMED: 53633301 (2) Nausea ICD Codes: R11.0 - Nausea SNOMED: 624850352 (3) HTN (hypertension) ICD Codes: I10 - Essential (primary) hypertension SNOMED: 41187213 (4) GI problem ICD Codes: R19.8 - GI problem SNOMED: 762015728 (5) Abdominal pain ICD Codes: R10.9 - Unspecified abdominal pain SNOMED: 28812783 (6) Diverticulitis ICD Codes: K57.92 - Diverticulitis of intestine, part unspecified, without perforation or abscess without bleeding SNOMED: 866684719 Status: stable, progressing Assessment/Plan: abx pain control gi f/u cbc bmp am Subjective Constitutional: Reports: weakness Allergies: Coded Allergies: TRAMADOL (Verified Allergy, Intermediate, 01/10/18) TREMORS AND VOMITING MORPHINE (Unverified Allergy, Unknown, 04/30/19) CODEINE (Verified Adverse Reaction, Mild, 11/02/12) nausea Uncoded Allergies: CODINE (Allergy, Unknown, 04/30/19) All Systems: reviewed and negative except above Subjective sl abd pain Objective Last 24 Hour Vital Signs Date Time Temp Pulse Resp B/P (MAP) Pulse Ox O2 Delivery O2 Flow Rate FiO2 05/01/19 08:40 67 121/63 05/01/19 04:00 98.0 71 18 133/72 (92) 100 05/01/19 03:47 67 05/01/19 00:00 66 05/01/19 00:00 98.2 77 18 149/80 (103) 95 04/30/19 21:00 Room Air 04/30/19 20:00 98.1 75 18 154/83 (106) 96 04/30/19 20:00 79 04/30/19 16:00 92 04/30/19 15:59 98.1 91 18 166/91 (116) 100 04/30/19 12:50 92 167/88 04/30/19 12:00 97.3 92 18 167/88 (114) 100 04/30/19 12:00 70 04/30/19 10:48 Room Air 04/30/19 10:42 91 04/30/19 10:38 97.7 04/30/19 10:03 97.7 65 18 143/76 99 Room Air 04/30/19 10:01 97.7 65 18 143/76 99 Room Air Intake and Output 04/30/19 05/01/19 19:00 07:00 Intake Total 390 ml Output Total 1000 ml Balance -610 ml Intake Oral 390 ml Output Urine Total 1000 ml # Voids 1 3 Laboratory Tests 04/30/19 15:30: Troponin I 0.004 04/30/19 23:10: Troponin I 0.000 05/01/19 06:40: Troponin I 0.000, White Blood Count 4.0L, Red Blood Count 3.78L, Hemoglobin 12.9 , Hematocrit 39.4, Mean Corpuscular Volume 104H, Mean Corpuscular Hemoglobin 34.2H, Mean Corpuscular Hemoglobin Concent 32.8, Red Cell Distribution Width 11.4L, Platelet Count 229, Mean Platelet Volume 6.1L, Neutrophils (%) (Auto) 54.0, Lymphocytes (%) (Auto) 34.7, Monocytes (%) (Auto) 8.3, Eosinophils (%) ( Auto) 1.2, Basophils (%) (Auto) 1.7, Sodium Level 143, Potassium Level 3.9, Chloride Level 107, Carbon Dioxide Level 29, Anion Gap 7, Blood Urea Nitrogen 12 , Creatinine 1.2, Estimat Glomerular Filtration Rate , Glucose Level 114H, Calcium Level 9.4 Height (Feet): 5 Height (Inches): 4.00 Weight (Pounds): 189 General Appearance: lethargic EENT: normal ENT inspection Neck: normal alignment Cardiovascular: normal peripheral pulses, normal rate, regular rhythm Respiratory/Chest: chest wall non-tender, lungs clear, normal breath sounds Abdomen: normal bowel sounds, non tender, soft Extremities: normal inspection Edema: no edema noted Arm (L), no edema noted Arm (R), no edema noted Leg (L), no edema noted Leg (R), no edema noted Pedal (L), no edema noted Pedal (R), no edema noted Generalized Neurologic: responsive, motor weakness Skin: normal pigmentation, warm/dry Johnnie Hurley DO May 01, 2019 09:22
[2019-05-01 12:00] VITALS: BP 146/69
--- NOTE | 2019-05-01 12:50 | Cardiac Electrophysiology PN ---
Assessment/Plan Assessment/Plan 1. Accelerated hypertension. On Cardizem CD 240 mg daily and hydrochlorothiazide 25 mg daily. 2. Abnormal electrocardiogram and epigastric pain. Ruled out for [place] . Ef 50%. 3. Hyperlipidemia on Crestor 20 mg daily. 4. Epigastric pain. The patient underwent abdominopelvic CT scan that showed no definite acute abnormality. Further evaluation by Dr. Garcia. 5. Renal cell carcinoma, status post nephrectomy that was completed approximately [address] Marie. D WRN Subjective Subjective Remained in SR. No CP or SOB. Objective Last 24 Hour Vital Signs Date Time Temp Pulse Resp B/P (MAP) Pulse Ox O2 Delivery O2 Flow Rate FiO2 05/01/19 12:00 98.5 70 21 146/69 (94) 98 05/01/19 12:00 60 05/01/19 09:00 Room Air 05/01/19 08:40 67 121/63 05/01/19 08:00 60 05/01/19 08:00 98.7 67 20 121/63 (82) 98 05/01/19 04:00 98.0 71 18 133/72 (92) 100 05/01/19 03:47 67 05/01/19 00:00 66 05/01/19 00:00 98.2 77 18 149/80 (103) 95 04/30/19 21:00 Room Air 04/30/19 20:00 98.1 75 18 154/83 (106) 96 04/30/19 20:00 79 04/30/19 16:00 92 04/30/19 15:59 98.1 91 18 166/91 (116) 100 04/30/19 12:50 92 167/88 Intake and Output 04/30/19 05/01/19 19:00 07:00 Intake Total 390 ml Output Total 1000 ml Balance -610 ml Intake Oral 390 ml Output Urine Total 1000 ml # Voids 1 3 Laboratory Tests Test 04/30/19 15:30 04/30/19 23:10 05/01/19 06:40 Troponin I 0.004 ng/mL (0.000-0.056) 0.000 ng/mL (0.000-0.056) 0.000 ng/mL (0.000-0.056) White Blood Count 4.0 K/UL (4.8-10.8) L Red Blood Count 3.78 M/UL (4.20-5.40) L Hemoglobin 12.9 G/DL (12.0-16.0) Hematocrit 39.4 % (37.0-47.0) Mean Corpuscular Volume 104 FL (80-99) H Mean Corpuscular Hemoglobin 34.2 PG (27.0-31.0) H Mean Corpuscular Hemoglobin Concent 32.8 G/DL (32.0-36.0) Red Cell Distribution Width 11.4 % (11.6-14.8) L Platelet Count 229 K/UL (150-450) Mean Platelet Volume 6.1 FL (6.5-10.1) L Neutrophils (%) (Auto) 54.0 % (45.0-75.0) Lymphocytes (%) (Auto) 34.7 % (20.0-45.0) Monocytes (%) (Auto) 8.3 % (1.0-10.0) Eosinophils (%) (Auto) 1.2 % (0.0-3.0) Basophils (%) (Auto) 1.7 % (0.0-2.0) Sodium Level 143 MMOL/L (136-145) Potassium Level 3.9 MMOL/L (3.5-5.1) Chloride Level 107 MMOL/L (98-107) Carbon Dioxide Level 29 MMOL/L (21-32) Anion Gap 7 mmol/L (5-15) Blood Urea Nitrogen 12 mg/dL (7-18) Creatinine 1.2 MG/DL (0.55-1.30) Estimat Glomerular Filtration Rate mL/min (>60) Glucose Level 114 MG/DL (74-106) H Calcium Level 9.4 MG/DL (8.5-10.1) Objective HEAD AND NECK: No JVD or carotid bruits. LUNGS: Clear. CARDIOVASCULAR: Regular S1 and S2 with no gallop or murmur. ABDOMEN: Soft. EXTREMITIES: No pitting edema. Saad Gunderson MD May 01, 2019 12:50
--- NOTE | 2019-05-01 14:48 | Cardiology Report ---
APPROVED REPORT EKG Measurement Heart [id number] Normal sinus rhythm Septal infarct, age undetermined T wave abnormality, consider inferior ischemia T wave abnormality, consider anterolateral ischemia Abnormal ECG
--- NOTE | 2019-05-01 15:20 | NUR ---
CASE MANAGEMENT:REVIEW 05/01/19 SI: DIVERTICULITIS. ACCELERATED HTN UTI. ABD PAIN. H/O RENAL CELL CARCINOMA 98.5 70 21 146/69 98% ON RA GLUCOSE+114 IS: IV ROCEPHIN Q24 ASA PO QD HEPARIN SQ Q12 NORCO PO Q8HRS PRN NEURONTIN PO BID CARDIZEM PO QD HCTZ PO QD : TELEMETRY STATUS DCP: FROM HOME
[2019-05-01 16:00] VITALS: BP 141/70
--- NOTE | 2019-05-01 18:01 | Infectious Diseases Prog Note ---
Assessment/Plan Assessment/Plan IMPRESSION: nausea, and vomiting, likely gastroenteritis. Diabetes mellitus type 2, hypertension, COPD, history of renal cell cancer, and right nephrectomy. RECOMMENDATION: Discontinue Rocephin Observe off antibiotic Subjective ROS Limited/Unobtainable: No Constitutional: Reports: no symptoms Respiratory: Reports: no symptoms Cardiovascular: Reports: no symptoms Gastrointestinal/Abdominal: Reports: other - abdominal pain ; Denies: diarrhea Allergies: Coded Allergies: TRAMADOL (Verified Allergy, Intermediate, 01/10/18) TREMORS AND VOMITING MORPHINE (Unverified Allergy, Unknown, 04/30/19) CODEINE (Verified Adverse Reaction, Mild, 11/02/12) nausea Uncoded Allergies: CODINE (Allergy, Unknown, 04/30/19) Objective Vital Signs Last 24 Hour Vital Signs Date Time Temp Pulse Resp B/P (MAP) Pulse Ox O2 Delivery O2 Flow Rate FiO2 05/01/19 16:00 98.3 71 21 141/70 (93) 99 05/01/19 16:00 78 05/01/19 12:00 98.5 70 21 146/69 (94) 98 05/01/19 12:00 60 05/01/19 09:00 Room Air 05/01/19 08:40 67 121/63 05/01/19 08:00 60 05/01/19 08:00 98.7 67 20 121/63 (82) 98 05/01/19 04:00 98.0 71 18 133/72 (92) 100 05/01/19 03:47 67 05/01/19 00:00 66 05/01/19 00:00 98.2 77 18 149/80 (103) 95 04/30/19 21:00 Room Air 04/30/19 20:00 98.1 75 18 154/83 (106) 96 04/30/19 20:00 79 Height (Feet): 5 Height (Inches): 4.00 Weight (Pounds): 189 General Appearance: no acute distress HEENT: mucous membranes moist Respiratory/Chest: lungs clear Cardiovascular: normal rate Abdomen: soft, non tender Extremities: no edema Neurologic/Psychiatric: alert, oriented x 3, responsive Laboratory Tests Test 04/30/19 23:10 05/01/19 06:40 Troponin I 0.000 ng/mL (0.000-0.056) 0.000 ng/mL (0.000-0.056) White Blood Count 4.0 K/UL (4.8-10.8) L Red Blood Count 3.78 M/UL (4.20-5.40) L Hemoglobin 12.9 G/DL (12.0-16.0) Hematocrit 39.4 % (37.0-47.0) Mean Corpuscular Volume 104 FL (80-99) H Mean Corpuscular Hemoglobin 34.2 PG (27.0-31.0) H Mean Corpuscular Hemoglobin Concent 32.8 G/DL (32.0-36.0) Red Cell Distribution Width 11.4 % (11.6-14.8) L Platelet Count 229 K/UL (150-450) Mean Platelet Volume 6.1 FL (6.5-10.1) L Neutrophils (%) (Auto) 54.0 % (45.0-75.0) Lymphocytes (%) (Auto) 34.7 % (20.0-45.0) Monocytes (%) (Auto) 8.3 % (1.0-10.0) Eosinophils (%) (Auto) 1.2 % (0.0-3.0) Basophils (%) (Auto) 1.7 % (0.0-2.0) Sodium Level 143 MMOL/L (136-145) Potassium Level 3.9 MMOL/L (3.5-5.1) Chloride Level 107 MMOL/L (98-107) Carbon Dioxide Level 29 MMOL/L (21-32) Anion Gap 7 mmol/L (5-15) Blood Urea Nitrogen 12 mg/dL (7-18) Creatinine 1.2 MG/DL (0.55-1.30) Estimat Glomerular Filtration Rate mL/min (>60) Glucose Level 114 MG/DL (74-106) H Calcium Level 9.4 MG/DL (8.5-10.1) Current Medications Medications (Trade) Dose Ordered Sig/Marcia Route PRN Reason Start Time Stop Time Status Last Admin Dose Admin Acetaminophen (Tylenol) 650 mg Q6H PRN ORAL Mild Pain/Temp > 100.5 04/30/19 15:45 05/30/19 15:44 04/30/19 16:44 Acetaminophen/ Hydrocodone Bitart ([place] 5/325) 1 tab Q8H PRN ORAL For Pain 7/23/19 19:45 05/07/19 19:44 04/30/19 20:53 Aspirin (Ecotrin) 81 mg DAILY ORAL 05/01/19 09:00 05/31/19 08:59 05/01/19 08:40 Barium Sulfate (Readi-Cat 2) 450 ml NOW PRN ORAL Radiology Procedure 04/30/19 07:30 05/02/19 07:18 Ceftriaxone Sodium 1 gm/ Dextrose 55 ml @ 110 mls/hr Q24H IVPB 05/01/19 09:00 05/08/19 08:59 05/01/19 08:40 Clonidine HCl (Catapres tab) 0.2 mg Q2H PRN ORAL For High Blood Pressure 04/30/19 16:00 05/30/19 15:59 Diazepam (Valium) 5 mg BIDPRN PRN ORAL ANXIETY 04/30/19 12:30 05/07/19 12:29 Dicyclomine HCl (Bentyl) 10 mg Q6H PRN ORAL For Pain 04/30/19 18:00 05/30/19 17:59 Diltiazem HCl (Cardizem CD) 240 mg DAILY ORAL 04/30/19 12:30 05/30/19 12:29 05/01/19 08:40 Gabapentin (Neurontin) 100 mg TWICE A DAY ORAL 04/30/19 18:00 05/30/19 17:59 05/01/19 17:30 Heparin Sodium (Porcine) (Heparin 5000 units/ml) 5,000 units EVERY 12 HOURS SUBQ 04/30/19 21:00 05/30/19 20:59 05/01/19 08:42 Hydrochlorothiazide (Hydrodiuril) 25 mg DAILY ORAL 04/30/19 12:30 05/30/19 12:29 05/01/19 08:41 Iopamidol (Isovue-300 100ml) 100 ml NOW PRN INJ Radiology Procedure 04/30/19 07:30 05/02/19 07:29 Ondansetron HCl (Zofran) 4 mg Q6H PRN IVP Nausea & Vomiting 04/30/19 15:45 05/30/19 15:44 04/30/19 16:44 Sodium Chloride 1,000 ml @ 70 mls/hr [id number] IV 04/30/19 12:15 05/30/19 12:14 05/01/19 16:51 Jonatan Mathews MD May 01, 2019 18:00
--- NOTE | 2019-05-01 19:30 | NUR ---
NURSE NOTES: Received pt and report from LUISA Hidlago. Observed pt resting in bed with family/friend member at bedside. booky is in placed, IV site intact, asymptomatic and patent. Bed is in the lowest position and locked. Call light within reach. No signs or symptoms of acute distress noted at this time. Will continue plan of care.
--- NOTE | 2019-05-01 19:40 | NUR ---
HAND-OFF: Report given to LUISA Santoyo. Patient's in bed, no s/s of acute distress or SOB. Denies pain. Patient's in stable condition. Plan of care endorsed.
[2019-05-01 20:00] VITALS: BP 132/68
[2019-05-02] VITALS (7 sets, daily range): BP systolic 108–165; BP diastolic 55–91
--- NOTE | 2019-05-02 03:23 | NUR ---
HAND-OFF: Report given to LUISA Barreto.
[2019-05-02] MEDS: HYDROcodone/Acetamin 5/325 tab ORAL PRN (03:47)
--- NOTE | 2019-05-02 03:47 | NUR ---
NURSE NOTES: Patient c/o nausea and pain, administered zofran 4mg ivp and norco 1 tab for pain.
[2019-05-02] MEDS: cloNIDine 0.2mg Tab ORAL PRN (04:06)
--- NOTE | 2019-05-02 04:10 | NUR ---
NURSE NOTES: Patient bp 165/82, administered clonidine 0.2mg po prn.
[2019-05-02 07:12] LABS: ANION GAP 4 mmol/L (5-15); BLOOD UREA NITROGEN 4 mg/dL (7-18); CARBON DIOXIDE 30 MMOL/L (21-32); CHLORIDE 108 MMOL/L (98-107); CREATININE 1.2 MG/DL (0.55-1.30); HEMATOCRIT 36.3 % (37.0-47.0); HEMOGLOBIN 11.6 G/DL (12.0-16.0); MEAN CORPUSCULAR VOLUME 104 FL (80-99); PLATELET COUNT 214 K/UL (150-450); POTASSIUM 3.7 MMOL/L (3.5-5.1); RED BLOOD COUNT 3.49 M/UL (4.20-5.40); RED CELL DISTRIBUTION WIDTH 11.4 % (11.6-14.8); SODIUM 142 MMOL/L (136-145); WHITE BLOOD COUNT 3.4 K/UL (4.8-10.8)
--- NOTE | 2019-05-02 07:40 | NUR ---
NURSE NOTES: Received report from LUISA Barreto. Patient is resting in bed, sleeping in semi-rodriguez's position. No signs of acute distress at this moment. Respiration even and non labored on room air. IV is patent and running at RX dose. Bed in lowest position, side rails up x2, wheels locked. Call light and bed side table within reach. Will continue plan of care.
[2019-05-02] MEDS: dilTIAZem HCl CD 240mg cap ORAL SCH (09:00)
[2019-05-02] MEDS: Aspirin EC 81mg tab ORAL SCH (09:21)
[2019-05-02] MEDS: Heparin 5000 units/ml inj SUBQ SCH ×2 (09:22→21:07)
--- NOTE | 2019-05-02 09:49 | General Progress Note ---
Assessment/Plan Status: stable, progressing Assessment/Plan: ASSESSMENT AND PLAN # Renal cell carcinoma, status post nephrectomy that was completed approximately 1 month ago, pathology was reviewed and is pT1 staging does not require further treatment, lymph nodes not submitted, but no evidence of distant metastasis, also no evidence of positive margins noted on the tumor report --> CT abd: 4 mm rectangular density in the right middle lobe, visible on earlier 2014 study and unchanged, presumed benign --> trend cr as per renal, baseline, cr is 1.4-1.5-->1.2 --> monitor with serial imaging as needed # Leukopenia is likely a reactive process v infection --> smear peripheral has been reviewed --> hepatitis and hiv in the past neg --> no cirrhosis or hsm on us --> thyroid studies are wnl # Anemia of chronic disease --> closely monitor --> currently is stable at 10.8->13 --> hold off any further workup at this time # Sigmoid diverticulitis. ID and GI are following, appreciate recs. --> Abx per ID. --> PPI # Hypertension. --> sbp goal <140 # COPD. # Chronic kidney disease. cr 1.4-1.5 # Abd pain as per gi eval --> for gastroenteritis getting zofran prn basis The time note is entered does not reflect time of encounter. GREATLY APPRECIATE CONSULTATION Subjective Constitutional: Denies: no symptoms, chills, diaphoresis, fever, malaise, weakness, other HEENT: Denies: no symptoms, eye pain, blurred vision, tearing, double vision, ear pain, ear discharge, nose pain, nose congestion, throat pain, throat swelling, mouth pain, mouth swelling, other Respiratory: Denies: no symptoms, cough, orthopnea, shortness of breath, SOB with excertion, SOB at rest, sputum, stridor, wheezing, other Genitourinary: Denies: no symptoms, burning, discharge, frequency, flank pain, hematuria, incontinence, pain, urgency, other Endocrine: Denies: no symptoms, excessive sweating, flushing, intolerance to cold, intolerance to heat, increased hunger, increased thirst, increased urine, unexplained weight gain, unexplained weight loss, other Allergies: Coded Allergies: TRAMADOL (Verified Allergy, Intermediate, 01/10/18) TREMORS AND VOMITING MORPHINE (Unverified Allergy, Unknown, 04/30/19) CODEINE (Verified Adverse Reaction, Mild, 11/02/12) nausea Uncoded Allergies: CODINE (Allergy, Unknown, 04/30/19) Subjective 05/02: no fevers or chills noted, with nausea and vomiting this am, on zofran prn Objective Last 24 Hour Vital Signs Date Time Temp Pulse Resp B/P (MAP) Pulse Ox O2 Delivery O2 Flow Rate FiO2 05/02/19 09:00 56 128/71 05/02/19 08:00 97.6 64 16 128/71 (90) 95 65 05/02/19 06:40 65 108/62 (77) 05/02/19 04:06 165/82 05/02/19 04:05 98.0 67 20 165/82 (109) 98 05/02/19 03:30 66 05/02/19 00:00 98.4 66 18 140/72 (94) 96 05/02/19 00:00 71 05/01/19 21:00 Room Air 05/01/19 20:00 98.2 63 18 132/68 (89) 97 05/01/19 20:00 66 05/01/19 16:00 98.3 71 21 141/70 (93) 99 05/01/19 16:00 78 05/01/19 12:00 98.5 70 21 146/69 (94) 98 05/01/19 12:00 60 Intake and Output 05/01/19 05/02/19 19:00 07:00 Intake Total 770 ml 800 ml Output Total 800 ml Balance -30 ml 800 ml Intake Oral 700 ml 240 ml IV Total 70 ml 560 ml Output Urine Total 800 ml # Voids 3 1 Laboratory Tests 05/02/19 05:45: White Blood Count 3.4L, Red Blood Count 3.49L, Hemoglobin 11.6L, Hematocrit 36.3L, Mean Corpuscular Volume 104H, Mean Corpuscular Hemoglobin 33.3H, Mean Corpuscular Hemoglobin Concent 32.1, Red Cell Distribution Width 11.4L, Platelet Count 214, Mean Platelet Volume 6.3L, Neutrophils (%) (Auto) , Lymphocytes (%) (Auto) , Monocytes (%) (Auto) , Eosinophils (%) (Auto) , Basophils (%) (Auto) , Differential Total Cells Counted 100, Neutrophils % ( Manual) 56, Lymphocytes % (Manual) 34, Monocytes % (Manual) 7, Eosinophils % ( Manual) 3, Basophils % (Manual) 0, Band Neutrophils 0, Platelet Estimate Adequate, Platelet Morphology Normal, Sodium Level 142, Potassium Level 3.7, Chloride Level 108H, Carbon Dioxide Level 30, Anion Gap 4L, Blood Urea Nitrogen 4L, Creatinine 1.2, Estimat Glomerular Filtration Rate , Glucose Level 136H, Calcium Level 9.0 Height (Feet): 5 Height (Inches): 4.00 Weight (Pounds): 189 Objective PHYSICAL EXAMINATION: VITAL SIGNS: Reviewed. HEENT: PERRLA. NECK: Supple. No lymphadenopathy. CHEST: Clear to auscultation. CARDIOVASCULAR: Regular rate and rhythm. No murmurs or extra sounds. GASTROINTESTINAL: Diffuse abdominal pain. Abd is soft EXTREMITIES: A 1+ edema. Reflexes equal in both sides. Moving all four extremities. Arsenio Torrez MD May 02, 2019 09:48
--- NOTE | 2019-05-02 10:11 | NUR ---
DISCHARGE PLANNING DISCHARGE DISCUSSED WITH DR MCLEOD. ORDER GIVEN AND ENTERED DR SHETTY NOW COVERING FOR DR MCLEOD
--- NOTE | 2019-05-02 10:37 | Cardiac Electrophysiology PN ---
Assessment/Plan Assessment/Plan 1. Accelerated hypertension. On Cardizem CD 240 mg daily and hydrochlorothiazide 25 mg daily. 2. Abnormal electrocardiogram and epigastric pain. Ruled out for [place] . Ef 50%. Schedule for stress test today 3. Hyperlipidemia on Crestor 20 mg daily. 4. Epigastric pain. The patient underwent abdominopelvic CT scan that showed no definite acute abnormality. Further evaluation by Dr. Garcia. 5. Renal cell carcinoma, status post nephrectomy that was completed approximately [address] Marie. D WRN Subjective Subjective Remained in SR. Still occasional CP.Was evaluated by Dr. Garcia Objective Last 24 Hour Vital Signs Date Time Temp Pulse Resp B/P (MAP) Pulse Ox O2 Delivery O2 Flow Rate FiO2 05/02/19 09:00 56 128/71 05/02/19 08:00 97.6 64 16 128/71 (90) 95 65 05/02/19 06:40 65 108/62 (77) 05/02/19 04:06 165/82 05/02/19 04:05 98.0 67 20 165/82 (109) 98 05/02/19 03:30 66 05/02/19 00:00 98.4 66 18 140/72 (94) 96 05/02/19 00:00 71 05/01/19 21:00 Room Air 05/01/19 20:00 98.2 63 18 132/68 (89) 97 05/01/19 20:00 66 05/01/19 16:00 98.3 71 21 141/70 (93) 99 05/01/19 16:00 78 05/01/19 12:00 98.5 70 21 146/69 (94) 98 05/01/19 12:00 60 Intake and Output 05/01/19 05/02/19 19:00 07:00 Intake Total 770 ml 800 ml Output Total 800 ml Balance -30 ml 800 ml Intake Oral 700 ml 240 ml IV Total 70 ml 560 ml Output Urine Total 800 ml # Voids 3 1 Laboratory Tests Test 05/02/19 05:45 White Blood Count 3.4 K/UL (4.8-10.8) L Red Blood Count 3.49 M/UL (4.20-5.40) L Hemoglobin 11.6 G/DL (12.0-16.0) L Hematocrit 36.3 % (37.0-47.0) L Mean Corpuscular Volume 104 FL (80-99) H Mean Corpuscular Hemoglobin 33.3 PG (27.0-31.0) H Mean Corpuscular Hemoglobin Concent 32.1 G/DL (32.0-36.0) Red Cell Distribution Width 11.4 % (11.6-14.8) L Platelet Count 214 K/UL (150-450) Mean Platelet Volume 6.3 FL (6.5-10.1) L Neutrophils (%) (Auto) % (45.0-75.0) Lymphocytes (%) (Auto) % (20.0-45.0) Monocytes (%) (Auto) % (1.0-10.0) Eosinophils (%) (Auto) % (0.0-3.0) Basophils (%) (Auto) % (0.0-2.0) Differential Total Cells Counted 100 Neutrophils % (Manual) 56 % (45-75) Lymphocytes % (Manual) 34 % (20-45) Monocytes % (Manual) 7 % (1-10) Eosinophils % (Manual) 3 % (0-3) Basophils % (Manual) 0 % (0-2) Band Neutrophils 0 % (0-8) Platelet Estimate Adequate Platelet Morphology Normal Sodium Level 142 MMOL/L (136-145) Potassium Level 3.7 MMOL/L (3.5-5.1) Chloride Level 108 MMOL/L (98-107) H Carbon Dioxide Level 30 MMOL/L (21-32) Anion Gap 4 mmol/L (5-15) L Blood Urea Nitrogen 4 mg/dL (7-18) L Creatinine 1.2 MG/DL (0.55-1.30) Estimat Glomerular Filtration Rate mL/min (>60) Glucose Level 136 MG/DL (74-106) H Calcium Level 9.0 MG/DL (8.5-10.1) Objective HEAD AND NECK: No JVD or carotid bruits. LUNGS: Clear. CARDIOVASCULAR: Regular S1 and S2 with no gallop or murmur. ABDOMEN: Soft. EXTREMITIES: No pitting edema. Saad Gunderson MD May 02, 2019 10:37
[2019-05-02] MEDS ORDERED: Lexiscan 0.4mg/5ml syringe IV PRN (10:45)
--- NOTE | 2019-05-02 17:12 | Infectious Diseases Prog Note ---
Assessment/Plan Assessment/Plan IMPRESSION: nausea, and vomiting, likely gastroenteritis. Diabetes mellitus type 2, hypertension, COPD, history of renal cell cancer, and right nephrectomy. RECOMMENDATION: Observe off antibiotic Subjective ROS Limited/Unobtainable: No Constitutional: Reports: no symptoms Respiratory: Reports: no symptoms Cardiovascular: Reports: no symptoms Gastrointestinal/Abdominal: Reports: nausea, other - abdominal pain in am Allergies: Coded Allergies: TRAMADOL (Verified Allergy, Intermediate, 01/10/18) TREMORS AND VOMITING MORPHINE (Unverified Allergy, Unknown, 04/30/19) CODEINE (Verified Adverse Reaction, Mild, 11/02/12) nausea Uncoded Allergies: CODINE (Allergy, Unknown, 04/30/19) Objective Vital Signs Last 24 Hour Vital Signs Date Time Temp Pulse Resp B/P (MAP) Pulse Ox O2 Delivery O2 Flow Rate FiO2 05/02/19 12:00 59 05/02/19 12:00 98.2 57 16 114/55 (74) 96 57 05/02/19 09:00 56 128/71 05/02/19 09:00 Room Air 05/02/19 08:00 65 05/02/19 08:00 97.6 64 16 128/71 (90) 95 65 05/02/19 06:40 65 108/62 (77) 05/02/19 04:06 165/82 05/02/19 04:05 98.0 67 20 165/82 (109) 98 05/02/19 03:30 66 05/02/19 00:00 98.4 66 18 140/72 (94) 96 05/02/19 00:00 71 05/01/19 21:00 Room Air 05/01/19 20:00 98.2 63 18 132/68 (89) 97 05/01/19 20:00 66 Height (Feet): 5 Height (Inches): 4.00 Weight (Pounds): 189 General Appearance: no acute distress Respiratory/Chest: lungs clear Cardiovascular: normal rate Abdomen: soft, non tender Extremities: no edema Neurologic/Psychiatric: alert, oriented x 3, responsive Laboratory Tests Test 05/02/19 05:45 White Blood Count 3.4 K/UL (4.8-10.8) L Red Blood Count 3.49 M/UL (4.20-5.40) L Hemoglobin 11.6 G/DL (12.0-16.0) L Hematocrit 36.3 % (37.0-47.0) L Mean Corpuscular Volume 104 FL (80-99) H Mean Corpuscular Hemoglobin 33.3 PG (27.0-31.0) H Mean Corpuscular Hemoglobin Concent 32.1 G/DL (32.0-36.0) Red Cell Distribution Width 11.4 % (11.6-14.8) L Platelet Count 214 K/UL (150-450) Mean Platelet Volume 6.3 FL (6.5-10.1) L Neutrophils (%) (Auto) % (45.0-75.0) Lymphocytes (%) (Auto) % (20.0-45.0) Monocytes (%) (Auto) % (1.0-10.0) Eosinophils (%) (Auto) % (0.0-3.0) Basophils (%) (Auto) % (0.0-2.0) Differential Total Cells Counted 100 Neutrophils % (Manual) 56 % (45-75) Lymphocytes % (Manual) 34 % (20-45) Monocytes % (Manual) 7 % (1-10) Eosinophils % (Manual) 3 % (0-3) Basophils % (Manual) 0 % (0-2) Band Neutrophils 0 % (0-8) Platelet Estimate Adequate Platelet Morphology Normal Sodium Level 142 MMOL/L (136-145) Potassium Level 3.7 MMOL/L (3.5-5.1) Chloride Level 108 MMOL/L (98-107) H Carbon Dioxide Level 30 MMOL/L (21-32) Anion Gap 4 mmol/L (5-15) L Blood Urea Nitrogen 4 mg/dL (7-18) L Creatinine 1.2 MG/DL (0.55-1.30) Estimat Glomerular Filtration Rate mL/min (>60) Glucose Level 136 MG/DL (74-106) H Calcium Level 9.0 MG/DL (8.5-10.1) Current Medications Medications (Trade) Dose Ordered Sig/Marcia Route PRN Reason Start Time Stop Time Status Last Admin Dose Admin Acetaminophen (Tylenol) 650 mg Q6H PRN ORAL Mild Pain/Temp > 100.5 04/30/19 15:45 05/30/19 15:44 04/30/19 16:44 Acetaminophen/ Hydrocodone Bitart ([place] 5/325) 1 tab Q8H PRN ORAL For Pain 04/30/19 19:45 05/07/19 19:44 05/02/19 03:47 Aspirin (Ecotrin) 81 mg DAILY ORAL 05/01/19 09:00 05/31/19 08:59 05/02/19 09:21 Clonidine HCl (Catapres tab) 0.2 mg Q2H PRN ORAL For High Blood Pressure 04/30/19 16:00 05/30/19 15:59 05/02/19 04:06 Diazepam (Valium) 5 mg BIDPRN PRN ORAL ANXIETY 04/30/19 12:30 05/07/19 12:29 Dicyclomine HCl (Bentyl) 10 mg Q6H PRN ORAL For Pain 04/30/19 18:00 05/30/19 17:59 Diltiazem HCl (Cardizem CD) 240 mg DAILY ORAL 04/30/19 12:30 05/30/19 12:29 05/01/19 08:40 Gabapentin (Neurontin) 100 mg TWICE A DAY ORAL 04/30/19 18:00 05/30/19 17:59 05/02/19 09:21 Heparin Sodium (Porcine) (Heparin 5000 units/ml) 5,000 units EVERY 12 HOURS SUBQ 04/30/19 21:00 05/30/19 20:59 05/02/19 09:22 Hydrochlorothiazide (Hydrodiuril) 25 mg DAILY ORAL 04/30/19 12:30 05/30/19 12:29 05/02/19 09:21 Ondansetron HCl (Zofran) 4 mg Q6H PRN IVP Nausea & Vomiting 04/30/19 15:45 05/30/19 15:44 05/02/19 03:46 Regadenoson (Lexiscan) 0.4 mg ONCE PRN IV Stress Test 05/02/19 10:45 05/03/19 23:59 Sodium Chloride 1,000 ml @ 70 mls/hr [id number] IV 04/30/19 12:15 05/30/19 12:14 05/01/19 16:51 Jonatan Mathews MD May 02, 2019 17:12
--- NOTE | 2019-05-02 19:15 | NUR ---
NURSE NOTES: Received pt and report from LUISA Kaur. Observed pt resting in bed with friend/family member at bedside. rail loader is in placed, IV site intact, asymptomatic and patent. Bed is in the lowest position and locked. Call light within reach. Pt will be NPO at midnight for scheduled stress test tomorrow 05/03/19. No signs or symptoms of acute distress noted at this time. Will continue plan of care.
--- NOTE | 2019-05-02 19:25 | NUR ---
HAND-OFF: Report given to LUISA Quintero.
--- NOTE | 2019-05-02 19:40 | General Progress Note ---
Assessment/Plan Status: stable, progressing Assessment/Plan: Assessment - Acute onset epigastric pain of unclear etiology (? viral , ? gastritis, ? constipation) - symptoms not similar to LLQ pain, associated with diverticulitis in the past - chronic recurrent abdominal pain - h/o Renal cell CA Recommendations - PRN laxative - PPI - follow symptoms for now - d/c planning per PMD Subjective Allergies: Coded Allergies: TRAMADOL (Verified Allergy, Intermediate, 01/10/18) TREMORS AND VOMITING MORPHINE (Unverified Allergy, Unknown, 04/30/19) CODEINE (Verified Adverse Reaction, Mild, 11/02/12) nausea Uncoded Allergies: CODINE (Allergy, Unknown, 04/30/19) Subjective Feels better less abd pain d/w patient re findings to date Objective Last 24 Hour Vital Signs Date Time Temp Pulse Resp B/P (MAP) Pulse Ox O2 Delivery O2 Flow Rate FiO2 05/02/19 16:00 59 05/02/19 16:00 99.1 61 16 122/67 (85) 99 05/02/19 12:01 59 05/02/19 12:00 98.2 57 16 114/55 (74) 96 57 05/02/19 09:00 56 128/71 05/02/19 09:00 Room Air 05/02/19 08:00 65 05/02/19 08:00 97.6 64 16 128/71 (90) 95 65 05/02/19 06:40 65 108/62 (77) 05/02/19 04:06 165/82 05/02/19 04:05 98.0 67 20 165/82 (109) 98 05/02/19 03:30 66 05/02/19 00:00 98.4 66 18 140/72 (94) 96 05/02/19 00:00 71 05/01/19 21:00 Room Air 05/01/19 20:00 98.2 63 18 132/68 (89) 97 05/01/19 20:00 66 Intake and Output 05/01/19 05/02/19 19:00 07:00 Intake Total 770 ml 800 ml Output Total 800 ml Balance -30 ml 800 ml Intake Oral 700 ml 240 ml IV Total 70 ml 560 ml Output Urine Total 800 ml # Voids 3 1 Laboratory Tests 05/02/19 05:45: White Blood Count 3.4L, Red Blood Count 3.49L, Hemoglobin 11.6L, Hematocrit 36.3L, Mean Corpuscular Volume 104H, Mean Corpuscular Hemoglobin 33.3H, Mean Corpuscular Hemoglobin Concent 32.1, Red Cell Distribution Width 11.4L, Platelet Count 214, Mean Platelet Volume 6.3L, Neutrophils (%) (Auto) , Lymphocytes (%) (Auto) , Monocytes (%) (Auto) , Eosinophils (%) (Auto) , Basophils (%) (Auto) , Differential Total Cells Counted 100, Neutrophils % ( Manual) 56, Lymphocytes % (Manual) 34, Monocytes % (Manual) 7, Eosinophils % ( Manual) 3, Basophils % (Manual) 0, Band Neutrophils 0, Platelet Estimate Adequate, Platelet Morphology Normal, Sodium Level 142, Potassium Level 3.7, Chloride Level 108H, Carbon Dioxide Level 30, Anion Gap 4L, Blood Urea Nitrogen 4L, Creatinine 1.2, Estimat Glomerular Filtration Rate , Glucose Level 136H, Calcium Level 9.0 Height (Feet): 5 Height (Inches): 4.00 Weight (Pounds): 189 Objective WD obese AA woman NCAT supple CTA RR abd soft, Mild Epigastric TTP no edema non focal Roe Garcia MD May 02, 2019 19:40
--- NOTE | 2019-05-02 23:00 | Consultation ---
DATE OF CONSULTATION: 05/02/2019 CONSULTING PHYSICIAN: Alejandro Henry M.D. HISTORY OF PRESENT ILLNESS: This is a 74-year-old female with history of anxiety, multiple medical comorbidities, has been admitted to the hospital for medical stabilization. The patient presented with abdominal pain, nausea, vomiting, diverticulitis in addition to his anxiety. PAST PSYCHIATRY HISTORY: The patient has a history of anxiety disorder, has been on Valium. PAST MEDICAL HISTORY: As above. ALLERGIES: No known drug allergies. SUBSTANCE ABUSE HISTORY: No known history of illicit drug use or alcohol. MENTAL STATUS EXAMINATION: The patient is alert, oriented times self, place, and situation. Mood is anxious. Affect is constricted, congruent with mood. Thought process is concrete. Thought content, no suicidal or homicidal ideation. ASSESSMENT: Winona I Anxiety disorder. Winona II Deferred. Winona III As above. Winona IV Low. Winona V 50 PLAN: The patient is on Ativan after the Valium as needed. The patient on any other psychotropic medication. Provide the patient with reality orientation and supportive therapy. Alejandro Henry M.D. DR: JONY JOB#: [id number] CC:
[2019-05-03] VITALS: BP 155/69
[2019-05-03 04:00] VITALS: BP 163/85
[2019-05-03] MEDS: cloNIDine 0.2mg Tab ORAL PRN (04:14)
[2019-05-03 06:42] LABS: BASOPHILS % (AUTO) 1.8 % (0.0-2.0); EOSINOPHILS % (AUTO) 1.6 % (0.0-3.0); HEMATOCRIT 35.2 % (37.0-47.0); HEMOGLOBIN 11.6 G/DL (12.0-16.0); LYMPHOCYTES % (AUTO) 36.5 % (20.0-45.0); MEAN CORPUSCULAR VOLUME 103 FL (80-99); MONOCYTES % (AUTO) 8.6 % (1.0-10.0); NEUTROPHILS % (AUTO) 51.5 % (45.0-75.0); PLATELET COUNT 222 K/UL (150-450); RED BLOOD COUNT 3.42 M/UL (4.20-5.40); RED CELL DISTRIBUTION WIDTH 11.1 % (11.6-14.8); WHITE BLOOD COUNT 3.7 K/UL (4.8-10.8)
[2019-05-03 07:11] LABS: ANION GAP 7 mmol/L (5-15); BLOOD UREA NITROGEN 13 mg/dL (7-18); CALCIUM 9.4 MG/DL (8.5-10.1); CARBON DIOXIDE 26 MMOL/L (21-32); CHLORIDE 109 MMOL/L (98-107); CREATININE 1.2 MG/DL (0.55-1.30); POTASSIUM 3.9 MMOL/L (3.5-5.1); SODIUM 142 MMOL/L (136-145)
--- NOTE | 2019-05-03 07:42 | NUR ---
NURSE NOTES: Received report from Ingrid RN in bed resting. Denies any pain. No signs of acute distress noted. Respiration even and unlabored. Patient is on room air. No sob noted. IV on left FA patent and intact on NS @70cc/hr. Capillary refill <3sec. Skin is intact. Call light is within easy reach, bed in lowest position, brakes engaged for safety and bed alarm on. Patient is NPO post midnight, no caffeine, no chocolate, explained to patient about the stress test today. All needs attended and met. Will continue with the plan of care.
[2019-05-03 08:00] VITALS: BP 129/83
--- NOTE | 2019-05-03 08:28 | Hematology/Onc Progress Note ---
Assessment/Plan Assessment/Plan ASSESSMENT AND PLAN # Renal cell carcinoma, status post nephrectomy that was completed approximately 1 month ago, pathology was reviewed and is pT1 staging does not require further treatment, lymph nodes not submitted, but no evidence of distant metastasis, also no evidence of positive margins noted on the tumor report --> CT abd: 4 mm rectangular density in the right middle lobe, visible on earlier 2014 study and unchanged, presumed benign --> trend cr as per renal, baseline, Cr is 1.4-1.5-->1.2 --> monitor with serial imaging as needed # Leukopenia is likely a reactive process v infection --> smear peripheral has been reviewed --> hepatitis and hiv in the past neg --> no cirrhosis or hsm on us --> thyroid studies are wnl # Anemia of chronic disease --> closely monitor --> currently is stable at 10.8->13 --> hold off any further workup at this time # Sigmoid diverticulitis. ID and GI are following, appreciate recs. --> Abx per ID. --> PPI # Hypertension. --> sbp goal <140 # COPD --> w/o exacerbation # Chronic kidney disease. cr 1.4-1.5 # Abd pain as per gi eval --> for gastroenteritis getting zofran prn basis The time note is entered does not reflect time of encounter. GREATLY APPRECIATE CONSULTATION Subjective Constitutional: Denies: no symptoms, chills, fever, malaise, weakness, other HEENT: Denies: no symptoms, eye pain, blurred vision, tearing, double vision, ear pain, ear discharge, nose pain, nose congestion, throat pain, throat swelling, mouth pain, mouth swelling, other Cardiovascular: Denies: no symptoms, chest pain, edema, irregular heart rate, lightheadedness, palpitations, syncope, other Respiratory: Denies: no symptoms, cough, shortness of breath, SOB with excertion, SOB at rest, sputum, wheezing, other Gastrointestinal/Abdominal: Denies: no symptoms, abdomen distended, abdominal pain, black stools, tarry stools, blood in stool, constipated, diarrhea, difficulty swallowing, nausea, poor appetite, poor fluid intake, rectal bleeding , vomiting, other Genitourinary: Denies: no symptoms, burning, discharge, frequency, flank pain, hematuria, incontinence, pain, urgency, other Neurologic/Psychiatric: Denies: no symptoms, anxiety, depressed, emotional problems, headache, numbness, paresthesia, pre-existing deficit, seizure, tingling, tremors, weakness, other Endocrine: Denies: no symptoms, excessive sweating, flushing, intolerance to cold, intolerance to heat, increased hunger, increased thirst, increased urine, unexplained weight gain, unexplained weight loss, other Allergies: Coded Allergies: TRAMADOL (Verified Allergy, Intermediate, 01/10/18) TREMORS AND VOMITING MORPHINE (Unverified Allergy, Unknown, 04/30/19) CODEINE (Verified Adverse Reaction, Mild, 11/02/12) nausea Uncoded Allergies: CODINE (Allergy, Unknown, 04/30/19) Subjective 05/02: no fevers or chills noted, with nausea and vomiting this am, on zofran prn 05/03: no change in condition, no f/c noted, no bleeding Objective Objective Current Medications Medications (Trade) Dose Ordered Sig/Marcia Route PRN Reason Start Time Stop Time Status Last Admin Dose Admin Acetaminophen (Tylenol) 650 mg Q6H PRN ORAL Mild Pain/Temp > 100.5 04/30/19 15:45 05/30/19 15:44 04/30/19 16:44 Acetaminophen/ Hydrocodone Bitart ([place] 5/325) 1 tab Q8H PRN ORAL For Pain 04/30/19 19:45 05/07/19 19:44 05/02/19 03:47 Aspirin (Ecotrin) 81 mg DAILY ORAL 05/01/19 09:00 05/31/19 08:59 05/02/19 09:21 Clonidine HCl (Catapres tab) 0.2 mg Q2H PRN ORAL For High Blood Pressure 04/30/19 16:00 05/30/19 15:59 05/03/19 04:14 Diazepam (Valium) 5 mg BIDPRN PRN ORAL ANXIETY 04/30/19 12:30 05/07/19 12:29 Dicyclomine HCl (Bentyl) 10 mg Q6H PRN ORAL For Pain 04/30/19 18:00 05/30/19 17:59 Diltiazem HCl (Cardizem CD) 240 mg DAILY ORAL 04/30/19 12:30 05/30/19 12:29 05/01/19 08:40 Gabapentin (Neurontin) 100 mg TWICE A DAY ORAL 04/30/19 18:00 05/30/19 17:59 05/02/19 17:54 Heparin Sodium (Porcine) (Heparin 5000 units/ml) 5,000 units EVERY 12 HOURS SUBQ 04/30/19 21:00 05/30/19 20:59 05/02/19 21:07 Hydrochlorothiazide (Hydrodiuril) 25 mg DAILY ORAL 04/30/19 12:30 05/30/19 12:29 05/02/19 09:21 Ondansetron HCl (Zofran) 4 mg Q6H PRN IVP Nausea & Vomiting 04/30/19 15:45 05/30/19 15:44 05/02/19 17:54 Regadenoson (Lexiscan) 0.4 mg ONCE PRN IV Stress Test 05/02/19 10:45 05/03/19 23:59 Sodium Chloride 1,000 ml @ 70 mls/hr [id number] IV 04/30/19 12:15 05/30/19 12:14 05/01/19 16:51 Last 24 Hour Vital Signs Date Time Temp Pulse Resp B/P (MAP) Pulse Ox O2 Delivery O2 Flow Rate FiO2 05/03/19 04:14 163/85 05/03/19 04:00 98.0 74 17 163/85 (111) 97 05/03/19 04:00 66 05/03/19 00:00 55 05/03/19 00:00 97.7 60 18 155/69 (97) 97 05/02/19 21:00 Room Air 05/02/19 20:00 97.7 64 18 156/91 (112) 98 05/02/19 20:00 59 05/02/19 16:00 59 05/02/19 16:00 99.1 61 16 122/67 (85) 99 05/02/19 12:01 59 05/02/19 12:00 98.2 57 16 114/55 (74) 96 57 05/02/19 09:00 56 128/71 05/02/19 09:00 Room Air 05/02/19 08:00 65 05/02/19 08:00 97.6 64 16 128/71 (90) 95 65 05/02/19 06:40 65 108/62 (77) 05/02/19 04:06 165/82 05/02/19 04:05 98.0 67 20 165/82 (109) 98 05/02/19 03:30 66 05/02/19 00:00 98.4 66 18 140/72 (94) 96 05/02/19 00:00 71 05/01/19 21:00 Room Air 05/01/19 20:00 98.2 63 18 132/68 (89) 97 05/01/19 20:00 66 05/01/19 16:00 98.3 71 21 141/70 (93) 99 05/01/19 16:00 78 05/01/19 12:00 98.5 70 21 146/69 (94) 98 05/01/19 12:00 60 05/01/19 09:00 Room Air 05/01/19 08:40 67 121/63 Intake and Output 05/02/19 05/03/19 18:59 06:59 Intake Total 360 ml 420 ml Balance 360 ml 420 ml Intake Oral 360 ml IV Total 420 ml # Voids 3 3 Labs Test 04/30/19 08:48 04/30/19 15:30 04/30/19 23:10 05/01/19 06:40 Urine Color Yellow Urine Appearance Clear Urine pH 5 (4.5-8.0) Urine Specific [place] 1.020 (1.005-1.035) Urine Protein 1+ (NEGATIVE) Urine Glucose (UA) Negative (NEGATIVE) Urine Ketones Negative (NEGATIVE) Urine Blood Negative (NEGATIVE) Urine Nitrite Negative (NEGATIVE) Urine Bilirubin Negative (NEGATIVE) Urine Urobilinogen 1 MG/DL (0.0-1.0) Urine Leukocyte Esterase 2+ (NEGATIVE) Urine RBC 0-2 /HPF (0 - 2) Urine WBC 2-4 /HPF (0 - 2) Urine Squamous Epithelial Cells Few /LPF (NONE/OCC) Urine Bacteria Few /HPF (NONE) Troponin I 0.004 ng/mL (0.000-0.056) 0.000 ng/mL (0.000-0.056) 0.000 ng/mL (0.000-0.056) White Blood Count 4.0 K/UL (4.8-10.8) Red Blood Count 3.78 M/UL (4.20-5.40) Hemoglobin 12.9 G/DL (12.0-16.0) Hematocrit 39.4 % (37.0-47.0) Mean Corpuscular Volume 104 FL (80-99) Mean Corpuscular Hemoglobin 34.2 PG (27.0-31.0) Mean Corpuscular Hemoglobin Concent 32.8 G/DL (32.0-36.0) Red Cell Distribution Width 11.4 % (11.6-14.8) Platelet Count 229 K/UL (150-450) Mean Platelet Volume 6.1 FL (6.5-10.1) Neutrophils (%) (Auto) 54.0 % (45.0-75.0) Lymphocytes (%) (Auto) 34.7 % (20.0-45.0) Monocytes (%) (Auto) 8.3 % (1.0-10.0) Eosinophils (%) (Auto) 1.2 % (0.0-3.0) Basophils (%) (Auto) 1.7 % (0.0-2.0) Sodium Level 143 MMOL/L (136-145) Potassium Level 3.9 MMOL/L (3.5-5.1) Chloride Level 107 MMOL/L (98-107) Carbon Dioxide Level 29 MMOL/L (21-32) Anion Gap 7 mmol/L (5-15) Blood Urea Nitrogen 12 mg/dL (7-18) Creatinine 1.2 MG/DL (0.55-1.30) Estimat Glomerular Filtration Rate mL/min (>60) Glucose Level 114 MG/DL (74-106) Calcium Level 9.4 MG/DL (8.5-10.1) Test 05/02/19 05:45 05/03/19 06:06 White Blood Count 3.4 K/UL (4.8-10.8) 3.7 K/UL (4.8-10.8) Red Blood Count 3.49 M/UL (4.20-5.40) 3.42 M/UL (4.20-5.40) Hemoglobin 11.6 G/DL (12.0-16.0) 11.6 G/DL (12.0-16.0) Hematocrit 36.3 % (37.0-47.0) 35.2 % (37.0-47.0) Mean Corpuscular Volume 104 FL (80-99) 103 FL (80-99) Mean Corpuscular Hemoglobin 33.3 PG (27.0-31.0) 34.1 PG (27.0-31.0) Mean Corpuscular Hemoglobin Concent 32.1 G/DL (32.0-36.0) 33.1 G/DL (32.0-36.0) Red Cell Distribution Width 11.4 % (11.6-14.8) 11.1 % (11.6-14.8) Platelet Count 214 K/UL (150-450) 222 K/UL (150-450) Mean Platelet Volume 6.3 FL (6.5-10.1) 6.6 FL (6.5-10.1) Neutrophils (%) (Auto) % (45.0-75.0) 51.5 % (45.0-75.0) Lymphocytes (%) (Auto) % (20.0-45.0) 36.5 % (20.0-45.0) Monocytes (%) (Auto) % (1.0-10.0) 8.6 % (1.0-10.0) Eosinophils (%) (Auto) % (0.0-3.0) 1.6 % (0.0-3.0) Basophils (%) (Auto) % (0.0-2.0) 1.8 % (0.0-2.0) Differential Total Cells Counted 100 Neutrophils % (Manual) 56 % (45-75) Lymphocytes % (Manual) 34 % (20-45) Monocytes % (Manual) 7 % (1-10) Eosinophils % (Manual) 3 % (0-3) Basophils % (Manual) 0 % (0-2) Band Neutrophils 0 % (0-8) Platelet Estimate Adequate Platelet Morphology Normal Sodium Level 142 MMOL/L (136-145) 142 MMOL/L (136-145) Potassium Level 3.7 MMOL/L (3.5-5.1) 3.9 MMOL/L (3.5-5.1) Chloride Level 108 MMOL/L (98-107) 109 MMOL/L (98-107) Carbon Dioxide Level 30 MMOL/L (21-32) 26 MMOL/L (21-32) Anion Gap 4 mmol/L (5-15) 7 mmol/L (5-15) Blood Urea Nitrogen 4 mg/dL (7-18) 13 mg/dL (7-18) Creatinine 1.2 MG/DL (0.55-1.30) 1.2 MG/DL (0.55-1.30) Estimat Glomerular Filtration Rate mL/min (>60) mL/min (>60) Glucose Level 136 MG/DL (74-106) 128 MG/DL (74-106) Calcium Level 9.0 MG/DL (8.5-10.1) 9.4 MG/DL (8.5-10.1) Height (Feet): 5 Height (Inches): 4.00 Weight (Pounds): 189 Objective PHYSICAL EXAMINATION: VITAL SIGNS: Reviewed. HEENT: PERRLA. NECK: Supple. No lymphadenopathy. CHEST: Clear to auscultation. CARDIOVASCULAR: Regular rate and rhythm. No murmurs or extra sounds. GASTROINTESTINAL: Diffuse abdominal pain. Abd is soft EXTREMITIES: A 1+ edema. Reflexes equal in both sides. Moving all four extremities. Arsenio Torrez MD May 03, 2019 08:28
--- NOTE | 2019-05-03 08:31 | NUR ---
HAND-OFF: Report given to LUISA Nevarez.
[2019-05-03] MEDS: Aspirin EC 81mg tab ORAL SCH (08:35)
[2019-05-03] MEDS: dilTIAZem HCl CD 240mg cap ORAL SCH (08:36)
[2019-05-03] MEDS: Heparin 5000 units/ml inj SUBQ SCH ×2 (08:37→20:01)
[2019-05-03 12:00] VITALS: BP 165/73
--- NOTE | 2019-05-03 14:21 | Infectious Diseases Prog Note ---
Assessment/Plan Assessment/Plan IMPRESSION: nausea, and vomiting, likely gastroenteritis. Diabetes mellitus type 2, hypertension, COPD, history of renal cell cancer, and right nephrectomy. RECOMMENDATION: Observe off antibiotic Subjective ROS Limited/Unobtainable: No Constitutional: Reports: no symptoms Respiratory: Reports: no symptoms Cardiovascular: Reports: chest pain Gastrointestinal/Abdominal: Reports: other - vague pain Allergies: Coded Allergies: TRAMADOL (Verified Allergy, Intermediate, 01/10/18) TREMORS AND VOMITING MORPHINE (Unverified Allergy, Unknown, 04/30/19) CODEINE (Verified Adverse Reaction, Mild, 11/02/12) nausea Uncoded Allergies: CODINE (Allergy, Unknown, 04/30/19) Objective Vital Signs Last 24 Hour Vital Signs Date Time Temp Pulse Resp B/P (MAP) Pulse Ox O2 Delivery O2 Flow Rate FiO2 05/03/19 08:47 Room Air 05/03/19 08:36 56 129/83 05/03/19 08:00 52 05/03/19 08:00 97.2 52 18 129/83 (98) 100 05/03/19 04:14 163/85 05/03/19 04:00 98.0 74 17 163/85 (111) 97 05/03/19 04:00 66 05/03/19 00:00 55 05/03/19 00:00 97.7 60 18 155/69 (97) 97 05/02/19 21:00 Room Air 05/02/19 20:00 97.7 64 18 156/91 (112) 98 05/02/19 20:00 59 05/02/19 16:00 59 05/02/19 16:00 99.1 61 16 122/67 (85) 99 Height (Feet): 5 Height (Inches): 4.00 Weight (Pounds): 189 General Appearance: no acute distress HEENT: mucous membranes moist Respiratory/Chest: lungs clear Cardiovascular: normal rate Abdomen: soft, non tender Extremities: no edema Neurologic/Psychiatric: alert, oriented x 3, responsive Laboratory Tests Test 05/03/19 06:06 White Blood Count 3.7 K/UL (4.8-10.8) L Red Blood Count 3.42 M/UL (4.20-5.40) L Hemoglobin 11.6 G/DL (12.0-16.0) L Hematocrit 35.2 % (37.0-47.0) L Mean Corpuscular Volume 103 FL (80-99) H Mean Corpuscular Hemoglobin 34.1 PG (27.0-31.0) H Mean Corpuscular Hemoglobin Concent 33.1 G/DL (32.0-36.0) Red Cell Distribution Width 11.1 % (11.6-14.8) L Platelet Count 222 K/UL (150-450) Mean Platelet Volume 6.6 FL (6.5-10.1) Neutrophils (%) (Auto) 51.5 % (45.0-75.0) Lymphocytes (%) (Auto) 36.5 % (20.0-45.0) Monocytes (%) (Auto) 8.6 % (1.0-10.0) Eosinophils (%) (Auto) 1.6 % (0.0-3.0) Basophils (%) (Auto) 1.8 % (0.0-2.0) Sodium Level 142 MMOL/L (136-145) Potassium Level 3.9 MMOL/L (3.5-5.1) Chloride Level 109 MMOL/L (98-107) H Carbon Dioxide Level 26 MMOL/L (21-32) Anion Gap 7 mmol/L (5-15) Blood Urea Nitrogen 13 mg/dL (7-18) Creatinine 1.2 MG/DL (0.55-1.30) Estimat Glomerular Filtration Rate mL/min (>60) Glucose Level 128 MG/DL (74-106) H Calcium Level 9.4 MG/DL (8.5-10.1) Current Medications Medications (Trade) Dose Ordered Sig/Marcia Route PRN Reason Start Time Stop Time Status Last Admin Dose Admin Acetaminophen (Tylenol) 650 mg Q6H PRN ORAL Mild Pain/Temp > 100.5 04/30/19 15:45 05/30/19 15:44 04/30/19 16:44 Acetaminophen/ Hydrocodone Bitart ([place] 5/325) 1 tab Q8H PRN ORAL For Pain 04/30/19 19:45 05/07/19 19:44 05/02/19 03:47 Aspirin (Ecotrin) 81 mg DAILY ORAL 05/01/19 09:00 05/31/19 08:59 05/03/19 08:35 Clonidine HCl (Catapres tab) 0.2 mg Q2H PRN ORAL For High Blood Pressure 04/30/19 16:00 05/30/19 15:59 05/03/19 04:14 Diazepam (Valium) 5 mg BIDPRN PRN ORAL ANXIETY 04/30/19 12:30 05/07/19 12:29 Dicyclomine HCl (Bentyl) 10 mg Q6H PRN ORAL For Pain 04/30/19 18:00 05/30/19 17:59 Diltiazem HCl (Cardizem CD) 240 mg DAILY ORAL 04/30/19 12:30 05/30/19 12:29 05/03/19 08:36 Gabapentin (Neurontin) 100 mg TWICE A DAY ORAL 04/30/19 18:00 05/30/19 17:59 05/03/19 08:35 Heparin Sodium (Porcine) (Heparin 5000 units/ml) 5,000 units EVERY 12 HOURS SUBQ 04/30/19 21:00 05/30/19 20:59 05/03/19 08:37 Hydrochlorothiazide (Hydrodiuril) 25 mg DAILY ORAL 04/30/19 12:30 05/30/19 12:29 05/03/19 08:35 Ondansetron HCl (Zofran) 4 mg Q6H PRN IVP Nausea & Vomiting 04/30/19 15:45 05/30/19 15:44 05/02/19 17:54 Regadenoson (Lexiscan) 0.4 mg ONCE PRN IV Stress Test 05/02/19 10:45 05/03/19 23:59 Sodium Chloride 1,000 ml @ 70 mls/hr [id number] IV 04/30/19 12:15 05/30/19 12:14 05/03/19 13:57 Jonatan Mathews MD May 03, 2019 14:21
--- NOTE | 2019-05-03 15:28 | Cardiac Electrophysiology PN ---
Assessment/Plan Assessment/Plan 1. Accelerated hypertension. On Cardizem CD 240 mg daily and hydrochlorothiazide 25 mg daily. 2. Abnormal electrocardiogram and epigastric pain. Ruled out for NC . Ef 50%. Nuclear stress test results from today is pending 3. Hyperlipidemia on Crestor 20 mg daily. 4. Epigastric pain. The patient underwent abdominopelvic CT scan that showed no definite acute abnormality. Further evaluation by Dr. Garcia. 5. Renal cell carcinoma, status post nephrectomy that was completed approximately [address] Marie. RANDI RN Subjective Subjective Remained in SR. Still occasional CP.Had nuclear stress test. Results pending Objective Last 24 Hour Vital Signs Date Time Temp Pulse Resp B/P (MAP) Pulse Ox O2 Delivery O2 Flow Rate FiO2 05/03/19 12:00 97.9 57 18 165/73 (103) 96 05/03/19 12:00 57 05/03/19 08:47 Room Air 05/03/19 08:36 56 129/83 05/03/19 08:00 52 05/03/19 08:00 97.2 52 18 129/83 (98) 100 05/03/19 04:14 163/85 05/03/19 04:00 98.0 74 17 163/85 (111) 97 05/03/19 04:00 66 05/03/19 00:00 55 05/03/19 00:00 97.7 60 18 155/69 (97) 97 05/02/19 21:00 Room Air 05/02/19 20:00 97.7 64 18 156/91 (112) 98 05/02/19 20:00 59 05/02/19 16:00 59 05/02/19 16:00 99.1 61 16 122/67 (85) 99 Intake and Output 05/02/19 05/03/19 19:00 07:00 Intake Total 430 ml 470 ml Balance 430 ml 470 ml Intake Oral 360 ml 120 ml IV Total 70 ml 350 ml # Voids 3 3 Laboratory Tests Test 05/03/19 06:06 White Blood Count 3.7 K/UL (4.8-10.8) L Red Blood Count 3.42 M/UL (4.20-5.40) L Hemoglobin 11.6 G/DL (12.0-16.0) L Hematocrit 35.2 % (37.0-47.0) L Mean Corpuscular Volume 103 FL (80-99) H Mean Corpuscular Hemoglobin 34.1 PG (27.0-31.0) H Mean Corpuscular Hemoglobin Concent 33.1 G/DL (32.0-36.0) Red Cell Distribution Width 11.1 % (11.6-14.8) L Platelet Count 222 K/UL (150-450) Mean Platelet Volume 6.6 FL (6.5-10.1) Neutrophils (%) (Auto) 51.5 % (45.0-75.0) Lymphocytes (%) (Auto) 36.5 % (20.0-45.0) Monocytes (%) (Auto) 8.6 % (1.0-10.0) Eosinophils (%) (Auto) 1.6 % (0.0-3.0) Basophils (%) (Auto) 1.8 % (0.0-2.0) Sodium Level 142 MMOL/L (136-145) Potassium Level 3.9 MMOL/L (3.5-5.1) Chloride Level 109 MMOL/L (98-107) H Carbon Dioxide Level 26 MMOL/L (21-32) Anion Gap 7 mmol/L (5-15) Blood Urea Nitrogen 13 mg/dL (7-18) Creatinine 1.2 MG/DL (0.55-1.30) Estimat Glomerular Filtration Rate mL/min (>60) Glucose Level 128 MG/DL (74-106) H Calcium Level 9.4 MG/DL (8.5-10.1) Objective HEAD AND NECK: No JVD or carotid bruits. LUNGS: Clear. CARDIOVASCULAR: Regular S1 and S2 with no gallop or murmur. ABDOMEN: Soft. EXTREMITIES: No pitting edema. Saad Gunderson MD May 03, 2019 15:28
[2019-05-03 16:00] VITALS: BP 157/75
--- NOTE | 2019-05-03 16:56 | Diagnostic Imaging Report ---
Indications: 74-year-old female with chest pain Technique: Single day single isotope protocol utilized. Initially, resting images obtained using IV administration 10.9 millicuries 99M technetium Myoview. Subsequently, patient underwent lexiscan stress testing. See cardiology report for details. During Lexiscan infusion, IV administration 30.2 mCi 99 M technetium Myoview. SPECT and planar images obtained. SPECT images gated to 8 phases of the cardiac cycle were also obtained, and reformatted into cine images for evaluation of ejection fraction. Comparison: 06/21/2011 Findings: Per cardiology report, patient experienced no symptoms during the infusion. Per cardiology report, resting EKG demonstrates normal sinus rhythm with evidence of anterolateral ischemia. No significant ST-T wave changes noted during the infusion. There were some premature ventricular complexes noted. Imaging demonstrates normal poststress perfusion. No fixed nor reversible post stress perfusion defects are demonstrated. Normal cardiac chamber size. Calculated post stress ejection fraction 56%. Gated images demonstrate no evidence of focal wall motion abnormality Compared to the prior exam, there is no significant interim change Impression: Nonischemic clinical response to pharmacologic stress, per cardiology report Nonischemic electrocardiographic response to pharmacologic stress, per cardiology report No imaging findings to suggest ischemia, at level of stress achieved. Calculated post stress ejection fraction 56%
--- NOTE | 2019-05-03 19:15 | NUR ---
NURSE NOTES: Received report from Roque RN, pt. in bed awake, A/O x's4- able to make needs known, pt. is on cardiac monitoring, no signs or symptoms of acute cardiac or respiratory distress noted, pt. appears to be sating well on room air- no distress noted, talking on phone, pt. appears to be clean and dry, bed in lowest position and call light within easy reach, bed alarm on, side rails up x's3 and safety brakes engaged, LFA 20g IV running NS at 70mls/hr-IV Intact and patent, safety measures continued, will continue with plan of care.
--- NOTE | 2019-05-03 19:19 | NUR ---
HAND-OFF: Report given to LUISA White.
[2019-05-03 20:00] VITALS: BP 140/85
[2019-05-03] MEDS: HYDROcodone/Acetamin 5/325 tab ORAL PRN (20:00)
--- NOTE | 2019-05-03 20:16 | General Progress Note ---
Assessment/Plan Status: stable, progressing Assessment/Plan: Assessment - Acute onset epigastric pain of unclear etiology (? viral , ? gastritis, ? constipation) - symptoms not similar to LLQ pain, associated with diverticulitis in the past - chronic recurrent abdominal pain - h/o Renal cell CA Recommendations - PRN laxative - PPI - follow symptoms for now - cardiology evaluation - d/c planning per PMD Subjective Allergies: Coded Allergies: TRAMADOL (Verified Allergy, Intermediate, 01/10/18) TREMORS AND VOMITING MORPHINE (Unverified Allergy, Unknown, 04/30/19) CODEINE (Verified Adverse Reaction, Mild, 11/02/12) nausea Uncoded Allergies: CODINE (Allergy, Unknown, 04/30/19) Subjective Feels better less abd pain tolerating PO for stress test today Objective Last 24 Hour Vital Signs Date Time Temp Pulse Resp B/P (MAP) Pulse Ox O2 Delivery O2 Flow Rate FiO2 05/03/19 16:00 57 05/03/19 16:00 96.7 78 18 157/75 (102) 100 05/03/19 12:00 97.9 57 18 165/73 (103) 96 05/03/19 12:00 57 05/03/19 08:47 Room Air 05/03/19 08:36 56 129/83 05/03/19 08:00 52 05/03/19 08:00 97.2 52 18 129/83 (98) 100 05/03/19 04:14 163/85 05/03/19 04:00 98.0 74 17 163/85 (111) 97 05/03/19 04:00 66 05/03/19 00:00 55 05/03/19 00:00 97.7 60 18 155/69 (97) 97 05/02/19 21:00 Room Air Intake and Output 05/02/19 05/03/19 19:00 07:00 Intake Total 430 ml 470 ml Balance 430 ml 470 ml Intake Oral 360 ml 120 ml IV Total 70 ml 350 ml # Voids 3 3 Laboratory Tests 05/03/19 06:06: White Blood Count 3.7L, Red Blood Count 3.42L, Hemoglobin 11.6L, Hematocrit 35.2L, Mean Corpuscular Volume 103H, Mean Corpuscular Hemoglobin 34.1H, Mean Corpuscular Hemoglobin Concent 33.1, Red Cell Distribution Width 11.1L, Platelet Count 222, Mean Platelet Volume 6.6, Neutrophils (%) (Auto) 51.5, Lymphocytes (%) (Auto) 36.5, Monocytes (%) (Auto) 8.6, Eosinophils (%) (Auto) 1.6, Basophils (%) (Auto) 1.8, Sodium Level 142, Potassium Level 3.9, Chloride Level 109H, Carbon Dioxide Level 26, Anion Gap 7, Blood Urea Nitrogen 13, Creatinine 1.2, Estimat Glomerular Filtration Rate , Glucose Level 128H, Calcium Level 9.4 Height (Feet): 5 Height (Inches): 4.00 Weight (Pounds): 189 Objective WD obese AA woman NCAT supple CTA RR abd soft, Mild Epigastric TTP no edema non focal Roe Garcia MD May 03, 2019 20:16
[2019-05-04] VITALS: BP 115/50
--- NOTE | 2019-05-04 01:00 | Progress Note ---
DATE: 05/03/2019 SUBJECTIVE: The patient is doing well, able to answer the questions. She has anxiety. No suicidal or homicidal ideation. MENTAL STATUS EXAMINATION: The patient is alert and oriented times self, place, and situation she is in. Mood is anxious. Affect is constricted. Congruent mood. Thought process is linear. Thought content, no suicidal or homicidal ideation. ASSESSMENT: Anxiety disorder. PLAN: 1. We will continue the Valium. 2. Provide the patient with reality orientation and supportive therapy. Alejandro Henry M.D. DR: NATHAN JOB#: [id number] CC:
[2019-05-04 04:00] VITALS: BP 129/66
--- NOTE | 2019-05-04 07:07 | NUR ---
HAND-OFF: Report given to Xenia RN, pt. remains stable and no distress noted.
--- NOTE | 2019-05-04 07:42 | NUR ---
NURSE NOTES: Report received from LUISA Li. Pt shows no signs of distress. A+Ox4, denies pain and SOB. Respirations are even and unlabored on room air. IV site is patent and intact. Bed is at lowest position, brakes engaged, siderails x2, bed alarm on, and call light within reach. Pt is in stable condition at this time; will continue to monitor.
[2019-05-04 08:00] VITALS: BP 158/79
[2019-05-04] MEDS: HYDROcodone/Acetamin 5/325 tab ORAL PRN (08:21)
[2019-05-04] MEDS: dilTIAZem HCl CD 240mg cap ORAL SCH (08:21)
[2019-05-04] MEDS: Aspirin EC 81mg tab ORAL SCH (08:22)
[2019-05-04] MEDS: Heparin 5000 units/ml inj SUBQ SCH (08:22)
[2019-05-04] MEDS ORDERED: Miralax 17gm pkt ORAL PRN (10:00)
[2019-05-04 12:00] VITALS: BP 158/79
--- NOTE | 2019-05-04 13:01 | NUR ---
CASE MANAGEMENT:REVIEW 05/04/19 SI: DIVERTICULITIS. ACCELERATED HTN UTI. ABD PAIN. H/O RENAL CELL CARCINOMA T 98.1 HR 69 RR 21 B/P 158/79 SATS 98% ON RA NO LABS TODAY IS: IV ROCEPHIN Q24H ASA PO QD HEPARIN SUBQ Q12H NORCO PO Q8HRS PRN NEURONTIN PO BID CARDIZEM PO QD HCTZ PO QD : TELEMETRY STATUS DCP: FROM HOME
--- NOTE | 2019-05-04 13:26 | NUR ---
DISCHARGE PLANNING: NOTE ACTIVE DC ORDER CLEARANCE OBTAINED FROM DR EMBER DICKERSON FOR DC CLEARED WITH BEDSIDE NURSE BEDSIDE NURSE TO CONTACT DR SHETTY FOR DC MEDS
--- NOTE | 2019-05-04 13:32 | NUR ---
NURSE NOTES: Pt cleared by Dr. Garcia. Left message with Dr. Torrez about discharging patient; awaiting response.
--- NOTE | 2019-05-04 15:13 | NUR ---
NURSE NOTES: Discharge instructions printed and signed. All questions answered. Belongings verified and list signed. emc storage architect, IV, and wrist band removed. Patient is in stable condition, VSS. Pt discharged safely via wheelchair with friend to private vehicle.
--- NOTE | 2019-05-04 15:35 | General Progress Note ---
Assessment/Plan Status: stable, progressing Assessment/Plan: Assessment - Acute onset epigastric pain of unclear etiology (? viral , ? gastritis, ? constipation) - symptoms not similar to LLQ pain, associated with diverticulitis in the past - chronic recurrent abdominal pain - h/o Renal cell CA Recommendations - PRN laxative - PPI - follow symptoms for now - cardiology f/u - d/c planning per PMD Subjective Allergies: Coded Allergies: TRAMADOL (Verified Allergy, Intermediate, 01/10/18) TREMORS AND VOMITING MORPHINE (Unverified Allergy, Unknown, 04/30/19) CODEINE (Verified Adverse Reaction, Mild, 11/02/12) nausea Uncoded Allergies: CODINE (Allergy, Unknown, 04/30/19) Subjective Feels better less abd pain tolerating PO for discharge today Objective Last 24 Hour Vital Signs Date Time Temp Pulse Resp B/P (MAP) Pulse Ox O2 Delivery O2 Flow Rate FiO2 05/04/19 12:00 98.1 69 21 158/79 (105) 98 05/04/19 09:00 Room Air 05/04/19 08:21 69 158/79 05/04/19 08:00 81 05/04/19 08:00 98.1 69 21 158/79 (105) 98 05/04/19 04:00 97.9 52 18 129/66 (87) 98 05/04/19 04:00 53 05/04/19 00:00 97.7 58 18 115/50 (71) 96 05/04/19 00:00 51 05/03/19 21:00 Room Air 05/03/19 20:30 96.7 05/03/19 20:00 Room Air 05/03/19 20:00 98.1 60 18 140/85 (103) 96 05/03/19 20:00 60 05/03/19 16:00 57 05/03/19 16:00 96.7 78 18 157/75 (102) 100 Intake and Output 05/03/19 05/04/19 19:00 07:00 Intake Total 210 ml 816 ml Balance 210 ml 816 ml Intake Oral 140 ml IV Total 70 ml 816 ml # Voids 3 2 Height (Feet): 5 Height (Inches): 4.00 Weight (Pounds): 189 Objective WD obese AA woman NCAT supple CTA RR abd soft, Mild Epigastric TTP no edema non focal Khorrami,Payman MD May 04, 2019 15:35
--- NOTE | 2019-05-06 01:00 | Progress Note ---
DATE: 05/04/2019 This is a late entry. SUBJECTIVE: The patient is calmer. Able to answer the questions. The patient is agitated and anxious. MENTAL STATUS EXAMINATION: Alert and oriented times self, place, and situation. Mood is anxious. Affect is constricted. Congruent mood. Thought process is concrete. Thought content, no suicidal or homicidal ideation. ASSESSMENT: Anxiety disorder. PLAN: 1. We will continue with current medications. 2. Provide the patient with reality orientation and supportive therapy. Alejandro Henry M.D. DR: ROMA JOB#: [id number] CC:
--- NOTE | 2019-05-06 10:13 | Discharge Summary ---
Discharge Summary Discharge Summary _ DATE OF ADMISSION: 04/30/2019 DATE OF DISCHARGE: 05/04/2019 DISCHARGED BY: Dr. Hurley REASON FOR ADMISSION: 74 years old female with past medical history of COPD/asthma, hypertension, neuropathy, ulcerative colitis, seizure disorder , renal cancer, diabetes mellitus, presented with epigastric pain . Patient had bowel movement , but no improvement in abdominal discomfort. Pain described as located in epigastric region with radiation to the back. Vital signs revealed elevated blood pressure 182/102 , no fevers. Laboratory work-up revealed no leukocytosis, stable hemoglobin and hematocrit. Stable electrolytes. BUN 21, creatinine 1.3. Glucose 126. AST 65, ALT 42. Troponin 0 0.001. EKG revealed sinus rhythm with T wave inversion Urinalysis revealed no evidence of UTI. CT of the abdomen and pelvis was done without IV contrast and revealed no definite acute abnormality. CONSULTANTS: water jet loom fixer Dr. Tobar ID specialist Dr. Romero GI specialist Dr. Garcia vamp stitcher/oncologist Dr. Torrez psychiatrist [facility] COURSE: Patient admitted to telemetry floor. Crate Builder consult was requested due to abnormal EKG along with history of hypertension and hyperlipidemia, and accelerated hypertension on presentation. Per water jet loom fixer , antihypertensive medication were resumed , including Cardizem CD and hydrochlorothiazide. PRN antihypertensives were on board as needed. Serial troponin were negative. Echocardiogram revealed ejection fraction of 50% with low normal left ventricular systolic function and wall motion. No left ventricular hypertrophy. Right ventricular systolic pressure of 23. Nuclear stress test was nonischemic. Calculated ejection fraction 56%. Patient was on antiplatelet therapy with aspirin and statin. DVT prophylaxis provided. GI specialist followed . Per GI specialist, epigastric pain was of unclear etiology : viral versus gastritis versus constipation h. Symptoms were not similar to left lower quadrant pain associated with diverticulitis in the past. Patient reported chronic recurrent abdominal pain in the setting of history of renal cell carcinoma. Bowel regimen instituted. GI prophylaxis with PPI provided. Pain management was addressed. Patient was able to tolerate diet. Oncologist followed. Patient had right nephrectomy recently. Pathology was reviewed by oncologist. Patient did not require further treatment. No evidence of distant metastasis. No evidence of positive margins noted on the tumor report. Hemoglobin and hematocrit were closely monitored with goal to keep hemoglobin above 7 . Hemoglobin and hematocrit remained stable . Prior to discharge [id number] , hematocrit 35.2. Renal parameters electrolytes were closely monitored and remained stable. ID specialist followed. Per infectious disease specialist , nausea and vomiting were likely due to gastroenteritis. Patient had no leukocytosis , no fever . ID specialist recommended to keep patient off antibiotic. Psychiatrist followed. Patient was continue on current medication for anxiety. Reality orientation and supportive therapy provided. Patient clinically stabilized and was ready for discharge home. FINAL DIAGNOSES: Accelerated hypertension - resolved Abnormal electrocardiogram Acute onset of epigastric pain of unclear etiology : viral versus gastritis versus constipation Likely gastroenteritis Chronic recurrent abdominal pain Renal cell carcinoma , status post right nephrectomy Anxiety disorder Anemia of chronic disease DISCHARGE MEDICATIONS: See Medication Reconciliation list. DISCHARGE INSTRUCTIONS: Patient was discharged home . Follow up with primary care provider in one week. I have been assigned to dictate discharge summary for this account. I was not involved in the patient's management. Shelley Delcid NP May 06, 2019 10:13
== END 2019-05-04 14:58 | disposition home or self-care (01) | DRG 392 ==
LOC: EDBD 07:11 → EMR 07:40 → 2E 07:41 → EDBEDREQSVC 09:09 → EDBEDREQ 09:09 → 2E 10:15
DX: K52.9 Noninfective gastroenteritis and colitis, unspecified (principal); N39.0 Urinary tract infection, site not specified; R10.13 Epigastric pain; Z85.528 Personal history of other malignant neoplasm of kidney; Z90.5 Acquired absence of kidney; G89.29 Other chronic pain; R10.9 Unspecified abdominal pain; R94.31 Abnormal electrocardiogram [ECG] [EKG]; E78.5 Hyperlipidemia, unspecified; J44.9 Chronic obstructive pulmonary disease, unspecified; E11.9 Type 2 diabetes mellitus without complications; Z88.6 Allergy status to analgesic agent; I10 Essential (primary) hypertension; K57.90 Diverticulosis of intestine, part unspecified, without perforation or abscess without bleeding; F41.9 Anxiety disorder, unspecified; D63.8 Anemia in other chronic diseases classified elsewhere
CPT/HCPCS: 36415; 74177; 78452; 80048; 80053; 81003; 83690; 84484; 85007; 85025; 85610; 85730; 93005; 93017; 93306; 99285; J2405; J2765

== ENCOUNTER 2019-07-04 12:05 | Inpatient (IN) | payer MEDICARE, MEDICAID ==
[~2019-07-04] VITALS: Ht 162.6 cm; Wt 88.9 kg
[~2019-07-04 12:05] MED LIST changes: +CARTIA XT240 MG ORAL; +CIPROFLOXACIN500 MG PO; +DICYCLOMINE HCL10 MG ORAL; +GABAPENTIN100 MG ORAL; +OMEPRAZOLE20 M3 ORAL
--- NOTE | 2019-07-04 16:00 | NUR ---
NURSE NOTES: Pt transferred from [facility] via [facility] with 2EMTS. Alert and oriented x4 and able to make needs known. Bed in lowest position and locked. c/O PAIN 2/10 but no pain meds required at this time. Dr. Chapa called for admission orders. Side rails x2 up for safety. Report received from Bhakti Charge nurse. Call light within easy reach. Will continue to plan of care.
--- NOTE | 2019-07-04 19:24 | NUR ---
HAND-OFF: Report given to Mackenzie MORAN. Pt remains stable.
--- NOTE | 2019-07-04 19:45 | NUR ---
NURSE NOTES: Received report from LUISA Wing, patient in stable condition,AOx4, complain of abdominal pain, ambulatory, on RA, IV site on right AC G22, asymptomatic, intact, patent, bed low&locked, side rails upx2,call light within reach,will continue to monitor and reassess. Family at bedside
[2019-07-04 20:00] VITALS: BP 127/59
[2019-07-04] MEDS: Morphine Sulfate 2mg/ml Inj(IV/IM USE ONLY) IVP PRN (20:04)
[2019-07-05] VITALS: BP 122/66
[2019-07-05 04:00] VITALS: BP 132/73
[2019-07-05 07:15] LABS: BASOPHILS % (AUTO) 1.5 % (0.0-2.0); EOSINOPHILS % (AUTO) 0.7 % (0.0-3.0); HEMATOCRIT 40.2 % (37.0-47.0); HEMOGLOBIN 13.5 G/DL (12.0-16.0); LYMPHOCYTES % (AUTO) 19.7 % (20.0-45.0); MEAN CORPUSCULAR VOLUME 101 FL (80-99); NEUTROPHILS % (AUTO) 69.1 % (45.0-75.0); PLATELET COUNT 233 K/UL (150-450); RED BLOOD COUNT 3.97 M/UL (4.20-5.40); RED CELL DISTRIBUTION WIDTH 10.5 % (11.6-14.8); WHITE BLOOD COUNT 5.9 K/UL (4.8-10.8)
[2019-07-05] MEDS: Morphine Sulfate 2mg/ml Inj(IV/IM USE ONLY) IVP PRN ×2 (07:21→20:00)
--- NOTE | 2019-07-05 07:39 | NUR ---
NURSE NOTES: Pt in bed in low position, bed alarm on, 2 rails up and padded for prior history of SZ's, HOB in semi fowlers, pt reports chest pain of 7 and MS given by prior cnc machinist 2nd shift nurse, before getting medication I assessed her chest pain and palpated both sides of chest and pain seems to becoming from muscle in the middle of her chest, pt stated she was doing choirs and the next day started to feel pain, Pt is alert and Ox4, IV patent and asymptomatic, no s/s of distress or sob noted.
[2019-07-05 08:00] LABS: ALANINE AMINOTRANSFERASE 38 U/L (12-78); ALBUMIN 3.7 G/DL (3.4-5.0); ALKALINE PHOSPHATASE 117 U/L (46-116); ANION GAP 8 mmol/L (5-15); ASPARTATE AMINO TRANSFERASE 34 U/L (15-37); BILIRUBIN,TOTAL 1.1 MG/DL (0.2-1.0); BLOOD UREA NITROGEN 18 mg/dL (7-18); CALCIUM 9.5 MG/DL (8.5-10.1); CARBON DIOXIDE 26 MMOL/L (21-32); CHLORIDE 105 MMOL/L (98-107); CREATININE 1.4 MG/DL (0.55-1.30); POTASSIUM 3.9 MMOL/L (3.5-5.1); SODIUM 139 MMOL/L (136-145)
[2019-07-05 08:06] LABS: BILIRUBIN,DIRECT 0.2 MG/DL (0.0-0.3)
--- NOTE | 2019-07-05 08:50 | General Progress Note ---
Assessment/Plan Assessment/Plan: (1) Abdominal pain (2) Diverticulitis (3) Lumbar Radiculopathy (4) Lumbar DDD Patient to be continued on Morphine as needed D/w Dr. Tavarez and he concurred. Subjective Date patient seen: Jul 05, 2019 Time patient seen: 08:00 - am Allergies: Coded Allergies: TRAMADOL (Verified Allergy, Intermediate, 01/10/18) TREMORS AND VOMITING CODEINE (Verified Adverse Reaction, Mild, 11/02/12) nausea Subjective Constitutional: Reports: no symptoms HEENT: Reports: no symptoms Cardiovascular: Reports: no symptoms Respiratory: Reports: no symptoms Gastrointestinal/Abdominal: Reports: abdominal pain Genitourinary: Reports: no symptoms Neurologic/Psychiatric: Reports: no symptoms Endocrine: Reports: no symptoms Hematologic/Lymphatic: Reports: no symptoms Subjective Patient is a known patient from prior hospital admission and has been readmitted under the care of Dr. Chapa with continued c/o abdominal and back pain with h/o diverticulitis. She is c/o pain and was started on Morphine 2mg IV Q4H PRN which has reduced to pain to a tolerable level. Waiting to be seen by GI. Objective Last 24 Hour Vital Signs Date Time Temp Pulse Resp B/P (MAP) Pulse Ox O2 Delivery O2 Flow Rate FiO2 07/05/19 08:09 Room Air 07/05/19 04:00 97.5 82 18 132/73 (92) 95 07/05/19 04:00 68 07/05/19 00:00 97.7 80 18 122/66 (84) 97 07/05/19 00:00 59 07/04/19 21:00 Room Air 07/04/19 20:00 98.2 82 18 127/59 (81) 97 07/04/19 20:00 67 07/04/19 16:32 Room Air 07/04/19 16:05 66 Intake and Output 07/04/19 07/05/19 18:59 06:59 Intake Total 200 ml Balance 200 ml Intake Oral 200 ml # Voids 1 2 # Bowel Movements 11 11 Laboratory Tests 07/05/19 06:26: White Blood Count 5.9, Red Blood Count 3.97L, Hemoglobin 13.5, Hematocrit 40.2, Mean Corpuscular Volume 101H, Mean Corpuscular Hemoglobin 34.0H, Mean Corpuscular Hemoglobin Concent 33.6, Red Cell Distribution Width 10.5L, Platelet Count 233, Mean Platelet Volume 6.7, Neutrophils (%) (Auto) 69.1, Lymphocytes (%) (Auto) 19.7L, Monocytes (%) (Auto) 9.0, Eosinophils (%) (Auto) 0.7, Basophils (%) (Auto) 1.5, Sodium Level 139, Potassium Level 3.9, Chloride Level 105, Carbon Dioxide Level 26, Anion Gap 8, Blood Urea Nitrogen 18, Creatinine 1.4H, Estimat Glomerular Filtration Rate , Glucose Level 105, Calcium Level 9.5, Total Bilirubin 1.1H, Direct Bilirubin 0.2, Aspartate Amino Transf (AST/SGOT) 34, Alanine Aminotransferase (ALT/SGPT) 38, Alkaline Phosphatase 117H, Troponin I 0.000, Total Protein 7.5, Albumin 3.7, Globulin 3.8 , Albumin/Globulin Ratio 1.0, Lipase 65L Height (Feet): 5 Height (Inches): 4.00 Weight (Pounds): 196 Objective General Appearance: no apparent distress, alert EENT: PERRL/EOMI, normal ENT inspection Neck: normal alignment, supple Cardiovascular: normal rate, regular rhythm Respiratory/Chest: lungs clear, normal breath sounds Abdomen: soft Neurologic: alert, oriented x 3 Skin: warm/dry Toby Shukla Jul 05, 2019 08:50
--- NOTE | 2019-07-05 10:49 | NUR ---
RADIOLOGY DEPT.,ABDOMEN X-RAY DONE.-.DYE
--- NOTE | 2019-07-05 12:37 | Diagnostic Imaging Report ---
Indication: Abdominal pain Comparison: 05/16/2013 Single view of the abdomen obtained Findings: Bowel gas pattern is nonspecific. No mass, ectopic calcifications, or abnormal gas collections are identified. The bones are unremarkable. Impression: No acute findings
--- NOTE | 2019-07-05 13:58 | Cardiac Electrophysiology PN ---
Subjective Subjective [id number] Objective Last 24 Hour Vital Signs Date Time Temp Pulse Resp B/P (MAP) Pulse Ox O2 Delivery O2 Flow Rate FiO2 07/05/19 11:39 62 07/05/19 08:09 Room Air 07/05/19 07:51 97.5 07/05/19 07:48 60 07/05/19 04:00 97.5 82 18 132/73 (92) 95 07/05/19 04:00 68 07/05/19 00:00 97.7 80 18 122/66 (84) 97 07/05/19 00:00 59 07/04/19 21:00 Room Air 07/04/19 20:00 98.2 82 18 127/59 (81) 97 07/04/19 20:00 67 07/04/19 16:32 Room Air 07/04/19 16:05 66 Intake and Output 07/04/19 07/05/19 19:00 07:00 Intake Total 200 ml Balance 200 ml Intake Oral 200 ml # Voids 1 2 # Bowel Movements 11 11 Laboratory Tests Test 07/05/19 06:26 White Blood Count 5.9 K/UL (4.8-10.8) Red Blood Count 3.97 M/UL (4.20-5.40) L Hemoglobin 13.5 G/DL (12.0-16.0) Hematocrit 40.2 % (37.0-47.0) Mean Corpuscular Volume 101 FL (80-99) H Mean Corpuscular Hemoglobin 34.0 PG (27.0-31.0) H Mean Corpuscular Hemoglobin Concent 33.6 G/DL (32.0-36.0) Red Cell Distribution Width 10.5 % (11.6-14.8) L Platelet Count 233 K/UL (150-450) Mean Platelet Volume 6.7 FL (6.5-10.1) Neutrophils (%) (Auto) 69.1 % (45.0-75.0) Lymphocytes (%) (Auto) 19.7 % (20.0-45.0) L Monocytes (%) (Auto) 9.0 % (1.0-10.0) Eosinophils (%) (Auto) 0.7 % (0.0-3.0) Basophils (%) (Auto) 1.5 % (0.0-2.0) Sodium Level 139 MMOL/L (136-145) Potassium Level 3.9 MMOL/L (3.5-5.1) Chloride Level 105 MMOL/L (98-107) Carbon Dioxide Level 26 MMOL/L (21-32) Anion Gap 8 mmol/L (5-15) Blood Urea Nitrogen 18 mg/dL (7-18) Creatinine 1.4 MG/DL (0.55-1.30) H Estimat Glomerular Filtration Rate mL/min (>60) Glucose Level 105 MG/DL (74-106) Calcium Level 9.5 MG/DL (8.5-10.1) Total Bilirubin 1.1 MG/DL (0.2-1.0) H Direct Bilirubin 0.2 MG/DL (0.0-0.3) Aspartate Amino Transf (AST/SGOT) 34 U/L (15-37) Alanine Aminotransferase (ALT/SGPT) 38 U/L (12-78) Alkaline Phosphatase 117 U/L (46-116) H Troponin I 0.000 ng/mL (0.000-0.056) Total Protein 7.5 G/DL (6.4-8.2) Albumin 3.7 G/DL (3.4-5.0) Globulin 3.8 g/dL Albumin/Globulin Ratio 1.0 (1.0-2.7) Lipase 65 U/L (73-393) L Saad Gunderson MD Jul 05, 2019 13:58
[2019-07-05] MEDS ORDERED: Omnipaque-300 100ml vial INJ ONE (14:15)
[2019-07-05] MEDS ORDERED: Omnipaue 350mg/ml 100ml vial INJ PRN ×2 (14:15)
--- NOTE | 2019-07-05 15:39 | NUR ---
CASE MANAGEMENT:REVIEW 74 YR OLD FEMALE TRANSFERRED FROM [facility] ER TO [place] SI: ABDOMINAL PAIN 98.2 82 18 127/59 97% ON RA CR+1.4 TROPONIN(-) IS: CARDIZEM PO QD IV MORPHINE Q4HRS PRN IV ZOFRAN Q6HRS PRN : TO TELEMETRY UNIT PLAN: CTA CHEST VENOUS DUPLEX
--- NOTE | 2019-07-05 16:00 | History and Physical Report ---
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 The patient is admitted from [facility], admitted to telemetry floor for chest pain that radiated to the back. It has been going on for a day. The patient also complained of epigastric pain as well as vomiting. Denies diaphoresis. Denies shortness of breath. Also has history of chronic pain syndrome. The patient was admitted to rule out acute coronary syndrome. The patient denies shortness of breath. Reports that the pain was severe, felt like pressure and radiated to the back. No diaphoresis and was associated with nausea and epigastric pain as well as vomiting. The patient does have some heartburn as well. Denies orthopnea. Denies cough. Denies cold symptoms. PAST MEDICAL HISTORY: Hyperlipidemia, chronic pain syndrome, hypertension, constipation, diverticulosis, history of diverticulitis, GERD, history of C. diff colitis, history of kidney cancer, history of ovarian cyst. PAST SURGICAL HISTORY: Right partial nephrectomy, appendectomy. ALLERGIES: To codeine and tramadol. MEDICATIONS: Aspirin, Lipitor, diltiazem, gabapentin, hydralazine, omeprazole, Crestor. FAMILY HISTORY: No history of hypertension or diabetes. SOCIAL HISTORY: Denies history of smoking, alcohol, or illicit drugs. REVIEW OF SYSTEMS: HEENT: Denies headaches. RESPIRATORY: Denies shortness of breath. Denies cough. CARDIOVASCULAR: Reports chest pain for one day. Does radiate to the back associated with epigastric pain and heartburn as well as nausea and vomiting. No orthopnea. GASTROINTESTINAL: Reports epigastric pain and vomiting for one day. No hematemesis. No constipation. EXTREMITIES: Does have chronic pain syndrome, generalized. CENTRAL NERVOUS SYSTEM: Denies change in vision or speech pattern. Feels weak. PHYSICAL EXAMINATION: VITAL SIGNS: Temperature 97.7, pulse is 80, blood pressure is 122/66. HEENT: PERRLA. NECK: Supple. No lymphadenopathy. CHEST: Clear to auscultation. CARDIOVASCULAR: Regular rate and rhythm. No murmurs or extra sounds. GASTROINTESTINAL: Soft. Epigastric tenderness. No rebound. No organomegaly. Abdomen is distended. Positive bowel sounds. EXTREMITIES: No edema. Reflexes equal on both sides. Moves all four extremities. NEUROLOGIC: Generalized weakness. Cranial nerves II through XII intact. LABORATORY DATA: WBC of 5.9, hemoglobin 13.5, platelets 233. Sodium 139, potassium of 3.9, BUN of 18, creatinine 1.4, glucose of 105. Total bilirubin of 1.1. Lipase of 65. CAT scan report done at [facility], there is no evidence of diverticulitis, only diverticulosis. Troponin is negative. ASSESSMENT AND PLAN: Chest pain, rule out acute coronary syndrome. I have consulted Dr. Gunderson. For abdominal pain, epigastric tenderness, diverticulosis, I have consulted Dr. Garcia and also consulted Dr. Jonatan Mathews to rule out diverticulitis as well as Dr. Krueger for management of the hypertension as well as for the azotemia and Dr. Tavarez is also consulted for the chronic pain syndrome management. Bunny Chapa M.D. DR: HOWARD JOB#: [id number] CC:
--- NOTE | 2019-07-05 16:06 | General Progress Note ---
Assessment/Plan Assessment/Plan: Assessment - acute central abd pain, vomiting - ? vial gastroenteritis - h/o renal carcinoma - HTN - diverticulosis, h/o diverticulitis - high cholesterol - SIBO (+) Recommendations - po as tolerated - symptomatic Rx - follw exam - further w/u if symptoms persist Subjective Allergies: Coded Allergies: TRAMADOL (Verified Allergy, Intermediate, 01/10/18) TREMORS AND VOMITING CODEINE (Verified Adverse Reaction, Mild, 11/02/12) nausea Objective Last 24 Hour Vital Signs Date Time Temp Pulse Resp B/P (MAP) Pulse Ox O2 Delivery O2 Flow Rate FiO2 07/05/19 11:39 62 07/05/19 08:09 Room Air 07/05/19 07:51 97.5 07/05/19 07:48 60 07/05/19 04:00 97.5 82 18 132/73 (92) 95 07/05/19 04:00 68 07/05/19 00:00 97.7 80 18 122/66 (84) 97 07/05/19 00:00 59 07/04/19 21:00 Room Air 07/04/19 20:00 98.2 82 18 127/59 (81) 97 07/04/19 20:00 67 07/04/19 16:32 Room Air 07/04/19 16:05 66 Intake and Output 07/04/19 07/05/19 19:00 07:00 Intake Total 200 ml Balance 200 ml Intake Oral 200 ml # Voids 1 2 # Bowel Movements 11 11 Laboratory Tests 07/05/19 06:26: White Blood Count 5.9, Red Blood Count 3.97L, Hemoglobin 13.5, Hematocrit 40.2, Mean Corpuscular Volume 101H, Mean Corpuscular Hemoglobin 34.0H, Mean Corpuscular Hemoglobin Concent 33.6, Red Cell Distribution Width 10.5L, Platelet Count 233, Mean Platelet Volume 6.7, Neutrophils (%) (Auto) 69.1, Lymphocytes (%) (Auto) 19.7L, Monocytes (%) (Auto) 9.0, Eosinophils (%) (Auto) 0.7, Basophils (%) (Auto) 1.5, Sodium Level 139, Potassium Level 3.9, Chloride Level 105, Carbon Dioxide Level 26, Anion Gap 8, Blood Urea Nitrogen 18, Creatinine 1.4H, Estimat Glomerular Filtration Rate , Glucose Level 105, Calcium Level 9.5, Total Bilirubin 1.1H, Direct Bilirubin 0.2, Aspartate Amino Transf (AST/SGOT) 34, Alanine Aminotransferase (ALT/SGPT) 38, Alkaline Phosphatase 117H, Troponin I 0.000, Total Protein 7.5, Albumin 3.7, Globulin 3.8 , Albumin/Globulin Ratio 1.0, Lipase 65L Height (Feet): 5 Height (Inches): 4.00 Weight (Pounds): 196 Roe Garcia MD Jul 05, 2019 16:06
--- NOTE | 2019-07-05 17:15 | Consultation ---
DATE OF CONSULTATION: 07/05/2019 CARDIOLOGY CONSULTATION REASON FOR CONSULTATION: Chest pain and back pain. HISTORY OF PRESENT ILLNESS: The patient is a 74-year-old lady with history of hypertension, COPD, ulcerative colitis, seizure disorder, and history of diabetes presented to the emergency room with epigastric pain. The patient was admitted about two months ago with similar symptoms. The patient at that time underwent a nuclear stress test which showed no evidence of ischemia. At that time also patient had CT of abdomen and pelvis without IV contrast which showed no acute abnormality. The patient again presented with increasing abdominal pain as well as chest pain with radiation to her back. REVIEW OF SYSTEMS: Review of systems was negative other than what is mentioned in the history of present illness. PAST MEDICAL HISTORY: As mentioned above. FAMILY HISTORY: Noncontributory. SOCIAL HISTORY: She lives at home. Does not smoke or drink alcohol. PHYSICAL EXAMINATION: VITAL SIGNS: Blood pressure 132/73, pulse 60, respirations 18, and temperature is 97.5. HEAD AND NECK: Shows no JVD. LUNGS: Clear. CARDIOVASCULAR: Regular S1 and S2 with no gallop or murmur. ABDOMEN: Soft. EXTREMITIES: No pitting edema. LABORATORY AND DIAGNOSTIC DATA: Labs show white count of 5.9, hemoglobin 13.5, hematocrit of 40, platelet count 233. Sodium is 139, potassium 3.9, BUN , creatinine 1.4, glucose of 105. Troponin is negative. ASSESSMENT AND PLAN: 1. Chest pain. Troponin is negative. In view of hypertension and the fact she states that the pain radiates to her back, this patient had a nuclear stress test which was negative couple months ago. We will proceed with CT angiogram to rule out pulmonary embolism or dissection. 2. Hypertension. Resume Cardizem CD 240 mg daily and hydrochlorothiazide 25 mg daily. 3. Hyperlipidemia on Crestor 20 mg daily. 4. Epigastric pain. Further evaluation by Dr. Garcia. 5. History of renal cell carcinoma status post nephrectomy, followed by Dr. Torrez. Thank you very much for allowing me to participate in the care of this patient. Please do not hesitate to contact me for any questions regarding my evaluation. Sincerely, Saad Gunderson M.D. DR: Jaylon JOB#: [id number] CC:
--- NOTE | 2019-07-05 19:03 | NUR ---
HAND-OFF: Report given to Estevan Jenkins Rn.
--- NOTE | 2019-07-05 19:30 | NUR ---
NURSE NOTES: Received patient from Sukumar MORAN. Patient in bed, returned from Chest CTA. On room air, no signs of respiratory distress. Bed in low position, locked, bed alarm on, call light within reach.
[2019-07-05 19:59] VITALS: BP 171/85
--- NOTE | 2019-07-05 20:00 | NUR ---
NURSE NOTES: BP 171/85, clonidine 0.1mg po prn administered. Patient also c/o nausea and epigastric pain, 7/10. Administered morphine 2mg ivp prn and zofran 4mg ivp prn.
--- NOTE | 2019-07-05 21:15 | NUR ---
NURSE NOTES: Patient awake in bed, alert and oriented. No signs of respiratory distress. BP 139/78, no c/o pain.
[2019-07-05 21:17] VITALS: BP 139/78
--- NOTE | 2019-07-05 23:14 | NUR ---
NURSE NOTES: Patient asleep in bed. No signs of respiratory distress.
[2019-07-06] VITALS: BP 152/81
[2019-07-06 04:00] VITALS: BP 115/84
--- NOTE | 2019-07-06 07:54 | NUR ---
NURSE NOTES: Patient stable. AOx4. No s/s of distress and no complaints at this time. RR even and unlabored on RA. Side rails up x2, bed locked in lowest position. Will continue to monitor.
[2019-07-06 08:08] VITALS: BP 143/61
[2019-07-06] MEDS: dilTIAZem HCl CD 240mg cap ORAL SCH (08:57)
[2019-07-06] MEDS: Morphine Sulfate 2mg/ml Inj(IV/IM USE ONLY) IVP PRN ×2 (09:37→14:26)
--- NOTE | 2019-07-06 10:18 | NUR ---
NURSE NOTES: Dr. Garcia called regarding patient complaints of abdominal pain and emesis. No answer. Dr. Preston called and message left.
[2019-07-06 12:00] VITALS: BP 140/64
--- NOTE | 2019-07-06 12:31 | NUR ---
NURSE NOTES: Patient discomfort improved after zofran given. Patient eating. Will continue to monitor.
--- NOTE | 2019-07-06 13:40 | General Progress Note ---
Assessment/Plan Assessment/Plan: Assessment - acute central abd pain, vomiting - ? vial gastroenteritis - h/o renal carcinoma - HTN - diverticulosis, h/o diverticulitis - high cholesterol - SIBO (+) fu CT ango ordered by cardiology fu labs control nausea last CT in 04/2019 Subjective ROS Limited/Unobtainable: Yes Allergies: Coded Allergies: TRAMADOL (Verified Allergy, Intermediate, 01/10/18) TREMORS AND VOMITING CODEINE (Verified Adverse Reaction, Mild, 11/02/12) nausea Subjective vomited today Objective Last 24 Hour Vital Signs Date Time Temp Pulse Resp B/P (MAP) Pulse Ox O2 Delivery O2 Flow Rate FiO2 07/06/19 12:00 98.2 98 22 140/64 (89) 99 07/06/19 12:00 64 07/06/19 08:57 66 143/61 07/06/19 08:12 Room Air 07/06/19 08:08 98.2 66 22 143/61 (88) 100 07/06/19 07:57 60 07/06/19 04:00 98.2 63 18 115/84 (94) 94 07/06/19 04:00 58 07/06/19 00:00 57 07/06/19 00:00 98.2 66 18 152/81 (104) 96 07/05/19 21:17 60 139/78 (98) 07/05/19 21:00 Room Air 07/05/19 20:00 98.5 69 18 95 07/05/19 20:00 171/85 07/05/19 20:00 63 07/05/19 19:59 171/85 (113) 07/05/19 15:26 63 Intake and Output 07/05/19 07/06/19 18:59 06:59 Intake Total 600 ml Balance 600 ml Intake Oral 600 ml # Voids 3 3 # Bowel Movements 11 11 Height (Feet): 5 Height (Inches): 4.00 Weight (Pounds): 196 General Appearance: alert EENT: normal ENT inspection Neck: supple Cardiovascular: normal rate Respiratory/Chest: decreased breath sounds Abdomen: soft, decreased bowel sounds Extremities: non-tender Angelito Edwards MD Jul 06, 2019 13:40
--- NOTE | 2019-07-06 13:46 | NUR ---
NURSE NOTES: Spoke with Dr. Thakkar regarding patient symptoms. No new orders.
--- NOTE | 2019-07-06 14:23 | Cardiac Electrophysiology PN ---
Assessment/Plan Assessment/Plan 1. Chest pain. Troponin is negative. This patient had a nuclear stress test which was negative couple months ago. CT angiogram showed no pulmonary embolism or dissection. 2. Hypertension. On Cardizem CD 240 mg daily and hydrochlorothiazide 25 mg daily. 3. Hyperlipidemia on Crestor 20 mg daily. 4. Epigastric pain. Further evaluation by Dr. Garcia. CT diverticulosis but no diverticulitis 5. History of renal cell carcinoma status post nephrectomy, followed by Dr. Torrez. DW RN Subjective Subjective No CP or SOB. Still has abdominal pain. Objective Last 24 Hour Vital Signs Date Time Temp Pulse Resp B/P (MAP) Pulse Ox O2 Delivery O2 Flow Rate FiO2 07/06/19 12:00 98.2 98 22 140/64 (89) 99 07/06/19 12:00 64 07/06/19 08:57 66 143/61 07/06/19 08:12 Room Air 07/06/19 08:08 98.2 66 22 143/61 (88) 100 07/06/19 07:57 60 07/06/19 04:00 98.2 63 18 115/84 (94) 94 07/06/19 04:00 58 07/06/19 00:00 57 07/06/19 00:00 98.2 66 18 152/81 (104) 96 07/05/19 21:17 60 139/78 (98) 07/05/19 21:00 Room Air 07/05/19 20:00 98.5 69 18 95 07/05/19 20:00 171/85 07/05/19 20:00 63 07/05/19 19:59 171/85 (113) 07/05/19 15:26 63 Intake and Output 07/05/19 07/06/19 18:59 06:59 Intake Total 600 ml Balance 600 ml Intake Oral 600 ml # Voids 3 3 # Bowel Movements 11 11 Objective HEAD AND NECK: Shows no JVD. LUNGS: Clear. CARDIOVASCULAR: Regular S1 and S2 with no gallop or murmur. ABDOMEN: Soft. EXTREMITIES: No pitting edema. Saad Gunderson MD Jul 06, 2019 14:23
--- NOTE | 2019-07-06 16:29 | Consultation ---
History of Present Illness Present Illness Allergies: Coded Allergies: TRAMADOL (Verified Allergy, Intermediate, 01/10/18) TREMORS AND VOMITING CODEINE (Verified Adverse Reaction, Mild, 11/02/12) nausea Medication History Scheduled Albuterol Sulfate* (Proair Hfa*), 2 PUFFS INH Q4, (Reported) Aspirin* (Aspir 81*), 81 MG ORAL DAILY, (Reported) Atorvastatin Calcium* (Lipitor*), 20 MG ORAL BEDTIME, (Reported) Azelastine/Fluticasone (Dymista Nasal [place]), 2 SPRAYS NS BID, (Reported) Ceftriaxone Sodium (Ceftriaxone), 1 GM IV DAILY, (Reported) Ciprofloxacin/Ciprofloxa Hcl (Ciprofloxacin Er 500 Mg Tablet), 500 MG PO Q12HR, (Reported) Cyclobenzaprine Hcl* (Flexeril*), 5 MG ORAL DA, (Reported) Dexlansoprazole (Dexilant), 60 MG ORAL DAILY, (Reported) Dicyclomine Hcl* (Dicyclomine Hcl*), 10 MG ORAL EVERY 6 HOURS, (Reported) Diltiazem Hcl (Diltiazem Er), 240 MG PO DAILY, (Reported) Diltiazem Hcl* (Cartia Xt*), 240 MG ORAL DAILY, (Reported) Docusate Sodium* (Docusate Sodium*), 100 MG ORAL TWICE A DAY, (Reported) Duloxetine Hcl* (Cymbalta*), 30 MG ORAL DAILY, (Reported) Fesoterodine Fumarate (Toviaz), 4 MG PO BID, (Reported) Fluticasone/Vilanterol (Breo Ellipta 100-25 Mcg INH), 1 PUFF IH DAILY, (Reported ) Gabapentin* (Gabapentin*), 100 MG ORAL TWICE A DAY, (Reported) Hydralazine Hcl* (Hydralazine Hcl*), 25 MG ORAL BID, (Reported) Hydrochlorothiazide (Microzide), 25 MG PO DAILY, (Reported) Neomycin Sulfate (Neomycin Sulfate), 500 MG ORAL TWICE A DAY, (Reported) Omeprazole (Omeprazole), 20 MG ORAL TWICE A DAY, (Reported) Rosuvastatin Calcium* (Crestor*), 20 MG ORAL DAILY, (Reported) Rosuvastatin Calcium* (Crestor*), 20 MG ORAL DAILY, (Reported) Triamterene/Hydrochlorothiazid (Triamterene-Hctz 37.5-25 Mg Cp), 1 CAP ORAL DAILY, (Reported) Scheduled PRN Diazepam* (Diazepam*), 5 MG ORAL BID PRN for ANXIETY, (Reported) Hydrocodone Bit/Acetaminophen 5-325* ([place] 5-325*), 1 TAB ORAL Q4H PRN for For Pain, (Reported) Hydrocodone Bit/Acetaminophen 5-325* ([place] 5-325*), 2 TAB ORAL Q4H PRN for For Pain, (Reported) Miscellaneous Medications Ceftriaxone Sod (Rocephin), 250 MG IM, (Reported) Patient History Healthcare decision maker N Resuscitation status Full Code Advanced Directive on File Physical Exam Last 24 Hour Vital Signs Date Time Temp Pulse Resp B/P (MAP) Pulse Ox O2 Delivery O2 Flow Rate FiO2 07/06/19 15:49 54 07/06/19 12:00 98.2 98 22 140/64 (89) 99 07/06/19 12:00 64 07/06/19 08:57 66 143/61 07/06/19 08:12 Room Air 07/06/19 08:08 98.2 66 22 143/61 (88) 100 07/06/19 07:57 60 07/06/19 04:00 98.2 63 18 115/84 (94) 94 07/06/19 04:00 58 07/06/19 00:00 57 07/06/19 00:00 98.2 66 18 152/81 (104) 96 07/05/19 21:17 60 139/78 (98) 07/05/19 21:00 Room Air 07/05/19 20:00 98.5 69 18 95 07/05/19 20:00 171/85 07/05/19 20:00 63 07/05/19 19:59 171/85 (113) Intake and Output 07/05/19 07/06/19 19:00 07:00 Intake Total 600 ml Balance 600 ml Intake Oral 600 ml # Voids 3 3 # Bowel Movements 11 11 Height (Feet): 5 Height (Inches): 4.00 Weight (Pounds): 196 Medications Current Medications Medications (Trade) Dose Ordered Sig/Marcia Route PRN Reason Start Time Stop Time Status Last Admin Dose Admin Barium Sulfate (Readi-Cat 2) 450 ml NOW PRN ORAL Radiology Procedure 07/05/19 14:15 07/07/19 14:06 07/05/19 17:48 Clonidine HCl (Catapres Tab) 0.1 mg Q4H PRN ORAL sbp>170 07/05/19 14:00 08/04/19 13:59 07/05/19 20:00 Diltiazem HCl (Cardizem CD) 240 mg DAILY ORAL 07/06/19 09:00 08/05/19 08:59 07/06/19 08:57 Iohexol (Omnipaque) 100 mg NOW PRN INJ Radiology Procedure 07/05/19 14:15 07/07/19 14:06 Iohexol (Omnipaque) 100 mg NOW PRN INJ Radiology Procedure 07/05/19 14:15 07/07/19 14:06 Morphine Sulfate (Morphine Sulfate) 2 mg Q4H PRN IVP For Pain 07/04/19 17:15 07/11/19 17:14 07/06/19 14:26 Ondansetron HCl (Zofran) 4 mg Q6H PRN IVP Nausea & Vomiting 07/04/19 16:45 08/03/19 16:44 07/06/19 10:51 Assessment/Plan Assessment/Plan: HEMATOLOGY/ONCOLOGY Consultation Note DATE OF CONSULT: 07/06/19 REFERRING PHYSICIAN: Bunny Chapa REASON FOR CONSULT: Renal mass, anemia hx HISTORY OF PRESENT ILLNESS: 74y old female well known to me from prior admission, hx of gi bleed in the past , sees us in the clinic as well also has been having abdominal cramps that has been going on for a week. The patient was admitted for diverticulitis eval flare that she has. The patient denies chills. Denies cough. Denies shortness of breath. Denies orthopnea. Hematology/Oncology services have been consulted for the evaluation of a renal mass that was found on an abd CT. 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 PAST MEDICAL HISTORY: Significant for chest pain, history of diverticulitis, history of renal cancer, constipation, hypertension, chronic pain syndrome, hyperlipidemia, hypertension, and dyslipidemia. PAST SURGICAL HISTORY: Ovarian cyst removed, partial right nephrectomy for cancer. ALLERGIES: Tramadol, codeine. SOCIAL HISTORY: Denies history of smoking, alcohol, or illicit drugs. REVIEW OF SYSTEMS: HEENT: Denies headaches. RESPIRATORY: Denies shortness of breath. Denies cough CARDIOVASCULAR: Denies chest pain. GASTROINTESTINAL: Reports vomiting blood and rectal bleed as well as abdominal cramps for about one week. EXTREMITIES: Denies pain in the lower extremity. DIAMOND SETTER: No change in vision or speech pattern. PHYSICAL EXAMINATION: VITAL SIGNS: Reviewed. HEENT: PERRLA. NECK: Supple. No lymphadenopathy. CHEST: Clear to auscultation. CARDIOVASCULAR: Regular rate and rhythm. No murmurs or extra sounds. GASTROINTESTINAL: Diffuse abdominal pain. Abdomen is soft. No rebound. No organomegaly. EXTREMITIES: A 1+ edema. Reflexes equal in both sides. Moving all four extremities. MEDICATIONS: Lipitor, Colace, Toviaz, Cymbalta, Colace, diltiazem, Crestor, hydrochlorothiazide. IMAGIN/30: CT abd --> Possible early uncomplicated acute diverticulitis of the sigmoid. Extensive colonic diverticulosis elsewhere. Note apparent absence of previously demonstrated right renal contrast enhancing mass.This could indicate in visibility due to the lack of IV contrast, or could indicate prior therapy. Correlate with clinical/surgical history 4 mm rectangular density in the right middle lobe, visible on earlier 2014 study and unchanged, presumed benign. LABORATORY STUDIES: 03/08: wbc 6.1 hgb 12.8 plt 200k 04/30: wbc 6, hgb 13, plt 268k ASSESSMENT AND PLAN # Renal cell carcinoma, status post nephrectomy that was completed approximately 1 month ago, pathology was reviewed and is pT1 staging does not require further treatment, lymph nodes not submitted, but no evidence of distant metastasis, also no evidence of positive margins noted on the tumor report --> CT abd: 4 mm rectangular density in the right middle lobe, visible on earlier 2014 study and unchanged, presumed benign --> trend cr as per renal, baseline, cr is 1.4-1.5 --> cr trend: 1.4 --> monitor with serial imaging as needed # Leukopenia is likely a reactive process v infection --> smear peripherla has been reviewed --> hepatitis and hiv in the past neg --> no cirrhosis or hsm on us --> thyroid studies are wnl in prior # Anemia of chronic disease --> closely monitor --> currently is stable at 10.8->13 --> hold off any further workup at this time # Sigmoid diverticulitis. ID and GI are following, appreciate recs. --> Abx per ID. --> cta reviewed --> PPI # Hypertension. --> sbp goal <140 # COPD. # Chronic kidney disease. cr 1.4-1.5 # Abd pain as per gi eval The time note is entered does not reflect time of encounter. GREATLY APPRECIATE CONSULTATION Arsenio Torrez MD Jul 06, 2019 16:29
--- NOTE | 2019-07-06 17:38 | General Progress Note ---
Assessment/Plan Problem List: (1) chest pain (2) S/p nephrectomy ICD Codes: Z90.5 - Acquired absence of kidney SNOMED: 97576824, 321055007 (3) Intractable pain ICD Codes: R52 - Pain, unspecified SNOMED: 18830908 (4) Anemia ICD Codes: D64.9 - Anemia, unspecified SNOMED: 351104998 (5) GI problem ICD Codes: R19.8 - GI problem SNOMED: 146286920 (6) HTN (hypertension) ICD Codes: I10 - Essential (primary) hypertension SNOMED: 76212009 (7) Abdominal pain ICD Codes: R10.9 - Unspecified abdominal pain SNOMED: 18499137, 266481888 (8) Chest pain ICD Codes: R07.9 - Chest pain, unspecified SNOMED: 76107162 Status: progressing Assessment/Plan: afebrile abdominal pain nausea no diverticulitis on imaging does have diverticulosis negative trop cp Subjective Gastrointestinal/Abdominal: Reports: abdominal pain Allergies: Coded Allergies: TRAMADOL (Verified Allergy, Intermediate, 01/10/18) TREMORS AND VOMITING CODEINE (Verified Adverse Reaction, Mild, 11/02/12) nausea Objective Last 24 Hour Vital Signs Date Time Temp Pulse Resp B/P (MAP) Pulse Ox O2 Delivery O2 Flow Rate FiO2 07/06/19 15:49 54 07/06/19 12:00 98.2 98 22 140/64 (89) 99 07/06/19 12:00 64 07/06/19 08:57 66 143/61 07/06/19 08:12 Room Air 07/06/19 08:08 98.2 66 22 143/61 (88) 100 07/06/19 07:57 60 07/06/19 04:00 98.2 63 18 115/84 (94) 94 07/06/19 04:00 58 07/06/19 00:00 57 07/06/19 00:00 98.2 66 18 152/81 (104) 96 07/05/19 21:17 60 139/78 (98) 07/05/19 21:00 Room Air 07/05/19 20:00 98.5 69 18 95 07/05/19 20:00 171/85 07/05/19 20:00 63 07/05/19 19:59 171/85 (113) Intake and Output 07/05/19 07/06/19 18:59 06:59 Intake Total 600 ml Balance 600 ml Intake Oral 600 ml # Voids 3 3 # Bowel Movements 11 11 Height (Feet): 5 Height (Inches): 4.00 Weight (Pounds): 196 Cardiovascular: normal rate Respiratory/Chest: lungs clear Abdomen: tender Bunny Chapa MD Jul 06, 2019 17:38
--- NOTE | 2019-07-06 19:19 | NUR ---
NURSE NOTES: Received patient from Gely MORAN. Patient in bed, on room air, no signs of respiratory distress. Alert and oriented x4, no c/o pain or nausea. Bed in low position, locked, call light within reach. Padded side rails.
--- NOTE | 2019-07-06 19:23 | NUR ---
HAND-OFF: Report given to Estevan Patel RN. Patient stable resting comfortably in bed
[2019-07-06 20:00] VITALS: BP 117/49
--- NOTE | 2019-07-06 20:00 | NUR ---
NURSE NOTES: Received patient transfer from LUISA Barreto from telemetry. Patient is resting in bed with no c/o pain, nausea, or SOB on room air. No skin issues. Bed in lock and locked position with call light within reach. IV site c/d/i. Will continue to monitor.
--- NOTE | 2019-07-06 20:10 | NUR ---
HAND-OFF: Report given to Leif MORAN. Patient transferred to [facility], plan of care endorsed.
[2019-07-07 04:00] VITALS: BP 141/66
[2019-07-07 06:00] LABS: BASOPHILS % (AUTO) 1.3 % (0.0-2.0); HEMATOCRIT 42.4 % (37.0-47.0); HEMOGLOBIN 14.2 G/DL (12.0-16.0); LYMPHOCYTES % (AUTO) 35.6 % (20.0-45.0); MEAN CORPUSCULAR VOLUME 100 FL (80-99); MONOCYTES % (AUTO) 9.9 % (1.0-10.0); NEUTROPHILS % (AUTO) 51.3 % (45.0-75.0); PLATELET COUNT 253 K/UL (150-450); RED BLOOD COUNT 4.25 M/UL (4.20-5.40); RED CELL DISTRIBUTION WIDTH 11.1 % (11.6-14.8)
[2019-07-07 06:17] LABS: ALANINE AMINOTRANSFERASE 27 U/L (12-78); ALBUMIN 3.6 G/DL (3.4-5.0); ALBUMIN/GLOBULIN RATIO 0.9 (1.0-2.7); ALKALINE PHOSPHATASE 109 U/L (46-116); AMYLASE 54 U/L (25-115); ANION GAP 7 mmol/L (5-15); ASPARTATE AMINO TRANSFERASE 24 U/L (15-37); BILIRUBIN,TOTAL 0.9 MG/DL (0.2-1.0); BLOOD UREA NITROGEN 12 mg/dL (7-18); CALCIUM 9.7 MG/DL (8.5-10.1); CARBON DIOXIDE 30 MMOL/L (21-32); CHLORIDE 106 MMOL/L (98-107); CREATININE 1.3 MG/DL (0.55-1.30); POTASSIUM 4.1 MMOL/L (3.5-5.1); SODIUM 143 MMOL/L (136-145)
--- NOTE | 2019-07-07 07:40 | NUR ---
HAND-OFF: Report given to LUISA Simmons. Patient in stable condtion.
--- NOTE | 2019-07-07 07:40 | NUR ---
NURSE NOTES: Patient is in bed awake and able to verbalize needs. Stable. Denies pain or SOB. Patient is encouraged to use call light for assistance, verbalized understanding. Patient is in bed in locked and lowest position with seizure precautions implemented. All safety measures provided. WIll continue to monitor.
--- NOTE | 2019-07-07 07:42 | General Progress Note ---
Assessment/Plan Status: progressing Assessment/Plan: Assessment - acute central abd pain, vomiting - ? vial gastroenteritis - h/o renal carcinoma - HTN - diverticulosis, h/o diverticulitis - high cholesterol - SIBO (+) fu CT ango ordered by cardiology fu labs control nausea last CT in 04/2019 Subjective ROS Limited/Unobtainable: Yes Allergies: Coded Allergies: TRAMADOL (Verified Allergy, Intermediate, 01/10/18) TREMORS AND VOMITING CODEINE (Verified Adverse Reaction, Mild, 11/02/12) nausea Subjective vomited today abd pain soft stools Objective Last 24 Hour Vital Signs Date Time Temp Pulse Resp B/P (MAP) Pulse Ox O2 Delivery O2 Flow Rate FiO2 07/07/19 04:00 97.7 60 18 141/66 (91) 97 07/06/19 20:00 98.6 58 18 117/49 (71) 95 07/06/19 20:00 Room Air 07/06/19 15:49 54 07/06/19 12:00 98.2 98 22 140/64 (89) 99 07/06/19 12:00 64 07/06/19 08:57 66 143/61 07/06/19 08:12 Room Air 07/06/19 08:08 98.2 66 22 143/61 (88) 100 07/06/19 07:57 60 Intake and Output 07/06/19 07/07/19 19:00 07:00 Intake Total 800 ml 240 ml Balance 800 ml 240 ml Intake Oral 800 ml 240 ml # Voids 2 1 # Bowel Movements 11 Laboratory Tests 07/07/19 05:05: White Blood Count 4.0L, Red Blood Count 4.25, Hemoglobin 14.2, Hematocrit 42.4, Mean Corpuscular Volume 100H, Mean Corpuscular Hemoglobin 33.4H, Mean Corpuscular Hemoglobin Concent 33.5, Red Cell Distribution Width 11.1L, Platelet Count 253, Mean Platelet Volume 6.4L, Neutrophils (%) (Auto) 51.3, Lymphocytes (%) (Auto) 35.6, Monocytes (%) (Auto) 9.9, Eosinophils (%) (Auto) 2.0, Basophils (%) (Auto) 1.3, Sodium Level 143, Potassium Level 4.1, Chloride Level 106, Carbon Dioxide Level 30, Anion Gap 7, Blood Urea Nitrogen 12, Creatinine 1.3, Estimat Glomerular Filtration Rate , Glucose Level 93, Calcium Level 9.7, Total Bilirubin 0.9, Aspartate Amino Transf (AST/SGOT) 24, Alanine Aminotransferase (ALT/SGPT) 27, Alkaline Phosphatase 109, Total Protein 7.6, Albumin 3.6, Globulin 4.0, Albumin/Globulin Ratio 0.9L, Amylase Level 54, Lipase 57L Height (Feet): 5 Height (Inches): 4.00 Weight (Pounds): 196 General Appearance: alert EENT: normal ENT inspection Neck: normal alignment Cardiovascular: normal rate Respiratory/Chest: decreased breath sounds Abdomen: normal bowel sounds, non tender, soft Extremities: non-tender Angelito Edwards MD Jul 07, 2019 07:42
[2019-07-07 08:00] VITALS: BP 159/71
[2019-07-07] MEDS: dilTIAZem HCl CD 240mg cap ORAL SCH (08:23)
[2019-07-07] MEDS: Morphine Sulfate 2mg/ml Inj(IV/IM USE ONLY) IVP PRN (10:19)
--- NOTE | 2019-07-07 11:47 | General Progress Note ---
Assessment/Plan Assessment/Plan: (1) Abdominal pain (2) H/O Diverticulitis (3) Renal cell carcinoma, status post nephrectomy (4) Lumbar Radiculopathy (5) Lumbar DDD Patient to be continued on Morphine as needed D/w Dr. Tavarez and he concurred. Subjective Date patient seen: Jul 07, 2019 Time patient seen: 11:00 - am Allergies: Coded Allergies: TRAMADOL (Verified Allergy, Intermediate, 01/10/18) TREMORS AND VOMITING CODEINE (Verified Adverse Reaction, Mild, 11/02/12) nausea Subjective Constitutional: Reports: no symptoms HEENT: Reports: no symptoms Cardiovascular: Reports: no symptoms Respiratory: Reports: no symptoms Gastrointestinal/Abdominal: Reports: abdominal pain Genitourinary: Reports: no symptoms Neurologic/Psychiatric: Reports: no symptoms Endocrine: Reports: no symptoms Hematologic/Lymphatic: Reports: no symptoms Subjective Patient in bed showing no signs of pain or distress. Pain has been tolerated on the Morphine as needed. Has no new complaints at this time. Objective Last 24 Hour Vital Signs Date Time Temp Pulse Resp B/P (MAP) Pulse Ox O2 Delivery O2 Flow Rate FiO2 07/07/19 09:00 Room Air 07/07/19 08:23 61 159/71 07/07/19 08:00 97.9 61 18 159/71 (100) 95 07/07/19 04:00 97.7 60 18 141/66 (91) 97 07/06/19 20:00 98.6 58 18 117/49 (71) 95 07/06/19 20:00 Room Air 07/06/19 15:49 54 07/06/19 12:00 98.2 98 22 140/64 (89) 99 07/06/19 12:00 64 Intake and Output 07/06/19 07/07/19 19:00 07:00 Intake Total 800 ml 240 ml Balance 800 ml 240 ml Intake Oral 800 ml 240 ml # Voids 2 1 # Bowel Movements 11 Laboratory Tests 07/07/19 05:05: White Blood Count 4.0L, Red Blood Count 4.25, Hemoglobin 14.2, Hematocrit 42.4, Mean Corpuscular Volume 100H, Mean Corpuscular Hemoglobin 33.4H, Mean Corpuscular Hemoglobin Concent 33.5, Red Cell Distribution Width 11.1L, Platelet Count 253, Mean Platelet Volume 6.4L, Neutrophils (%) (Auto) 51.3, Lymphocytes (%) (Auto) 35.6, Monocytes (%) (Auto) 9.9, Eosinophils (%) (Auto) 2.0, Basophils (%) (Auto) 1.3, Sodium Level 143, Potassium Level 4.1, Chloride Level 106, Carbon Dioxide Level 30, Anion Gap 7, Blood Urea Nitrogen 12, Creatinine 1.3, Estimat Glomerular Filtration Rate , Glucose Level 93, Calcium Level 9.7, Total Bilirubin 0.9, Aspartate Amino Transf (AST/SGOT) 24, Alanine Aminotransferase (ALT/SGPT) 27, Alkaline Phosphatase 109, Total Protein 7.6, Albumin 3.6, Globulin 4.0, Albumin/Globulin Ratio 0.9L, Amylase Level 54, Lipase 57L Height (Feet): 5 Height (Inches): 4.00 Weight (Pounds): 196 Objective General Appearance: no apparent distress, alert EENT: PERRL/EOMI, normal ENT inspection Neck: normal alignment, supple Cardiovascular: normal rate, regular rhythm Respiratory/Chest: lungs clear, normal breath sounds Abdomen: soft Neurologic: alert, oriented x 3 Skin: warm/dry Toby Shukla Jul 07, 2019 11:47
[2019-07-07 12:00] VITALS: BP 153/74
--- NOTE | 2019-07-07 15:33 | General Progress Note ---
Assessment/Plan Problem List: (1) chest pain (2) S/p nephrectomy ICD Codes: Z90.5 - Acquired absence of kidney SNOMED: 86069687, 413958711 (3) Intractable pain ICD Codes: R52 - Pain, unspecified SNOMED: 53625382 (4) Anemia ICD Codes: D64.9 - Anemia, unspecified SNOMED: 438660991 (5) GI problem ICD Codes: R19.8 - GI problem SNOMED: 577548448 (6) HTN (hypertension) ICD Codes: I10 - Essential (primary) hypertension SNOMED: 69906367 (7) Abdominal pain ICD Codes: R10.9 - Unspecified abdominal pain SNOMED: 78672513, 970115627 (8) Chest pain ICD Codes: R07.9 - Chest pain, unspecified SNOMED: 48517057 Status: progressing Assessment/Plan: atypical cp r/o acs vitals stable abdominal pain nausea no diverticulitis on imaging does have diverticulosis Subjective ROS Limited/Unobtainable: Yes Gastrointestinal/Abdominal: Reports: abdominal pain Allergies: Coded Allergies: TRAMADOL (Verified Allergy, Intermediate, 01/10/18) TREMORS AND VOMITING CODEINE (Verified Adverse Reaction, Mild, 11/02/12) nausea Objective Last 24 Hour Vital Signs Date Time Temp Pulse Resp B/P (MAP) Pulse Ox O2 Delivery O2 Flow Rate FiO2 07/07/19 12:00 98.0 60 20 153/74 (100) 98 07/07/19 09:00 Room Air 07/07/19 08:23 61 159/71 07/07/19 08:00 97.9 61 18 159/71 (100) 95 07/07/19 04:00 97.7 60 18 141/66 (91) 97 07/06/19 20:00 98.6 58 18 117/49 (71) 95 07/06/19 20:00 Room Air 07/06/19 15:49 54 Intake and Output 07/06/19 07/07/19 19:00 07:00 Intake Total 800 ml 240 ml Balance 800 ml 240 ml Intake Oral 800 ml 240 ml # Voids 2 1 # Bowel Movements 11 Laboratory Tests 07/07/19 05:05: White Blood Count 4.0L, Red Blood Count 4.25, Hemoglobin 14.2, Hematocrit 42.4, Mean Corpuscular Volume 100H, Mean Corpuscular Hemoglobin 33.4H, Mean Corpuscular Hemoglobin Concent 33.5, Red Cell Distribution Width 11.1L, Platelet Count 253, Mean Platelet Volume 6.4L, Neutrophils (%) (Auto) 51.3, Lymphocytes (%) (Auto) 35.6, Monocytes (%) (Auto) 9.9, Eosinophils (%) (Auto) 2.0, Basophils (%) (Auto) 1.3, Sodium Level 143, Potassium Level 4.1, Chloride Level 106, Carbon Dioxide Level 30, Anion Gap 7, Blood Urea Nitrogen 12, Creatinine 1.3, Estimat Glomerular Filtration Rate , Glucose Level 93, Calcium Level 9.7, Total Bilirubin 0.9, Aspartate Amino Transf (AST/SGOT) 24, Alanine Aminotransferase (ALT/SGPT) 27, Alkaline Phosphatase 109, Total Protein 7.6, Albumin 3.6, Globulin 4.0, Albumin/Globulin Ratio 0.9L, Amylase Level 54, Lipase 57L Height (Feet): 5 Height (Inches): 4.00 Weight (Pounds): 196 Cardiovascular: regular rhythm Respiratory/Chest: lungs clear Bunny Chapa MD Jul 07, 2019 15:33
[2019-07-07 16:01] VITALS: BP 135/70
--- NOTE | 2019-07-07 19:21 | NUR ---
HAND-OFF: Report given to Leif Parks. Patient is stable.
--- NOTE | 2019-07-07 19:35 | NUR ---
NURSE NOTES: Received report from LUISA Simmons. Patient is resting comfortably in bed. No c/o of SOB. Denies severe pain and "does not want any pain meds". Padding on 2 bed rails, bed in low and locked position, call light within reach.
[2019-07-07 20:00] VITALS: BP 130/67
[2019-07-08 04:00] VITALS: BP 167/74
[2019-07-08] MEDS: Morphine Sulfate 2mg/ml Inj(IV/IM USE ONLY) IVP PRN (05:09)
[2019-07-08 06:35] LABS: BASOPHILS % (AUTO) 1.1 % (0.0-2.0); EOSINOPHILS % (AUTO) 1.6 % (0.0-3.0); HEMATOCRIT 39.2 % (37.0-47.0); HEMOGLOBIN 13.3 G/DL (12.0-16.0); LYMPHOCYTES % (AUTO) 37.2 % (20.0-45.0); MEAN CORPUSCULAR VOLUME 99 FL (80-99); MONOCYTES % (AUTO) 9.6 % (1.0-10.0); NEUTROPHILS % (AUTO) 50.5 % (45.0-75.0); PLATELET COUNT 250 K/UL (150-450); RED BLOOD COUNT 3.96 M/UL (4.20-5.40); RED CELL DISTRIBUTION WIDTH 10.8 % (11.6-14.8); WHITE BLOOD COUNT 3.8 K/UL (4.8-10.8)
[2019-07-08 07:13] LABS: ANION GAP 8 mmol/L (5-15); BLOOD UREA NITROGEN 11 mg/dL (7-18); CALCIUM 9.3 MG/DL (8.5-10.1); CARBON DIOXIDE 27 MMOL/L (21-32); CHLORIDE 109 MMOL/L (98-107); CREATININE 1.3 MG/DL (0.55-1.30); SODIUM 144 MMOL/L (136-145)
--- NOTE | 2019-07-08 07:24 | NUR ---
NURSE NOTES: Patient is in bed awake and able to verbalize needs. Stable. Denies pain or SOB. Patient is sitting up eating breakfast and talking to her friend on the phone. Patient encouraged to use call light for assistance, verbalized understanding. Patient stated, "i'm good, i don't need anything right now." Patient is in bed in locked and lowest position with call light within reach. Will continue to monitor.
--- NOTE | 2019-07-08 07:29 | NUR ---
HAND-OFF: Report given to Iris Duran RN. Patient in stable condition.
[2019-07-08 08:00] VITALS: BP 152/76
[2019-07-08 08:52] VITALS: BP 152/76
[2019-07-08] MEDS: dilTIAZem HCl CD 240mg cap ORAL SCH (08:52)
--- NOTE | 2019-07-08 09:55 | NUR ---
NURSE NOTES: Patient discharged home as ordered. Stable. Denies pain or SOB. Patient was given thorough discharge instructions by RN. Patient verbalized understanding. Patient knows that she must follow up with Dr. Chapa and Dr. Torrez and has contact information. Patient read discharge instructions along with RN. Skin is clean, dry, and intact. Patient has all belongings. Patient's sister Jeannine picked up patient. IV access removed. Patient assisted into private vehicle by RN without incident.
--- NOTE | 2019-07-08 14:02 | Hematology/Onc Progress Note ---
Assessment/Plan Assessment/Plan ASSESSMENT AND PLAN # Renal cell carcinoma, status post nephrectomy that was completed approximately 1 month ago, pathology was reviewed and is pT1 staging does not require further treatment, lymph nodes not submitted, but no evidence of distant metastasis, also no evidence of positive margins noted on the tumor report --> CT abd: 4 mm rectangular density in the right middle lobe, visible on earlier 2014 study and unchanged, presumed benign --> trend cr as per renal, baseline, cr is 1.4-1.5 --> cr trend: 1.4 --> monitor with serial imaging as needed # Leukopenia is likely a reactive process v infection --> smear peripherla has been reviewed --> hepatitis and hiv in the past neg --> no cirrhosis or hsm on us --> thyroid studies are wnl in prior # Anemia of chronic disease --> closely monitor --> currently is stable at 10.8->13 --> hold off any further workup at this time # Sigmoid diverticulitis. ID and GI are following, appreciate recs. --> Abx per ID. --> cta reviewed --> PPI # Hypertension. --> sbp goal <140 # COPD. # Chronic kidney disease. cr 1.4-1.5 # Abd pain as per gi eval The time note is entered does not reflect time of encounter. GREATLY APPRECIATE CONSULTATION Subjective Constitutional: Denies: no symptoms, chills, fever, malaise, weakness, other HEENT: Denies: no symptoms, eye pain, blurred vision, tearing, double vision, ear pain, ear discharge, nose pain, nose congestion, throat pain, throat swelling, mouth pain, mouth swelling, other Cardiovascular: Denies: no symptoms, chest pain, edema, irregular heart rate, lightheadedness, palpitations, syncope, other Respiratory: Denies: no symptoms, cough, shortness of breath, SOB with excertion, SOB at rest, sputum, wheezing, other Gastrointestinal/Abdominal: Denies: no symptoms, abdomen distended, abdominal pain, black stools, tarry stools, blood in stool, constipated, diarrhea, difficulty swallowing, nausea, poor appetite, poor fluid intake, rectal bleeding , vomiting, other Neurologic/Psychiatric: Denies: no symptoms, anxiety, depressed, emotional problems, headache, numbness, paresthesia, pre-existing deficit, seizure, tingling, tremors, weakness, other Endocrine: Denies: no symptoms, excessive sweating, flushing, intolerance to cold, intolerance to heat, increased hunger, increased thirst, increased urine, unexplained weight gain, unexplained weight loss, other Allergies: Coded Allergies: TRAMADOL (Verified Allergy, Intermediate, 01/10/18) TREMORS AND VOMITING CODEINE (Verified Adverse Reaction, Mild, 11/02/12) nausea Subjective 07/08: stable for dc, have dw rn, no bleeding, chills or ns noted, no bleeding episodes Objective Objective Last 24 Hour Vital Signs Date Time Temp Pulse Resp B/P (MAP) Pulse Ox O2 Delivery O2 Flow Rate FiO2 07/08/19 09:00 Room Air 07/08/19 08:52 63 152/76 07/08/19 08:00 97.7 63 18 152/76 (101) 98 07/08/19 04:00 97.4 60 18 167/74 (105) 100 07/07/19 21:00 Room Air 07/07/19 20:00 97.8 56 18 130/67 (88) 96 07/07/19 16:01 97.8 58 17 135/70 (91) 99 07/07/19 12:00 98.0 60 20 153/74 (100) 98 07/07/19 09:00 Room Air 07/07/19 08:23 61 159/71 07/07/19 08:00 97.9 61 18 159/71 (100) 95 07/07/19 04:00 97.7 60 18 141/66 (91) 97 07/06/19 20:00 98.6 58 18 117/49 (71) 95 07/06/19 20:00 Room Air 07/06/19 15:49 54 Intake and Output 07/07/19 07/08/19 19:00 07:00 Intake Total 780 ml 480 ml Balance 780 ml 480 ml Intake Oral 780 ml 480 ml # Voids 2 Labs Test 07/07/19 05:05 07/08/19 04:55 White Blood Count 4.0 K/UL (4.8-10.8) 3.8 K/UL (4.8-10.8) Red Blood Count 4.25 M/UL (4.20-5.40) 3.96 M/UL (4.20-5.40) Hemoglobin 14.2 G/DL (12.0-16.0) 13.3 G/DL (12.0-16.0) Hematocrit 42.4 % (37.0-47.0) 39.2 % (37.0-47.0) Mean Corpuscular Volume 100 FL (80-99) 99 FL (80-99) Mean Corpuscular Hemoglobin 33.4 PG (27.0-31.0) 33.5 PG (27.0-31.0) Mean Corpuscular Hemoglobin Concent 33.5 G/DL (32.0-36.0) 33.8 G/DL (32.0-36.0) Red Cell Distribution Width 11.1 % (11.6-14.8) 10.8 % (11.6-14.8) Platelet Count 253 K/UL (150-450) 250 K/UL (150-450) Mean Platelet Volume 6.4 FL (6.5-10.1) 6.4 FL (6.5-10.1) Neutrophils (%) (Auto) 51.3 % (45.0-75.0) 50.5 % (45.0-75.0) Lymphocytes (%) (Auto) 35.6 % (20.0-45.0) 37.2 % (20.0-45.0) Monocytes (%) (Auto) 9.9 % (1.0-10.0) 9.6 % (1.0-10.0) Eosinophils (%) (Auto) 2.0 % (0.0-3.0) 1.6 % (0.0-3.0) Basophils (%) (Auto) 1.3 % (0.0-2.0) 1.1 % (0.0-2.0) Sodium Level 143 MMOL/L (136-145) 144 MMOL/L (136-145) Potassium Level 4.1 MMOL/L (3.5-5.1) 4.0 MMOL/L (3.5-5.1) Chloride Level 106 MMOL/L (98-107) 109 MMOL/L (98-107) Carbon Dioxide Level 30 MMOL/L (21-32) 27 MMOL/L (21-32) Anion Gap 7 mmol/L (5-15) 8 mmol/L (5-15) Blood Urea Nitrogen 12 mg/dL (7-18) 11 mg/dL (7-18) Creatinine 1.3 MG/DL (0.55-1.30) 1.3 MG/DL (0.55-1.30) Estimat Glomerular Filtration Rate mL/min (>60) mL/min (>60) Glucose Level 93 MG/DL (74-106) 92 MG/DL (74-106) Calcium Level 9.7 MG/DL (8.5-10.1) 9.3 MG/DL (8.5-10.1) Total Bilirubin 0.9 MG/DL (0.2-1.0) Aspartate Amino Transf (AST/SGOT) 24 U/L (15-37) Alanine Aminotransferase (ALT/SGPT) 27 U/L (12-78) Alkaline Phosphatase 109 U/L (46-116) Total Protein 7.6 G/DL (6.4-8.2) Albumin 3.6 G/DL (3.4-5.0) Globulin 4.0 g/dL Albumin/Globulin Ratio 0.9 (1.0-2.7) Amylase Level 54 U/L (25-115) Lipase 57 U/L (73-393) Height (Feet): 5 Height (Inches): 4.00 Weight (Pounds): 196 Objective PHYSICAL EXAMINATION: VITAL SIGNS: Reviewed. HEENT: PERRLA. NECK: Supple. No lymphadenopathy. CHEST: Clear to auscultation. CARDIOVASCULAR: Regular rate and rhythm. No murmurs or extra sounds. GASTROINTESTINAL: Diffuse abdominal pain. Abdomen is soft. No rebound. No organomegaly. EXTREMITIES: A 1+ edema. Reflexes equal in both sides. Moving all four extremities. Arsenio Torrez MD Jul 08, 2019 14:02
--- NOTE | 2019-07-09 08:27 | Discharge Summary ---
Discharge Summary Discharge Summary _ DATE OF ADMISSION: 07/04/2019 DATE OF DISCHARGE: 07/08/2019 DISCHARGED BY: REASON FOR ADMISSION: 74 years old female with past medical history of hypertension, hyperlipidemia, COPD, ulcerative colitis, seizure disorder, diabetes mellitus, chronic pain syndrome, diverticulosis with history of diverticulitis, GERD, history of C. difficile colitis, history of kidney cancer, initially presented to [facility] emergency department, complaining of chest pain radiating to the back for 1 day and epigastric pain with associated nausea and vomiting. She denied diaphoresis. She denied shortness of breath. Patient was previously admitted to this hospital about 2 months ago for similar symptoms. At that time patient had a nuclear stress test, which revealed no evidence of ischemia. Patient also had at that time CT scan of the abdomen and pelvis without IV contrast , which showed no acute abnormality. Patient was transferred to [facility] for insurance purposes. CONSULTANTS: neurodiagnostic technologist Dr. Tobar GI specialist Dr. Edwards ecd/oncologist Dr. Torrez pain specialist Dr. Tavarez HOSPITAL COURSE: Patient admitted initially to telemetry floor. Serial troponin were negative . EKG revealed no acute ischemic changes. CT angiogram showed no evidence of pulmonary emboli or dissection. The lungs were clear. No infiltrates, effusions, masses, nodules, or congestion. Venous duplex bilateral lower extremity revealed no evidence of acute DVT. Abdominal x-ray revealed no acute findings. Blood pressure was managed with Cardizem and hydrochlorothiazide. Statin continued. Supplemental oxygen titrated as needed to keep pulse oximetry above 92%. Pulse oximetry was stable on room air. No evidence of respiratory distress. Pain management was addressed. GI specialist followed. Patient is evidence of acute central abdominal pain and vomiting , probably viral gastroenteritis. Patient had diverticulosis without evidence of diverticulitis and fatty liver on CT scan of abdomen. Per GI specialist , patient likely had viral gastroenteritis. Patient also had small bowel intestinal overgrowth. Per cardio, chest pain was of unclear etiology. Prior cardiac workup was negative. Chest pain was possibly related to GI issues/symptoms. Pain management was addressed as per pain specialist recommendation. Oncologist followed. Patient status post nephrectomy about 2 months ago. Pathology showed PT1 staging, no further treatment required, as per oncologist. Lymph nodes were not submitted, but there was no evidence of distant metastasis , no evidence of positive margins on the tumor report. CT abdomen showed 4 mm rectangular density in the right middle lobe , unchanged from the 2015 study, presumed benign. Fatty liver. Colonic diverticulosis. No evidence of diverticulitis Leukopenia was likely reactive process. Peripheral smear has been reviewed. Hepatitis panel in the past was negative. HIV test in the past was nonreactive. No history of cirrhosis or hepatosplenomegaly on ultrasound. Thyroid studies within normal limits. Hemoglobin and hematocrit were closely monitored , remained stable. Renal parameters and electrolytes were closely monitored, electrolytes corrected as needed , and nephrotoxins were avoided Creatinine upon discharge down to 1.3. Patient with evidence of known history of chronic kidney disease. Patient clinically stabilized and was ready for discharge home . FINAL DIAGNOSES: Epigastric pain Possible viral gastroenteritis Diverticulosis without evidence of diverticulitis SIBO ( small intestinal bacterial overgrowth) History of renal cell carcinoma status post nephrectomy Chest pain /etiology unable to be determined Hypertension Hyperlipidemia Radiculopathy Lumbar DDD DISCHARGE MEDICATIONS: See Medication Reconciliation list. DISCHARGE INSTRUCTIONS: Patient was discharged home Follow up with primary care provider in one week. I have been assigned to dictate discharge summary for this account. I was not involved in the patient's management. Shelley Delcid NP Jul 09, 2019 08:27
--- NOTE | 2019-07-09 09:09 | CDS Physician Query ---
Clarification is required for compliance, coding accuracy, and to reflect severity of illness for this patient Dear Dr. Saad Gunderson M.D. Date: 07/09/2019 Inventory Transcriber/CDS' Name : Nehemias Riley Please document the suspected etiology of Chest Pain: [] Aortic dissection [] Acute myocardial infarction [] Acute Coronary Syndrome [] Pericarditis [] Anxiety [] Cancer [] Pneumonia [] Costochondritis [] Pneumothorax [] GERD/Esophagitis [] Pulmonary embolism [] Other: [] Unable to determine Present on Admission: [] Yes [] No [] Clinically Undetermined Physician signature Date Please also document in your Progress Notes and/or Discharge Summary and indicate if the condition was present on admission. MTDD
--- NOTE | 2019-07-09 11:00 | Consultation ---
DATE OF CONSULTATION: 07/05/2019 INFECTIOUS DISEASE CONSULTATION CONSULTING PHYSICIAN: Jonatan Mathews M.D. PRIMARY ATTENDING PHYSICIAN: Bunny Chapa M.D. REASON FOR CONSULTATION: Gastroenteritis. HISTORY OF PRESENT ILLNESS: This is a 74-year-old female, admitted last night from ER at the [place] [facility]. The patient was sent to the hospital because of epigastric and back pain. The patient also had nausea, vomiting, and diarrhea. The patient had a recent admission in April of [address] [facility] with similar symptoms. A CT scan of the abdomen in [place] showed a diverticulosis without diverticulitis. The patient had no fever and other systemic problems. PAST MEDICAL HISTORY: Significant for diabetes mellitus type 2, hypertension. She had renal cell cancer, status post partial nephrectomy, seizure disorder, diverticulitis before. ALLERGIES: Allergic to codeine, tramadol. MEDICATIONS: Getting , clonidine, morphine, Zofran. SOCIAL HISTORY: No history of alcohol, drug abuse, smoking. Single. She has no child. REVIEW OF SYSTEMS: No fever. No chills. She has hiccups, nausea, vomiting, diarrhea. No coughing. No problem passing urine. PHYSICAL EXAMINATION: VITAL SIGNS: Temperature 97.5, pulse 86, blood pressure 132/73. GENERAL APPEARANCE: Well developed. No acute distress. HEAD AND NECK: Slightly dry. HEART: Normal rate. LUNGS: Clear. ABDOMEN: Soft, nontender. EXTREMITIES: No edema. NEUROLOGIC: Awake, alert, oriented x3. LABORATORY DATA: WBC 5.9, hemoglobin 13.5, hematocrit 40.2, and platelets 233,000. Sodium 139, potassium 3.9, chloride 105, bicarbonate 26, BUN 8, creatinine 1.4. Alkaline phosphatase is a little high at 117, lipase 65. CT scan of the abdomen and pelvis in [place] showed diverticulosis without diverticulitis and a small solitary pulmonary nodule. IMPRESSION: 1. Diverticulosis without diverticulitis. 2. She has nausea, vomiting, diarrhea. 3. May have gastroenteritis. 4. Hypertension. 5. COPD. 6. Asthma. 7. Seizure disorder. RECOMMENDATION: Observe off antibiotic. We will follow up the lab. At the end of my exam, I thank Dr. Chapa for involving me in the care of this patient. Jonatan Mathews M.D. DR: EUGENIA JOB#: [id number] CC:
--- NOTE | 2019-07-09 11:41 | Diagnostic Imaging Report ---
CLINICAL INDICATION:Chest pain, hypertension, epigastric pain TECHNIQUE: Patient ingested oral contrast. IV administration nonionic contrast. Arterial phase spiral acquisitions obtained through the chest, abdomen, and pelvis. Multiplanar and 3-D reconstructions were generated. Total dose length product 1964 mGycm. CTDIvol(s) 32 mGy. Radiation dose was minimized using automated exposure control COMPARISON: Abdomen pelvis CT dated 04/30/2019. No comparison chest CTs FINDINGS Chest: There is no evidence of thoracic aortic aneurysm or dissection. There is variant branching anatomy of the great neck vessels, with separate origin of the vertebral artery off of the thoracic aorta. Exam protocols not tailored for exclusion of pulmonary embolus. Nonetheless, the pulmonary arteries are well-opacified and there is no evidence of filling defect or other findings to suggest acute pulmonary embolus. The lungs are clear. No infiltrates, effusions, masses, nodules, or congestion. The heart size is normal. No pericardial effusion. The esophagus is unremarkable. The thyroid is enlarged but there are no focal nodules or masses. No axillary chest wall mass or adenopathy. No supraclavicular mass or adenopathy. Abdomen pelvis: No evidence of abdominal aortic aneurysm or dissection. There is mild osteoporotic plaquing of the distal abdominal aorta but no evidence of significant stenosis. The mesenteric and iliac vessels are normal in caliber. The liver is diffusely hypoattenuating, consistent with fatty change. There are some areas of sparing noted. There is a subcentimeter low-attenuation lesion again demonstrated in segment 8, too small to characterize but unchanged. The pancreas is fatty replaced. No biliary ductal dilatation. The gallbladder contains high attenuation material, presumably contrast, etiology uncertain. The spleen and adrenals are unremarkable. The kidneys demonstrate cysts bilaterally. Again demonstrated is an indeterminate lesion coming off of the lower pole of the left kidney, measuring 8 mm in diameter and appearing unchanged. No retroperitoneal or mesenteric mass or adenopathy. No pelvic mass or adenopathy. There is colonic diverticulosis. No evidence of diverticulitis. The appendix is not definitely demonstrated, but there are no findings to suggest acute appendicitis. No small bowel distention. Contrast is seen throughout the entirety of the small bowel and into the proximal colon. No small bowel distention. No small bowel wall thickening. There is a fat-containing ventral hernia again demonstrated. No free or loculated intraperitoneal gas or fluid is evident. The bones are unremarkable except for degenerative changes of the lumbar spine. IMPRESSION: No acute thoracic vascular or other abnormality Enlarged thyroid without evidence of discrete mass No evidence of acute abdominal or pelvic vascular pathology Indeterminate 8 mm left lower pole renal lesion, also previously described. Continued monitoring versus ultrasound recommended Fatty liver Colonic diverticulosis. No evidence of diverticulitis Incidental findings as noted, including fat-containing ventral hernia, degenerative spondylosis This agrees with the preliminary interpretation provided overnight by [facility] teleradiology service. The CT scanner at [facility] is accredited by the [employer] and the scans are performed using protocols designed to limit radiation exposure to as low as reasonably achievable to attain images of sufficient resolution adequate for diagnostic evaluation.
== END 2019-07-08 09:55 | disposition home or self-care (01) | DRG 392 ==
LOC: 2E 15:50 → 3E 07-06 20:17
DX: A08.4 Viral intestinal infection, unspecified (principal); K57.32 Diverticulitis of large intestine without perforation or abscess without bleeding; R07.89 Other chest pain; R10.13 Epigastric pain; I10 Essential (primary) hypertension; E78.5 Hyperlipidemia, unspecified; G89.4 Chronic pain syndrome; K21.9 Gastro-esophageal reflux disease without esophagitis; Z88.6 Allergy status to analgesic agent; Z79.82 Long term (current) use of aspirin; Z85.528 Personal history of other malignant neoplasm of kidney; Z90.5 Acquired absence of kidney; M51.16 Intervertebral disc disorders with radiculopathy, lumbar region; D63.8 Anemia in other chronic diseases classified elsewhere
CPT/HCPCS: 36415; 71275; 74018; 74174; 80048; 80053; 82150; 82248; 83690; 84484; 85025; 93970; J2405

== ENCOUNTER 2019-11-22 09:26 | Outpatient (CLI) | payer MEDICARE, MEDICAID ==
[2019-11-22 09:52] LABS: APPEARANCE,URINE CLEAR; BILIRUBIN, URINE NEGATIVE (NEGATIVE); GLUCOSE, URINE (UA) NEGATIVE (NEGATIVE); KETONES,URINE NEGATIVE (NEGATIVE); LEUKOCYTE ESTERASE ,URINE 2+ (NEGATIVE); NITRITE,URINE NEGATIVE (NEGATIVE); PH,URINE 6.5 (4.5-8.0); PROTEIN,URINE NEGATIVE (NEGATIVE); UROBILINOGEN,URINE NORMAL MG/DL (0.0-1.0)
[2019-11-22 09:56] LABS: HEMATOCRIT 44.7 % (37.0-47.0); HEMOGLOBIN 15.1 G/DL (12.0-16.0); MEAN CORPUSCULAR VOLUME 101 FL (80-99); PLATELET COUNT 252 K/UL (150-450); RED BLOOD COUNT 4.45 M/UL (4.20-5.40); RED CELL DISTRIBUTION WIDTH 10.9 % (11.6-14.8); WHITE BLOOD COUNT 3.4 K/UL (4.8-10.8)
[2019-11-22 10:01] LABS: COLOR,URINE YELLOW
[2019-11-22 10:09] LABS: ALANINE AMINOTRANSFERASE 38 U/L (12-78); ALBUMIN 4.1 G/DL (3.4-5.0); ALBUMIN/GLOBULIN RATIO 0.9 (1.0-2.7); ALKALINE PHOSPHATASE 118 U/L (46-116); ANION GAP 8 mmol/L (5-15); ASPARTATE AMINO TRANSFERASE 28 U/L (15-37); BILIRUBIN,TOTAL 0.7 MG/DL (0.2-1.0); BLOOD UREA NITROGEN 25 mg/dL (7-18); CARBON DIOXIDE 30 MMOL/L (21-32); CHLORIDE 105 MMOL/L (98-107); CREATININE 1.2 MG/DL (0.55-1.30); POTASSIUM 3.5 MMOL/L (3.5-5.1); SODIUM 143 MMOL/L (136-145)
== END 2019-11-22 11:26 | disposition home or self-care (01) ==
LOC: LAB 09:26
DX: K57.90 Diverticulosis of intestine, part unspecified, without perforation or abscess without bleeding (principal)
CPT/HCPCS: 36415; 80053; 81003; 85007; 85025; 87086

== ENCOUNTER → 2020-05-20 | Outpatient (CLI) | payer MEDICARE, MEDICAID ==
[2020-05-20 18:04] LABS: ANION GAP 11 mmol/L (5-15); BLOOD UREA NITROGEN 21 mg/dL (7-18); CALCIUM 10.2 MG/DL (8.5-10.1); CARBON DIOXIDE 29 MMOL/L (21-32); CHLORIDE 101 MMOL/L (98-107); CREATININE 1.4 MG/DL (0.55-1.30); POTASSIUM 4.3 MMOL/L (3.5-5.1); SODIUM 140 MMOL/L (136-145)
== END | disposition home or self-care (01) ==
LOC: LAB 17:03
DX: C64.9 Malignant neoplasm of unspecified kidney, except renal pelvis (principal)
CPT/HCPCS: 36415; 80048

== ENCOUNTER → 2020-06-22 | Outpatient (CLI) | payer MEDICARE, MEDICAID ==
[2020-06-22 13:09] LABS: POTASSIUM 3.6 MMOL/L (3.5-5.1); SODIUM 147 MMOL/L (136-145)
[2020-06-22 13:12] LABS: BASOPHILS % (AUTO) 2.4 % (0.0-2.0); EOSINOPHILS % (AUTO) 1.9 % (0.0-3.0); HEMATOCRIT 46.2 % (37.0-47.0); HEMOGLOBIN 15.5 G/DL (12.0-16.0); LYMPHOCYTES % (AUTO) 36.3 % (20.0-45.0); MEAN CORPUSCULAR VOLUME 100 FL (80-99); MONOCYTES % (AUTO) 8.6 % (1.0-10.0); NEUTROPHILS % (AUTO) 50.8 % (45.0-75.0); PLATELET COUNT 218 K/UL (150-450); RED BLOOD COUNT 4.63 M/UL (4.20-5.40)
[2020-06-22 13:20] LABS: ALANINE AMINOTRANSFERASE 29 U/L (12-78); ALBUMIN 3.9 G/DL (3.4-5.0); ALBUMIN/GLOBULIN RATIO 0.9 (1.0-2.7); ALKALINE PHOSPHATASE 108 U/L (46-116); ANION GAP 9 mmol/L (5-15); ASPARTATE AMINO TRANSFERASE 21 U/L (15-37); BILIRUBIN,TOTAL 0.5 MG/DL (0.2-1.0); BLOOD UREA NITROGEN 24 mg/dL (7-18); CALCIUM 9.1 MG/DL (8.5-10.1); CARBON DIOXIDE 29 MMOL/L (21-32); CHLORIDE 109 MMOL/L (98-107); CHOLESTEROL 157 MG/DL (< 200); CREATININE 1.4 MG/DL (0.55-1.30); HDL CHOLESTEROL 52 MG/DL (40-60); TRIGLYCERIDES 85 MG/DL (30-150)
== END | disposition home or self-care (01) ==
LOC: LAB 12:28
DX: I10 Essential (primary) hypertension (principal); E78.5 Hyperlipidemia, unspecified
CPT/HCPCS: 36415; 80053; 80061; 83036; 85025

== ENCOUNTER → 2020-09-14 | Outpatient (CLI) | payer MEDICARE, MEDICAID ==
[2020-09-14 14:26] LABS: BASOPHILS % (AUTO) 1.8 % (0.0-2.0); EOSINOPHILS % (AUTO) 2.5 % (0.0-3.0); HEMATOCRIT 42.7 % (37.0-47.0); HEMOGLOBIN 14.4 G/DL (12.0-16.0); LYMPHOCYTES % (AUTO) 30.8 % (20.0-45.0); MEAN CORPUSCULAR VOLUME 100 FL (80-99); NEUTROPHILS % (AUTO) 58.9 % (45.0-75.0); PLATELET COUNT 224 K/UL (150-450); RED BLOOD COUNT 4.26 M/UL (4.20-5.40); RED CELL DISTRIBUTION WIDTH 12.3 % (11.6-14.8); WHITE BLOOD COUNT 4.3 K/UL (4.8-10.8)
[2020-09-14 14:51] LABS: ALANINE AMINOTRANSFERASE 26 U/L (12-78); ALKALINE PHOSPHATASE 107 U/L (46-116); ANION GAP 7 mmol/L (5-15); ASPARTATE AMINO TRANSFERASE 24 U/L (15-37); BILIRUBIN,DIRECT 0.2 MG/DL (0.0-0.3); BILIRUBIN,TOTAL 0.6 MG/DL (0.2-1.0); BLOOD UREA NITROGEN 20 mg/dL (7-18); CALCIUM 9.6 MG/DL (8.5-10.1); CARBON DIOXIDE 28 MMOL/L (21-32); CHLORIDE 105 MMOL/L (98-107); CREATININE 1.2 MG/DL (0.55-1.30); POTASSIUM 3.8 MMOL/L (3.5-5.1); SODIUM 140 MMOL/L (136-145)
== END | disposition home or self-care (01) ==
LOC: LAB 13:08
DX: R03.0 Elevated blood-pressure reading, without diagnosis of hypertension (principal)
CPT/HCPCS: 36415; 80053; 82248; 84443; 85025

== ENCOUNTER → 2020-12-13 | Outpatient (CLI) | payer MEDICARE, MEDICAID ==
[2020-12-13 10:38] LABS: APPEARANCE,URINE SLIGHTLY CLOUDY; BILIRUBIN, URINE NEGATIVE (NEGATIVE); COLOR,URINE PALE YELLOW; GLUCOSE, URINE (UA) NEGATIVE (NEGATIVE); KETONES,URINE NEGATIVE (NEGATIVE); LEUKOCYTE ESTERASE ,URINE 2+ (NEGATIVE); NITRITE,URINE NEGATIVE (NEGATIVE); PH,URINE 5 (4.5-8.0); PROTEIN,URINE NEGATIVE (NEGATIVE); UROBILINOGEN,URINE NORMAL MG/DL (0.0-1.0)
[2020-12-13 10:41] LABS: BASOPHILS % (AUTO) 1.8 % (0.0-2.0); EOSINOPHILS % (AUTO) 1.7 % (0.0-3.0); HEMATOCRIT 45.6 % (37.0-47.0); HEMOGLOBIN 13.9 G/DL (12.0-16.0); LYMPHOCYTES % (AUTO) 29.7 % (20.0-45.0); MEAN CORPUSCULAR VOLUME 107 FL (80-99); MONOCYTES % (AUTO) 5.3 % (1.0-10.0); NEUTROPHILS % (AUTO) 61.5 % (45.0-75.0); PLATELET COUNT 212 K/UL (150-450); RED BLOOD COUNT 4.24 M/UL (4.20-5.40); RED CELL DISTRIBUTION WIDTH 12.6 % (11.6-14.8); WHITE BLOOD COUNT 4.1 K/UL (4.8-10.8)
[2020-12-13 11:06] LABS: ALANINE AMINOTRANSFERASE 25 U/L (12-78); ALBUMIN 4.4 G/DL (3.4-5.0); ALBUMIN/GLOBULIN RATIO 1.1 (1.0-2.7); ALKALINE PHOSPHATASE 103 U/L (46-116); ANION GAP 11 mmol/L (5-15); ASPARTATE AMINO TRANSFERASE 25 U/L (15-37); BILIRUBIN,TOTAL 0.7 MG/DL (0.2-1.0); BLOOD UREA NITROGEN 28 mg/dL (7-18); CALCIUM 10.5 MG/DL (8.5-10.1); CARBON DIOXIDE 28 MMOL/L (21-32); CHLORIDE 110 MMOL/L (98-107); CHOLESTEROL 167 MG/DL (< 200); CREATININE 1.4 MG/DL (0.55-1.30); HDL CHOLESTEROL 53 MG/DL (40-60); POTASSIUM 3.7 MMOL/L (3.5-5.1); SODIUM 148 MMOL/L (136-145); TRIGLYCERIDES 149 MG/DL (30-150)
== END | disposition home or self-care (01) ==
LOC: LAB 08:23
DX: I10 Essential (primary) hypertension (principal); N39.0 Urinary tract infection, site not specified; E11.9 Type 2 diabetes mellitus without complications
CPT/HCPCS: 36415; 80053; 80061; 81003; 83690; 84443; 85025; 87086